=== PATIENT | male | born 1955 | race Caucasian/White ===

== ENCOUNTER 2020-07-07 11:04 | Inpatient (IN) | payer MEDICARE, SELFPAY ==
--- NOTE | ~2020-07-07 | US_ITS ---
EXAMINATION: US art doppler w press LE BI DATE: 07/08/2020 10:31 INDICATION: Nonhealing diabetic foot wound TECHNIQUE: Segmental pressures and plethysmographic and Doppler waveforms of the brachial and lower e xtremity arteries were obtained. COMPARISON: None. FINDINGS: Right and left brachial artery pressures of 125 mm Hg and 127 mm Hg, respectively, are concordant (no rmal difference <= 30 mmHg). The right and left high-thigh pressure indices are 0.76 and 0.83, respec tively (normal > 1.2). The right ankle-brachial index (GRACE) is 0.62 (normal >= 0.9-1). The right great toe-brachial index (T BI) is 0.38 (normal >= 0.6-0.8). The right lower extremity segmental pressure gradients are normal (n ormal gradients <= 20-30 mmHg between adjacent levels on the same leg or the same levels on the two l egs). Arterial waveforms are biphasic throughout with brisk systolic upstrokes at the right common fe moral and superficial femoral arteries with progressive broadening of the systolic peaks and delayed upstrokes in the more distal arteries with near monophasic waveform in the right dorsalis pedis arter y. The left GRACE is 0.74. The left TBI is 0.50. The left lower extremity segmental pressure gradients are normal. Arterial waveforms are triphasic at the left common femoral artery and biphasic in the more distal arteries with borderline delayed systolic upstroke at the left popliteal artery and with brisk systolic upstrokes in the remaining arteries. IMPRESSION: 1. Arterial occlusive disease to both lower limbs with moderately decreased bilateral high thigh brac hial indices, ankle-brachial indices and toe brachial indices. Reviewed, dictated and finalized at location A. L RIGGER IMPRESSION: 1. Arterial occlusive disease to both lower limbs with moderately decreased hardeep ateral high thigh brachial indices, ankle-brachial indices and toe brachial ind ices.
--- NOTE | ~2020-07-07 | XR_ITS ---
XR toe 5th RT min 2V DATE: 07/07/2020 11:57 INDICATION: Infection. Diabetes. TECHNIQUE: 3 views of right fifth toe COMPARISON: None FINDINGS: Proximal and distal interphalangeal joint spaces are preserved. No fracture or dislocation is evident. No periosteal reaction or apparent bone destruction is noted. Three-phase radiographic bone scan would be more sensitive for detection of osteomyelitis. There is hypertrophic degenerative spurring of the tarsal joints. IMPRESSION: No radiographic evidence of osteomyelitis; three-phase radionuclide bone scan would be mo re sensitive. Reviewed, dictated and finalized at location A. NG SUPERVISOR IMPRESSION: No radiographic evidence of osteomyelitis; three-phase radionuclide bone scan would be more sensitive.
[2020-07-07 11:09] VITALS: BP 147/89; PULSE 104; RESP 14; TEMP 36.6; O2SAT 99
[2020-07-07 11:17] LABS: Glucose Point of Care 147 (65-105)
[2020-07-07 11:29] LABS: Basophils Percent Auto 0.4 % (0.2-1.2); Eosinophils Absolute Auto 0.2 K/mm3 (0-0.3); Eosinophils Percent Auto 2.1 % (0-4.4); Hemoglobin 14.8 g/dL (14.0-18.0); Immature Granulocyte Absolute 0.02 K/mm3 (0.00-0.031); Immature Granulocyte Percent A 0.2 % (0-0.5); Lymphocytes Absolute Auto 1.18 K/mm3 (0.9-3.2); Lymphocytes Percent Auto 14.7 % (18.3-44.2); Mean Corpuscular HGB Conc 34.4 g/dl (32-36); Mean Corpuscular Hemoglobin 31.1 pg (26-34); Mean Corpuscular Volume 90.3 fl (80-100); Mean Platelet Volume 10.6 fl (7.4-10.4); Monocytes Absolute Auto 0.7 K/mm3 (0.1-0.6); Monocytes Percent Auto 8.7 % (2.6-8.5); Neutrophils Absolute Auto 5.9 K/mm3 (1.3-6.7); Neutrophils Percent Auto 73.9 % (45.5-73.1); Platelet Count Result 182 k/mm3 (150-375); Red Blood Count 4.76 M/mm3 (4.6-6.20); Red Cell Distribution Width 13.4 % (11.5-14.5)
[2020-07-07 11:46] LABS: Lactic Acid Reflex 2.2 mmol/L (0.7-2.1)
[2020-07-07 11:50] LABS: Anion Gap 8 mmol/L (8-16); Blood Urea Nitrogen 14 mg/dL (9-20); CRP 2.1 mg/dL (<1.0); Carbon Dioxide 28 mmol/L (22-30); Chloride 101 mmol/L (98-107); Estimated CRCL calculation 80 ml/min; Estimated Glomerular Filt Rate > 60; Glucose 185 mg/dL (75-110); Potassium 4.7 mmol/L (3.4-5.0); Sodium 137 mmol/L (137-145)
--- NOTE | 2020-07-07 12:01 | ED.GENADULT ---
HPI - General Adult General Chief complaint: Wound/Laceration Stated complaint: right foot wound Time Seen by Provider: 07/07/20 11:14 Source: patient Mode of arrival: ambulatory Limitations: no limitations History of Present Illness HPI narrative: Patient is a 64-year-old male who presents with a week and a half duration of right pinky toe redness and wound patient has been on antibiotics during this period with no improvement was instructed by primary care to come to the emergency department for further evaluation patient denies any injury or trauma or similar occurrence. Patient notes that it may have been preceded by cutting his toenail and developing a small wound which has increased in size. Patient notes minimal pain. Patient denies fever chills nausea vomiting or other complaints. Related Data Home Medications Medication Instructions Recorded Confirmed dulaglutide [Trulicity] 1.5 mg SUBCUT WEEKLY 07/07/20 gabapentin 300 mg PO TID 07/07/20 07/07/20 glimepiride 2 mg PO DAILY 07/07/20 lisinopril 2.5 mg PO DAILY 07/07/20 pravastatin 10 mg PO HS 07/07/20 Allergies Allergy/AdvReac Type Severity Reaction Status Date / Time No Known Allergies Allergy Verified 07/07/20 11:15 Review of Systems Review of Systems: All systems reviewed & are unremarkable except as noted in HPI and below PMFSH Past Medical History Medical History (Updated 07/07/20 @ 14:05 by Anselmo Perera PA-C) Diabetes mellitus Hypertension Social History Social History (Updated 07/07/20 @ 12:02 by Anselmo Perera PA-C) Smoking status: Current every day smoker Exam Narrative: Exam Narrative: GENERAL: Well-appearing, well-nourished, and in no acute distress. HEAD: Normocephalic, atraumatic. EYES: PERRLA and EOMI. ENT: Nares clear, no rhinorrhea or epistaxis. Mucous membranes moist. CHEST: Clear to auscultation. No respiratory distress. No wheezes rales or rhonchi HEART: Regular rate and rhythm. No murmur heard. Normal peripheral pulses. EXTREMITIES: Normal range of motion. No edema. Patient with red tender pinky toe with discolored dark area involving the medial aspect extending into the anterior portion of the digit distally around the nail no drainage no fluctuance. Lymphangitic streaking to the midfoot SKIN: Warm, dry, no rash. NEURO: No focal deficits. Alert and oriented x3. Neurovascularly intact PSYCH: Normal mood and affect. Course Course Emergency Course: Patient evaluated in the emergency department for a cellulitic right pinky toe with lymphangitic streaking has been present for a week and a half not improving with antibiotics will be brought into the hospital for further evaluation by the hospitalist and general surgery patient's antibiotics were started in the emergency department patient agrees with this plan Consultations Consultation #1: Discussed case with Dr. Curiel who will accept the patient to the hospitalist service Discussed case with general surgery Dr. Barbour who will consult on the patient Date: 07/07/20 Time: 14:03 Vital Signs Vital signs: Vital Signs Temperature 97.8 F 07/07/20 11:09 Pulse Rate 104 H 07/07/20 11:09 Respiratory Rate 14 07/07/20 11:09 Blood Pressure 147/89 H 07/07/20 11:09 Pulse Oximetry 99 07/07/20 11:09 Temperature 97.8 F 07/07/20 11:09 Pulse Rate 82 07/07/20 13:57 Respiratory Rate 14 07/07/20 13:57 Blood Pressure 132/81 07/07/20 13:57 Pulse Oximetry 97 07/07/20 13:57 Medical Decision Making [facility] Narrative Medical decision making narrative: Patient with diabetic cellulitic toe antibiotics initiated in the emergency department will be brought into the hospital for further evaluation patient with normal vital signs hemodynamically stable ABCs intact agreeing with the plan afebrile nontoxic-appearing no distress Vital Signs Vital Signs: Vital Signs Temperature 97.8 F 07/07/20 11:09 Pulse Rate 104 H 07/07/20 11:09 Respiratory Rate 14
[2020-07-07 12:02] LABS: Erythrocyte Sedimentation Rate 27 mm/hr (0-20)
[2020-07-07 13:57] VITALS: BP 132/81; PULSE 82; RESP 14; O2SAT 97
[2020-07-07 14:27] LABS: Reflex Lactic Acid Yes or No Add Lactic
[2020-07-07 14:57] VITALS: BP 128/70; PULSE 80; RESP 12; O2SAT 99
--- NOTE | 2020-07-07 15:00 | PM.IMHP ---
H&P: HPI History of Present Illness Date/Time: 07/07/20 15:00 Chief Complaint: Right 5th toe wound/infection Narrative: Thanh Herrera is a 64-year-old male with type 2 diabetes mellitus with peripheral neuropathy, hypertension, and hyperlipidemia presented to the emergency department earlier today for evaluation of an infected wound on his right 5th toe. The toe has been red and swollen for about a week and a half after he accidentally cut himself trimming his toenails. Despite oral antibiotics it has not improved and in fact part of the wound has become darkened discolored. He had not had pain up until about 03:00 when it began to ache and woke him from sleep. No history of MRSA. He denies fever, chills, sweats. No nausea or vomiting. Review of Systems Review of Systems: Narrative: Twelve systems were reviewed with pertinent positives and negatives as per HPI. No recent cold or flu symptoms. No cough or shortness of breath. He denies blurry vision, polydipsia, and polyuria. It does not sound as though he checks his glucose daily. He believes his most recent hemoglobin A1c was 7%. Calves will occasionally become sore when walking long distances but no overt claudication. Except as documented, all other systems were reviewed and are negative. [facility] Past Medical History Medical History (Updated 07/07/20 @ 21:48 by Debbie Dutta PA-C) Diabetic peripheral neuropathy Hyperlipidemia Hypertension Nicotine dependence Type 2 diabetes mellitus Most recent hemoglobin A1c as of 07/07/2020 was 7%. Surgical History Surgical History (Updated 07/07/20 @ 21:48 by Debbie Dutta PA-C) History of cardiac catheterization Reported clear coronary arteries. History of ventral hernia repair Family History Family History Mother Breast cancer Father Throat cancer Social History Social History (Updated 07/07/20 @ 21:49 by Debbie Dutta PA-C) Social History: The patient lives in [place]. He still works part-time. Smokes approximately 1 pack of cigarettes per day. No alcohol or illicit substance use. Taylor is his surrogate decision maker and he wishes to be a full code. Smoking packs per day: 1 Smoking cigarettes per day: 20.0 Years smoked: 40 Smoking pack-years: 40.00 Alcohol intake: never Substance use: never Spiritual care concerns: No Meds Home Medications and Allergies Home Medications Medication Instructions Recorded Confirmed Type dulaglutide [Trulicity] 0.75 mg SUBCUT WEEKLY 07/07/20 07/07/20 History dulaglutide [Trulicity] 1.5 mg SUBCUT WEEKLY 07/07/20 07/07/20 History gabapentin 300 mg PO TID 07/07/20 07/07/20 History glimepiride 2 mg PO BID 07/07/20 07/07/20 History lisinopril 2.5 mg PO DAILY 07/07/20 07/07/20 History pravastatin 10 mg PO HS 07/07/20 07/07/20 History Allergies Allergy/AdvReac Type Severity Reaction Status Date / Time No Known Allergies Allergy Verified 07/07/20 11:15 Vital Signs Vital Signs - 24 hr 07/07/20 11:09 07/07/20 13:57 Temperature 97.8 F Pulse Rate 104 H 82 Respiratory Rate 14 14 Blood Pressure 147/89 H 132/81 Pulse Oximetry 99 97 Exam Narrative: Exam Narrative: General: Well-developed male supine in bed in no distress. Weight: 89.7 kg. BMI: 29.2. HEENT: Wearing glasses. PERRL, EOMI. Sclerae anicteric. Oral mucosa moist. Neck: Supple. Respiratory: Lungs are clear to auscultation bilaterally. Cardiovascular: Regular rate and rhythm with S1-S2. Gastrointestinal: Abdomen is soft, nontender, and nondistended with positive bowel sounds. Skin: Warm and dry. Right 5th toe with surrounding erythema and edema extending up to the dorsum of the forefoot. The medial aspect of the wound is discolored with nonviable tissue. Extremities: No cyanosis, clubbing, or significant edema. Radial pulses 2+. Pedal pulses diminished but palpable. Extremities
[2020-07-07 15:15] VITALS: BP 130/80; PULSE 88; RESP 14; TEMP 36.6; O2SAT 100
[2020-07-07] MEDS: SILVERGEL (ELTA) 45 ML 1 APPLIC TOPICAL (15:30)
[2020-07-07] MEDS: LACTATED RINGERS 1,000 ML 75 ML IV CONT (15:35)
[2020-07-07 15:45] VITALS: BMI 29.2
[2020-07-07 15:50] VITALS: PULSE 88; RESP 14; O2SAT 100
[2020-07-07 15:59] LABS: Hemoglobin A1C 7.1 % (<5.7)
[2020-07-07 16:03] LABS: Lactic Acid 1.3 mmol/L (0.7-2.1)
[2020-07-07 16:16] LABS: Alanine Aminotransferase 19 U/L (4-50); Albumin Level 3.8 g/dL (3.5-5.1); Alkaline Phosphatase 72 U/L (38-126); Aspartate Amino Transferase 19 U/L (17-59); Bilirubin,Total 0.7 mg/dL (0.2-1.3)
[2020-07-07 16:50] LABS: Glucose Point of Care 103 (65-105)
[2020-07-07 20:00] VITALS: BP 118/73; PULSE 84; RESP 16; TEMP 36.5; O2SAT 97
[2020-07-07 22:04] LABS: Glucose Point of Care 160 (65-105)
[2020-07-08 00:04] VITALS: BP 128/85; PULSE 88; RESP 16; TEMP 36.5; O2SAT 98
[2020-07-08] MEDS: NICOTINE (*PBKC) 21 MG PATCH 1 PATCH TRANSDERM ×2 (02:42→08:16)
[2020-07-08 04:00] VITALS: BP 121/77; PULSE 89; RESP 16; TEMP 36.9; O2SAT 97
[2020-07-08 06:39] LABS: Basophils Percent Auto 0.3 % (0.2-1.2); Eosinophils Absolute Auto 0.2 K/mm3 (0-0.3); Eosinophils Percent Auto 2.1 % (0-4.4); Hematocrit 39.6 % (42.0-52.0); Hemoglobin 13.4 g/dL (14.0-18.0); Immature Granulocyte Absolute 0.02 K/mm3 (0.00-0.031); Immature Granulocyte Percent A 0.3 % (0-0.5); Lymphocytes Absolute Auto 1.29 K/mm3 (0.9-3.2); Lymphocytes Percent Auto 18.4 % (18.3-44.2); Mean Corpuscular HGB Conc 33.8 g/dl (32-36); Mean Corpuscular Hemoglobin 30.7 pg (26-34); Mean Corpuscular Volume 90.6 fl (80-100); Mean Platelet Volume 10.8 fl (7.4-10.4); Monocytes Absolute Auto 0.7 K/mm3 (0.1-0.6); Monocytes Percent Auto 9.3 % (2.6-8.5); Neutrophils Absolute Auto 4.9 K/mm3 (1.3-6.7); Neutrophils Percent Auto 69.6 % (45.5-73.1); Platelet Count Result 178 k/mm3 (150-375); Red Blood Count 4.37 M/mm3 (4.6-6.20); Red Cell Distribution Width 13.3 % (11.5-14.5)
[2020-07-08 06:52] LABS: Anion Gap 4 mmol/L (8-16); Blood Urea Nitrogen 13 mg/dL (9-20); Calcium 8.9 mg/dL (8.4-10.2); Carbon Dioxide 32 mmol/L (22-30); Chloride 99 mmol/L (98-107); Estimated CRCL calculation 80 ml/min; Estimated Glomerular Filt Rate > 60; Glucose 107 mg/dL (75-110); Potassium 4.3 mmol/L (3.4-5.0); Sodium 135 mmol/L (137-145)
[2020-07-08 07:42] LABS: Glucose Point of Care 125 (65-105)
[2020-07-08 08:00] VITALS: BP 117/74; PULSE 92; RESP 14; O2SAT 98
[2020-07-08] MEDS: GABAPENTIN 300 MG CAPSULE PO ×3 (08:16→17:19)
[2020-07-08] MEDS: lisinopriL 2.5 MG TABLET PO (08:16)
[2020-07-08] MEDS: GLIMEPIRIDE 2 MG TABLET PO ×2 (08:16→17:19)
[2020-07-08] MEDS: SILVERGEL (ELTA) 45 ML 1 APPLIC TOPICAL (08:41)
[2020-07-08 11:36] LABS: Glucose Point of Care 134 (65-105)
[2020-07-08 12:00] VITALS: BP 113/75; PULSE 89; RESP 15; TEMP 36.6; O2SAT 97
--- NOTE | 2020-07-08 12:58 | PM.CNGS ---
Assessment and Plan Assessment and plan (1) Cellulitis of fifth toe of right foot: Code(s): L03.031 - Cellulitis of right toe Status: Acute Assessment and Plan: Cellulitis of the right 5th toe with a dry eschar over the distal tip that does probe to bone. No purulent drainage. Preliminary results of the wound culture show growth of gram positive cocci. No evidence of osteomyelitis on x-ray. ABIs showed arterial occlusive disease to both lower limbs, worse on the right. No plans for surgical intervention by our services at this time due to his peripheral arterial disease. This patient needs to be evaluated by a vascular surgeon to see if they are able to improve his arterial flow. In the meantime, continue local wound care with silver gel and gauze dressing changes daily. Abx per Hospitalist. Okay from a surgical standpoint to discharge this patient when okay with other services and have him follow-up with vascular surgery as soon as possible as an outpatient. Thank you for allowing us to see the patient in consultation. (2) Type 2 diabetes mellitus: Code(s): E11.9 - Type 2 diabetes mellitus without complications Status: Chronic Assessment and Plan: Followed by Endocrinology. Hgb A1C 7.1 and glucose controlled this morning (107). Management per Hospitalist. I discussed the importance of glycemic control with the patient. (3) Diabetic peripheral neuropathy: Code(s): E11.42 - Type 2 diabetes mellitus with diabetic polyneuropathy Status: Acute (4) Hypertension: Code(s): I10 - Essential (primary) hypertension Status: Chronic (5) Hyperlipidemia: Code(s): E78.5 - Hyperlipidemia, unspecified Status: Chronic (6) Nicotine dependence: Code(s): F17.200 - Nicotine dependence, unspecified, uncomplicated Status: Acute Assessment and Plan: Encouraged cessation, discussed importance. (7) Peripheral arterial disease: Code(s): I73.9 - Peripheral vascular disease, unspecified Status: Acute Additional Plan Discussed the patient's case and plan of care with Dr. Barbour. History of Present Illness Consult details Consult date: 07/08/20 Reason for consult: other (Right 5th toe diabetic wound) Requesting physician: Anselmo Perera PA-C Narrative: This is a 64-year-old male with type 2 diabetes mellitus, hypertension, and tobacco dependence, who presented to the emergency department with complaints of right 5th toe wound with redness. He states that he was clipping his toenails about 1.5 weeks ago and clipped the right 5th toe too short and it began bleeding. About 2-3 days after, he noticed a black discoloration to the tip of his 5th toe with swelling and redness. He called his Maintenance Trainer and they directed him to be evaluated by his PCP. He saw his PCP 8 days ago, who started him on oral antibiotics and follow-up again in one week. He was re-evaluated yesterday by his PCP and he states that because of some red streaking up his right foot, he was directed to the ER for further evaluation. Right toe x-ray showed no radiographic evidence of osteomyelitis. WBC normal and patient afebrile. He was started on broad-spectrum IV antibiotics and admitted to the Hospitalist service. Wound culture of the right 5th toe wound was performed and preliminary results currently show growth of gram positive cocci. Blood cultures were drawn also and are pending. Our service has been consulted for evaluation of the diabetic foot wound on his right 5th toe. ABIs were ordered today and showed arterial occlusive disease to both lower limbs with moderately decreased bilateral high thigh brachial indices, ankle-brachial indices and toe brachial indices. The patient is now being seen in the chest pain center as an overflow medical patient. He denies any pain in his right foot and reports decreased sensation in bilateral feet. He denies any history of foot infections or surgery on his feet.
--- NOTE | 2020-07-08 14:28 | PM.IMPN ---
Progress Note: A&P Assessment and Plan (1) Cellulitis of fifth toe of right foot: Code(s): L03.031 - Cellulitis of right toe Status: Acute Assessment and Plan: Continue iv primaxin and iv vancomycin , bc negative to date, seen by surgery, dressing on, wcc nl, hopeful dc tomorrow with follow up (2) Type 2 diabetes mellitus: Code(s): E11.9 - Type 2 diabetes mellitus without complications Status: Chronic Assessment and Plan: accuchecks ssi hbaic is 7 (3) Diabetic peripheral neuropathy: Code(s): E11.42 - Type 2 diabetes mellitus with diabetic polyneuropathy Status: Acute (4) Hypertension: Code(s): I10 - Essential (primary) hypertension Status: Chronic Assessment and Plan: on bp medications (5) Hyperlipidemia: Code(s): E78.5 - Hyperlipidemia, unspecified Status: Chronic (6) Nicotine dependence: Code(s): F17.200 - Nicotine dependence, unspecified, uncomplicated Status: Acute Assessment and Plan: on nicotine patch (7) Elevated lactic acid level: Code(s): R79.89 - Other specified abnormal findings of blood chemistry Status: Acute Subjective Date/time seen: 07/08/20 14:28 Interval history: Javier is a 64-year-old male with type 2 diabetes mellitus with peripheral neuropathy, hypertension, and hyperlipidemia presented to the emergency department earlier today for evaluation of an infected wound on his right 5th toe. Seen by surgery BC negative to date would like to go home, maybe tomorrow. Review of Systems Review of Systems: All systems reviewed & are unremarkable except as noted in HPI and below Exam Narrative: Exam Narrative: General: Well-developed male supine HEENT: PERRL, EOMI. . Neck: Supple. Respiratory: Lungs are clear to auscultation bilaterally. Cardiovascular: Regular rate and rhythm with S1-S2. Gastrointestinal: Abdomen is soft, nontender, and nondistended with positive bowel sounds. Skin: Warm and dry. Right 5th toe with dressing on Extremities: No cyanosis, clubbing, or significant edema. Neurological: Alert. Cranial nerves 2-12 are grossly intact. No gross focal deficits to casual conversation. Psychiatric: Pleasant and cooperative with normal mood and affect. Judgment and insight intact. Objective Data Vital Signs Vital Signs: Vital Signs - 24 hr 07/07/20 14:57 07/07/20 15:15 07/07/20 15:50 Temperature 36.6 C Pulse Rate 80 88 88 Respiratory Rate 12 14 14 Blood Pressure 128/70 130/80 Pulse Oximetry 99 100 100 07/07/20 20:00 07/08/20 00:04 07/08/20 04:00 Temperature 36.5 C 36.5 C 36.9 C Pulse Rate 84 88 89 Respiratory Rate 16 16 16 Blood Pressure 118/73 128/85 121/77 Pulse Oximetry 97 98 97 07/08/20 08:00 07/08/20 12:00 Temperature 36.6 C Pulse Rate 92 89 Respiratory Rate 14 15 Blood Pressure 117/74 113/75 Pulse Oximetry 98 97 Intake/Output Intake/Output: Intake & Output 07/05/20 07/06/20 07/07/20 07/08/20 23:59 23:59 23:59 23:59 Intake Total 1205 1400 Balance 1205 1400 Meds/Results Medications: Active Medications Generic Name Dose Route Start Last Admin Trade Name Freq PRN Reason Stop Dose Admin Acetaminophen 650 mg 07/07/20 15:15 Acetaminophen 325 Mg Tablet PO Q6H PRN Mild Pain (1-3) or Fever Dextrose 12.5 gm 07/07/20 14:06 Dextrose 50% 25 Gm/50 Ml Syringe IV PUSH PRN PRN Hypoglycemia Protocol Gabapentin 300 mg 07/08/20 09:00 07/08/20 12:23 Gabapentin 300 Mg Capsule PO 300 mg TID YENNY Administration Glimepiride 2 mg 07/08/20 08:00 07/08/20 08:16 Glimepiride 2 Mg Tablet PO 2 mg BIDWM YENNY Administration Glucagon 1 mg 07/07/20 14:06 Glucagon For Inj 1 Mg Vial IM PRN PRN Hypoglycemia Protocol Glucose 15 gm 07/07/20 14:06 Glucose Oral Gel 15 Gm Of Glucse In 37.5 Gm Tube PO PRN PRN Hypoglycemia Protocol Imipenem
[2020-07-08 16:00] VITALS: BP 102/69; PULSE 84; RESP 15; O2SAT 98
[2020-07-08 16:20] LABS: Glucose Point of Care 125 (65-105)
[2020-07-08 20:00] VITALS: BP 122/74; PULSE 99; RESP 18; TEMP 36.2; O2SAT 100
[2020-07-08] MEDS: PRAVASTATIN SODIUM 10 MG TABLET PO (20:13)
[2020-07-08 21:32] LABS: Glucose Point of Care 173 (65-105)
[2020-07-09] VITALS: BP 117/70; PULSE 86; RESP 20; TEMP 36.2; O2SAT 98
[2020-07-09 01:04] LABS: Vancomycin Trough 11.4 ug/mL (10.0-20.0)
[2020-07-09 04:00] VITALS: BP 128/75; PULSE 88; RESP 20; TEMP 36.4; O2SAT 97
[2020-07-09 07:57] VITALS: BP 110/65; PULSE 87; RESP 14; TEMP 37.2; O2SAT 98
[2020-07-09 08:06] LABS: Glucose Point of Care 132 (65-105)
[2020-07-09] MEDS: lisinopriL 2.5 MG TABLET PO (09:59)
[2020-07-09] MEDS: GLIMEPIRIDE 2 MG TABLET PO (09:59)
[2020-07-09] MEDS: NICOTINE (*PBKC) 21 MG PATCH 1 PATCH TRANSDERM (09:59)
[2020-07-09] MEDS: GABAPENTIN 300 MG CAPSULE PO (09:59)
[2020-07-09] MEDS: SILVERGEL (ELTA) 45 ML 1 APPLIC TOPICAL (10:02)
[2020-07-09 11:25] LABS: Glucose Point of Care 163 (65-105)
[2020-07-09 12:00] VITALS: BP 124/82; PULSE 92; RESP 17; TEMP 36.9; O2SAT 98
--- NOTE | 2020-07-09 13:45 | PM.DS ---
DS: Admitting Diagnosis Admitting Diagnosis Admitting Diagnosis: R fifth toe infection DS: Discharge Diagnosis Discharge Diagnosis (1) Cellulitis of fifth toe of right foot: Code(s): L03.031 - Cellulitis of right toe Status: Acute Assessment and Plan: Pt treated with iv primaxin and iv vancomycin , bc negative to date, seen by surgery pt to continue local wound care and oral abx, dressing on, wcc nl, discharge with dixocillin and wound clinic follow up. Pt may benefit from vascular surgery apt later. (2) Type 2 diabetes mellitus: Code(s): E11.9 - Type 2 diabetes mellitus without complications Status: Chronic Assessment and Plan: accuchecks ssi hbaic is 7, control with tight control (3) Diabetic peripheral neuropathy: Code(s): E11.42 - Type 2 diabetes mellitus with diabetic polyneuropathy Status: Acute Assessment and Plan: continue gabapentin (4) Hypertension: Code(s): I10 - Essential (primary) hypertension Status: Chronic Assessment and Plan: continue on bp medications (5) Hyperlipidemia: Code(s): E78.5 - Hyperlipidemia, unspecified Status: Chronic Assessment and Plan: continue statins (6) Nicotine dependence: Code(s): F17.200 - Nicotine dependence, unspecified, uncomplicated Status: Acute Assessment and Plan: on nicotine patch, adviced to quit smoking. (7) Elevated lactic acid level: Code(s): R79.89 - Other specified abnormal findings of blood chemistry Status: Acute DS: Summary Hospital Course Hospital Course: Javier is a 64-year-old male with type 2 diabetes mellitus with peripheral neuropathy, hypertension, and hyperlipidemia presented to the emergency department earlier today for evaluation of an infected wound on his right 5th toe. Seen by surgery advised to continue local wound care and oral abx for now. Blood culture is negative to date would like to go home today with follow up in wound care. He may benefit from vascular clinic apt later Time Spent with Patient Time attestation: Total time spent providing and/or coordinating discharge services: Exam Narrative: Exam Narrative: General: Well-developed male supine Neck: Supple. Respiratory: Lungs are clear to auscultation bilaterally. Cardiovascular: Regular rate and rhythm with S1-S2. Gastrointestinal: Abdomen is soft, nontender, and nondistended with positive bowel sounds. Skin: Warm and dry. Right 5th toe with dressing on Extremities: No cyanosis, clubbing, or significant edema. Neurological: Alert. Cranial nerves 2-12 are grossly intact. No gross focal deficits to casual conversation. Psychiatric: Pleasant and cooperative with normal mood and affect. Judgment and insight intact. DS: Data Data Completed and Pending Labs on day of discharge: Labs from last 24 hours 07/09/20 07/09/20 07/09/20 11:23 07:32 00:11 POC Capillary Glucose 163 H 132 H Vancomycin Trough 11.4 07/08/20 07/08/20 21:11 16:14 POC Capillary Glucose 173 H 125 H Vancomycin Trough Preliminary micro results at discharge 07/07/20 11:30 Anaerobic Culture - Preliminary Toe Right Fifth Aerobic Culture - Preliminary Staphylococcus aureus Gram negative bacilli isolated 07/07/20 12:10 Blood Culture - Preliminary Blood 07/07/20 11:17 Blood Culture - Preliminary Blood Discharge Plan Discharge Attending physician on discharge: Jaclyn Correa Consulting providers: Gwendolyn Barbour ; Anselmo Perera ; Melanie Mata ; Edson Hernandez ; Thanh King Discharging Clinician: Jaclyn Correa Anticipated Discharge Date/Time: 07/09/20 13:39 Patient Disposition: Home, Self-Care Activity: as tolerated Diet: diabetic Wound Care Instructions: change dressing daily Discharge Instructions: ADVISED TO QUIT SMOKING WOUND CARE TEAM FOLLOW UP IN 2 weeks time Patient Instru
--- NOTE | 2020-07-09 14:37 | PC.NURSE ---
1430-pt taken via wheelchair to waiting vehicle. Questions answered and verbalized understanding. AOx4. PIV removed intact. Right pinky toe much less red and painful. Taken via wheelchair to waiting vehicle. No distress noted or verbalized at time of discharge.
== END 2020-07-09 14:25 | disposition home or self-care (01) | DRG 639 ==
LOC: ANHED 14:05 → ANHCPC 14:27
PROVIDERS: Emergency Medicine Emergency Medical Services; Family Medicine; Admitting Provider Internal Medicine; Emergency Provider Emergency Medicine; PCP Family Medicine Sports Medicine; Visit Provider Physician Assistant
DX: E11.628 Type 2 diabetes mellitus with other skin complications (principal); L03.031 Cellulitis of right toe; I10 Essential (primary) hypertension; E78.5 Hyperlipidemia, unspecified; F17.210 Nicotine dependence, cigarettes, uncomplicated; E11.42 Type 2 diabetes mellitus with diabetic polyneuropathy
CPT/HCPCS: 36415; 73660; 80048; 80076; 80202; 82948; 83036; 83605; 85025; 85652; 86140; 87040; 87070; 87075; 87077; 87147; 87186; 87205; 93923; 96365; 96367; 99285; A9270; J0743; J3370; J7040; J7120

== ENCOUNTER 2020-07-11 12:02 | Emergency (ER) | payer MEDICARE, SELFPAY ==
[2020-07-11 12:05] VITALS: BP 135/78; PULSE 108; RESP 18; TEMP 36.6; O2SAT 98
--- NOTE | 2020-07-11 13:40 | PC.NURSE ---
patient brought back to ED room H3 for wound check. see initial notes. patient resting on stretcher. was just discharged from this hospital on 07/09/20 for same issue. noted increasing redness and change in drainage from right 5th metatarsal last night. denies known fever. has been set up with C and wound care already. has seen patient. labs ordered.
--- NOTE | 2020-07-11 13:48 | ED.GENADULT ---
HPI - General Adult General Chief complaint: Extremity Problem,Nontraumatic Stated complaint: redness,pain rt foot Time Seen by Provider: 07/11/20 13:26 History of Present Illness HPI narrative: Patient is a 64-year-old male who presents to the ER with concerns for possible infection so right foot. Recently hospitalized for diabetic foot wound. He grew out staph and Pseudomonas both sensitive to penicillin so he was started on dicloxacillin. No new fevers or chills or sweats. Had some mild redness over the dorsum of his foot upon wound check today so opted to come in to be reevaluated. No increased pain. Has follow-up with podiatry in a few days. Related Data Home Medications Medication Instructions Recorded Confirmed Trulicity 0.75 mg SUBCUT WEEKLY 07/07/20 07/07/20 Trulicity 1.5 mg SUBCUT WEEKLY 07/07/20 07/07/20 gabapentin 300 mg PO TID 07/07/20 07/07/20 glimepiride 2 mg PO BID 07/07/20 07/07/20 lisinopril 2.5 mg PO DAILY 07/07/20 07/07/20 pravastatin 10 mg PO HS 07/07/20 07/07/20 Allergies Allergy/AdvReac Type Severity Reaction Status Date / Time No Known Allergies Allergy Verified 07/11/20 12:09 Review of Systems Review of Systems: All systems reviewed & are unremarkable except as noted in HPI and below Constitutional: Constitutional: Denies chills, Denies fever(s) and Denies weakness ENT: Denies nasal congestion and Denies sore throat Musculoskeletal: Musculoskeletal: Denies arthralgias and Denies joint swelling Integumentary/Breasts: Skin/Breast: Reports erythema and Reports skin ulcer (Right fifth digit) [facility] Past Medical History Medical History (Updated 07/11/20 @ 14:46 by Desean Moore MD) Diabetic peripheral neuropathy Hyperlipidemia Hypertension Nicotine dependence Type 2 diabetes mellitus Most recent hemoglobin A1c as of 07/07/2020 was 7%. Surgical History Surgical History History of cardiac catheterization Reported clear coronary arteries. History of ventral hernia repair Laparoscopic umbilical hernia repair Family History Family History Mother Breast cancer Father Throat cancer Social History Social History Social History: The patient lives in [place]. He still works part-time. Smokes approximately 1 pack of cigarettes per day. No alcohol or illicit substance use. Taylor is his surrogate decision maker and he wishes to be a full code. Smoking packs per day: 1 Smoking cigarettes per day: 20.0 Years smoked: 40 Smoking pack-years: 40.00 Alcohol intake: never Substance use: never Gender identity (if verbalized by the patient): Male Spiritual care concerns: No Exam Narrative: Exam Narrative: GENERAL: Well-appearing, well-nourished, and in no acute distress. HEAD: Normocephalic, atraumatic. ENT: Mucous membranes moist. EXTREMITIES: Normal range of motion. No edema. Black eschar right medial aspect of the fifth toe. Mild redness over the dorsum of the extending into the toe that is nontender nonblanching. No petechiae. SKIN: Warm, dry, no rash. NEURO: Alert and oriented x3. PSYCH: Normal mood and affect. Course Course Emergency Course: Labs unremarkable. Wound appears to be healing without issue. Continue antibiotics at home. Vital Signs Vital signs: Vital Signs Temperature 97.9 F 07/11/20 12:05 Pulse Rate 108 H 07/11/20 12:05 Respiratory Rate 18 07/11/20 12:05 Blood Pressure 135/78 07/11/20 12:05 Pulse Oximetry 98 07/11/20 12:05 Temperature 97.9 F 07/11/20 12:05 Pulse Rate 108 H 07/11/20 12:05 Respiratory Rate 18 07/11/20 12:05 Blood Pressure 135/78 07/11/20 12:05 Pulse Oximetry 98 07/11/20 12:05 Medical Decision Making Vital Signs Vital Signs: Vital Signs Temperature 97.9 F 07/11/20 12:05 Pulse Rate 108 H 07/11
[2020-07-11 14:02] LABS: Basophils Percent Auto 0.4 % (0.2-1.2); Eosinophils Absolute Auto 0.1 K/mm3 (0-0.3); Eosinophils Percent Auto 1.8 % (0-4.4); Hematocrit 46.8 % (42.0-52.0); Immature Granulocyte Absolute 0.03 K/mm3 (0.00-0.031); Immature Granulocyte Percent A 0.4 % (0-0.5); Lymphocytes Absolute Auto 0.62 K/mm3 (0.9-3.2); Lymphocytes Percent Auto 8.6 % (18.3-44.2); Mean Corpuscular HGB Conc 34.2 g/dl (32-36); Mean Corpuscular Hemoglobin 30.8 pg (26-34); Mean Corpuscular Volume 90.2 fl (80-100); Mean Platelet Volume 10.9 fl (7.4-10.4); Monocytes Absolute Auto 0.7 K/mm3 (0.1-0.6); Monocytes Percent Auto 9.5 % (2.6-8.5); Neutrophils Absolute Auto 5.7 K/mm3 (1.3-6.7); Neutrophils Percent Auto 79.3 % (45.5-73.1); Platelet Count Result 186 k/mm3 (150-375); Red Blood Count 5.19 M/mm3 (4.6-6.20); Red Cell Distribution Width 13.2 % (11.5-14.5); White Blood Count 7.2 K/mm3 (4.5-10.0)
[2020-07-11 14:13] LABS: Anion Gap 8 mmol/L (8-16); Blood Urea Nitrogen 12 mg/dL (9-20); Calcium 9.6 mg/dL (8.4-10.2); Carbon Dioxide 30 mmol/L (22-30); Chloride 97 mmol/L (98-107); Estimated CRCL calculation 80 ml/min; Estimated Glomerular Filt Rate > 60; Glucose 165 mg/dL (75-110); Potassium 4.4 mmol/L (3.4-5.0); Sodium 135 mmol/L (137-145)
--- NOTE | 2020-07-11 14:28 | PC.NURSE ---
all tests resulted. waiting for further orders from provider vs disposition. resting on stretcher. in room.
[2020-07-11 14:53] VITALS: BP 142/98; PULSE 88; RESP 15; O2SAT 100
== END 2020-07-11 14:54 | disposition home or self-care (01) ==
PROVIDERS: Emergency Provider Emergency Medicine; PCP Family Medicine Sports Medicine
DX: L03.115 Cellulitis of right lower limb (principal); E11.42 Type 2 diabetes mellitus with diabetic polyneuropathy; E78.5 Hyperlipidemia, unspecified; I10 Essential (primary) hypertension; F17.210 Nicotine dependence, cigarettes, uncomplicated; Z79.84 Long term (current) use of oral hypoglycemic drugs; Z79.899 Other long term (current) drug therapy
CPT/HCPCS: 36415; 80048; 85025; 99283

== ENCOUNTER 2020-07-29 02:27 | Outpatient (CLI) | payer MEDICARE, SELFPAY ==
[2020-07-29 18:38] LABS: SARS-CoV-2 RNA PCR Negative
== END 2020-07-29 02:28 | disposition home or self-care (01) ==
LOC: ANHCOVIDDT 02:28
PROVIDERS: PCP Family Medicine Sports Medicine; Visit Provider Podiatrist Foot & Ankle Surgery
DX: Z01.812 Encounter for preprocedural laboratory examination (principal); Z20.822 Contact with and (suspected) exposure to COVID-19
CPT/HCPCS: C9803; U0003; U0005

== ENCOUNTER 2020-07-31 01:41 | Day surgery (SDC) | payer MEDICARE, SELFPAY ==
[2020-07-28 13:32] VITALS: BMI 28.0
[2020-07-31] MEDS: LACTATED RINGERS 1,000 ML 30 ML IV CONT (09:27)
[2020-07-31 09:38] LABS: Glucose Point of Care 154 (65-105)
[2020-07-31 09:42] VITALS: BP 139/83; PULSE 109; RESP 18; TEMP 36.6; O2SAT 100
--- NOTE | 2020-07-31 10:03 | WPDANESEPPF ---
Anes - Initial Pre Proc Eval Procedure: Operation Date: 07/31/20 11:00 Proposed Procedures p Amputation Fifth Digit Right Foot - Alexis Argueta JR, MD Date/Time: 07/31/20 10:03 Surgeon: Alexis Argueta JR, MD Pre Op Diagnosis: Right 5th Digit PVD w/ gangrene Patient Data Age: 64 Gender: M Height: 5 ft 9 in Weight: 86.2 kg Last Vital Signs Temp 97.8 F 07/31/20 09:42 Pulse 109 H 07/31/20 09:42 Resp 18 07/31/20 09:42 BP 139/83 07/31/20 09:42 Pulse Ox 100 07/31/20 09:42 Allergies Allergy/AdvReac Type Severity Reaction Status Date / Time No Known Allergies Allergy Verified 07/31/20 09:03 Home Medications Medication Instructions Recorded Confirmed Type Trulicity 1.5 mg SUBCUT WEEKLY 07/07/20 07/31/20 History gabapentin 300 mg PO TID 07/07/20 07/31/20 History lisinopril 2.5 mg PO DAILY 07/07/20 07/31/20 History nicotine [Nicoderm CQ] 1 patch TRANSDERMAL QAM #5 ea 07/09/20 07/31/20 Rx aspirin [Adult Low Dose Aspirin] 81 mg PO DAILY 07/28/20 07/31/20 History atorvastatin 40 mg PO QAM 07/28/20 07/31/20 History clindamycin HCl 300 mg PO BID 07/28/20 07/31/20 History clopidogrel 75 mg PO QAM 07/28/20 07/31/20 History lactobacillus combination no.4 3,000 mmu cells PO DAILY 07/28/20 07/31/20 History [Probiotic] Laboratory Tests 07/31/20 09:29 POC Capillary Glucose 154 mg/dl H mg/dl (65-105) Patient hx anesthesia problems: none Family hx anesthesia problems: none [facility] Past Medical History Medical History (Updated 07/12/20 @ 00:00 by Ariel Oliveros) Diabetic peripheral neuropathy Hyperlipidemia Hypertension Nicotine dependence Type 2 diabetes mellitus Most recent hemoglobin A1c as of 07/07/2020 was 7%. Surgical History Surgical History History of cardiac catheterization Reported clear coronary arteries. History of ventral hernia repair Laparoscopic umbilical hernia repair Family History Family History Mother Breast cancer Father Throat cancer Social History Social History Social History: The patient lives in [place]. He still works part-time. Smokes approximately 1 pack of cigarettes per day. No alcohol or illicit substance use. Taylor is his surrogate decision maker and he wishes to be a full code. Smoking packs per day: 1 Smoking cigarettes per day: 20.0 Years smoked: 40 Smoking pack-years: 40.00 Smoking status: Former smoker Tobacco type: cigarettes Smoking end date: 07/07/20 Alcohol intake: current Drinks per week: 2 Substance use: never Living arrangements: with family Gender identity (if verbalized by the patient): Male Spiritual care concerns: No Anes - Eval Final PreProcedure Day of Procedure 07/31/20 10:03 Patient weight: overweight Heart: regular rate and rhythm Lungs: clear to auscultation Airway: Mallampati scale class II Neurological: alert and oriented Last oral intake: >/= 8 hours ASA classification: III Emergent: no Anesthetic plan: proceed Anesthesia type and monitoring: general GIVS and standard monitoring Informed Consent: The patient's anesthetic plan and its attendant risks and benefits were discussed with the patient/family/POA. Questions were solicited and answers provided to the satisfaction of the patient/family/POA.
--- NOTE | 2020-07-31 10:07 | WPDHPUPDATE1 ---
History and Physical Update Update Date/Time: 07/31/20 10:07 History and Physical has been reviewed, including an updated exam of the patient. There are NO changes in the patient's condition. Risks, benefits, and alternatives have been discussed and questions answered. Patient agrees to proceed with procedure.
[2020-07-31] MEDS: ceFAZolin 2 GM/D5W 50 ML 2 GM/50 ML BAG IVPB (10:35)
[2020-07-31] MEDS: LIDOCAINE HCL 2% LOCAL INJ 20 ML VIAL INFILTRATE (11:07)
[2020-07-31] MEDS: BUPIVACAINE HCL 0.5% PF 30 ML VIAL INFILTRATE (11:07)
[2020-07-31 11:24] VITALS: BP 132/87; PULSE 93; RESP 20; O2SAT 97
[2020-07-31 11:40] LABS: Glucose Point of Care 144 (65-105)
--- NOTE | 2020-07-31 11:47 | PM.PROC ---
Procedure Note - Detailed Date of procedure: 07/31/20 Pre-op diagnosis: Right 5th Digit PVD w/ gangrene Post-op diagnosis: same Procedure performed: Amputation of the right 5th digit Anesthesia: MAC and local Surgeon: Alexis Argueta JR, DPM Estimated blood loss (mL): 1 Drains: No Packing: No Pathology: yes (5th digit sent for gross/histopathology) Complications: No immediate complications Condition: stable Disposition: same day Findings: Under mild sedation, the patient was brought to the operating room, placed on the operating table in the supine position. A pneumatic ankle tourniquet was placed about the patient's ankle. Following general anesthesia, I performed a proximal fifth metatarsal Lopes Block. The foot was then scrubbed, prepped, and draped in the usual aseptic manner. An Esmarch bandage was then used to examine the patient's foot and pneumatic ankle tourniquet was then inflated. Surgery began in the following manner. Attention was directed to the dorsal lateral aspect of the fifth metatarsal head of the foot where a racquet style incision was made about the base of the the fifth digit. The entire fifth digit was black necrotic and malodorous. The incision was continued deep down through the subcutaneous tissues using sharp and blunt dissection. All bleeders were cauterized as necessary. A full-length periosteal incision was made overlying the fifth metatarsal phalangeal joint, disarticulating the 5th digit. The 5th digit was removed from the operative site and placed on the back table and later sent for gross and histopathology. The remaining tissue was healthy and bleeding. The cartilage to the 5th metatarsal head was normal and healthy. The wound site was then flushed with copious amounts of sterile saline. Next, the subcutaneous structures overlying the 5th metatarsophalangeal joints were reapproximated with 4-0 Vicryl. Next, the skin was reapproximated and coapted utilizing 3-0 and 4-0 Prolene in simple interrupted suture fashion technique. Upon completion of the procedure, the incision was dressed with Steri-Strips, Adaptic, 4 x 4's, Kerlix, and Coban. The pneumatic ankle tourniquet was then deflated and a prompt hyperemic response noted to all digits of the foot. A surgical shoe was then applied. The patient did very well with the procedure and the anesthesia. The patient was transferred to the recovery room with vital signs stable and vascular status intact to all remaining toes of the affected foot. Following a period of postoperative monitoring, the patient will be discharged home on the following written and oral postoperative instructions: 1. Keep the dressing clean, dry, and intact. Use a cast protector bag with showers. 2. The patient should use a surgical shoe for ambulation postoperatively. 3. The patient should be on bedrest with bathroom privileges and elevate the affected foot when at rest. 4. The patient to contact Dr. Argueta for all postop care and if any problems arise. 5. Prescriptions were written for Percocet 5/325 dispensed 40 to be taken 1 p.o. q.4 to 6 hours as needed for severe pain.
[2020-07-31 11:54] VITALS: BP 136/84; PULSE 87; RESP 18
[2020-07-31 12:10] VITALS: BP 137/82; PULSE 88; RESP 18
== END 2020-07-31 12:20 | disposition home or self-care (01) ==
PROVIDERS: PCP Family Medicine Sports Medicine; Visit Provider Podiatrist Foot & Ankle Surgery
PROC: (CPT 28810; principal; 2020-07-31 11:00)
DX: E11.52 Type 2 diabetes mellitus with diabetic peripheral angiopathy with gangrene (principal); I96 Gangrene, not elsewhere classified; E11.621 Type 2 diabetes mellitus with foot ulcer; L97.519 Non-pressure chronic ulcer of other part of right foot with unspecified severity; L03.031 Cellulitis of right toe; E11.69 Type 2 diabetes mellitus with other specified complication; M86.171 Other acute osteomyelitis, right ankle and foot; I10 Essential (primary) hypertension; E78.5 Hyperlipidemia, unspecified; E11.42 Type 2 diabetes mellitus with diabetic polyneuropathy; Z79.02 Long term (current) use of antithrombotics/antiplatelets; Z79.82 Long term (current) use of aspirin; Z87.891 Personal history of nicotine dependence
CPT/HCPCS: 28810; 88305; 88311; A9270; C9803; J0690; J2405; J2704; J3010; J7120; U0003; U0005

== ENCOUNTER 2021-10-05 08:30 | Emergency (ER) | payer MEDICARE, SELFPAY ==
--- NOTE | ~2021-10-05 | CT_ITS ---
EXAMINATION: CT brain wo con DATE: 10/05/2021 08:57 INDICATION: Headache. TECHNIQUE: Computed tomography (CT) of the head was performed without intravenous contrast. The mA wa s adjusted according to patient size. Iterative reconstruction technique was employed. The dose-lengt h product was 605.33 mGy-cm. COMPARISON: None FINDINGS: There are scattered areas of low attenuation in the cerebral white matter. There is no intr acranial hemorrhage, acute infarction, or abnormal intracranial mass lesion. The ventricles are petr l in size. There is mucosal thickening in the paranasal sinuses. There is an old blowout fracture of medial wall of right orbit. There is a small left mastoid effusion. IMPRESSION: 1. Extensive nonspecific cerebral white matter disease, which likely represents chronic small vessel ischemic disease. Reviewed, dictated and finalized at location A.
[2021-10-05 08:32] VITALS: BP 171/86; PULSE 105; RESP 14; TEMP 36.5; O2SAT 100
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
[2021-10-05] MEDS: PROCHLORPERAZINE EDISYLATE 10 MG/2 ML VIAL IV PUSH (09:00)
[2021-10-05] MEDS: diphenhydrAMINE HCl INJ 50 MG/ML VIAL 25 MG IV PUSH (09:01)
[2021-10-05] MEDS: SODIUM CHLORIDE 0.9% IV 1,000 ML 999 ML IV CONT (09:34)
[2021-10-05] MEDS: KETOROLAC 15 MG/ML VIAL (*BKC) IV PUSH (09:35)
[2021-10-05 10:09] VITALS: BP 134/81; PULSE 99; RESP 14; O2SAT 99
== END 2021-10-05 10:21 | disposition home or self-care (01) ==
PROVIDERS: Emergency Provider Emergency Medicine
DX: R51.9 Headache, unspecified (principal); E11.42 Type 2 diabetes mellitus with diabetic polyneuropathy; E78.5 Hyperlipidemia, unspecified; I10 Essential (primary) hypertension; Z87.891 Personal history of nicotine dependence; R90.82 White matter disease, unspecified; Z79.899 Other long term (current) drug therapy; Z79.84 Long term (current) use of oral hypoglycemic drugs; Z79.82 Long term (current) use of aspirin
CPT/HCPCS: 70450; 96374; 96375; 99284; J0780; J1200; J1885; J7030

== ENCOUNTER 2022-07-27 12:30 | Outpatient (CLI) | payer MEDICARE, SELFPAY ==
[2022-07-27 13:22] LABS: Anion Gap 4 mmol/L (8-16); Blood Urea Nitrogen 15 mg/dL (9-20); Calcium 8.8 mg/dL (8.4-10.2); Carbon Dioxide 31 mmol/L (22-30); Chloride 101 mmol/L (98-107); Estimated Glomerular Filt Rate > 60; Glucose 230 mg/dL (65-110); Potassium 4.4 mmol/L (3.4-5.0); Sodium 136 mmol/L (137-145)
== END 2022-07-27 12:31 | disposition home or self-care (01) ==
LOC: ANHSURGERY 12:40
PROVIDERS: Anesthesiology; PCP Internal Medicine; Visit Provider Podiatrist Foot & Ankle Surgery
DX: E11.9 Type 2 diabetes mellitus without complications (principal); Z01.818 Encounter for other preprocedural examination
CPT/HCPCS: 36415; 80048

== ENCOUNTER 2022-07-30 01:01 | Day surgery (SDC) | payer MEDICARE, SELFPAY ==
--- NOTE | 2022-07-23 13:10 | PC.NURSE ---
Report to the Outpatient Waiting Room, entrance under the green pavilion located off [facility], at time _0900 on date _07/30/22 . Planned Procedure Time: __1100 . Time changes happen often and if your time is changed the preop area will call you the afternoon before. - You and your visitor will be asked to self-screen and do not enter if you have any COVID symptoms. - Only one visitor is requested with a max of two and NO children visitors are allowed at this time. - The patient visitor may be requested to leave or wait in car when not with patient due to distancing restrictions. - A mask is optional within the hospital. Patients may have clear liquids (water, carbonated beverages, clear teas, apple juice) until 3 hours prior to surgery with a maximum of 20 ounces. - No food from midnight until time of surgery - Infants may have breast milk until 4 hours before surgery, formula 6 hours prior to surgery. - Children will be allowed to drink immediately following surgery. If applicable, please bring a bottle or sippy cup to assist with drinking. Juice, water, soda, and popsicles are readily available. For infants on formula, please bring formula the day of surgery. Pacifiers are allowed. Take the following medications with a SIP of water the morning of surgery: __DOXYCYCLINE ,LEVOFLOXACIN AND METOPROLOL Medications to discontinue per physician __ALL VITAMINS AND SUPPLEMENTS 3 DAYS PRE OP LAST DOSE 07/26/22___ASPIRIN AND CLOPIDOGREL PER DR ARCE Please no make-up, nail welsh, hairspray, perfume, deodorant, or body powder the day of surgery. No jewelry (including any body piercings) or valuables the day of surgery, leave them at home. Please take a shower or bath the night before, or the morning of, surgery with an antibacterial soap. Wear comfortable, loose fitting clothing. Children are encouraged to wear pajamas. - Jewelry must be removed prior to entering the operating room. Rings and piercings that are not removed may be cut off. - The hospital will not accept responsibility for valuables. - Please leave all valuables, including medications, at home the day of surgery. If you are going home after surgery, a licensed straddle truck driver must drive you home. - NO public transportation without another adult if you receive anesthesia. - We recommend that an adult stay with you for 24 hours following discharge. - We also recommend that you do not drive, make important decision, drink alcoholic beverages, or take any drugs that were not prescribed by your health care provider for at least 24 hours after your discharge time. Follow any additional instructions given to you from your surgeon. If you or anyone in your household have experienced Covid symptoms in the past week, please notify your surgeon or the nurse liaison at the phone number below for possible testing. Telephone instructions given to ___PATIENT and asked if any additional questions and then verbalized understanding. Patient advised to call surgeon office or pre surgery nurse liaison [phone] if any additional questions.
[2022-07-23 13:21] VITALS: BMI 30.2
--- NOTE | ~2022-07-30 | XR_ITS ---
EXAMINATION: XR surgery orthopedic DATE: 07/30/2022 11:19 INDICATION: Left second toe hammertoe correction TECHNIQUE: Single dorsal plantar fluoroscopic image of the left forefoot was obtained during procedur e performed by Dr. Argueta. Radiologist was not present for the imaging or procedure. The amount of fluoroscopy time used during this procedure was 0.2 minutes. COMPARISON: None. FINDINGS: Osteotomies at the head of the second proximal phalanx and base of the second middle phalan x for is reportedly hammertoe correction. There is percutaneous fixation of the second toe with an ax ially directed pins extending from the tuft of the distal phalanx across the middle phalanx and the b ase of the proximal phalanx. Alignment appears near-anatomic on the dorsal plantar projection. No fra cture. 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 Mild osteoarthritis at a few of the profiled interphalangeal joints. IMPRESSION: 1. Fluoroscopy utilized during second proximal interphalangeal joint osteotomies for hammertoe correc tion. See procedure note for further detail. Reviewed, dictated and finalized at location A. [facility] IMPRESSION: 1. Fluoroscopy utilized during second proximal interphalangeal joint osteotomie s for hammertoe correction. See procedure note for further detail.
--- NOTE | 2022-07-30 07:13 | WPDHPUPDATE1 ---
History and Physical Update Update Date/Time: 07/30/22 07:13 History and Physical has been reviewed, including an updated exam of the patient. There are NO changes in the patient's condition. Risks, benefits, and alternatives have been discussed and questions answered. Patient agrees to proceed with procedure.
[2022-07-30 09:26] VITALS: BP 136/81; PULSE 99; RESP 16; TEMP 36.5; O2SAT 98
--- NOTE | 2022-07-30 09:40 | WPDANESEPPF ---
Anes - Initial Pre Proc Eval Procedure: Operation Date: 07/30/22 11:00 Proposed Procedures p Hammertoe Repair Second Digit Left Foot - Alexis Argueta JR, MD Date/Time: 07/30/22 09:40 Surgeon: Alexis Argueta JR, MD Pre Op Diagnosis: Hammertoe Second Digit Left Foot Patient Data Age: 66 Gender: M Height: 1.75 m Weight: 91.5 kg Last Vital Signs Temp 36.5 C 07/30/22 09:26 Pulse 99 07/30/22 09:26 Resp 16 07/30/22 09:26 BP 136/81 07/30/22 09:26 Pulse Ox 98 07/30/22 09:26 O2 Del Method Room Air 07/30/22 09:26 Allergies Allergy/AdvReac Type Severity Reaction Status Date / Time No Known Allergies Allergy Verified 07/23/22 12:56 Home Medications Medication Instructions Recorded Confirmed Type dulaglutide 1.5 mg/0.5 mL 1.5 mg subcut WEEKLY 07/07/20 07/23/22 History subcutaneous pen injector (Trulicity) lisinopril 2.5 mg tablet 2.5 mg PO DAILY 07/07/20 07/23/22 History aspirin 81 mg tablet 81 mg PO DAILY 07/28/20 07/23/22 History atorvastatin 40 mg tablet 40 mg PO QAM 07/28/20 07/23/22 History clopidogrel 75 mg tablet 75 mg PO QAM 07/28/20 07/23/22 History glimepiride 4 mg tablet 2 mg PO BID 10/05/21 07/23/22 History metoprolol succinate 25 mg 25 mg PO DAILY 10/05/21 07/23/22 History tablet,extended release 24 hr cyanocobalamin (vitamin B-12) 1,000 mcg PO DAILY 07/23/22 07/23/22 History 1,000 mcg capsule doxycycline hyclate 100 mg capsule 100 mg PO BID 07/23/22 07/23/22 History levofloxacin 750 mg tablet 750 mg PO DAILY 07/23/22 07/23/22 History Patient hx anesthesia problems: none Family hx anesthesia problems: none Results Review: All pre-operative results and documents have been reviewed as part of the pre-operative evaluation. [facility] Past Medical History Medical History (Updated 07/30/22 @ 09:41 by Edward Rosario DO) Diabetic peripheral neuropathy Hyperlipidemia Hypertension Nicotine dependence PVD (peripheral vascular disease) Type 2 diabetes mellitus Most recent hemoglobin A1c as of 07/07/2020 was 7%. Surgical History Surgical History History of cardiac catheterization Reported clear coronary arteries. History of ventral hernia repair Laparoscopic umbilical hernia repair Family History Family History Mother Breast cancer Father Throat cancer Social History Social History Social History: The patient lives in [place]. He still works part-time. Smokes approximately 1 pack of cigarettes per day. No alcohol or illicit substance use. Taylor is his surrogate decision maker and he wishes to be a full code. Smoking packs per day: 1 Smoking cigarettes per day: 20.0 Years smoked: 30 Smoking pack-years: 30.00 Smoking status: Former smoker Tobacco type: cigarettes Smoking end date: 07/07/20 Alcohol intake: current Drinks per week: 2 Substance use: never Living arrangements: with family Gender identity (if verbalized by the patient): Male Spiritual care concerns: No Anes - Eval Final PreProcedure Day of Procedure 07/30/22 09:40 Patient weight: overweight Heart: regular rate and rhythm Lungs: clear to auscultation Airway: Mallampati scale class II and special considerations poor dentition Neurological: alert and oriented Last oral intake: >/= 8 hours ASA classification: III Emergent: no Anesthetic plan: proceed Anesthesia type and monitoring: general GIVS and standard monitoring Results Review: All pre-operative results and documents have been reviewed as part of the pre-operative evaluation. Informed Consent: The patient's anesthetic plan and its attendant risks and benefits were discussed with the patient/family/POA. Questions were solicited and answers provided to the satisfaction of the patient/family/POA.
[2022-07-30] MEDS: LACTATED RINGERS 1,000 ML 30 ML IV CONT (09:52)
[2022-07-30] MEDS: ceFAZolin 2 GM/D5W 50 ML 2 GM/50 ML BAG IVPB (10:28)
[2022-07-30] MEDS: LIDOCAINE HCL 2% PF INJ 5 ML VIAL 10 ML INFILTRATE (10:59)
[2022-07-30] MEDS: BUPIVACAINE HCL 0.5% PF 30 ML VIAL 10 ML INFILTRATE (11:00)
[2022-07-30 11:16] VITALS: BP 106/62; PULSE 93; RESP 18; O2SAT 98
--- NOTE | 2022-07-30 11:41 | W.PM.PROC2 ---
Procedure Note - Detailed Date of Procedure 07/30/22 Pre-op Diagnosis Hammertoe Second Digit Left Foot with a chronic ulceration Post-op Diagnosis Other (1. Hammertoe second digit left foot with a chronic ulceration 2. Osteomyelitis second digit left foot ) Procedure Performed 1. Hammertoe repair second digit left foot with resection of the head of the proximal phalanx and base of the middle phalanx 2. Extensory tenotomy second digit left foot Surgeon Alexis Argueta JR, YAN Anesthesia MAC and Local Indications Chronic ulceration to the second digit with hammertoe deformity Findings The head of the proximal phalanx was protruding out the dorsal ulceration at the proximal interphalangeal joint, the head of the proximal phalanx was soft and the articular cartilage brittle. Description of Procedure Under mild sedation, the patient was brought in to the operating room, placed on the operating table in the supine position. A pneumatic ankle tourniquet was placed about the patient's ankle. Following monitored anesthesia care, local anesthesia was obtained about the left ankle with a Lopes block about the second metatarsal utilizing 20 mL of a 1:1 mixture of 2% Lidocaine plain and 0.5% Marcaine plain . The foot was then scrubbed, prepped, and draped in the usual aseptic manner. An Esmarch bandage was then used to exsanguinate the patient's foot and the pneumatic ankle tourniquet was then inflated. Attention was directed to the second digit of the left foot where two converging semi-elliptical incisions were made from the distal interphalangeal joint extending to the 2nd digit base of the proximal phalanx, I excised the ulceration along the dorsal aspect of the proximal interphalangeal joint. The head of the proximal phalanx was protruding out the dorsal ulceration at the proximal interphalangeal joint, the head of the proximal phalanx was soft and the articular cartilage brittle. Next, the head of the proximal phalanx was resected with an oscillating saw blade, until healthy strong bone was visualized at the neck of the proximal phalanx. I also resected the base of the middle phalanx. I flushed the arthroplasty site with copious amounts of sterile saline. Next, I drove a k wires out the distal tip of the 2nd digit and then retrograded the k wire though the 3 phalanges of the 2nd digit, held the 2nd digit in a rectus position with fluoroscopic confirmation. Excellent correction of the hammertoe deformity was noted in all planes. I cut the end of the K wire and placed a Jurgan Pin Ball over the tip of the digit, no hammertoe permanent implant will be placed within the second digit because of probable osteomyelitis, I will remove the K wire 3 to 4 weeks post op. I reapproximated the skin with 4.0 Prolene in simple interrupted suture fashion technique. The second digit was noted to be slightly elevated at the metatarsal phalangeal joint, so a seperate small 1cm incision was made proximal to the metatarsal phalangeal joint. I used a curved mosquito hemostat to isolate the long extensor tendon to the second digit, it was transected with a sterile 15 blade and the dorsal elevation of the second digit was reduced. I reapproximated the skin with 4.0 Prolene Upon completion of the procedure, the incisions were dressed with Adaptic, 4x4s, Kerlix, and Coban. The pneumatic ankle tourniquet was then deflated and a prompt hyperemic response was noted to all digits of the left foot. A surgical shoe was then applied. The patient did very well with the procedure and the anesthesia. The patient was transferred to the recovery room with vital signs stable and vascular status intact to all toes of the left foot. Following a period of postoperative monitoring, the patient will be discharged home on the following written and oral postoperative instructions: 1. The patient should keep the dressing clean, dry, and intact. Use a cast protector bag with showers. 2. The patie
[2022-07-30 11:45] VITALS: BP 124/68; PULSE 83; RESP 18; O2SAT 98
[2022-07-30 12:05] VITALS: BP 120/70; PULSE 91; RESP 18
--- NOTE | 2022-07-30 12:09 | SUR.PHASEII ---
DR. ARCE CALLED RE: DISCHARGE INSTRUCTIONS; DOCTOR SAID FOR PATIENT TO TAKE ASPIRIN 81 MG EVERY DAY, NOT THE 325 MG IN D/C INSTRUCTIONS AND TO RESUME PLAVIX TOMORROW. INSTRUCTIONS RELAYED TO PATIENT.
== END 2022-07-30 12:16 | disposition home or self-care (01) ==
PROVIDERS: PCP Internal Medicine; Visit Provider Podiatrist Foot & Ankle Surgery
PROC: (CPT 28285; principal; 2022-07-30 11:00)
DX: M20.42 Other hammer toe(s) (acquired), left foot (principal); E11.69 Type 2 diabetes mellitus with other specified complication; M86.172 Other acute osteomyelitis, left ankle and foot; L03.032 Cellulitis of left toe; E11.621 Type 2 diabetes mellitus with foot ulcer; L97.529 Non-pressure chronic ulcer of other part of left foot with unspecified severity; E11.42 Type 2 diabetes mellitus with diabetic polyneuropathy; E11.51 Type 2 diabetes mellitus with diabetic peripheral angiopathy without gangrene; I10 Essential (primary) hypertension; E78.5 Hyperlipidemia, unspecified; Z79.899 Other long term (current) drug therapy; Z79.82 Long term (current) use of aspirin; Z79.02 Long term (current) use of antithrombotics/antiplatelets; Z79.84 Long term (current) use of oral hypoglycemic drugs; Z87.891 Personal history of nicotine dependence
CPT/HCPCS: 28285; 28234; 36415; 80048; 87070; 87075; 87076; 87205; 88309; 88311; 99199; J0690; J2704; J3010; J7120

== ENCOUNTER 2023-11-15 15:26 | Outpatient (CLI) | payer MEDICARE, SELFPAY ==
[2023-11-15 18:47] LABS: Basophils Percent Auto 0.6 % (0.2-1.2); Eosinophils Absolute Auto 0.1 K/mm3 (0-0.3); Eosinophils Percent Auto 1.8 % (0-4.4); Hematocrit 49.3 % (42.0-52.0); Hemoglobin 15.4 g/dL (14.0-18.0); Immature Granulocyte Absolute 0.01 K/mm3 (0.00-0.031); Immature Granulocyte Percent A 0.2 % (0-0.5); Lymphocytes Absolute Auto 0.81 K/mm3 (0.9-3.2); Lymphocytes Percent Auto 15.9 % (18.3-44.2); Mean Corpuscular HGB Conc 31.2 g/dl (32-36); Mean Corpuscular Hemoglobin 28.7 pg (26-34); Mean Corpuscular Volume 91.8 fl (80-100); Mean Platelet Volume 12.1 fl (7.4-10.4); Monocytes Absolute Auto 0.5 K/mm3 (0.1-0.6); Monocytes Percent Auto 9.4 % (2.6-8.5); Neutrophils Absolute Auto 3.7 K/mm3 (1.3-6.7); Neutrophils Percent Auto 72.1 % (45.5-73.1); Platelet Count Result 168 k/mm3 (150-375); Red Blood Count 5.37 M/mm3 (4.6-6.20); Red Cell Distribution Width 15.2 % (11.5-14.5); White Blood Count 5.1 K/mm3 (4.5-10.0)
[2023-11-15 19:47] LABS: Creatinine Urine 37.9 mg/dL
[2023-11-15 20:08] LABS: Alanine Aminotransferase 21 U/L (6-50); Albumin Level 4.3 g/dL (3.5-5.1); Alkaline Phosphatase 77 U/L (38-126); Anion Gap 7 mmol/L (4-12); Aspartate Amino Transferase 32 U/L (17-59); Bilirubin,Total 1.3 mg/dL (0.2-1.3); Blood Urea Nitrogen 27 mg/dL (9-20); Calcium 9.7 mg/dL (8.4-10.2); Carbon Dioxide 28 mmol/L (22-30); Chloride 103 mmol/L (98-107); Cholesterol 162 mg/dL (0-200); Estimated Glomerular Filt Rate > 60; Glucose 184 mg/dL (65-110); HDL Direct 49 mg/dL; Potassium 4.7 mmol/L (3.4-5.0); Sodium 138 mmol/L (137-145); Triglycerides 116 mg/dL (<150)
[2023-11-15 20:20] LABS: LDL Cholesterol Direct 92 mg/dL
[2023-11-15 20:31] LABS: MALB Creatinine Ratio < 15.8 mg/g (0-30); Microalbumin Urine Random < 6.0 mg/L (0-16.7)
[2023-11-15 20:37] LABS: Thyroid Stimulating Hormone 0.811 uIU/mL (0.465-4.680)
[2023-11-15 20:47] LABS: Hemoglobin A1C 8.2 % (<5.7)
[2023-11-18 04:13] LABS: Immunoglobulin A 249 mg/dL (70-320); TTG IGA AB <1.0 U/mL
[2023-11-22 14:47] LABS: Apolipoprotein B 81 mg/dL
== END 2023-11-15 15:27 | disposition home or self-care (01) ==
LOC: ANHGOSHLAB 15:28
PROVIDERS: PCP Internal Medicine; Visit Provider Internal Medicine
DX: Z12.5 Encounter for screening for malignant neoplasm of prostate (principal); E11.9 Type 2 diabetes mellitus without complications; E78.5 Hyperlipidemia, unspecified; I10 Essential (primary) hypertension; I73.9 Peripheral vascular disease, unspecified; K52.9 Noninfective gastroenteritis and colitis, unspecified
CPT/HCPCS: 36415; 80053; 80061; 82043; 82172; 82784; 83036; 84153; 84443; 85025; 86364; G0103

== ENCOUNTER 2023-11-22 15:17 | Outpatient (CLI) | payer MEDICARE, SELFPAY ==
--- NOTE | ~2023-11-22 | CT_ITS ---
CT Scan of the Chest without Contrast: Clinical Indication: Lung cancer screening, nicotine dependence Technique: Contiguous sections were acquired throughout the chest without intravenous contrast. Dose reduction technique was used on this scan by utilizing automated exposure control and iterative recon struction technique. The dose-length product (DLP) was 226.40 mGy-cm. Findings: There is no evidence of any significant mediastinal, hilar or axillary lymphadenopathy. Extensive cor onary artery calcifications are present. There is no evidence of pleural or pericardial effusion. Calcified right lower lobe granuloma present. No other pulmonary nodule seen.. Images through the upper abdomen reveal no abnormalities. Lipoma present in the left subscapularis mu scle belly. Impression: Lung RADS 2: Benign appearance. 12 month follow-up screening CT advised. Reviewed, dictated and finalized at [facility]. Impression: Lung RADS 2: Benign appearance. 12 month follow-up screening CT advised.
== END 2023-11-22 15:18 | disposition home or self-care (01) ==
LOC: ANHIMG 15:17
PROVIDERS: PCP Internal Medicine; Visit Provider Internal Medicine
DX: Z12.2 Encounter for screening for malignant neoplasm of respiratory organs (principal); Z87.891 Personal history of nicotine dependence
CPT/HCPCS: 71271

== ENCOUNTER 2024-03-02 00:40 | Day surgery (SDC) | payer MEDICARE, SELFPAY ==
[2024-02-17 15:01] VITALS: BMI 30.6
[2024-03-02 09:07] VITALS: BP 148/74; PULSE 89; RESP 16; TEMP 36.3; O2SAT 97; BMI 29.9
--- NOTE | 2024-03-02 09:24 | WPDANESEPPF ---
Anes - Initial Pre Proc Eval Procedure: Operation Date: 03/02/24 10:30 Proposed Procedures p Colonoscopy - Jeremy Valencia MD Date/Time: 03/02/24 09:24 Surgeon: Jeremy Valencia MD Pre Op Diagnosis: Noninfective gastroenteritis and colitis unspecifi Patient Data Age: 68 Gender: M Height: 1.75 m Weight: 92.1 kg Last Vital Signs Temp 97.4 F L 03/02/24 09:07 Pulse 89 03/02/24 09:07 Resp 16 03/02/24 09:07 BP 148/74 H 03/02/24 09:07 Pulse Ox 97 03/02/24 09:07 O2 Del Method Room Air 03/02/24 09:07 Allergies Allergy/AdvReac Type Severity Reaction Status Date / Time No Known Allergies Allergy Verified 03/02/24 09:08 Home Medications Medication Instructions Recorded Confirmed Type alpha lipoic acid 600 mg tablet 600 mg PO DAILY 11/15/23 03/02/24 History aspirin 81 mg tablet,delayed 81 mg PO DAILY 11/15/23 03/02/24 History release (Adult Low Dose Aspirin) diphenhydramine HCl 25 mg tablet 25 mg PO ONCE PRN Allergy Symptoms 11/15/23 03/02/24 History empagliflozin 25 mg tablet 25 mg PO DAILY 11/15/23 03/02/24 History (Jardiance) glimepiride 4 mg tablet 4 mg PO BID 11/15/23 03/02/24 History lisinopril 2.5 mg tablet 2.5 mg PO DAILY 11/15/23 03/02/24 History metoprolol succinate 25 mg 25 mg PO DAILY 11/15/23 03/02/24 History tablet,extended release 24 hr multivit with minerals-folic 1 tablet PO DAILY 11/15/23 03/02/24 History acid-lycopene 0.4 mg-600 mcg tablet insulin glargine 100 30 unit subcut QAM 12/20/23 03/02/24 History unit-lixisenatide 33 mcg/mL subcutaneous pen (Soliqua 100/33) rosuvastatin 40 mg tablet 40 mg PO DAILY #90 tabs 12/20/23 03/02/24 Rx Daily Probiotic 1 cap PO DAILY 02/16/24 03/02/24 History psyllium husk 3.4 gram/5.4 gram 2 tsp PO DAILY 02/16/24 03/02/24 History oral powder (Metamucil) Patient hx anesthesia problems: none Family hx anesthesia problems: none Results Review: All pre-operative results and documents have been reviewed as part of the pre-operative evaluation. [facility] Past Medical History Medical History Amputation toe Diabetes mellitus with peripheral artery disease Diabetic peripheral neuropathy Hyperlipidemia Hypertension Nicotine dependence PVD (peripheral vascular disease) Type 2 diabetes mellitus Most recent hemoglobin A1c as of 07/07/2020 was 7%. Surgical History Surgical History H/O angioplasty History of cardiac catheterization Reported clear coronary arteries. History of ventral hernia repair Laparoscopic umbilical hernia repair Family History Family History Mother Breast cancer Father Throat cancer Social History Social History Social History: The patient lives in [place]. He still works part-time. Smokes approximately 1 pack of cigarettes per day. No alcohol or illicit substance use. Taylor is his surrogate decision maker and he wishes to be a full code. Smoking packs per day: 1.5 Smoking cigarettes per day: 30.0 Years smoked: 25 Smoking pack-years: 37.50 Smoking status: Former smoker Tobacco type: cigarettes Smoking end date: 07/07/20 Alcohol intake: current Drinks per week: 2 Alcohol use details: DRINKS Substance use: never Substance use type: does not use Current Housing: Decline to Answer Concerned About Future Housing: Decline to Answer Difficulty Paying Gas/Electric Bills: Decline to Answer Difficulty Paying for Meds: Decline to Answer Currently Unemployed: Decline to Answer Education: Decline to Answer Difficulty w/ Childcare or Family Care: Decline to Answer Living arrangements: with family Gender identity (if verbalized by the patient): Male Sexual Orientation (if Verbalized by th
[2024-03-02] MEDS: LACTATED RINGERS 1,000 ML 150 ML IV CONT (09:27)
[2024-03-02 09:29] LABS: Glucose Point of Care 121 mg/dl (65-105)
--- NOTE | 2024-03-02 09:50 | PM.HPGS ---
History of Present Illness History of Present Illness Consent: Risks, benefits, and alternatives have been discussed and questions answered. Patient agrees to proceed with procedure. Chief complaint: Noninfective gastroenteritis and colitis unspecifi Narrative: Thanh Herrera is a 68 year old male here for first screening colonoscopy, also chronic loose stools better with metamucil, using imodium as needed Review of Systems Review of Systems: All systems reviewed & are unremarkable except as noted in HPI and below PMFSH Past Medical History Medical History Amputation toe Diabetes mellitus with peripheral artery disease Diabetic peripheral neuropathy Hyperlipidemia Hypertension Nicotine dependence PVD (peripheral vascular disease) Type 2 diabetes mellitus Most recent hemoglobin A1c as of 07/07/2020 was 7%. Surgical History Surgical History H/O angioplasty History of cardiac catheterization Reported clear coronary arteries. History of ventral hernia repair Laparoscopic umbilical hernia repair Family History Family History Mother Breast cancer Father Throat cancer Social History Social History Social History: The patient lives in [place]. He still works part-time. Smokes approximately 1 pack of cigarettes per day. No alcohol or illicit substance use. Taylor is his surrogate decision maker and he wishes to be a full code. Smoking packs per day: 1.5 Smoking cigarettes per day: 30.0 Years smoked: 25 Smoking pack-years: 37.50 Smoking status: Former smoker Tobacco type: cigarettes Smoking end date: 07/07/20 Alcohol intake: current Drinks per week: 2 Alcohol use details: DRINKS Substance use: never Substance use type: does not use Current Housing: Decline to Answer Concerned About Future Housing: Decline to Answer Difficulty Paying Gas/Electric Bills: Decline to Answer Difficulty Paying for Meds: Decline to Answer Currently Unemployed: Decline to Answer Education: Decline to Answer Difficulty w/ Childcare or Family Care: Decline to Answer Living arrangements: with family Gender identity (if verbalized by the patient): Male Sexual Orientation (if Verbalized by the Patient): Straight or Heterosexual Spiritual care concerns: No Agree to blood products: Yes Meds Home Medications and Allergies Home Medications Medication Instructions Recorded Confirmed Type alpha lipoic acid 600 mg tablet 600 mg PO DAILY 11/15/23 03/02/24 History aspirin 81 mg tablet,delayed 81 mg PO DAILY 11/15/23 03/02/24 History release (Adult Low Dose Aspirin) diphenhydramine HCl 25 mg tablet 25 mg PO ONCE PRN Allergy Symptoms 11/15/23 03/02/24 History empagliflozin 25 mg tablet 25 mg PO DAILY 11/15/23 03/02/24 History (Jardiance) glimepiride 4 mg tablet 4 mg PO BID 11/15/23 03/02/24 History lisinopril 2.5 mg tablet 2.5 mg PO DAILY 11/15/23 03/02/24 History metoprolol succinate 25 mg 25 mg PO DAILY 11/15/23 03/02/24 History tablet,extended release 24 hr multivit with minerals-folic 1 tablet PO DAILY 11/15/23 03/02/24 History acid-lycopene 0.4 mg-600 mcg tablet insulin glargine 100 30 unit subcut QAM 12/20/23 03/02/24 History unit-lixisenatide 33 mcg/mL subcutaneous pen (Soliqua 100/33) rosuvastatin 40 mg tablet 40 mg PO DAILY #90 tabs 12/20/23 03/02/24 Rx Daily Probiotic 1 cap PO DAILY 02/16/24 03/02/24 History psyllium husk 3.4 gram/5.4 gram 2 tsp PO DAILY 02/16/24 03/02/24 History oral powder (Metamucil) Allergies Allergy/AdvReac Type Severity Reaction Status Date / Time No Known Allergies Allergy Verified 03/02/24 09:08 Vital Signs Vital Signs - 24 hr 03/02/24 09:07 Temperature 97.4 F L Pulse Rate 89
[2024-03-02 10:13] VITALS: BP 107/68; PULSE 69; RESP 14; O2SAT 98
[2024-03-02 10:23] VITALS: BP 110/67; PULSE 74; RESP 22; O2SAT 98
[2024-03-02 10:33] VITALS: BP 111/71; PULSE 76; RESP 23; O2SAT 99
[2024-03-02 10:36] LABS: Glucose Point of Care 111 mg/dl (65-105)
== END 2024-03-02 10:40 | disposition home or self-care (01) ==
PROVIDERS: PCP Internal Medicine; Visit Provider Internal Medicine Gastroenterology
PROC: 0DJD8ZZ Inspection of Lower Intestinal Tract, Via Natural or Artificial Opening Endoscopic (ICD-10-PCS; CPT 45378; principal; 2024-03-02 10:30)
DX: Z12.11 Encounter for screening for malignant neoplasm of colon (principal); D12.3 Benign neoplasm of transverse colon; K64.8 Other hemorrhoids; K57.30 Diverticulosis of large intestine without perforation or abscess without bleeding; I10 Essential (primary) hypertension; E78.5 Hyperlipidemia, unspecified; E11.42 Type 2 diabetes mellitus with diabetic polyneuropathy; E11.51 Type 2 diabetes mellitus with diabetic peripheral angiopathy without gangrene; I73.9 Peripheral vascular disease, unspecified; Z79.82 Long term (current) use of aspirin; Z79.84 Long term (current) use of oral hypoglycemic drugs; Z79.4 Long term (current) use of insulin; Z98.890 Other specified postprocedural states; Z89.429 Acquired absence of other toe(s), unspecified side; Z98.61 Coronary angioplasty status; Z87.891 Personal history of nicotine dependence; Z80.3 Family history of malignant neoplasm of breast; Z80.1 Family history of malignant neoplasm of trachea, bronchus and lung
CPT/HCPCS: 45380; 45385; 82948; 88305; J2704; J7120

== ENCOUNTER 2024-05-22 10:01 | Outpatient (CLI) | payer MEDICARE, SELFPAY ==
--- NOTE | ~2024-05-22 | XR_ITS ---
EXAMINATION: XR hand LT min 3V, XR hand RT min 3V DATE: 05/22/2024 10:13 INDICATION: Bilateral hand pain TECHNIQUE: 1. Posteroanterior, oblique and lateral views of the left hand were obtained. 2. Posteroanterior, oblique and lateral views of the right hand were obtained. COMPARISON: None. FINDINGS: Left hand: No fracture. Mild ulnar positive variance. Minimal palmar subluxation at the second and third metacar pophalangeal joints with moderate to severe associated osteoarthritis. Additional moderate to severe osteoarthritis at the first carpometacarpal joint, mild to moderate osteoarthritis at the second and third distal interphalangeal and fourth metacarpophalangeal joints and mild osteoarthritis at the wri st, distal radioulnar, triscaphe and remaining metacarpophalangeal and interphalangeal joints. Hetero topic ossicle along the radial aspect of the fourth metacarpophalangeal joint. Right hand: Old healed fracture deformity at the second proximal phalangeal diaphysis. Severe osteoarthritis with slight radial and palmar subluxation at the third metacarpophalangeal joint with heterotopic ossific ation at the ulnar side of the head of the third metacarpal. Additional moderate osteoarthritis at th e first interphalangeal, second and fourth proximal and distal interphalangeal joints and mild osteoa rthritis at the distal radioulnar, triscaphe, first carpometacarpal and remaining metacarpophalangeal and interphalangeal joints. There is also ulnar positive variance with moderate osteoarthritis at th e ulnar carpal articulation of the wrist joint with a couple likely loose bodies at the dorsal recess of the joint space. IMPRESSION: 1. 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 Reviewed, dictated and finalized at location B. [facility] IMPRESSION: 1. 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
== END 2024-05-22 10:02 | disposition home or self-care (01) ==
PROVIDERS: PCP Internal Medicine; Visit Provider Internal Medicine
DX: M19.041 Primary osteoarthritis, right hand (principal); M19.042 Primary osteoarthritis, left hand
CPT/HCPCS: 73130

== ENCOUNTER 2024-08-29 13:17 | Outpatient (CLI) | payer MEDICARE, SELFPAY ==
--- OUTSIDE RECORDS SUMMARY | 2024-08-29 13:20 | XMS_ITS | Patient Health Summary ---
Author Organization [facility] Address [address] [place] [address] Care Team Providers Care Sensor Technician Name Role Phone Willis Major MD Primary Care Provider [phone] Note from [facility],non-owned Affiliates and Associated Physician Practices is amultiple site organization consisting of ambulatory clinics and hospital sitesin [place], [place], [place] and [place]. This disclosure is being madepursuant to the Care Everywhere program and may not contain all information available regarding this patient. Last updated 18.[facility] Allergies No known active allergies Immunizations * TDAP (7yrs+)(Given 04/03/2021) Social History Tobacco Use Types Packs/Day Years Used Date Smoking Tobacco: Never Smokeless Tobacco: Never Alcohol Use Standard Drinks/Week Comments Yes 0 (1 standard drink = 0.6 oz pur e alcohol) Sex and Gender Information Value Date Recorded Sex Assigned at Not on file Gender Identity Not on file Sexual Orientation Not on file Last Filed Vital Signs Vital Sign Reading Time Taken Comments Blood Pressure 124/78 04/03/2021 12:44 PM CDT Pulse 108 04/03/2021 12:44 PM CDT Temperature 36.8 C (98.2 F) 04/03/2021 12:44 PM CDT Respiratory Rate 18 04/03/2021 12:44 PM CDT Oxygen Saturation 100% 04/03/2021 12:44 PM CDT Inhaled Oxygen Concentration - - Weight 81.6 kg (180 lb) 04/03/2021 12:44 PM CDT Height 175.3 cm (5' 9 ) 04/03/2021 12:44 PM CDT Body Mass Index 26.58 04/03/2021 12:44 PM CDT Procedures * ED LACERATION REPAIR(Performed 04/03/2021) Performed for Laceration of left index finger without foreign body without damage to nail, initial encounter * ED DIGITAL BLOCK(Performed 04/03/2021) Performed for Laceration of left index finger without foreign body without damage to nail, initial encounter Results * Laceration Repair (04/03/2021 3:36 PM CDT) Narrative Desean Rutherford MD - 04/03/2021 3:36 PM CDT Desean Rutherford MD 04/03/2021 4:12 PM Laceration Repair Date/Time: 04/03/2021 3:36 PM Performed by: Desean Rutherford MD Authorized by: Desean Rutherford MD Consent: Consent obtained: Verbal Consent given by: Patient Risks discussed: Infection, pain, retained foreign body, poor cosmetic result, poor wound healing and nerve damage Alternatives discussed: No treatment and delayed treatment Anesthesia (see MAR for exact dosages): Anesthesia method: Nerve block Block needle gauge: 27 G Block anesthetic: Lidocaine 1% w/o epi Block injection procedure: Anatomic landmarks identified, introduced needle, negative aspiration for blood and incremental injection Block outcome: Anesthesia achieved Laceration details: Location: Finger Finger location: L index finger Length (cm): 2 Pre-procedure details: Preparation: Patient was prepped and draped in usual sterile fashion Exploration: Wound exploration: wound explored through full range of motion and entire depth of wound probed and visualized Wound extent: no foreign bodies/material noted, no muscle damage noted and no tendon damage noted Contaminated: no Treatment: Amount of cleaning: Standard Irrigation solution: Sterile saline Irrigation volume: 1000 Irrigation method: Pressure wash Visualized foreign bodies/material removed: no Skin repair: Repair method: Sutures Suture size: 5-0 Suture technique: Simple interrupted Number of sutures: 5 Approximation: Approximation: Close Post-procedure details: Dressing: Antibiotic ointment Patient tolerance of procedure: Tolerated well, no immediate complications Desean Rutherford MD PROCEDURE/HEATH R SURGICAL ORDERABLES * Digital Block (04/03/2021 3:13 PM CDT) Narrative Desean Rutherford MD - 04/03/2021 3:13 PM CDT Desean Rutherford MD 04/03/2021 4:12 PM Digital Block Date/Time: 04/03/2021 3:13 PM Performed by: Desean Rutherford MD Authorized by: Desean Rutherford MD Consent: Consent obtained: Verbal Consent given by: Patient Risks discussed: Infection, bleeding, pain and unsuccessful block Alternatives discussed: No treatment and delayed treatment Indications: Indications: Procedural anesthesia Location: Block location: Finger Finger blocked: L index finger Pre-procedure details: Neurovascular status: intact Skin preparation: 2% chlorhexidine Procedure details (see MAR for exact dosages): Needle gauge: 27 G Anesthetic injected: Lidocaine 1% w/o epi Technique: Four-sided ring block Injection procedure: Anatomic landmarks identified, introduced needle, incremental injection, negative aspiration for blood and anatomic landmarks palpated Post-procedure details: Outcome: Anesthesia achieved Patient tolerance of procedure: Tolerated well, no immediate complications Desean Rutherford MD PROCEDURE/HEATH R SURGICAL ORDERABLES Care Teams Sensor Technician Relationship Specialty Start Date End Date Willis Major MD [address] [place] [address] PCP - General 08/16/22
--- OUTSIDE RECORDS SUMMARY | 2024-08-29 13:20 | XMS_ITS | Referral Summary ---
Author Organization [facility] Physician Office Building [address] [place] [id number] Care Team Providers Care [employer] Shuttle Driver Name Role Phone Lenin Hagen DO Primary Care Provider [phone] Encounters Date Type Department Care Team Description 06/26/2024 2:30 PM MANAGER TECHNICAL TRAINING Office Visit [facility] Special[facility] [address] [address] Juanjose Cintron MD Type 2 diabetes mellitus with hyperglycemia, without long-term current use of insulin (HCC) (Primary Dx); Hyperlipidemia associated with type 2 diabetes mellitus (HCC); Hypertension associated with diabetes (HCC); Class 1 obesity due to excess calories with serious comorbidity and body mass index (BMI) of 31.0 to 31.9 in adult from Last 3 Months Allergies No known active allergies Medications blood-glucose meter kit 1 each 2 (two) times a day before breakfast and dinner DX:E11.65 not insulin dependent 1 each 0 Active lancets 33 gauge misc 1 each 2 (two) times a day before breakfast and dinner DX:E11.65 not insulin dependent 100 each 6 0 Active tadalafiL (CIALIS) 20 mg tablet 0 Active aspirin 81 mg enteric coated tablet Take 1 tablet (81 mg total) by mouth daily 1 Active atorvastatin (LIPITOR) 40 mg tablet Take 1 tablet (40 mg total) by mouth daily 1 Active clopidogreL (PLAVIX) 75 mg tablet Take 1 tablet (75 mg total) by mouth daily 1 Active metoprolol XL (TOPROL-XL) 25 mg extended release tablet Take 1 tablet (25 mg total) by mouth daily 1 Active sildenafiL (VIAGRA) 100 mg tablet Take 1 tablet (100 mg total) by mouth daily as needed 2 Active blood glucose diagnostic (True Metrix Glucose Test Strip) stripIndication s:Type 2 diabetes mellitus with hyperglycemia, without long-term current use of insulin ([facility]) Dx: E11.65 Check blood sugar once daily 100 strip 1 3 Active lancets (TRUEplus Lancets) 28 gauge miscIndications :Type 2 diabetes mellitus with hyperglycemia, without long-term current use of insulin ([facility]) Dx: E11.65 Check blood sugar once daily 100 each 1 3 Active alcohol swabs (BD Alcohol Swabs) pads, medicatedIndica tions:Type 2 diabetes mellitus with hyperglycemia, without long-term current use of insulin ([facility]) Dx: E11.65 Check blood sugar once daily 100 each 1 3 Active blood-glucose meter (True Metrix Air Glucose Meter) miscIndications :Type 2 diabetes mellitus with hyperglycemia, without long-term current use of insulin ([facility]) Dx: E11.65 Check blood sugar once daily 1 each 3 Active lisinopriL (PRINIVIL,ZESTR IL) 2.5 mg tabletIndicatio ns:Hypertension associated with diabetes (HCC) TAKE 1 TABLET EVERY DAY 90 tablet 3 4 Active Dexcom G7 Sensor deviceIndicatio ns:Type 2 diabetes mellitus with hyperglycemia, without long-term current use of insulin ([facility]) CHANGE SENSOR EVERY 10 DAYS 6 each 5 4 Active Droplet Pen Needle 32 gauge x 5/32 needle USE DIRECTED EVERY DAY 100 each 3 4 Active glimepiride (AMARYL) 4 mg tabletIndicatio ns:Type 2 diabetes mellitus with hyperglycemia, without long-term current use of insulin ([facility]) TAKE 1 TABLET TWICE DAILY WITH MEALS 180 tablet 3 4 Active empagliflozin (Jardiance) 25 mg tabletIndicatio ns:Type 2 diabetes mellitus with hyperglycemia, without long-term current use of insulin ([facility]) Take 1 tablet (25 mg total) by mouth daily 90 tablet 3 5 Active LANTUS 100 unit/mL (3 mL) pen for injectionIndica tions:Type 2 diabetes mellitus with hyperglycemia, without long-term current use of insulin ([facility]) Inject 30 Units under the skin daily 27 mL 3 5 07/23/19 26 Active Mounjaro 5 mg/0.5 mL pen injectorIndicat ions:type 2 diabetes mellitus Inject 5 mg under the skin every 7 days 6 mL 1 5 02/20/20 25 Active Mounjaro 2.5 mg/0.5 mL pen injectorIndicat ions:type 2 diabetes mellitus Inject 0.5 mL (2.5 mg total) under the skin every 7 days 2 mL 5 08/22/19 25 Active Problems Problem Noted Date Diagnosed Date Class 1 obesity due to exces s calories with serious comorbidity and body mass index (BMI) of 31.0 to 31.9 in adult 03/27/2024 Assessment & Plan (07/08/2024 5:37 PM MANAGER TECHNICAL TRAINING): Chronic, worsening Discussed about healthy lifestyle habits advise to work on healthy diet, avoid processed foods , increase vegetables and protein and cut back on carb portions and also avoid fruit juices and regular soda and desserts Increase physical activity , recommend at least 150 min of aerobic activity per week and include resistance training 2 x weekly Assessment & Plan (03/27/2024 2:24 PM CDT): Chronic, above goal but stable Discussed about healthy lifestyle habits advise to work on healthy diet, avoid processed foods , increase vegetables and protein and cut back on carb portions and also avoid fruit juices and regular soda and desserts Increase physical activity , recommend at least 150 min of aerobic activity per week and include resistance training 2 x weekly Diabetic polyneuropathy asso ciated with type 2 diabetes mellitus ([facility]) 01/05/2020 Assessment & Plan (04/06/2023 3:57 PM CDT): Chronic, stable Continue gabapentin therapy for symptomatic management Continue to work on tighter glycemic control Assessment & Plan (09/20/2022 7:35 PM CDT): Chronic, stable Continue gabapentin therapy for symptomatic management Continue to work on tighter glycemic control Assessment & Plan (06/13/2022 9:34 AM MANAGER TECHNICAL TRAINING): Chronic, stable Continue gabapentin therapy for symptomatic management Continue to work on tighter glycemic control Assessment & Plan (10/27/2021 3:23 PM CDT): Chronic, stable Continue gabapentin therapy for symptomatic management Continue to work on tighter glycemic control Assessment & Plan (04/29/2021 3:55 PM CDT): Chronic, stable Continue gabapentin therapy for symptomatic management Continue to work on tighter glycemic control Assessment & Plan (12/15/2020 1:53 PM CDT): Chronic, stable Continue gabapentin therapy for symptomatic management Continue to work on tighter glycemic control Assessment & Plan (09/10/2020 7:38 AM MANAGER TECHNICAL TRAINING): Chronic, stable Continue gabapentin therapy for symptomatic management Continue to work on tighter glycemic control Assessment & Plan (06/11/2020 4:26 PM MANAGER TECHNICAL TRAINING): Chronic, stable Continue gabapentin therapy for symptomatic management Continue to work on tighter glycemic control Assessment & Plan (03/06/2020 10:28 PM CDT): Chronic, stable Continue gabapentin therapy for symptomatic management Continue to work on tighter glycemic control Assessment & Plan (01/05/2020 9:24 PM CDT): Chronic, worsening Start Gabapentin for symptomatic therapy work on glycemic control Hyperlipidemia associated with type 2 diabetes m pankaj 01/05/2020 Assessment & Plan (07/08/2024 5:37 PM MANAGER TECHNICAL TRAINING): Continue statin therapy Tolerating well Assessment & Plan (03/27/2024 1:58 PM CDT): Continue statin therapy Tolerating well Assessment & Plan (12/22/2023 4:01 PM CDT): Continue statin therapy Tolerating well Assessment & Plan (04/06/2023 3:57 PM CDT): Continue statin therapy Tolerating well Assessment & Plan (12/20/2022 3:39 PM CDT): Chronic problem. On statin therapy, no changes. Assessment & Plan (09/20/2022 7:34 PM CDT): Continue statin therapy Tolerating well Assessment & Plan (06/13/2022 9:34 AM MANAGER TECHNICAL TRAINING): Continue statin therapy Tolerating well Assessment & Plan (01/26/2022 2:52 PM CDT): Chronic problem. On statin therapy, no changes. Assessment & Plan (10/27/2021 3:23 PM CDT): Continue statin therapy Tolerating well Assessment & Plan (08/25/2021 2:46 PM MANAGER TECHNICAL TRAINING): Chronic problem. On statin therapy, no changes. Assessment & Plan (07/21/2021 1:42 PM MANAGER TECHNICAL TRAINING): Continue statin therapy Tolerating well Reviewed recent labs , LDL at goal Assessment & Plan (04/29/2021 3:53 PM CDT): Continue statin therapy Tolerating well Assessment & Plan (12/15/2020 1:53 PM CDT): Continue statin therapy Tolerating well Assessment & Plan (09/10/2020 7:38 AM MANAGER TECHNICAL TRAINING): Continue statin therapy Tolerating well Assessment & Plan (06/11/2020 4:24 PM MANAGER TECHNICAL TRAINING): Continue statin therapy Tolerating well Assessment & Plan (03/06/2020 10:28 PM CDT): Continue statin therapy Assessment & Plan (01/05/2020 9:25 PM CDT): Continue statin therapy Reviewed recent lipid panel Type 2 diabetes mellitus wit h hyperglycemia, without long-term current use of insulin 01/03/2020 Assessment & Plan (07/08/2024 5:39 PM MANAGER TECHNICAL TRAINING): Chronic, uncontrolled, slowly improving but still above goal A1c 7.9 % , goal A1c at least less than 7.5 -7% Reviewed Dexcom download Average blood glucose 170 Target blood sugar range 60% High 38% Very high 2% Low 0% Noted post prandial hyperglycemia after dinner Counseled on diet and exercise Soliqua 30 units SQ daily Keep taking Jardiance and Glimepiride the same Follow up in 3 months Assessment & Plan (03/27/2024 2:24 PM CDT): Chronic, uncontrolled, slowly improving but still above goal A1c 8.3 % , goal A1c at least less than 7.5 -7% 42 % in target range with dexcom G 7 Noted post prandial hyperglycemia Pt not willing to try rapid acting insulin at this time , willing to try next time, if his A1c does not improve Soliqua 30 units SQ daily Keep taking Jardiance and Glimepiride the same Labs today Will try to obtain pt last eye exam copy Follow up with SR in 3 months Assessment & Plan (12/22/2023 4:02 PM CDT): Chronic, uncontrolled, worsening A1c 9.0 % , goal A1c at least less than 7.5% Discussed about CGM Started patient on DEXCOM G 7 sensor - sample and will do a DME order process Start checking blood sugars and work on diet Increase Soliqua to 30 units SQ daily ( If you morning blood sugars are still over 110 , increase soliqua by 2- 4 units ) Keep taking Jardiance and Glimepiride the same Learn your diet , using DEXCOM Patient did not tolerate Ozempic well And also Trulicity and Ozempic made patient going to donut hole and he could not afford it Patient is looking to try Rybelsus in future. At this time he would hold off on it until he get clarification from his insurance about the coverage Follow up with SR in 3 months Assessment & Plan (04/06/2023 3:58 PM CDT): Chronic, uncontrolled, progressively improving A1c 8.5 % - counseled on diet and exercise increase Soliqua 20 units SQ daily , increase by 2 units every week until your morning blood sugars rang 110-130 - continue glimepiride and Jardiance Assessment & Plan (12/20/2022 3:40 PM CDT): Chronic problem, improving with dietary change and weight loss, although sounds like he is back into some of his previous habits. Sample of Ozempic given to use. We also discussed Soliqua, as it would be under the $35 program and wouldn't go towards his donut hole. But it is a once a day injection which he's been hesitant to switch to. He is possibly interested in this though, wants to check on cost and will let us know. Assessment & Plan (09/20/2022 7:35 PM CDT): Chronic, uncontrolled , worsening A1c - 10.2 % Plan to restart Jardiance 25 mg oral daily Take Glimepiride 4 mg oral twice daily Or 8 mg oral daily Increase Trulicity 3 mg SQ weekly - cut back on sugars and unhealthy snacking - you can do better - increase physical activity, take time to exercise every day - follow up in 3 months Assessment & Plan (06/13/2022 9:35 AM MANAGER TECHNICAL TRAINING): Chronic, Out of control, worsening A1c 9.0 % Start Jardiance 25 mg oral daily Continue rest all medications the same Counseled on diet and exercise Advised good oral hydration Assessment & Plan (01/26/2022 2:58 PM CDT): Chronic problem, not at goal. Part of this is due to missing glimepiride which he will continue to work on. Will try for patient assistance for Trulicity. If unable to get this then will need to start insulin which he wants to avoid. He will work on diet, especially stopping sweets. Assessment & Plan (10/27/2021 3:24 PM CDT): Chronic, uncontrolled, improving A1c 8.1% Continue current dose of glimepiride Continue Trulicity is 1.5 mg subQ weekly Keep working on diet and exercise Advised home blood sugar monitor Annual dilated eye exam Daily foot care Follow-up in 3 months with PA and 6 months with me Assessment & Plan (08/25/2021 2:49 PM MANAGER TECHNICAL TRAINING): Chronic problem, improving but not at goal. Reviewed diet and limiting simple sugar intake. Needs to not miss PM dose of glimepiride. Continue same medications at this time. Assessment & Plan (07/21/2021 1:44 PM MANAGER TECHNICAL TRAINING): Chronic, uncontrolled, severely worsening A1c today 11% Suspect poor patient compliance to diet and not checking blood sugars every day, and patient off of GLT 1 agonist But patient states that his diet has not changed, But he has progressively gaining weight Patient does not want to go on insulin at this time Increase Glimepiride 4 mg oral twice daily with meals Start Trulicity 0.75 mg SQ weekly - for 2 weeks Than To increase Trulicity 1.5 mg SQ weekly - Check blood sugars before breakfast and before dinner - Follow up in 4 weeks with ANABEL Osuna And In [address] Rosa Assessment & Plan (04/29/2021 3:55 PM CDT): Chronic, uncontrolled, worsening A1c today - 7.6 % Patient unable to tolerate Ozempic 0.5 mg well Plan to increase Ozempic to 0.25 mg subQ weekly Increase Glimepiride to 4 mg oral Twice daily with meals - check blood sugars before breakfast and dinner - counseled on diet and exercise - follow up in 3 months Assessment & Plan (12/15/2020 1:54 PM CDT): Chronic, uncontrolled,improving A1c today - 7.3 % Keep taking Trulicity 1.5 mg SQ weekly or ozempic 0.5 mg SQ weekly ( gave samples as pt in donut hole ) Change Glimepiride to 4 mg oral Daily - check blood sugars before breakfast and dinner - call me with blood sugar log in 4 weeks - follow up in 3 months Assessment & Plan (09/10/2020 7:40 AM MANAGER TECHNICAL TRAINING): Chronic, uncontrolled, worsening A1c today - 8.8 % Keep taking Trulicity 1.5 mg SQ weekly - start Glimepiride 2 mg oral twice daily with meals - check blood sugars before breakfast and dinner - call me with blood sugar log in 4 weeks - follow up in 3 months Assessment & Plan (06/11/2020 4:26 PM MANAGER TECHNICAL TRAINING): Chronic, improving with treatment A1c today - 7.2 % But pt progressively gaining pt Plan to switch DDPIV inhibitors to GLP -1 agonist - stop Januvia - start Trulicity 0.75 mg SQ weekly for 4 weeks Than increase to 1.5 mg SQ weekly When you start Trulicity 1.5 mg Sq weekly - stop Glimepiride - keep checking blood sugars Advised to work on portion control diet and increase physical activity Daily foot care atleast annual dilated eye exam Follow up in 3 months Assessment & Plan (03/06/2020 10:27 PM CDT): Chronic, improving with treatment A1c today - 8.1 % Continue with current treatment regimen Advised to work on portion control diet and increase physical activity Daily foot care atleast annual dilated eye exam Follow up in 3 months Assessment & Plan (01/05/2020 9:23 PM CDT): Chronic, worsening HbA1c - 11.4 % - discussed about DM type 2, - patho physiology, short and intermediate card tender complications of uncontrolled DM, diet and exercise , importance on of BS monitoring, medications options - discussed goal BS and A1c targets - advise to start checking BS - before Meals and bedtime - advise to work on healthy diet, avoid processed foods , increase vegetables and protein and cut back on carb portions and also avoid fruit juices and regular soda and desserts - Start Glimepiride 2 mg oral twice daily with meals - start Januvia 100 mg oral daily with meal - start checking blood sugars Before breakfast and before dinner - keep taking your cholesterol pill - keep up with good oral hydration - follow up in 2 months with Blood sugar log Hypertension associated with diabetes 01/03/2020 Assessment & Plan (07/08/2024 5:37 PM MANAGER TECHNICAL TRAINING): Chronic, well controlled Continue lisinopril Assessment & Plan (03/27/2024 1:58 PM CDT): Chronic, well controlled Continue lisinopril Assessment & Plan (12/22/2023 4:01 PM CDT): Chronic, well controlled Continue lisinopril Assessment & Plan (04/06/2023 3:57 PM CDT): Chronic, well controlled Continue lisinopril Assessment & Plan (12/20/2022 3:39 PM CDT): Controlled on lisinopril, metoprolol. No changes. Assessment & Plan (09/20/2022 7:34 PM CDT): Chronic, well controlled Continue lisinopril Assessment & Plan (06/13/2022 9:34 AM MANAGER TECHNICAL TRAINING): Chronic, well controlled Continue Volodymyr I Assessment & Plan (01/26/2022 2:51 PM CDT): Controlled on current medications, no changes. Assessment & Plan (10/27/2021 3:23 PM CDT): Chronic, well controlled Continue Volodymyr I Assessment & Plan (08/25/2021 2:46 PM MANAGER TECHNICAL TRAINING): Controlled on current medications, no changes. Assessment & Plan (07/21/2021 1:42 PM MANAGER TECHNICAL TRAINING): Chronic, well controlled Continue Volodymyr I Assessment & Plan (04/29/2021 3:53 PM CDT): Chronic, well controlled Continue Volodymyr I Assessment & Plan (12/15/2020 1:52 PM CDT): Chronic, well controlled Continue Volodymyr I Assessment & Plan (09/10/2020 7:37 AM MANAGER TECHNICAL TRAINING): Chronic, well controlled Continue Volodymyr I Assessment & Plan (06/11/2020 4:24 PM MANAGER TECHNICAL TRAINING): Chronic, well controlled Continue Volodymyr I Assessment & Plan (03/06/2020 10:27 PM CDT): Chronic, well controlled Continue Volodymyr I Assessment & Plan (01/05/2020 9:23 PM CDT): Decrease Lisinopril to 2.5 mg oral daily And advise to take it Every day without skipping any doses Check Urine microalbuminuria Resolved Problems Problem Noted Date Diagnosed Date Resolved Date Overweight with body mass in dex (BMI) of 29 to 29.9 in adult 03/06/2020 03/27/2024 Assessment & Plan (12/22/2023 4:01 PM CDT): Counseled on healthy eating habits Assessment & Plan (04/06/2023 3:57 PM CDT): Chronic, progressively improving , still above goal Counseled on diet and exercise Assessment & Plan (09/20/2022 7:34 PM CDT): Counseled on diet and exercise Assessment & Plan (06/13/2022 9:34 AM MANAGER TECHNICAL TRAINING): Chronic, above goal . unchanged Discussed about healthy lifestyle habits advise to work on healthy diet, avoid processed foods , increase vegetables and protein and cut back on carb portions and also avoid fruit juices and regular soda and desserts Increase physical activity , recommend at least 150 min of aerobic activity per week and include resistance training 2 x weekly Assessment & Plan (10/27/2021 3:24 PM CDT): Counseled on diet and exercise Assessment & Plan (07/21/2021 1:42 PM MANAGER TECHNICAL TRAINING): Chronic, worsening Discussed about healthy lifestyle habits advise to work on healthy diet, avoid processed foods , increase vegetables and protein and cut back on carb portions and also avoid fruit juices and regular soda and desserts Increase physical activity , recommend at least 150 min of aerobic activity per week and include resistance training 2 x weekly Assessment & Plan (04/29/2021 3:55 PM CDT): Counseled on diet and exercise Assessment & Plan (09/10/2020 7:39 AM MANAGER TECHNICAL TRAINING): Chronic, improving slowly Discussed about healthy lifestyle habits advise to work on healthy diet, avoid processed foods , increase vegetables and protein and cut back on carb portions and also avoid fruit juices and regular soda and desserts Increase physical activity , recommend at least 150 min of aerobic activity per week and include resistance training 2 x weekly Assessment & Plan (06/11/2020 4:26 PM MANAGER TECHNICAL TRAINING): Chronic, worsening Discussed about healthy lifestyle habits advise to work on healthy diet, avoid processed foods , increase vegetables and protein and cut back on carb portions and also avoid fruit juices and regular soda and desserts Increase physical activity , recommend at least 150 min of aerobic activity per week and include resistance training 2 x weekly Assessment & Plan (03/06/2020 10:29 PM CDT): Chronic, worsening Discussed about healthy lifestyle habits advise to work on healthy diet, avoid processed foods , increase vegetables and protein and cut back on carb portions and also avoid fruit juices and regular soda and desserts Increase physical activity , recommend at least 150 min of aerobic activity per week and include resistance training 2 x weekly Social History Tobacco Use Types Packs/Day Years Used Date Smoking Tobacco: Former Smokeless Tobacco: Never Tobacco Cessation:Counseling Given: Not Answered Alcohol Use Standard Drinks/Week Comments Yes 0 (1 standard drink = 0.6 oz pur e alcohol) PHQ-2 Answer Date Recorded PHQ-2 Total Score (If total score is 3 or more points, staff should administer the PHQ-9) 0 12/22/2023 Sex and Gender Information Value Date Recorded Sex Assigned at Not on file Legal Sex Male 3:01 AM MANAGER TECHNICAL TRAINING Gender Identity Not on file Sexual Orientation Not on file Last Filed Vital Signs Vital Sign Reading Time Taken Comments Blood Pressure 134/78 06/26/2024 2:26 PM MANAGER TECHNICAL TRAINING Pulse 84 06/26/2024 2:26 PM MANAGER TECHNICAL TRAINING Temperature - - Respiratory Rate 17 06/26/2024 2:26 PM MANAGER TECHNICAL TRAINING Oxygen Saturation - - Inhaled Oxygen Concentration - - Weight 97.5 kg (215 lb) 06/26/2024 2:26 PM MANAGER TECHNICAL TRAINING Height 175.3 cm (5' 9 ) 06/26/2024 2:26 PM MANAGER TECHNICAL TRAINING Body Mass Index 31.75 06/26/2024 2:26 PM MANAGER TECHNICAL TRAINING Plan of Treatment Not on file Procedures Procedure Name Priority Date/Time Associated Diagnosis Comments POCT HEMOGLOBIN A1C Routine 06/26/2024 2 :28 PM MANAGER TECHNICAL TRAINING Type 2 diabetes mellitus with hyperglycemia, without long-term current use of insulin (HCC) POCT GLUCOSE Routine 06/26/2024 2:25 PM MANAGER TECHNICAL TRAINING Type 2 diabetes mellitus with hyperglycemia, without long-term current use of insulin (HCC) EGFR Routine 03/27/2024 2:15 PM CDT Type 2 diabetes mellitus with hyperglycemia, without long-term current use of insulin (CMS/HCC) (HCC) Hyperlipidemia associated with type 2 diabetes mellitus (HCC) Hypertension associated with diabetes (HCC) LIPID PANEL Routine 03/27/2024 2:15 PM CDT Type 2 diabetes mellitus with hyperglycemia, without long-term current use of insulin (CMS/HCC) (HCC) Hyperlipidemia associated with type 2 diabetes mellitus (HCC) ALBUMIN CREATININE RATIO, URINE Routine 03/27/2024 2:15 PM CDT Type 2 diabetes mellitus with hyperglycemia, without long-term current use of insulin (CMS/HCC) (HCC) Hypertension associated with diabetes (HCC) HM DIABETES EYE EXAM Routine 09/28/2023 9:02 AM CDT PSA SCREEN Routine 03/10/2022 8:34 AM CDT from Last 3 Months or Most Recently Relevant to Health Maintenance Results * POCT hemoglobin A1c (06/26/2024 2:28 PM MANAGER TECHNICAL TRAINING) Hemoglobin A1C, POC 7.9 4.0 - 5.6 % Blood 06/26/2024 2:28 PM MANAGER TECHNICAL TRAINING Juanjose Rosa MD POINT OF CARE TEST ORDERABLES Final Result * POCT glucose (06/26/2024 2:25 PM MANAGER TECHNICAL TRAINING) Glucose Blood, POC 118 mg/dL Blood 06/26/2024 2:25 PM MANAGER TECHNICAL TRAINING us Juanjose Rosa MD POINT OF CARE TEST ORDERABLES Final Result * eGFR (03/27/2024 2:15 PM CDT) eGFR 79 >=60 mL/min/1. 73 m2 Comment: Interpretive Data Reference Interval Normal >/= 90 mL/min/1.73m2 Mildly decreased* 60 - 89 mL/min/1.73m2 Mildly to moderately decreased 45 - 59 mL/min/1.73m2 Moderately to severely decreased 30 - 44 mL/min/1.73m2 Severely decreased 15 - 29 mL/min/1.73m2 Kidney Failure < 15 mL/min/1.73m2 *Relative to young adult level Estimated glomerular filtration rate is determined by the 2020 CKD-EPI equation recommended by the [employer] (A Unifying Approach to GFR Estimation: Recommendations of the [employer]F-ASK Task Force on Reassessing the Inclusion of Race in Diagnosing Kidney Disease, JASN 2020). The CKD-EPI equation should not be used for patients with unstable renal function and has not been validated in children and those over 70. Current interpretive data was last reviewed 2021. Blood 03/27/2024 2:15 PM CDT 03/27/2024 9:26 PM CDT us Juanjose Rosa MD LAB BLOOD ORDERABLE S Final Result WILLIAM [id number] Department [place] [address] * Albumin Creatinine Ratio, Urine (03/27/2024 2:15 PM CDT) Albumin Ur <12.0 mg/L Comment: Interpretive Data No reference range established. Current interpretive data was last revised 2018. Creatinine Ur 68.3 mg/dL WILLIAM Comment: Interpretive Data No reference range established. Current interpretive data was last revised 2018. Albumin Creatinine Ratio, Ur <18 1 - 29 mg/g WILLIAM Urine 03/27/2024 2:15 PM CDT 03/27/2024 9:07 PM CDT us Juanjose Rosa MD LAB URINE ORDERABLE S Final Result WILLIAM [address] Department [place] [address] * Lipid panel (03/27/2024 2:15 PM CDT) Cholesterol 135 30 - 199 mg/dL Comment: Interpretive Data Ages < or = 19 years Acceptable: <170 mg/dL Borderline high: 170-199 mg/dL High: >or= 200 mg/dL Ages > or = 20 years Desirable: <200 mg/dL Borderline high: 200-239 mg/dL High: >or= 240 mg/dL Literature References: 1. Expert Panel on Integrated Guidelines for Cardiovascular Health and Risk Reduction in Children and Adolescents. Pediatrics 2011;128:S213 2. NCEP Expert Panel. Circulation 2004;110:227 Current Interpretive Data was last revised on 2018. Triglycerides 93 <=149 mg/dL WILLIAM Comment: Interpretive Data Ages < or = 9 years Acceptable: <75 mg/dL Borderline high: 75-99 mg/dL High: >or= 100 mg/dL Ages 10 to 20 years Acceptable: <90 mg/dL Borderline high: 90-129 mg/dL High: >or= 130 mg/dL Ages > or = 20 years Desirable: <150 mg/dL Borderline high: 150-199 mg/dL High: 200-499 mg/dL Very high: >or= 499 mg/dL Literature References: 1. Expert Panel on Integrated Guidelines for Cardiovascular Health and Risk Reduction in Children and Adolescents. Pediatrics 2011;128:S213 2. NCEP Expert Panel. Circulation 2004;110:227 Current Interpretive Data was last revised on 2018. HDL 51 >=40 mg/dL WILLIAM CLINE Comment: Interpretive Data Ages < or = 19 years Acceptable: >45 mg/dL Borderline low: 40-45 mg/dL Low: <40 mg/dL Ages > or = 20 years Desirable: >or= 60 mg/dL Low: <40 mg/dL Literature References: 1. Expert Panel on Integrated Guidelines for Cardiovascular Health and Risk Reduction in Children and Adolescents. Pediatrics 2011;128:S213 2. NCEP Expert Panel. Circulation 2004;110:227 Current Interpretive Data was last revised on 2018. LDL, calculated 66 <=129 mg/dL WILLIAM CLINE Comment: Interpretive Data Ages < or = 19 years Acceptable: <110 mg/dL Borderline high: 110-129 mg/dL High: >or= 130 mg/dL Ages > or = 20 years Optimal: <100 mg/dL Near optimal: 100-129 mg/dL Borderline high: 130-159 mg/dL High: >160 mg/dL Calculated using the Bakari LDL-C estimating equation. This equation was implemented on 2024. Prior to this date LDL-C was estimated using the Friedewald equation. Literature References: 1. Expert Panel on Integrated Guidelines for Cardiovascular Health and Risk Reduction in Children and Adolescents. Pediatrics 2011;128:S213 2. NCEP Expert Panel. Circulation 2004;110:227 3. Bakari Lux et al. EDUARDA Cardiol. 2019November 08;5(5):540-548. doi: 10.1001/jamacardio.2020.0013 Current Interpretive Data was last revised on 2024. Non-HDL Cholesterol 84 mg/dL WILLIAM CLINE Comment: Interpretive Data Ages < or = 19 years Acceptable: <120 mg/dL Borderline high: 120-144 mg/dL High: >145 mg/dL Ages > or = 20 years When triglycerides are >200 mg/dL, Non-HDL cholesterol is a secondary target of therapy with treatment goals that are 30 mg/dL greater than the LDL cholesterol target. Literature References: 1. Expert Panel on Integrated Guidelines for Cardiovascular Health and Risk Reduction in Children and Adolescents. Pediatrics 2011;128:S213 2. NCEP Expert Panel. Circulation 2004;110:227 Current Interpretive Data was last revised on 2018. Chol/HDL ratio 3 WILLIAM CLINE Blood 03/27/2024 2:15 PM CDT 03/27/2024 9:07 PM CDT Juanjose Rosa MD LAB BLOOD ORDERABLE S Final Result Performing Organization Address City/[facility]/ZIP Co de Phone Number WILLIAM SON [address] Department [place] [address] * DIABETES EYE EXAM (09/28/2023 9:02 AM CDT) Historical Provider HEALTH MAINTENANCE Edited Result - Final * PSA screen (03/10/2022 8:34 AM CDT) PSA-Total 0.97 <=5.40 ng/mL WILLIAM CLINE Comment: Interpretive Data AGE SEX REFERENCE INTERVAL 0 minutes-150 years Female None 0 minutes-49 years Male None 50-59 years Male 0-3.90 60-69 years Male 0-5.40 70-79 years Male 0-6.20 80-150 years Male 0-6.20 The Josue PSA Total assay procedure was used. Results from different manufacturers or methods may not be comparable. Serial testing should be performed using the same method. Current interpretive data last revised 21. Blood 03/10/2022 8:34 AM CDT 03/10/2022 3:42 PM CDT Willis Major MD LAB BLOOD ORDERABLES Final R esult WILLIAM SON [address] Department [place] [address] from Last 3 Months or Most Recently Relevant to Health Maintenance Insurance [employer] CHOICE MEDICARE PPO HU[employer] CHOICE MEDICARE PPO MEDICARE HU[employer] CHOICE MEDICARE PPO Care Teams Airport Shuttle Driver Relationship Specialty Start Date End Date Lenin Hagen DO PCP - General Internal Medicine 12/22/23
--- OUTSIDE RECORDS SUMMARY | 2024-08-29 13:20 | XMS_ITS | Referral Summary ---
Author Organization [facility] Address [address] [place] [address] Care Team Providers Care Management Developer Name Role Phone Willis Major MD Primary Care Provider [phone] Source Comments [facility],non-owned Affiliates and Associated Physician Practices is amultiple site organization consisting of ambulatory clinics and hospital sitesin [place], [place], [place] and [place]. This disclosure is being madepursuant to the Care Everywhere program and may not contain all information available regarding this patient. Last updated 18.[facility] Allergies No known active allergies Immunizations Name Administration Dates Next Due TDAP (7yrs+) 04/03/2021 Social History Tobacco Use Types Packs/Day Years [...] Mass Index 26.58 04/03/2021 12:44 PM CDT Plan of Treatment Not on file Care Teams Management Developer Relationship Specialty Start Date End Date Willis Major MD [address] [place] [address] PCP - General 08/16/22
--- OUTSIDE RECORDS SUMMARY | 2024-08-29 13:20 | XMS_ITS | Clinical Summary ---
Author Organization [facility] Physician [facility] [address] [place] [id number] Care Team Providers Care Shop Superintendent Name Role Phone Lenin Hagen DO Primary Care Provider [phone] Allergies No known active allergies Medications blood-glucose [...] without long-term current use of insulin (HCC) Dx: E11.65 Check blood sugar once daily 100 strip 1 3 Active lancets (TRUEplus Lancets) 28 gauge miscIndications :Type 2 diabetes mellitus with hyperglycemia, without long-term current use of insulin ([facility]) Dx: E11.65 Check blood sugar once daily 100 each 1 3 Active alcohol swabs (BD Alcohol Swabs) pads, medicatedIndica tions:Type 2 diabetes mellitus with hyperglycemia, without long-term current use of insulin ([facility]) Dx: E11.65 Check blood sugar once daily 100 each 1 3 Active blood-glucose meter (True Metrix Air Glucose Meter) miscIndications :Type 2 diabetes mellitus with hyperglycemia, without long-term current use of insulin ([facility]) Dx: E11.65 Check blood sugar once daily 1 each 3 Active lisinopriL (PRINIVIL,ZESTR IL) 2.5 mg tabletIndicatio ns:Hypertension associated with diabetes ([facility]) TAKE 1 TABLET EVERY DAY 90 tablet 3 4 Active Dexcom G7 Sensor deviceIndicatio ns:Type 2 diabetes mellitus with hyperglycemia, without long-term current use of insulin ([facility]) CHANGE SENSOR EVERY 10 DAYS 6 each 5 4 Active Droplet Pen Needle 32 gauge x 5/32 needle USE DIRECTED EVERY DAY 100 each 3 4 Active glimepiride (AMARYL) 4 mg tabletIndicatio ns:Type 2 diabetes mellitus with hyperglycemia, without long-term current use of insulin ([facility]) TAKE 1 TABLET TWICE DAILY WITH MEALS 180 tablet 3 4 Active empagliflozin (Jardiance) 25 mg tabletIndicatio ns:Type 2 diabetes mellitus with hyperglycemia, without long-term current use of insulin ([facility]) Take 1 tablet (25 mg total) by mouth daily 90 tablet 3 5 Active LANTUS 100 unit/mL (3 mL) pen for injectionIndica tions:Type 2 diabetes mellitus with hyperglycemia, without long-term current use of insulin ([facility]) Inject 30 Units under the skin daily [...] 03/27/2024 Assessment & Plan (07/08/2024 5:37 PM POT OPERATOR): Chronic, worsening Discussed about healthy lifestyle habits [...] asso ciated with type 2 diabetes mellitus ([facility]) 01/05/2020 Assessment & Plan (04/06/2023 3:57 PM CDT): Chronic, stable Continue gabapentin therapy for symptomatic management Continue to work on tighter glycemic control Assessment & Plan (09/20/2022 7:35 PM CDT): Chronic, stable Continue gabapentin therapy for symptomatic management Continue to work on tighter glycemic control Assessment & Plan (06/13/2022 9:34 AM POT OPERATOR): Chronic, stable Continue gabapentin therapy for symptomatic [...] control Assessment & Plan (09/10/2020 7:38 AM POT OPERATOR): Chronic, stable Continue gabapentin therapy for symptomatic management Continue to work on tighter glycemic control Assessment & Plan (06/11/2020 4:26 PM POT OPERATOR): Chronic, stable Continue gabapentin therapy for symptomatic management Continue to work on tighter glycemic control Assessment & Plan (03/06/2020 10:28 PM CDT): Chronic, stable Continue gabapentin therapy for symptomatic management Continue to work on tighter glycemic control Assessment & Plan (01/05/2020 9:24 PM CDT): Chronic, worsening Start Gabapentin for symptomatic therapy work on glycemic control Hyperlipidemia associated with type 2 diabetes jodie lira 01/05/2020 Assessment & Plan (07/08/2024 5:37 PM POT OPERATOR): Continue statin therapy Tolerating well Assessment & [...] well Assessment & Plan (06/13/2022 9:34 AM POT OPERATOR): Continue statin therapy Tolerating well Assessment & Plan (01/26/2022 2:52 PM CDT): Chronic problem. On statin therapy, no changes. Assessment & Plan (10/27/2021 3:23 PM CDT): Continue statin therapy Tolerating well Assessment & Plan (08/25/2021 2:46 PM POT OPERATOR): Chronic problem. On statin therapy, no changes. Assessment & Plan (07/21/2021 1:42 PM POT OPERATOR): Continue statin therapy Tolerating well Reviewed recent labs , LDL at goal Assessment & Plan (04/29/2021 3:53 PM CDT): Continue statin therapy Tolerating well Assessment & Plan (12/15/2020 1:53 PM CDT): Continue statin therapy Tolerating well Assessment & Plan (09/10/2020 7:38 AM POT OPERATOR): Continue statin therapy Tolerating well Assessment & Plan (06/11/2020 4:24 PM POT OPERATOR): Continue statin therapy Tolerating well Assessment & Plan (03/06/2020 10:28 PM CDT): Continue statin therapy Assessment & Plan (01/05/2020 9:25 PM CDT): Continue statin therapy Reviewed recent lipid panel Type 2 diabetes mellitus wit h hyperglycemia, without long-term current use of insulin 01/03/2020 Assessment & Plan (07/08/2024 5:39 PM POT OPERATOR): Chronic, uncontrolled, slowly improving but still above [...] months Assessment & Plan (06/13/2022 9:35 AM POT OPERATOR): Chronic, Out of control, worsening A1c 9.0 [...] me Assessment & Plan (08/25/2021 2:49 PM POT OPERATOR): Chronic problem, improving but not at goal. Reviewed diet and limiting simple sugar intake. Needs to not miss PM dose of glimepiride. Continue same medications at this time. Assessment & Plan (07/21/2021 1:44 PM POT OPERATOR): Chronic, uncontrolled, severely worsening A1c today 11% [...] weekly ( gave samples as pt in [facility] ) Change Glimepiride to 4 mg oral Daily - check blood sugars before breakfast and dinner - call me with blood sugar log in 4 weeks - follow up in 3 months Assessment & Plan (09/10/2020 7:40 AM POT OPERATOR): Chronic, uncontrolled, worsening A1c today - 8.8 % Keep taking Trulicity 1.5 mg SQ weekly - start Glimepiride 2 mg oral twice daily with meals - check blood sugars before breakfast and dinner - call me with blood sugar log in 4 weeks - follow up in 3 months Assessment & Plan (06/11/2020 4:26 PM POT OPERATOR): Chronic, improving with treatment A1c today - [...] type 2, - patho physiology, short and retirement complications of uncontrolled DM, diet and exercise [...] 01/03/2020 Assessment & Plan (07/08/2024 5:37 PM POT OPERATOR): Chronic, well controlled Continue lisinopril Assessment & [...] lisinopril Assessment & Plan (06/13/2022 9:34 AM POT OPERATOR): Chronic, well controlled Continue Volodymyr I Assessment & Plan (01/26/2022 2:51 PM CDT): Controlled on current medications, no changes. Assessment & Plan (10/27/2021 3:23 PM CDT): Chronic, well controlled Continue Volodymyr I Assessment & Plan (08/25/2021 2:46 PM POT OPERATOR): Controlled on current medications, no changes. Assessment & Plan (07/21/2021 1:42 PM POT OPERATOR): Chronic, well controlled Continue Volodymyr I Assessment & Plan (04/29/2021 3:53 PM CDT): Chronic, well controlled Continue Volodymyr I Assessment & Plan (12/15/2020 1:52 PM CDT): Chronic, well controlled Continue Volodymyr I Assessment & Plan (09/10/2020 7:37 AM POT OPERATOR): Chronic, well controlled Continue Volodymyr I Assessment & Plan (06/11/2020 4:24 PM POT OPERATOR): Chronic, well controlled Continue Volodymyr I Assessment [...] exercise Assessment & Plan (06/13/2022 9:34 AM POT OPERATOR): Chronic, above goal . unchanged Discussed about [...] exercise Assessment & Plan (07/21/2021 1:42 PM POT OPERATOR): Chronic, worsening Discussed about healthy lifestyle habits [...] exercise Assessment & Plan (09/10/2020 7:39 AM POT OPERATOR): Chronic, improving slowly Discussed about healthy lifestyle [...] weekly Assessment & Plan (06/11/2020 4:26 PM POT OPERATOR): Chronic, worsening Discussed about healthy lifestyle habits [...] and include resistance training 2 x weekly Encounters Date Type Department Care Team Description 06/26/2024 2:30 PM POT OPERATOR Office Visit [facility] [address] [address] Juanjose Cintron MD Type 2 diabetes mellitus with hyperglycemia, without long-term current use of insulin (HCC) (Primary Dx); Hyperlipidemia associated with type 2 diabetes mellitus (HCC); Hypertension associated with diabetes (HCC); Class 1 obesity due to excess calories with serious comorbidity and body mass index (BMI) of 31.0 to 31.9 in adult from Last 3 Months Surgical History Surgery Date Site/Laterality Comments HERNIA REPAIR FINGER SURGERY right hand finger sown back on in surgery AMPUTATION Right baby toe FOOT SURGERY Left COLONOSCOPY 03/02/2024 Medical History Medical History Date Comments Type 2 diabetes mellitus (HCC) Hypertension Hyperlipidemia Family History Medical History Relation Name Comments Throat cancer Father Breast cancer Mother Relation Name Status Comments Father Mother Social History Tobacco Use Types Packs/Day Years [...] on file Legal Sex Male 3:01 AM POT OPERATOR Gender Identity Not on file Sexual Orientation Not on file Obstetrics History Last Filed Vital Signs Vital Sign Reading Time Taken Comments Blood Pressure 134/78 06/26/2024 2:26 PM POT OPERATOR Pulse 84 06/26/2024 2:26 PM POT OPERATOR Temperature - - Respiratory Rate 17 06/26/2024 2:26 PM POT OPERATOR Oxygen Saturation - - Inhaled Oxygen Concentration - - Weight 97.5 kg (215 lb) 06/26/2024 2:26 PM POT OPERATOR Height 175.3 cm (5' 9 ) 06/26/2024 2:26 PM POT OPERATOR Body Mass Index 31.75 06/26/2024 2:26 PM POT OPERATOR Plan of Treatment Health Maintenance Due Date Last Done Comments Colon Cancer Screening-Colonoscopy 1955 Hepatitis C Screening 1955 Pneumococcal vaccine 65+ (1 of 2 - PCV) 1960 Hepatitis B Screening 1972 Zoster Vaccine (1 of 2) 2004 Abdominal Aortic Aneurysm (A AA) Screen 10/23/2019 Well Visit 65+ 10/23/2019 Prostate Cancer Screening-PSA 03/10/2024 03/10/2022 Influenza Vaccine (#1) 2024 Dilated Eye Exam 09/27/2024 09/28/2023, , 01/09/2020 Depression Screening 12/21/2024 12/22/2023, 04/30/2022, 07/21/2021, Additional history exists Fall Risk Assessment 12/21/2024 12/22/2023 Hemoglobin A1C 12/25/2024 06/26/2024, 03/11, 12/22/2023, Additional history exists Albumin Creatinine Ratio, Urine 03/27/2025 03/27/2024, 03/10/2022, 06/24/2021 Lipid Panel 03/27/2025 03/27/2024, 08/3 07/2021, 06/24/2021, Additional history exists eGFR 03/27/2025 03/27/2024, 05/0 08/2022, 03/10/2022, Additional history exists Foot Exam 06/26/2025 06/26/2024, 03/11, 12/22/2023, Additional history exists DTaP/Tdap/Td Vaccine (2 - Td or Tdap) 04/03/2031 04/03/2021 Procedures Procedure Name Priority Date/Time Associated Diagnosis Comments POCT HEMOGLOBIN A1C Routine 06/26/2024 2 :28 PM POT OPERATOR Type 2 diabetes mellitus with hyperglycemia, without long-term current use of insulin (HCC) POCT GLUCOSE Routine 06/26/2024 2:25 PM POT OPERATOR Type 2 diabetes mellitus with hyperglycemia, without [...] * POCT hemoglobin A1c (06/26/2024 2:28 PM POT OPERATOR) Hemoglobin A1C, POC 7.9 4.0 - 5.6 % Blood 06/26/2024 2:28 PM POT OPERATOR Juanjose Rosa MD POINT OF CARE TEST ORDERABLES Final Result * POCT glucose (06/26/2024 2:25 PM POT OPERATOR) Glucose Blood, POC 118 mg/dL Blood 06/26/2024 2:25 PM POT OPERATOR us Juanjose Rosa MD POINT OF CARE [...] LAB BLOOD ORDERABLE S Final Result WILLIAM [address] Department [place] [address] * Albumin Creatinine Ratio, Urine (03/27/2024 2:15 PM CDT) Albumin Ur <12.0 mg/L Comment: Interpretive Data No reference range established. Current interpretive data was last revised 2018. Creatinine Ur 68.3 mg/dL WILLIAM Comment: Interpretive Data No reference range established. Current interpretive data was last revised 2018. Albumin Creatinine Ratio, Ur <18 1 - 29 mg/g WILLIAM CLINE Urine 03/27/2024 2:15 PM CDT 03/27/2024 9:07 PM CDT Juanjose Rosa MD LAB URINE ORDERABLE S Final Result WILLIAM [address] Department [place] [address] * Lipid panel (03/27/2024 2:15 PM CDT) [...] 3. Bakari Lux et al. EDUARDA Cardiol. 2020 November 08;5(5):540-548. doi: 10.1001/jamacardio.2020.0013 Current Interpretive Data was last revised on 2024. Non-HDL Cholesterol 84 mg/dL WILLIAM Comment: Interpretive Data Ages < [...] revised on 2018. Chol/HDL ratio 3 WILLIAM Blood 03/27/2024 2:15 PM CDT 03/27/2024 9:07 PM CDT Juanjose Rosa MD LAB BLOOD ORDERABLE S Final Result Performing Organization Address [facility] Co de Phone Number WILLIAM CLINE [address] Department [place] [address] * HM DIABETES EYE EXAM (09/28/2023 9:02 AM CDT) [...] MD LAB BLOOD ORDERABLES Final R esult Performing Organization Address [facility] Co de Phone Number MAVERICKANDREI CLINE [address] Department [place] [address] from Last 3 Months or Most Recently Relevant to Health Maintenance Insurance [employer] CHOICE MEDICARE PPO MEDICARE HU[employer] CHOICE MEDICARE PPO Care Teams Shop Superintendent Relationship Specialty Start Date End Date Lenin Hagen DO PCP - General Internal Medicine 12/22/23
--- OUTSIDE RECORDS SUMMARY | 2024-08-29 13:20 | XMS_ITS | Continuity of Care Document ---
Author Organization [facility] Address [address] [place] [address] Phone Care Team Providers Care Information Systems Consultant Name Role Phone Unavailable Unavailable Unavailable Allergies, Adverse Reactions, Alerts Substance Reaction Status Criticality No Known allergies Medications Medication Instructions Dosage Effective Dates (start - stop) Status Comments lisinopril-hydrochl orothiazide 20 mg-25 mg Tab take 1 tablet by ORAL route every day 1.00 tablet - Active Procedures Procedure Date OFFICE/OUTPATIENT VISIT, EST COLLECTION OF VENOUS BLOOD BY VENIPUNCTU RE OFFICE OUTPT NEW 20 MINUTES COLLECTION OF VENOUS BLOOD BY VENIPUNCTU RE Advance Directives Directive Yes / No Effective Date File Name Resuscitation Not Answered N/A N/A Life Support Not Answered N/A N/A Intubation Not Answered N/A N/A Antibiotics Not Answered N/A N/A IV Fluid Support Not Answered N/A N/A Tube Feed Not Answered N/A N/A Other Directive N/A N/A WARNING:The information contained in this section is historical and is provided for information only and does not constitute a legal document or any assurance that the information is still accurate. Please verify the information with the burks of the legal document before using it for clinical purposes. Encounters Encounter Description Practice Location Reason(s) For Visit Diagnoses Date Provider Providers Copied on Encounter [facility], [address], [place], [place], [id number] , [place] tel:[phone] Jacy On Naveen No Information 200 9 No Information OFFICE/OUTPA TIENT VISIT, EST Jacy Joo[facility], [address], [place], [place], [id number] , [place] tel: [phone] Cely Beckford hypertension (chief complaint) Unspecified essential hypertension 9 No Information OFFICE OUTPT NEW 20 MINUTES Jacy childs, [address], [place], [place], [id number] , [place] tel: [phone] Cely Beckford hypertension (chief complaint)her bala, umbilical (chief complaint) Unspecified essential hypertensionUmb ilical hernia without mention of obstruction or gangreneUnspeci fied essential hypertensionUmb ilical hernia without mention of obstruction or gangreneScreeni ng for malignant neoplasms of the prostate Mar- 9 No Information Family History Family Member Type Diagnosis Age At Onset Father Problem (finding) malignant neop lasm of pharynx (Cause Of ) Mother Problem (finding) malignant neop lasm of breast in first degree relative (Cause Of ) Mother Problem (finding) Father Problem (finding) Payers Payer name Insurance type Covered republican ID Authoriza tion(s) No Information Social History Type Description Quantity Date Captured Comments Alcohol Use Details Unknown Caffeine Use Details Unknown Tobacco Use Status Smoking Status No Information Sex Male Chief Complaint And Reason For Visit No Information Reason For Referral Reason For Referral No Information Plan Of Treatment Date Type Action Status Goal BMP fasting. Due on 009 due Goal AST. Due on due Goal ALT. Due on due Goal PSA. Due on due Referral Ordered: Surgery. ordered History Of Present Illness Encounter Date Complaint History Of Prese nt Illness No Information Functional Status Date Functional Assessmen t No Information Instructions Date Instruction Additional Infor mation No Information Assessments Type Assessment Date No Information Patient Care Teams Name Effective Dates (start - stop) Status Members No Information
--- OUTSIDE RECORDS SUMMARY | 2024-08-29 13:20 | XMS_ITS | Clinical Summary ---
Author Organization [facility] [address] [place] [address] Address [address] [place] [address] Care Team Providers Care Manufacturers Agent Name Role Phone Willis Major MD Primary Care Provider [phone] Allergies No known active allergies Medications lisinopriL (PRINIVIL) 2.5 mg tablet Take 2.5 mg by mouth daily. 06/19/20 20 Active glimepiride 4 mg tablet (AMARYL) Take 4 mg by mouth 2 times daily. 06/22/20 20 Active aspirin (ECOTRIN EC) 81 mg Tablet, Delayed Release (E.C.) Take 1 Tablet (81 mg) by mouth daily. 07/17/19 21 Active cyanocobalamin (VITAMIN B-12) 500 mcg tablet Take 500 mcg by mouth daily. Active alpha lipoic acid 600 mg Tablet Take 600 mg by mouth daily. Active multivitamin (DAILY-SHAINA) tablet Take 1 Tablet by mouth daily. Active Jardiance 25 mg tablet Take 25 mg by mouth daily. 12/30/19 24 Active rosuvastatin (CRESTOR) 40 mg tablet Take 40 mg by mouth daily. 12/21/19 24 Active Soliqua 100/33 100 unit-33 mcg/mL Insulin Pen Inject 30-40 Units by subcutaneous injection daily. 12/22/19 24 025 Active Dexcom G7 Sensor Device Change sensor every 10 days 01/03/20 24 Active diphenhydrAMIN E (BENADRYL) 25 mg tablet Take 25 mg by mouth every 6 hours as needed for Allergies. Active metoprolol succinate (TOPROL XL) 25 mg Extended Release 24 hour tablet TAKE 1 TABLET EVERY DAY 90 Tablet 3 07/31/19 25 Active metoprolol succinate (TOPROL XL) 25 mg Extended Release 24 hour tablet take 1 tablet every day 90 Tablet 3 06/28/20 23 025 Discontinued Active Problems Patient Care Coordination No te Formatting of this note migh t be different from the original. Vascular Care - Dr. 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 07/17/2020 Gangrene 07/17/2020 Essential hypertension 07/17/2020 Dyslipidemia 07/17/2020 Tobacco abuse 07/17/2020 PAD (peripheral artery disease) 07/17/2020 Overview (07/17/2020): Added automatically from request for surgery [id number] Encounters Date Type Department Care Team Description 08/07/2024 External Device Data ST[facility] ABSTRACTION Provider, Abstract 08/02/2024 External Device Data ST[facility] ABSTRACTION Provider, Abstract 07/31/2024 Refill [facility] - [address] [facility] [address] [place] [address] Prosper Law MD from Last 3 Months Family History Medical History Relation Name Comments Cancer Father Breast Cancer Mother Relation Name Status Comments Father Mother Social History Tobacco Use Types Packs/Day Years Used Date Smoking Tobacco: Former Cigarettes 1 40 1 09/07/1979 - 07/07/2020 Smokeless Tobacco: Never Tobacco Cessation:Counseling Given: Not Answered Comments:used a nicotine patch-done with the patch Alcohol Use Standard Drinks/Week Comments Yes 0 (1 standard drink = 0.6 oz pur e alcohol) Sex and Gender Information Value Date Recorded Sex Assigned at Not on file Legal Sex 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 Gender Identity Not on file Sexual Orientation Not on file Last Filed Vital Signs Vital Sign Reading Time Taken Comments Blood Pressure 120/80 01/05/2024 10:54 AM CDT Pulse 88 01/05/2024 10:54 AM CDT Temperature 36.7 C (98 F) 07/21/2020 9:47 AM GR[employer] AND NURSERY SPECIALIST Respiratory Rate 19 07/21/2020 4:15 PM GROUNDS AND NURSERY SPECIALIST Oxygen Saturation 98% 01/05/2024 10:54 AM CDT Inhaled Oxygen Concentration - - Weight 95.3 kg (210 lb) 01/05/2024 10:54 AM CDT Height 174 cm (5' 8.5 ) 01/05/2024 10:54 AM CDT Body Mass Index 31.47 01/05/2024 10:54 AM CDT Plan of Treatment Upcoming Encounters Date Type Department Care Team (Late st Contact Info) Description 01/02/2025 11:30 AM CDT Appointment [facility] Heart [facility] Vascular Testing [facility] [address] [place] [address] [place] [address] [facility] [address] [place] [address] 01/10/2025 10:30 AM CDT Office Visit [facility] - [address] [facility] [address] [address] [facility] [address] [place] [address] Gisselle Dumas NP NO ADDRESS ON FILE Health Maintenance Due Date Last Done Comments DIABETES ANNUAL RETINAL EXAM 1972 DIABETES MICROALBUMIN ANNUAL SCREEN 1972 PNEUMOCOCCAL VACCINE 65+ YEA RS (1 of 2 - PCV) 1973 COLORECTAL SCREENING 10/23/1999 Colorectal Cancer Screening 10/23/1999 FIT-DNA Q 3 years 10/23/1999 FIT/FOBT Q 1 year 10/23/1999 Flex Sig/CT Colonography Q 5 years 10/23/1999 ZOSTER VACCINE (1 of 2) 2004 RSV VACCINE (60+ or ) (1 - Risk 60-74 years 1-dose series) 2014 Abdominal Aortic Aneurysm (A AA) Screening 10/23/2019 INFLUENZA VACCINE (#1) 2024 DIABETES HBA1C Q 6 MONTHS 06/22/20242023, 04/06/2023, 09/16/2022, Additional history exists LDL CHOLESTEROL ANNUAL 11/14/2024 11/15/2023, 2021 DIABETES ANNUAL FOOT EXAM 12/21/2024 12/22/2023 DTAP/TDAP/TD VACCINES (2 - T d or Tdap) 04/03/2031 04/03/2021 Medical Devices Implanted Type Area Sole Molding Machine Operator Device Identifier Shelf Expiration Date Model / Serial / Lot Closure Perclose Proglide [id number] - [id number] Implanted:Qty : 1 on 07/21/2020 by Prosper Law MD at On License Of [facility] Closure Device N/A: Groin ANDRE- VASC DEVICE 04/09/2022 [id number] / / [id number] Procedures Procedure Name Priority Date/Time Associated Diagnosis Comments LIPID PANEL Routine 11/15/2023 2:33 PM CDT from Last 3 Months or Most Recently Relevant to Health Maintenance Results * LIPID PANEL (11/15/2023 2:33 PM CDT) Blood us Abstract Provider CHEMISTRY ORDERABLES Edited Re sult - Final from Last 3 Months or Most Recently Relevant to Health Maintenance Insurance [employer] CHO[employer] [facility] RX [place] Medicare Part D Care Teams Manufacturers Agent Relationship Specialty Start Date End Date Willis Major MD [address] [place] [address] PCP - General Internal Medicine 11/07/20
--- OUTSIDE RECORDS SUMMARY | 2024-08-29 13:20 | XMS_ITS | Clinical Summary ---
Author Organization [facility] Address [address] [facility] [place] [address] Care Team Providers Care Hydraulic Repairer Name Role Phone Willis Major MD Primary Care Provider [phone] Source Comments [facility],non-owned Affiliates and Associated Physician Practices is amultiple site organization consisting of ambulatory clinics and hospital sitesin [place], [place], [place] and [place]. This disclosure is being madepursuant to the Care Everywhere program and may not contain all information available regarding this patient. Last updated 18.[facility] Allergies No known active allergies Immunizations Name [...] 04/03/2021 12:44 PM CDT Plan of Treatment Health Maintenance Due Date Last Done Comments COLOGUARD (AGES 45-75) - COL ON CA SCREENING 1954 COLON MONITORING 1954 COLONOSCOPY - COLON CA SCREENING 1954 CT COLONOGRAPHY - COLON CA SCREENING 1954 Colorectal Cancer Screening 1954 FIT - COLON CA SCREENING 1954 FLEX SIG - COLON CA SCREENING 1954 LIPID TESTING 1954 HEPATITIS C SCREENING 10/17/1972 PNEUMOCOCCAL VACCINE 50+ (1 of 1 - PCV) 2004 ZOSTER VACCINE (1 of 2) 2004 COVID-19 VACCINE (1 - 2023-2 5 season) 2024 INFLUENZA VACCINE (#1) 2024 DEPRESSION SCREENING 07/11/2024 MEDICARE AWV CALENDAR YEAR 2024 Respiratory Syncytial Virus (RSV) Vaccine Pt: or over 60 yrs (1 - 1-dose 75+ series) 2029 DTAP/TDAP/TD VACCINES (2 - T d or Tdap) 04/03/2031 04/03/2021 HEPATITIS B VACCINE Aged Out No longe r eligible based on patient's age to complete this topic HIB VACCINE Aged Out No longer eligi ble based on patient's age to complete this topic HPV VACCINE Aged Out No longer eligi ble based on patient's age to complete this topic MENINGOCOCCAL (Group B) VACCINE Aged Out No longer eligible based on patient's age to complete this topic MENINGOCOCCAL VACCINE Aged Out No luzma nereyda eligible based on patient's age to complete this topic Care Teams Hydraulic Repairer Relationship Specialty Start Date End Date Willis Major MD [address] [facility] [place] [address] PCP - General 08/16/22
--- OUTSIDE RECORDS SUMMARY | 2024-08-29 13:20 | XMS_ITS | Data Portability ---
Author Organization [place] - [facility] Yellow Pages, Main Office Address [address] [place] [address] Assessment Encounter Date Assessment Date Assessment LastModified by Organization Details LastModified Time 11/09/2022 11/09/2022 Blood pressure optimize Blood work to be done for biochemical management of disease processes a medications Target for LDL A1c and blood pressure been discussed Follow-up 4 months [email or web address] Not available 12/19/2022 10:58:48 03/15/2023 03/15/2023 Smoking cessation discussed in detail diagnosis in assessment and plan have been discussed follow-up in 4 months continue current therapy Not available 03/15/2023 21:49:33 07/13/2023 07/13/2023 Refuses all immunizations continue current therapy will follow-up in 4 months [email or web address] Not available 07/13/2023 22:45:35 Plan of Treatment Reminders Order Date Submit Date Provider Last Modified By Organization Details Last Modified Time Details Appointments None record ed. Lab None record ed. Referral None record ed. Procedures None record ed. Surgeries None record ed. Imaging None record ed. Medication Orders None record ed. Patient TargetsNo targets recorded. Patient InstructionsNo instructions recorded. Reason for Referral None Reported. Results Created Date Observation Date Name Description Value Unit Range Abnormal Flag Note LastModifiedBy Organization Detail LastModifiedTime 11/10/1911/09/2022 COMPR EHENS SMILEY METAB OLIC PANEL sodium 137 mmol/ L 137-14 5 Not Available [facility] (Lab) [address] [place], [address], 11/09/2022 18:47:11 11/10/19 23 11/09/2022 COMPR EHENS SMILEY METAB OLIC PANEL potassium 4.4 mmol/ L 3.5-5. 1 Not Available [facility] (Lab) [address] [place], [address], 11/09/2022 18:47:11 11/10/1911/09/2022 COMPR EHENS SMILEY METAB OLIC PANEL chloride 101 mmol/ L 98-107 Not Available [facility] (Lab) [address] [place], [address], 11/09/2022 18:47:11 11/10/19 23 11/09/2022 COMPR EHENS SMILEY METAB OLIC PANEL carbon dioxide 26 mmol/ L 22-30 Not Available [facility] (Lab) [address] [place], [address], 11/09/2022 18:47:11 11/10/19 23 11/09/2022 COMPR EHENS SMILEY METAB OLIC PANEL anion gap 14.4 mmol/ L 14-22 Not Available [facility] (Lab) [address] [place], [address], 11/09/2022 18:47:11 11/10/19 23 11/09/2022 COMPR EHENS SMILEY METAB OLIC PANEL glucose 163 mg/dL 70-99 high Not Available [facility] (Lab) [address] [place], [address], 11/09/2022 18:47:11 11/10/19 23 11/09/2022 COMPR EHENS SMILEY METAB OLIC PANEL BUN 21 mg/dL 8-19 high Not Available [facility] (Lab) [address] [place], [address], 11/09/2022 18:47:11 11/10/19 23 11/09/2022 COMPR EHENS SMILEY METAB OLIC PANEL creatinine 0.95 mg/dL 0.66-1 .25 Not Available [facility] (Lab) [address] [place], [address], 11/09/2022 18:47:11 11/10/1911/09/2022 COMPR EHENS SMILEY METAB OLIC PANEL GFR >60 Refer ence Range : [place] [facility] GFR Healt hy Adult : >60 mL/mi n/1.7 3 m2 Chron ic Kidne y Disea se: 15-60 mL/mi n/1.7 3 m2 Kidne y Failu re: <15/m L/min /1.73 m2 www.n iddk. nih.g ov The MDRD study equat ion has not been valid ated in child justyna <18 years of age; pregn ant women ; the elder ly >85 years of age; or in some racia l or ethni c subgr oups, such as Hispa nics. Outsi de the valid ated dmitri eters , estim ated GFR is less accur ate, requi ring clini michelle judgm ent on a case- by-ca se basis . Clini michelle inter preta tion for other races and ages must be made by the clini risa. The MDRD study equat ion has not been valid ated for the evalu ation of serum creat inine relat ed to nutri germaine l statu s or medic ation usage . For perso ns <18 years of age, a pedia tric GFR calcu lator is avail able on the [facility] websi te: https :[email or web address] marshall.qi hanna/pr brad acharya s/kdo qi/gf r_cal culat or Not Available [facility] (Lab) [address] [place], [address], 11/09/2022 18:47:11 11/10/1911/09/2022 COMPR EHENS SMILEY METAB OLIC PANEL alkaline phosphatase 76 U/L 38-126 Not Available [facility] (Lab) [address] [place], [address], 11/09/2022 18:47:11 11/10/19 23 11/09/2022 COMPR EHENS SMILEY METAB OLIC PANEL alanine aminotransfe rase 20 U/L 0-50 Not Available [facility] (Lab) [address] [place], [address], 11/09/2022 18:47:11 11/10/19 23 11/09/2022 COMPR EHENS SMILEY METAB OLIC PANEL aspartate aminotransfe rase 22 U/L 15-46 Not Available [facility] (Lab) [address] [place], [address], 11/09/2022 18:47:11 11/10/19 23 11/09/2022 COMPR EHENS SMILEY METAB OLIC PANEL bilirubin, total 0.80 mg/dL 0.20-1 .30 Not Available [facility] (Lab) [address] [place], [address], 11/09/2022 18:47:11 11/10/19 23 11/09/2022 COMPR EHENS SMILEY METAB OLIC PANEL calcium 9.3 mg/dL 8.4-10 .2 Not Available [facility] (Lab) [address] [place], [address], 11/09/2022 18:47:11 11/10/19 23 11/09/2022 COMPR EHENS SMILEY METAB OLIC PANEL total protein 6.8 g/dL 6.3-8. 2 Not Available [facility] (Lab) [address] [place], [address], 11/09/2022 18:47:11 11/10/19 23 11/09/2022 COMPR EHENS SMILEY METAB OLIC PANEL albumin 4.1 g/dL 3.0-4. 4 Not Available [facility] (Lab) [address] [place], [address], 11/09/2022 18:47:11 11/10/19 23 11/09/2022 COMPR EHENS SMILEY METAB OLIC PANEL globulin 2.7 g/dL 2.6-4. 2 Not Available [facility] (Lab) [address] [place], [address], 11/09/2022 18:47:11 11/10/19 23 11/09/2022 COMPR EHENS SMILEY METAB OLIC PANEL A/G ratio 1.5 ratio 1.0-2. 0 Not Available [facility] (Lab) [address] [place], [address], 11/09/2022 18:47:11 11/10/19 23 11/09/2022 HEMOG LOBIN A1C HA1C 7.8 % 4.0-6. 0 high Diabe axel Scree shruti Crite yadira: <5.7% Consi stent with absen ce of diabe axel 5.7-6 .4% Consi stent with incre ased risk for diabe axel (pred iabet es) >OR=6 .5% Consi stent with diabe axel REFER ENCE: Diabe axel Care 2016, 39(Romero ppl.1 ):s13 -s22 Not Available [facility] (Lab) [address] [place], [address], 11/09/2022 20:35:55 10/13/19 23 07/30/2022 XR, toe(s ) No observ ation record ed. [address], [address], 11/10/2022 11:36:37 11/09/19 23 07/30/2022 imagi ng/di agnos tic resul t No observ ation record ed. [address], [address], 11/09/2022 15:59:04 Result Notes None recorded. Problems Name Problem SNOMED Code Status Onset Date Resolution Date Notes Provider Name and Address Organization Details Recorded Time Neuropathy due to diabetes mellitus 338114310 Active 2020 Not Available [facility] 3 22:43:31 Headache 92753986 Active 2021 Not Available [facility] 3 22:43:31 Hyperlipidemi a 45490244 Active 2020 Not Available [facility] 3 22:43:31 Essential hypertension 49558847 Active 2020 Not Available [facility] 3 22:43:31 Diabetes mellitus 02128039 Active 2020 Not Available [facility] 3 22:43:31 Peripheral arterial disease 467464557 Active 2020 right SFA stent Not Available [facility] 3 22:43:31 Erectile dysfunction 519454803 Active 2020 Not Available [facility] 3 22:43:31 Lipoma of skin and subcutaneous tissue of neck 52039195 Active 2020 Not Available [facility] 3 22:43:31 Carpal tunnel syndrome 50290634 Active 2022 Aria Washington RN [facility] [employer] 3 15:38:02 Peripheral arterial occlusive disease 734304090 Active 2023 Willis Major MD [address] [place] [address], [address] [facility] [employer] 4 22:45:59 Problem Notes None recorded. Procedures Surgical History Date Name Laterality Status Provider Name and Address Organization Details Recorded Time amputation of toe completed Not Available [facility] 09/08/2022 22:42:46 Hernia Repair completed Not Available [facility] 09/08/2022 22:42:46 thoracentesis completed Not Available [facility] 09/08/2022 22:42:46 Imaging Results Imaging Date Name Status LastModified by Organiz ation Details LastModified Time 07/30/2022 XR, toe(s) completed [address], [address], 11/10/2022 11:36:37 07/30/2022 imaging/diag nostic result completed [address], [address], 11/09/2022 15:59:04 Procedure Notes None recorded. Medical Equipment None Reported. Allergies No known drug allergies Medications Name Sig Start Date Stop Date Status Note LastModified by Organization Details LastModified Time Santyl 250 unit/gram topical ointment APPLY TO WOUND ONCE DAILY 10/14 completed Not Available Not Available Not Available atorvastati n 40 mg tablet TAKE 1 TABLET BY MOUTH EVERY DAY active Not Available Not Available No t Available doxycycline hyclate 100 mg capsule TAKE 1 CAPSULE BY MOUTH EVERY DAY UNTIL GONE 11/09 completed Not Available Not Available Not Available clindamycin HCl 300 mg capsule TAKE 1 CAPSULE BY MOUTH EVERY 12 HOURS UNTIL GONE 07/13 completed Not Available Not Available Not Available azithromyci n 250 mg tablet Take 1 dose pk by oral route as directed. 07/23 completed Not Available Not Available Not Available benzonatate 200 mg capsule Take 1 capsule 3 times a day by oral route for 10 days. active Not Available Not Available No t Available ampicillin 500 mg capsule TAKE 1 CAPSULE BY MOUTH EVERY 6 HOURS UNTIL GONE 07/13 completed Not Available Not Available Not Available prednisone 20 mg tablet Take 2 tablets every day by oral route for 5 days. active Not Available Not Available No t Available clopidogrel 75 mg tablet TAKE 1 TABLET BY MOUTH EVERY DAY 11/09 completed Not Available Not Available Not Available peg-electro lyte solution 420 gram oral solution MIX DIRECTED AND DRINK 1/2 AT 1PM ON 05-11 AND OTHER 1/2 AT 7PM ON 05-11 completed Not Available Not Available Not Available tramadol 50 mg tablet TAKE 1 TABLET BY MOUTH THREE TIMES A DAY NEEDED 02/24 completed Not Available Not Available Not Available sildenafil 100 mg tablet TAKE 1 TABLET BY MOUTH EVERY DAY NEEDED 04/22 completed Not Available Not Available Not Available amoxicillin 500 mg tablet Take 1 tablet 3 times a day by oral route for 7 days. active Not Available Not Available No t Available glimepiride 2 mg tablet TAKE 1 TABLET BY MOUTH TWICE A DAY WITH MEALS 01/22 completed Not Available Not Available Not Available oxycodone-a cetaminophe n 5 mg-325 mg tablet TAKE 1 TABLET BY MOUTH EVERY 4 TO 6 HOURS NEEDED FOR SEVERE PAIN 10/14 completed Not Available Not Available Not Available pravastatin 10 mg tablet TAKE ONE TABLET BY MOUTH ONCE DAILY FOR CHOLESTER OL 10/14 completed Not Available Not Available Not Available cephalexin 500 mg capsule TAKE 1 CAPSULE BY MOUTH 3 TIMES A DAY FOR 7 DAYS 10/14 completed Not Available Not Available Not Available tobramycin 0.3 % eye drops INSTILL 1 DROP IN LEFT EYE EVERY 4 HOURS WHILE AWAKE FOR 5 DAYS 02/24 completed Not Available Not Available Not Available glimepiride 4 mg tablet Take 1 tablet every day by oral route for 90 days. active Not Available Not Available No t Available nicotine 21 mg/24 hr daily transdermal patch APPLY 1 PATCH TO SKIN EVERY MORNING 10/14 completed Not Available Not Available Not Available gabapentin 300 mg capsule TAKE 1 CAPSULE BY MOUTH THREE TIMES A DAY 02/24 completed Not Available Not Available Not Available bisacodyl 5 mg tablet,rishi yed release TAKE 6 TABLETS BY MOUTH AT 8 AM ON 05-11 completed Not Available Not Available Not Available mupirocin 2 % topical ointment APPLY TOPICALLY TO THE AFFECTED AREA TWICE DAILY active Not Available Not Available No t Available metoprolol succinate ER 25 mg tablet,exte nded release 24 hr Take 1 tablet every day by oral route for 90 days. active Not Available Not Available No t Available levofloxaci n 750 mg tablet TAKE 1 TABLET BY MOUTH EVERY 24 HOURS UNTIL GONE 03/15 completed Not Available Not Available Not Available albuterol sulfate HFA 90 mcg/actuati on aerosol inhaler Inhale 2 puffs every 4 hours by inhalatio n route. active Not Available Not Available No t Available dicloxacill in 250 mg capsule TAKE 1 CAPSULE BY MOUTH EVERY 6 HOURS 10/14 completed Not Available Not Available Not Available cefdinir 300 mg capsule Take 1 capsule twice a day by oral route for 7 days. active Not Available Not Available No t Available lisinopril 2.5 mg tablet TAKE 1 TABLET BY MOUTH EVERY DAY active Not Available Not Available No t Available doxycycline hyclate 100 mg tablet TAKE 1 TABLET BY MOUTH EVERY 12 HOURS UNTIL GONE 03/15 completed Not Available Not Available Not Available tadalafil 20 mg tablet TAKE 1 TABLET NEEDED 30 MINUTES PRIOR TO SEXUAL ACTIVITY MAX OF 1 EVERY 48 HOURS active Not Available Not Available No t Available Januvia 100 mg tablet TAKE 1 TABLET BY MOUTH EVERY DAY 10/14 completed Not Available Not Available Not Available TRUEplus Lancets 28 gauge active Not Available Not Available Not Available Jardiance 25 mg tablet active Not Available Not Available Not Available True Metrix Glucose Test Strip TEST TWICE DAILY BEFORE BREAKFAST AND BEFORE DINNER active Not Available Not Available No t Available Trulicity 1.5 mg/0.5 mL subcutaneou s pen injector INJECT 0.5(1.5 MG TOTAL) UNDER THE SKIN ONCE A WEEK 03/15 completed Not Available Not Available Not Available Trulicity 0.75 mg/0.5 mL subcutaneou s pen injector INJECT 0.5 ML (0.75 MG TOTAL) UNDER THE SKIN ONCE A WEEK 10/14 completed Not Available Not Available Not Available Droplet Pen Needle 32 gauge x 32 active Not Available Not Available Not Available True Metrix Air Glucose Meter kit active Not Available Not Available No t Available Soliqua 100/33 100 unit-33 mcg/mL subcutaneou s insulin pen active Not Available Not Available Not Available Accu-Chek Guide Glucose Meter USE TO TEST TWICE DAILY BEFORE BREAKFAST AND BEFORE DINNER active Not Available Not Available No t Available Accu-Chek Fastclix Lancet Drum USE TO TEST TWICE DAILY BEFORE BREAKFAST AND BEFORE DINNER active Not Available Not Available No t Available Trulicity 3 mg/0.5 mL subcutaneou s pen injector 03/15 completed Not Available Not Available Not Available DropSafe Alcohol Prep Pads active Not Available Not Available No t Available Vitals Date Recorded Body mass index (BMI) Body mass index (BMI) Body height Body height Pain severity - 0-10 verbal numeric rating [Score] - Reported Heart rate Heart rate Body temperature Body temperature Body weight Body weight Systolic blood pressure Diastolic blood pressure Systolic blood pressure Diastolic blood pressure Provider Name and Address Organization Details Last Updated DateTime 3 30.7 kg/m2 31.3 kg/m2 175.26 cm 175.26 cm 0 102 /min 94 /min 96.8 [degF] 98.2 [degF] 77674.2 1 g 54729.5 8 g 124 mm[Hg] 80 mm[Hg] 140 mm[Hg] 90 mm[Hg] Not Available [facility] 3 22:43:07 Date Recorded Body height Body weight Body temperature Heart rate Oxygen saturation Oxygen saturation in Arterial blood by Pulse oximetry Systolic blood pressure Diastolic blood pressure Provider Name and Address Organization Details Last Updated DateTime 3 175.26 cm 18789.0 7 g 98.2 [degF] 88 /min 99 % 99 % 124 mm[Hg] 80 mm[Hg] Lesly Cole RN [facility] [employer] [facility] 3 15:40:03 Date Recorded Body height Body mass index (BMI) Body weight Body temperature Heart rate Systolic blood pressure Diastolic blood pressure Provider Name and Address Organization Details Last Updated DateTime 3 175.26 cm 29.4 kg/m2 56649.8 8 g 97.9 [degF] 87 /min 102 mm[Hg] 70 mm[Hg] Cely Florentino Ronald [facility] [employer] [facility] 3 16:01:08 Date Recorded Body height Body mass index (BMI) Body weight Body temperature Heart rate Systolic blood pressure Diastolic blood pressure Provider Name and Address Organization Details Last Updated DateTime 4 175.26 cm 30.9 kg/m2 90822.8 1 g 98.1 [degF] 90 /min 120 mm[Hg] 74 mm[Hg] Cely Florentino Ronald [facility] [employer] [facility] 4 15:24:26 Social History Question Answer Notes LastModified by Organization Details LastModified Time Tobacco Smoking Status Former Smoker quit 07/07/20 20 Not Available [facility] 09/08/2022 22:42:29 Do You Have An Advance Directive? No [id number] Information not available 09/08/2022 What Is Your Level Of Alcohol Consumption? Occasional [id number] Information not available 09/08/2022 Are You Blind Or Do You Have Difficulty Seeing? No MIGRATION.030 [id number] Information not available 09/08/2022 What Is Your Level Of Caffeine Consumption? Moderate MIGRATION.030 823754 Information not available 09/08/2022 How Much Tobacco Do You Chew? None MIGRATION.030 [id number] Information not available 09/08/2022 In The 14 Days Before Symptom Onset, Have You Had Close Contact With A Laboratory-confi rmed COVID-19 While That Case Was Ill? No MIGRATION.030 [id number] Information not available 09/08/2022 In The 14 Days Before Symptom Onset, Have You Had Close Contact With A Person Who Is Under Investigation For COVID-19 While That Person Was Ill? No MIGRATION.030 [id number] Information not available 09/08/2022 Are You Deaf Or Do You Have Serious Difficulty Hearing? No MIGRATION.0301 [id number] Information not available 09/08/2022 What Type Of Diet Are You Following? REGULAR MIGRATION.0301 384502 Information not available 09/08/2022 Which Illicit Or Recreational Drugs Have You Used? None MIGRATION.0301 515642 Information not available 09/08/2022 Do You Or Have You Ever Used E-cigarettes Or Vape? Never Used Electronic Cigarettes MIGRATION.0301 367916 Information not available 09/08/2022 What Is The Highest Grade Or Level Of School You Have Completed Or The Highest Degree You Have Received? [id number] MIGRATION.0301 596853 Information not available 09/08/2022 What Is Your Occupation? Part-time MIGRATION.0301 595867 Information not available 09/08/2022 Have There Been Any Changes To Your Family Or Social Situation? No MIGRATION.0301 326843 Information not available 09/08/2022 What Is The Fluoride Status Of Your Home? Unknown MIGRATION.0301 047606 Information not available 09/08/2022 When Did You Quit Smoking? 1-5yearssincelastci garette MIGRATION.0301 758692 Information not available 09/08/2022 Do You Use Insect Repellent Routinely? No MIGRATION.0301 653471 Information not available 09/08/2022 Where Do You Live? SingleLevelHouse MIGRATION.0301 486228 Information not available 09/08/2022 Do You Have A Medical Power Of Research Kennel Supervisor? No MIGRATION.0301 317620 Information not available 09/08/2022 What Was The Date Of Your Most Recent Tobacco Screening? 07/13/2023 [email or web address] Information not available 07/13/2023 What Is Your Current Pack Years? 30ormorepackyears MIGRATION.0301 434367 Information not available 09/08/2022 Have You Ever Been Counseled For Unhealthy Alcohol Use? No MIGRATION.0301 861132 Information not available 09/08/2022 Do You Have Any Pets? Yes MIGRATION.0301 070771 Information not available 09/08/2022 What Is Your Relationship Status? MIGRATION.0301 166331 Information not available 09/08/2022 Do You Use Your Seat Belt Or Car Seat Routinely? Yes MIGRATION.0301 [id number] Information not available 09/08/2022 Do You Have Smoke And Carbon Monoxide Detectors In Your Home? Yes MIGRATION.0301 327268 Information not available 09/08/2022 Are You Passively Exposed To Smoke? No MIGRATION.0301 245968 Information not available 09/08/2022 Do You Or Have You Ever Used Smokeless Tobacco? Never Used Smokeless Tobacco MIGRATION.0301 146741 Information not available 09/08/2022 Are There Any Smokers In Your House? No MIGRATION.0301 266025 Information not available 09/08/2022 How Much Tobacco Do You Smoke? No MIGRATION.0301 749780 Information not available 09/08/2022 What Types Of Sporting Activities Do You Participate In? None MIGRATION.0301 569441 Information not available 09/08/2022 Do You Feel Stressed (tense, Restless, Nervous, Or Anxious, Or Unable To Sleep At Night)? [id number] MIGRATION.0301 565366 Information not available 09/08/2022 Do You Use Any Illicit Or Recreational Drugs? No MIGRATION.0301 110798 Information not available 09/08/2022 Do You Use Sunscreen Routinely? Yes MIGRATION.0301 638710 Information not available 09/08/2022 Has Tobacco Cessation Counseling Been Provided? No MIGRATION.0301 934761 Information not available 09/08/2022 Have You Recently Traveled Abroad? No MIGRATION.0301 651118 Information not available 09/08/2022 Do You Have Any Dietary Restrictions? No MIGRATION.0301 332386 Information not available 09/08/2022 Do You Or Have You Ever Used Any Other Forms Of Tobacco Or Nicotine? No MIGRATION.0301 285035 Information not available 09/08/2022 Sex: Male Functional Status Question Answer Note LastModified by Organizat ion Details LastModified Time Do you have difficulty walking or climbing stairs? No MIGRATION.0077344 026 Information not available 09/08/2022 Do you have transportation difficulties? No MIGRATION.6256447 026 Information not available 09/08/2022 Are you able to walk? YESWOREST MIGRATION.0728079 026 Information not available 09/08/2022 Do you have difficulty doing errands alone? No MIGRATION.0469391 026 Information not available 09/08/2022 Are you able to care for yourself? Yes MIGRATION.0915161 026 Information not available 09/08/2022 Do you have difficulty dressing or bathing? No MIGRATION.9074860 026 Information not available 09/08/2022 What is your exercise level? Occasional MIGRATION.3659270 026 Information not available 09/08/2022 Mental Status Question Answer Note LastModified by Organizat ion Details LastModified Time Do you have difficulty concentrating, remembering or making decisions? No MIGRATION.[id number] 6 Information not available 09/08/2022 Family History Relationship Description Onset Age of this Age Resolved Age Notes LastModified by Organization Details LastModified Time Father Malignant tumor of pharynx 39 MIGRATION.059 [id number] Not available 09/08/2022 22:42:48 Mother Malignant tumor of breast 39 MIGRATION.754 [id number] Not available 09/08/2022 22:42:48 Sister Polyp of colon MIGRATION.350 [id number] Not available 09/08/2022 22:42:48 Medical History Condition Response NERVE DISEASE Y BLINDNESS N RHEUMATIC FEVER N KIDNEY STONES N BLADDER PROBLEMS N MRSA N OTHER # 1 N POLIO N LUNG DISEASE/DISORDER N RADIATION / CHEMOTHERAPY N COPD N Other # 2 N BLOOD DISEASES N SURGERY N EAR OR HEARING PROBLEMS N MUMPS N DEPRESSION (INCLUDING POST ) N BOWEL PROBLEMS N STROKE/TIA N ULCERS N BENIGN PROSTATIC HYPERPLASIA N MEASLES N MYOCARDIAL INFARCTION N OBESITY N GERD/NAUSEA N ANEURYSM N URINARY/BLADDER/KIDNEY PROBLEMS N CORONARY ARTERY DISEASE (CAD) N ADDICTION CONCERNS N Impotence N ENDOMETRIOSIS N USE OF BLOOD THINNERS N SKIN PROBLEMS N GASTROINTESTINAL DISORDER N PERIPHERAL VASCULAR DISEASE Y MUSCLE,JOINT OR BONE PROBLEMS N GASTROINTESTINAL BLEEDING N BLOOD CLOTS N ASTHMA N CATARACTS N ERECTILE DYSFUNCTION N VARICOSITIES N GI PROBLEMS N Low Testosterone N INFERTILITY N AIDS/HIV N CHEMOTHERAPY / RADIATION N LIVER DISEASE N MALE HYPOGONADISM N HYPERTENSION Y Deficiency N ANXIETY DISORDER N BLOOD TRANSFUSION N ANEMIA/BLOOD DISORDER N CHRONIC EAR INFECTIONS N BRONCHITIS N TUBERCULOSIS N GLAUCOMA N FOOT PROBLEM N DIVERTICULITIS N SLEEP APNEA N CHICKENPOX N INFECTIOUS DISEASE N PROSTATE N HEART ARRHYTHMIA N INSOMNIA N HIGH CHOLESTEROL / HYPERLIPIDEMIA Y EYE PROBLEMS N HYPERTHYROIDISM N NEUROLOGICAL PROBLEMS N EDEMA N CHRONIC PAIN SYNDROME N HYPOTHYROIDISM N CAROTID BLOCKAGE N CONSTIPATION N BACK / NECK PROBLEMS N HAVE YOU BEEN HOSPITALIZED OR SEEN IN [facility] IN THE PAST YEAR ? N ATHEROSCLEROSIS N BREAST PROBLEMS N DIALYSIS N ECZEMA N OSTEOPOROSIS N ARTHRITIS N APPENDICITIS N DIABETES, TYPE Y BAD TEETH N ENT N HEARTBURN / REFLUX N AUTISM SPECTRUM DISORDER (ASD) N HEPATITIS / LIVER DISEASE N GOUT N SLEEP DISORDER N ALZHEIMER'S DISEASE N Brain Problems N DEMENTIA N HERPES N SEIZURES/EPILEPSY N HEADACHES/MIGRAINES N VASCULAR DISEASE N PACEMAKER N Blood Disorder N DIZZINESS N HEART DISEASE/HEART PROBLEMS Y KIDNEY DISEASE N MULTIPLE SCLEROSIS N CANCER: SPECIFY N CARDIAC ARRHYTHMIA N ATRIAL FIBRILLATION N Gall Stones N PULMONARY EMBOLISM N AUTOIMMUNE DISEASE N Past Encounters Encounter ID Performer Location Encounter Start Date Encounter Closed Date Diagnosis/Indication Diagnosis SNOMED-CT Code Diagnosis ICD10 Code Diagnosis Note [id number] [facility] [address] , [address] [address] 10/14/2020 00:00:00 10/26/2020 10:12:48 [id number] [facility] [place]ye bland [facility] [place] [address] 01/22/2021 00:00:00 01/22/2021 21:15:44 [id number] [facility] [place] bland [address] [place] [address] [place] [address] 01/27/2021 00:00:00 01/27/2021 21:43:41 [id number] [facility] [place] [address] [place] [address] [place] [address] 03/12/2021 00:00:00 03/12/2021 22:17:01 [id number] [facility] [address] , [address] [address] 04/13/2021 00:00:00 04/13/2021 15:19:21 [id number] [facility] [place] [address] [place] [address] [place] [address] 07/23/2021 00:00:00 07/23/2021 20:52:21 [id number] [facility] [address] , [address] [address] 09/30/2021 00:00:00 10/12/2021 23:17:19 [id number] [facility] [address] [place] [address] 10/14/2021 00:00:00 10/14/2021 21:45:05 [id number] [facility] [address] [address] 11/25/2021 00:00:00 11/29/2021 13:06:24 [id number] [facility] [address] [address] 02/24/2022 00:00:00 02/24/2022 22:10:32 [id number] [facility] [address] [address] 07/13/2022 00:00:00 07/13/2022 23:31:32 [id number] Willis Major MD [facility] [address] [place], [place] [address]e., [address] [address] 11/09/2022 15:28:01 11/09/2022 16:18:35 Essential hypertension 53229381 I10 Hyperlipidemia 84385685 E78.5 Diabetes mellitus 029875 09 E11.42 Erectile dysfunction 860 628660 F52.21 [id number] Willis Major MD [facility] [address] [place] [address] 03/15/2023 15:34:14 03/15/2023 16:24:31 Diabetes mellitus 37589424 E11.42 Erectile dysfunction 860 978664 F52.21 Essential hypertension 91183856 I10 Hyperlipidemia 82827559 E78.5 [id number] Willis Major MD [facility] [address] [place] [address] [place] [address] 07/13/2023 14:53:42 07/13/2023 17:26:11 Essential hypertension 40698693 I10 Hyperlipidemia 85642131 E78.5 Diabetes mellitus 172105 09 E11.42 Peripheral arterial occlusive disease 263118860 I73.9 Health Concerns Section Related Observation LastModified by Organization Detai ls LastModified Time None Recorded Concern Status LastModified by Organization Details LastModified Time None Recorded Advance Directives Directive N: Payers Encounter Date Sequence Insurance Name Policy Number Policy Henry Covered Member ID Henry Member ID Guarantor Name 11/09/2022 1 [employer] (MEDICARE REPLACEMENT/A DVANTAGE - PPO) Thanh Lrtabitha [id number] Thanh Javier 03/15/2023 1 [employer] (MEDICARE REPLACEMENT/A DVANTAGE - PPO) Thanh Irizarry Javier [id number] Thanh Javier 07/13/2023 1 [employer] (MEDICARE REPLACEMENT/A DVANTAGE - PPO) Thanh Herrera [id number] Thanh Herrera Notes Date Note Type Note Provider Name and Address Organization Details Recorded Time 11/09/2022 text/html being seen dated for diabetes hypertension hyperlipidemia diabetes he will need some blood work done. His CN Podiatry for some foot issues and is on antibioticsDoes not take his sugars off polyphagia polydipsia hypertension no headache or dizziness dyslipidemia needs to have that evaluatedContinues to smoke Willis Major MD [address], [place], [address], [employer] 12/19/2022 10:59:12 03/15/2023 text/html Diabetes no poly phagia polydipsia. Erectile dysfunction stable on meds. Hypertension headache disease. Hyperlipidemic do better with diet. He does continue smoke. Peripheral arterial occlusive disease right SFA stent no claudication Willis Major MD [address], [place], [address], [employer] 03/15/2023 21:49:51 07/13/2023 text/html Diabetes no poly phagia polydipsia. Erectile dysfunction stable on meds. Hypertension headache disease. Hyperlipidemic do better with diet. He does continue smoke. Peripheral arterial occlusive disease right SFA stent no claudication Willis Major MD [address], [place], [address], [employer] 07/13/2023 22:46:18
--- NOTE | 2024-08-29 14:30 | NEURO_ITS ---
Impression: # Complains of increasing weakness of left hand. Non-diabetic. ? # Moderate Carpal Tunnel Syndrome. ? # Severe ulnar neuropathy around the elbow. ? # Needle/EMG exam mildly abnormal in first dorsal interosseous,,abductor digiti minimi and abductor pollicis brevis muscles. Nerve Conduction Studies Anti Sensory Summary Table ?Stim Site NR Peak (ms) P-T Amp (?V) Site1 Site2 Delta-P (ms) Dist (cm) Cheo (m/s) Left Median Anti Sensory (2-3nd Digit)??? NO RESPONSE Wrist NR Wrist 2-3nd Digit 14.0 Wrist ? 8.4 8.8 Wrist 2-3nd Digit 14.0 Left Radial Anti Sensory (Base 1st Digit) Wrist ? 2.7 13.1 Wrist Base 1st Digit 2.7 0.0 Left Ulnar Anti Sensory (5th Digit) Wrist ? 3.3 12.9 Wrist 5th Digit 3.3 14.0 42 Motor Summary Table ?Stim Site NR Onset (ms) O-P Amp (mV) Site1 Site2 Delta-0 (ms) Dist (cm) Cheo (m/s) Left Median Motor (Abd Poll Brev) Wrist ? 4.5 2.3 Elbow Wrist 6.8 34.0 50 Elbow ? 11.3 6.9 Left Ulnar Motor (Abd Dig Minimi) Wrist ? 3.0 3.7 A Elbow Wrist 7.3 32.0 44 A Elbow ? 10.3 2.6 B Elbow Wrist 4.3 21.0 49 B Elbow ? 7.3 3.0 F Wave Studies ?NR F-Lat (ms) L-R F-Lat (ms) Left Median (Mrkrs) (Abd Poll Brev) ? 35.32 Left Ulnar (Mrkrs) (Abd Dig Min) ? 35.22 EMG ?Side Muscle Nerve Root Ins Act Fibs Amp Dur Recrt Comment Left 1stDorInt Ulnar C8-T1 Incr Nml Decr >12ms +2 Left Ext Indicis Radial (Post Int) C7-8 Nml Nml Nml Nml Nml Left Ext Digitorum Radial (Post Int) C7-8 Nml Nml Nml Nml Nml Left BrachioRad Radial C5-6 Nml Nml Nml Nml Nml Left PronatorTeres Median C6-7 Nml Nml Nml Nml Nml Left Abd Poll Brev Median C8-T1 Nml Nml Incr >12ms +1 Left ABD Dig Min Ulnar C8-T1 Incr Nml Decr >12ms +2 MTDD
== END 2024-08-29 13:18 | disposition home or self-care (01) ==
PROVIDERS: PCP Internal Medicine; Visit Provider Internal Medicine
DX: M25.532 Pain in left wrist (principal); R20.2 Paresthesia of skin; G56.02 Carpal tunnel syndrome, left upper limb; G56.22 Lesion of ulnar nerve, left upper limb
CPT/HCPCS: 95886; 95909

== ENCOUNTER 2024-12-04 14:45 | Outpatient (CLI) | payer MEDICARE, SELFPAY ==
--- OUTSIDE RECORDS SUMMARY | 2024-12-04 14:49 | XMS_ITS | Continuity of Care Document ---
Author Organization [facility] Address [address] [place] [address] Phone Care Team Providers Care Hydraulic Modeling Engineer Name Role Phone Unavailable Unavailable Unavailable Allergies, [...] Date Provider Providers Copied on Encounter Jacy [facility], [address], [place], [place], [id number] , [place] tel:[phone] Jacy On Naveen No Information 200 9 No Information OFFICE/OUTPA TIENT VISIT, EST Jacy [facility], [address], [place], [place], [id number] , [place] tel:[phone] Cely Beckford hypertension (chief complaint) Unspecified essential hypertension 9 No Information OFFICE OUTPT NEW 20 MINUTES Jacy childs, [address], [place], [place], [id number] , [place] tel: [phone] Cely Beckford hypertension (chief complaint)her bala, umbilical [...] (finding) Payers Payer name Insurance type Covered alliance party ID Authoriza tion(s) No Information Social History [...]
--- OUTSIDE RECORDS SUMMARY | 2024-12-04 14:50 | XMS_ITS | Clinical Summary ---
Author Organization [facility] [address] [place] [address] Care Team Providers Care Turf Sales Person Name Role Phone Lenin Hagen DO Primary Care Provider [phone] Allergies No known active allergies Medications blood-glucose meter kit 1 each 2 (two) times a day before breakfast and dinner DX:E11.65 not insulin dependent 1 each 01/04/20 20 Active tadalafiL (CIALIS) 20 mg tablet 04/16/20 20 Active aspirin 81 mg enteric coated tablet Take 1 tablet (81 mg total) by mouth daily 07/17/19 21 Active atorvastatin (LIPITOR) 40 mg tablet Take 1 tablet (40 mg total) by mouth daily 07/21/19 21 Active clopidogreL (PLAVIX) 75 mg tablet Take 1 tablet (75 mg total) by mouth daily 07/28/19 21 Active metoprolol XL (TOPROL-XL) 25 mg extended release tablet Take 1 tablet (25 mg total) by mouth daily 11/12/19 21 Active sildenafiL (VIAGRA) 100 mg tablet Take 1 tablet (100 mg total) by mouth daily as needed 12/18/19 22 Active alcohol swabs (BD Alcohol Swabs) pads, medicatedIndic ations:Type 2 diabetes mellitus with hyperglycemia, without long-term current use of insulin (HCC) Dx: E11.65 Check blood sugar once daily 100 each 1 03/04/20 23 Active lisinopriL (PRINIVIL,ZEST RIL) 2.5 mg tabletIndicati ons:Hypertensi on associated with diabetes (HCC) TAKE 1 TABLET EVERY DAY 90 tablet 3 12/16/19 24 Active Dexcom G7 Sensor deviceIndicati ons:Type 2 diabetes mellitus with hyperglycemia, without long-term current use of insulin ([facility]) CHANGE SENSOR EVERY 10 DAYS 6 each 5 03/19/20 24 Active Droplet Pen Needle 32 gauge x 32 needle USE DIRECTED EVERY DAY 100 each 3 04/26/20 24 Active Mounjaro 7.5 mg/0.5 mL pen injector injectionIndic ations:type 2 diabetes mellitus Inject 0.5 mL (7.5 mg total) under the skin every 7 days 6 mL 3 11/29/19 25 026 Active glimepiride (AMARYL) 4 mg tabletIndicati ons:Type 2 diabetes mellitus with hyperglycemia, without long-term current use of insulin ([facility]) Take 1 tablet (4 mg total) by mouth 2 (two) times a day with meals 180 tablet 11/29/19 25 026 Active LANTUS 100 unit/mL (3 mL) pen for injectionIndic ations:Type 2 diabetes mellitus with hyperglycemia, without long-term current use of insulin ([facility]) Inject 30 Units under the skin daily 27 mL 11/29/19 25 026 Active Farxiga 10 mg tabletIndicati ons:type 2 diabetes mellitus Take 1 tablet (10 mg total) by mouth daily 90 tablet 11/29/19 25 026 Active OneTouch Delica Plus Lancet 30 gauge miscIndication s:Type 2 diabetes mellitus with hyperglycemia, without long-term current use of insulin ([facility]) 2 x daily 200 each 11/29/19 25 Active OneTouch Verio Flex meter miscIndication s:Type 2 diabetes mellitus with hyperglycemia, without long-term current use of insulin ([facility]) One glucometer 1 each 11/29/19 25 Active OneTouch Verio test strips stripIndicatio ns:Type 2 diabetes mellitus with hyperglycemia, without long-term current use of insulin ([facility]) Check 2 x daily 200 each 3 11/29/19 25 Active lancets 33 gauge misc 1 each 2 (two) times a day before breakfast and dinner DX:E11.65 not insulin dependent 100 each 6 01/04/20 20 025 Discontinued blood glucose diagnostic (True Metrix Glucose Test Strip) stripIndicatio ns:Type 2 diabetes mellitus with hyperglycemia, without long-term current use of insulin ([facility]) Dx: E11.65 Check blood sugar once daily 100 strip 1 03/04/20 23 025 Discontinued lancets (TRUEplus Lancets) 28 gauge miscIndication s:Type 2 diabetes mellitus with hyperglycemia, without long-term current use of insulin ([facility]) Dx: E11.65 Check blood sugar once daily 100 each 1 03/04/20 23 025 Discontinued blood-glucose meter (True Metrix Air Glucose Meter) miscIndication s:Type 2 diabetes mellitus with hyperglycemia, without long-term current use of insulin ([facility]) Dx: E11.65 Check blood sugar once daily 1 each 03/04/20 025 Discontinued glimepiride (AMARYL) 4 mg tabletIndicati ons:Type 2 diabetes mellitus with hyperglycemia, without long-term current use of insulin ([facility]) TAKE 1 TABLET TWICE DAILY WITH MEALS 180 tablet 3 05/02/20 24 025 Discontinued(Re order) LANTUS 100 unit/mL (3 mL) pen for injectionIndic ations:Type 2 diabetes mellitus with hyperglycemia, without long-term current use of insulin ([facility]) Inject 30 Units under the skin daily 27 mL 3 07/23/19 025 Discontinued(Re order) Mounjaro 5 mg/0.5 mL pen injectorIndica tions:type 2 diabetes mellitus Inject 5 mg under the skin every 7 days 6 mL 1 08/23/19 025 Discontinued dapagliflozin propanediol (FARXIGA) 10 mg tabletIndicati ons:Type 2 diabetes mellitus with hyperglycemia, without long-term current use of insulin ([facility]) Take 1 tablet (10 mg total) by mouth daily 30 tablet 3 10/18/19 025 Discontinued Active Problems Problem Noted Date Diagnosed Date Class 1 obesity due to exces s calories with serious comorbidity and body mass index (BMI) of 30.0 to 30.9 in adult 03/27/2024 Assessment & Plan (07/08/2024 5:37 PM ORACLE FINANCIALS DEVELOPER): Chronic, worsening Discussed about healthy lifestyle habits [...] asso ciated with type 2 diabetes mellitus 01/05/2020 Assessment & Plan (04/06/2023 3:57 PM CDT): Chronic, stable Continue gabapentin therapy for symptomatic management Continue to work on tighter glycemic control Assessment & Plan (09/20/2022 7:35 PM CDT): Chronic, stable Continue gabapentin therapy for symptomatic management Continue to work on tighter glycemic control Assessment & Plan (06/13/2022 9:34 AM ORACLE FINANCIALS DEVELOPER): Chronic, stable Continue gabapentin therapy for symptomatic [...] control Assessment & Plan (09/10/2020 7:38 AM ORACLE FINANCIALS DEVELOPER): Chronic, stable Continue gabapentin therapy for symptomatic management Continue to work on tighter glycemic control Assessment & Plan (06/11/2020 4:26 PM ORACLE FINANCIALS DEVELOPER): Chronic, stable Continue gabapentin therapy for symptomatic [...] 01/05/2020 Assessment & Plan (07/08/2024 5:37 PM ORACLE FINANCIALS DEVELOPER): Continue statin therapy Tolerating well Assessment & [...] well Assessment & Plan (06/13/2022 9:34 AM ORACLE FINANCIALS DEVELOPER): Continue statin therapy Tolerating well Assessment & Plan (01/26/2022 2:52 PM CDT): Chronic problem. On statin therapy, no changes. Assessment & Plan (10/27/2021 3:23 PM CDT): Continue statin therapy Tolerating well Assessment & Plan (08/25/2021 2:46 PM ORACLE FINANCIALS DEVELOPER): Chronic problem. On statin therapy, no changes. Assessment & Plan (07/21/2021 1:42 PM ORACLE FINANCIALS DEVELOPER): Continue statin therapy Tolerating well Reviewed recent labs , LDL at goal Assessment & Plan (04/29/2021 3:53 PM CDT): Continue statin therapy Tolerating well Assessment & Plan (12/15/2020 1:53 PM CDT): Continue statin therapy Tolerating well Assessment & Plan (09/10/2020 7:38 AM ORACLE FINANCIALS DEVELOPER): Continue statin therapy Tolerating well Assessment & Plan (06/11/2020 4:24 PM ORACLE FINANCIALS DEVELOPER): Continue statin therapy Tolerating well Assessment & Plan (03/06/2020 10:28 PM CDT): Continue statin therapy Assessment & Plan (01/05/2020 9:25 PM CDT): Continue statin therapy Reviewed recent lipid panel Type 2 diabetes mellitus wit h hyperglycemia, without long-term current use of insulin 01/03/2020 Assessment & Plan (07/08/2024 5:39 PM ORACLE FINANCIALS DEVELOPER): Chronic, uncontrolled, slowly improving but still above [...] months Assessment & Plan (06/13/2022 9:35 AM ORACLE FINANCIALS DEVELOPER): Chronic, Out of control, worsening A1c 9.0 [...] me Assessment & Plan (08/25/2021 2:49 PM ORACLE FINANCIALS DEVELOPER): Chronic problem, improving but not at goal. Reviewed diet and limiting simple sugar intake. Needs to not miss PM dose of glimepiride. Continue same medications at this time. Assessment & Plan (07/21/2021 1:44 PM ORACLE FINANCIALS DEVELOPER): Chronic, uncontrolled, severely worsening A1c today 11% [...] months Assessment & Plan (09/10/2020 7:40 AM ORACLE FINANCIALS DEVELOPER): Chronic, uncontrolled, worsening A1c today - 8.8 % Keep taking Trulicity 1.5 mg SQ weekly - start Glimepiride 2 mg oral twice daily with meals - check blood sugars before breakfast and dinner - call me with blood sugar log in 4 weeks - follow up in 3 months Assessment & Plan (06/11/2020 4:26 PM ORACLE FINANCIALS DEVELOPER): Chronic, improving with treatment A1c today - [...] type 2, - patho physiology, short and supervisor intermediates complications of uncontrolled DM, diet and exercise [...] 01/03/2020 Assessment & Plan (07/08/2024 5:37 PM ORACLE FINANCIALS DEVELOPER): Chronic, well controlled Continue lisinopril Assessment & [...] lisinopril Assessment & Plan (06/13/2022 9:34 AM ORACLE FINANCIALS DEVELOPER): Chronic, well controlled Continue Volodmyyr I Assessment & Plan (01/26/2022 2:51 PM CDT): Controlled on current medications, no changes. Assessment & Plan (10/27/2021 3:23 PM CDT): Chronic, well controlled Continue Volodymyr I Assessment & Plan (08/25/2021 2:46 PM ORACLE FINANCIALS DEVELOPER): Controlled on current medications, no changes. Assessment & Plan (07/21/2021 1:42 PM ORACLE FINANCIALS DEVELOPER): Chronic, well controlled Continue Volodymyr I Assessment & Plan (04/29/2021 3:53 PM CDT): Chronic, well controlled Continue Volodymyr I Assessment & Plan (12/15/2020 1:52 PM CDT): Chronic, well controlled Continue Volodymyr I Assessment & Plan (09/10/2020 7:37 AM ORACLE FINANCIALS DEVELOPER): Chronic, well controlled Continue Volodymyr I Assessment & Plan (06/11/2020 4:24 PM ORACLE FINANCIALS DEVELOPER): Chronic, well controlled Continue Volodymyr I Assessment [...] exercise Assessment & Plan (06/13/2022 9:34 AM ORACLE FINANCIALS DEVELOPER): Chronic, above goal . unchanged Discussed about [...] exercise Assessment & Plan (07/21/2021 1:42 PM ORACLE FINANCIALS DEVELOPER): Chronic, worsening Discussed about healthy lifestyle habits [...] exercise Assessment & Plan (09/10/2020 7:39 AM ORACLE FINANCIALS DEVELOPER): Chronic, improving slowly Discussed about healthy lifestyle [...] weekly Assessment & Plan (06/11/2020 4:26 PM ORACLE FINANCIALS DEVELOPER): Chronic, worsening Discussed about healthy lifestyle habits [...] Encounters Date Type Department Care Team Description 11/30/2024 Telephone [facility] [address] [address] Juanjose Cintron MD 11/28/2024 8:45 AM CDT Office Visit [facility] [address] [address] Juanjose Cintron MD Type 2 diabetes mellitus with hyperglycemia, without long-term current use of insulin (HCC) (Primary Dx); Hypertension associated with diabetes (HCC); Hyperlipidemia associated with type 2 diabetes mellitus (HCC); Class 1 obesity due to excess calories with serious comorbidity and body mass index (BMI) of 30.0 to 30.9 in adult 10/15/2024 Telephone [facility] [address] [address] Stephanie Staples LPN from Last 3 Months Surgical History Surgery [...] on file Legal Sex Male 3:01 AM ORACLE 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 DEVELOPER Gender Identity Not on file Sexual Orientation Not on file Obstetrics History Last Filed Vital Signs Vital Sign Reading Time Taken Comments Blood Pressure 120/72 11/28/2024 8:33 AM CDT Pulse 95 11/28/2024 8:33 AM CDT Temperature - - Respiratory Rate 15 11/28/2024 8:33 AM CDT Oxygen Saturation - - Inhaled Oxygen Concentration - - Weight 95.1 kg (209 lb 9.6 oz) 11/28/2024 8:33 A M CDT Height 175.3 cm (5' 9) 11/28/2024 8:33 AM CDT Body Mass Index 30.95 11/28/2024 8:33 AM CDT Plan of Treatment Health Maintenance Due Date Last Done Comments Colon Cancer Screening-Colonoscopy 1955 Hepatitis C Screening 1954 Hepatitis B Screening 1972 Pneumococcal vaccine 65+ (1 of 2 - PCV) 1973 Zoster Vaccine (1 of 2) 2004 Abdominal Aortic Aneurysm (A AA) Screen 10/23/2019 Well Visit 65+ 10/23/2019 Dilated Eye Exam 09/27/2024 09/28/2023, , 01/09/2020 Depression Screening 12/21/2024 12/22/2023, 04/30/2022, 07/21/2021, Additional history exists Fall Risk Assessment 12/21/2024 12/22/2023 Influenza Vaccine (Season Ended) 2025 Albumin Creatinine Ratio, Urine 03/27/2025 03/27/2024, 03/10/2022, 06/24/2021 Lipid Panel 03/27/2025 03/27/2024, 08/3 07/2021, 06/24/2021, Additional history exists eGFR 03/27/2025 03/27/2024, 05/0 08/2022, 03/10/2022, Additional history exists Hemoglobin A1C 05/31/2025 11/28/2024, 06/10, 03/27/2024, Additional history exists Foot Exam 06/26/2025 06/26/2024, 03/11, 12/22/2023, Additional history exists DTaP/Tdap/Td Vaccine (2 - Td or Tdap) 04/03/2031 04/03/2021 Prostate Cancer Screening-PSA Discontinued 03/10/2022 Procedures Procedure Name Priority Date/Time Associated Diagnosis Comments POCT HEMOGLOBIN A1C Routine 11/28/2024 8 :35 AM CDT Type 2 diabetes mellitus with hyperglycemia, without long-term current use of insulin (HCC) POCT GLUCOSE Routine 11/28/2024 8:35 AM CDT Type 2 diabetes mellitus with hyperglycemia, without long-term current use of insulin (HCC) EGFR Routine 03/27/2024 2:15 PM CDT Type 2 diabetes mellitus with hyperglycemia, without long-term current use of insulin (HCC) Hyperlipidemia associated with type 2 diabetes mellitus (HCC) Hypertension associated with diabetes (HCC) LIPID PANEL Routine 03/27/2024 2:15 PM CDT Type 2 diabetes mellitus with hyperglycemia, without long-term current use of insulin (HCC) Hyperlipidemia associated with type 2 diabetes mellitus (HCC) ALBUMIN CREATININE RATIO, URINE Routine 03/27/2024 2:15 PM CDT Type 2 diabetes mellitus with hyperglycemia, without long-term current use of insulin (HCC) Hypertension associated with diabetes (HCC) HM DIABETES EYE EXAM Routine 09/28/2023 9:02 AM CDT PSA SCREEN Routine 03/10/2022 8:34 AM CDT from Last 3 Months or Most Recently Relevant to Health Maintenance Results * (ABNORMAL) POCT hemoglobin A1c (11/28/2024 8:35 AM CDT) Hemoglobin A1C, POC 6.9(A) 4.0 - 5.6 % Blood 11/28/2024 8:35 AM CDT Juanjose Rosa MD POINT OF CARE TEST ORDERABLES Final Result * POCT glucose (11/28/2024 8:35 AM CDT) Glucose Blood, POC 201 Normal Fasting 70 - 100, Random <200 mg/dL Blood 11/28/2024 8:35 AM CDT Juanjose Rosa MD POINT OF CARE TEST [...] 2:15 PM CDT 03/27/2024 9:26 PM CDT Juanjose Rosa MD LAB BLOOD ORDERABLE S Final Result [facility] [address] Department [place] [address] * Albumin Creatinine Ratio, Urine (03/27/2024 2:15 PM CDT) Albumin Ur <12.0 mg/L Comment: Interpretive Data No reference range established. Current interpretive data was last revised 2018. Creatinine Ur 68.3 mg/dL [facility] Comment: Interpretive Data No reference range established. Current interpretive data was last revised 2018. Albumin Creatinine Ratio, Ur <18 1 - 29 mg/g WILLIAM Urine 03/27/2024 2:15 PM CDT 03/27/2024 9:07 PM CDT us Juanjose Rosa MD LAB URINE ORDERABLE S Final Result [facility] [id number] [address] Department [place] [address] * Lipid panel (03/27/2024 2:15 PM CDT) [...] LAB [place]LO[place] [address] [address] Department of Laboratories [place], [place] [id number] * DIABETES EYE EXAM (09/28/2023 9:02 AM [...] ORDERABLES Final R esult Performing Organization Address City/[facility] Co de Phone Number [facility] [address] [address] Department [place] [address] from Last 3 Months or Most Recently Relevant to Health Maintenance Insurance [employer] CHOICE MEDICARE PPO [employer] CHOICE MEDICARE PPO MEDICARE [employer] CHOICE MEDICARE PPO Care Teams Turf Sales Person Relationship Specialty Start Date End Date Lenin Hagen DO PCP - General Internal Medicine 12/22/23
--- OUTSIDE RECORDS SUMMARY | 2024-12-04 14:50 | XMS_ITS | Clinical Summary ---
Author Organization [facility] [address] [place] [address] Address [address] [place] [address] Care Team Providers Care Lost Charge Card Clerk Name Role Phone Willis Major MD Primary Care Provider [phone] Allergies No known active allergies Medications lisinopriL (PRINIVIL) 2.5 mg tablet Take 2.5 mg by mouth daily. 0 Active glimepiride 4 mg tablet (AMARYL) Take 4 mg by mouth 2 times daily. 0 Active aspirin (ECOTRIN EC) 81 mg Tablet, Delayed Release (E.C.) Take 1 Tablet (81 mg) by mouth daily. 1 Active cyanocobalamin (VITAMIN B-12) 500 mcg tablet Take 500 mcg by mouth daily. Active alpha lipoic acid 600 mg Tablet Take 600 mg by mouth daily. Active multivitamin (DAILY-SHAINA) tablet Take 1 Tablet by mouth daily. Active Jardiance 25 mg tablet Take 25 mg by mouth daily. 4 Active rosuvastatin (CRESTOR) 40 mg tablet Take 40 mg by mouth daily. 4 Active Soliqua 100/33 100 unit-33 mcg/mL Insulin Pen Inject 30-40 Units by subcutaneous injection daily. 4 12/22/19 25 Active Dexcom G7 Sensor Device Change sensor every 10 days 4 Active diphenhydrAMINE (BENADRYL) 25 mg tablet Take 25 mg by mouth every 6 hours as needed for Allergies. Active metoprolol succinate (TOPROL XL) 25 mg Extended Release 24 hour tablet TAKE 1 TABLET EVERY DAY 90 Tablet 3 5 Active Active Problems Patient Care Coordination No te Formatting of this note migh t be different from the original. Vascular Care - Dr. 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 07/17/2020 Gangrene 07/17/2020 Essential hypertension 07/17/2020 Dyslipidemia 07/17/2020 Tobacco abuse 07/17/2020 PAD (peripheral artery disease) 07/17/2020 Overview (07/17/2020): Added automatically from request for surgery [id number] Encounters Date Type Department Care Team Description 11/29/2024 External Device Data [facility] ABSTRACTION Provider, Abstract 11/28/2024 External Device Data [facility] ABSTRACTION Provider, Abstract 11/27/2024 External Device Data [facility] ABSTRACTION Provider, Abstract 10/16/2024 External Device Data [facility] ABSTRACTION Provider, Abstract 10/09/2024 External Device Data [facility] ABSTRACTION Provider, Abstract 10/09/2024 External Device Data [facility] ABSTRACTION Provider, Abstract from Last 3 Months Family History Medical [...] on file 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 Gender Identity Not on file Sexual Orientation Not on file Last Filed Vital Signs Vital Sign Reading Time Taken Comments Blood Pressure 120/80 01/05/2024 10:54 AM CDT Pulse 88 01/05/2024 10:54 AM CDT Temperature 36.7 C (98 F) 07/21/2020 9:47 AM COLLECTIONS REPRESENTATIVE Respiratory Rate 19 07/21/2020 4:15 PM COLLECTIONS REPRESENTATIVE Oxygen Saturation 98% 01/05/2024 10:54 AM CDT Inhaled Oxygen Concentration - - Weight 95.3 kg (210 lb) 01/05/2024 10:54 AM CDT Height 174 cm (5' 8.5) 01/05/2024 10:54 AM CDT Body Mass Index 31.47 01/05/2024 10:54 AM CDT Plan of Treatment Upcoming Encounters Date Type Department Care Team (Late st Contact Info) Description 01/02/2025 11:[address] [facility] Heart and Vascular Testing [facility] [address] [address] [facility] [address] [place] [address] [place] [address] [address] 01/10/2025 10:30 AM CDT Office Visit [facility] - [address] [facility] [address] [address] [facility] [address] [place] [address] Gisselle Dumas, PANTERA [address] Cardiology, [facility] [address] [place] [address] Health Maintenance Due Date Last Done Comments DIABETES ANNUAL RETINAL EXAM 1972 DIABETES MICROALBUMIN ANNUAL SCREEN 1972 PNEUMOCOCCAL VACCINE 50+ YEA RS (1 of 2 - PCV) 1973 COLORECTAL SCREENING 10/23/1999 Colorectal Cancer Screening 10/23/1999 FIT-DNA Q 3 years 10/23/1999 FIT/FOBT Q 1 year 10/23/1999 Flex Sig/CT Colonography Q 5 years 10/23/1999 Lung Cancer Screening 2004 ZOSTER VACCINE (1 of 2) 2004 RSV [...] 04/03/2031 04/03/2021 Medical Devices Implanted Type Area Shoe Sticks Repairer Device Identifier Shelf Expiration Date Model / Serial / Lot Closure Perclose Proglide [id number] - [id number] Implanted:Qty : 1 on 07/21/2020 by Prosper Law MD at [facility] Closure Device N/A: Groin ANDRE- VASC DEVICE 04/09/2022 [id number] / / [id number] Procedures Procedure Name Priority Date/Time Associated Diagnosis Comments LIPID PANEL Routine 11/15/2023 2:33 PM CDT from Last 3 Months or Most Recently Relevant to Health Maintenance Results * LIPID PANEL (11/15/2023 2:33 PM CDT) Blood us Abstract Provider CHEMISTRY ORDERABLES Edited Re sult - Final from Last 3 Months or Most Recently Relevant to Health Maintenance Insurance [employer] CHOICE [facility] Medicare Part D Care Teams Lost Charge Card Clerk Relationship Specialty Start Date End Date Willis Major MD [address] [place] [address] PCP - General Internal Medicine 11/07/20
--- OUTSIDE RECORDS SUMMARY | 2024-12-04 14:50 | XMS_ITS | Clinical Summary ---
Author Organization [facility] Address [address] [facility] [place] [address] Care Team Providers Care Firer Watertender Name Role Phone Willis Major MD Primary Care Provider [phone] Source Comments [facility],non-owned Affiliates and Associated Physician Practices is amultiple site organization consisting of ambulatory clinics and hospital sitesin [place], [place], [place] and [place]. This disclosure is being madepursuant to the Care Everywhere program and may not contain all information available regarding this patient. 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 Gender Identity Not on file Sexual Orientation [...] 12:44 PM CDT Height 175.3 cm (5' 9) 04/03/2021 12:44 PM CDT Body Mass Index [...] FLEX SIG - COLON CA SCREENING 1954 HEPATITIS C SCREENING 10/17/1972 PNEUMOCOCCAL VACCINE 50+ (1 of 1 - PCV) 2004 ZOSTER VACCINE (1 of 2) 2004 COVID-19 VACCINE ( - 2023-2 5 season) 2024 DEPRESSION SCREENING 07/11/2024 MEDICARE AWV CALENDAR YEAR 2024 INFLUENZA VACCINE (Season Ended) 2025 LIPID TESTING 06/11/2025 06/11/2020 Respiratory Syncytial Virus (RSV) Vaccine Pt: or [...] to complete this topic MENINGOCOCCAL (Group B) VACC INE SHARED DECISION-MAKING Aged Out No longer eligibl e based on patient's age to complete this topic MENINGOCOCCAL GROUPS A/C/Y/W VACCINE Aged Out No longer eligible b ased on patient's age to complete this topic Insurance SELF PAY NO INSURANCE Member Subscriber Plan / Payer (Ef fective for All Dates) Name:Thanh Michelle Member ID:Not on file Relation to Subscriber:Not on file Name:THANH MICHELLE Subscriber ID:Not on file (Home) Address: [address] [place] [address] Payer ID:Not on file Group ID:Not on file Type:Self Pay Address: [place], [place] HUMANA MEDICARE ADV HMO & PPO Care Teams Firer Watertender Relationship Specialty Start Date End Date Willis Major MD [address] [place], [place] [address] [address] PCP - General 08/16/22
--- OUTSIDE RECORDS SUMMARY | 2024-12-04 14:50 | XMS_ITS | Referral Summary ---
Author Organization [facility] Physician Office Building [address] [place] [address] Care Team Providers Care Production Operator Name Role Phone Lenin Hagen DO Primary Care Provider [phone] Encounters Date Type Department Care Team Description 11/30/2024 Telephone [facility] Special[facility] of [address] [address] Juanjose Cintron MD 11/28/2024 8:45 AM CDT Office Visit [facility] [address] [address] Juanjose Cintron MD Type 2 diabetes mellitus with hyperglycemia, without long-term current use of insulin (HCC) (Primary Dx); Hypertension associated with diabetes (HCC); Hyperlipidemia associated with type 2 diabetes mellitus (HCC); Class 1 obesity due to excess calories with serious comorbidity and body mass index (BMI) of 30.0 to 30.9 in adult 10/15/2024 Telephone [facility] of [address] [address] Stephanie Staples LPN from Last 3 Months Allergies No known [...] hyperglycemia, without long-term current use of insulin ([facility]) Dx: E11.65 Check blood sugar once daily 100 each 1 03/04/20 23 Active lisinopriL (PRINIVIL,ZEST RIL) 2.5 mg tabletIndicati ons:Hypertensi on associated with diabetes ([facility]) TAKE 1 TABLET EVERY DAY 90 tablet 3 12/16/19 24 Active Dexcom G7 Sensor deviceIndicati ons:Type 2 diabetes mellitus with hyperglycemia, without long-term current use of insulin ([facility]) CHANGE SENSOR EVERY 10 DAYS 6 each [...] hyperglycemia, without long-term current use of insulin ([facility]) Take 1 tablet (4 mg total) by mouth 2 (two) times a day with meals 180 tablet 11/29/19 026 Active LANTUS 100 unit/mL (3 mL) pen for injectionIndic ations:Type 2 diabetes mellitus with hyperglycemia, without long-term current use of insulin ([facility]) Inject 30 Units under the skin daily 27 mL 11/29/19 25 026 Active Farxiga 10 mg tabletIndicati ons:type 2 diabetes mellitus Take 1 tablet (10 mg total) by mouth daily 90 tablet 3 11/29/19 25 026 Active OneTouch Delica Plus Lancet 30 gauge miscIndication s:Type 2 diabetes mellitus with hyperglycemia, without long-term current use of insulin ([facility]) 2 x daily 200 each 3 11/29/19 25 Active OneTouch Verio Flex meter miscIndication s:Type 2 diabetes mellitus with hyperglycemia, without long-term current use of insulin ([facility]) One glucometer 1 each 11/29/19 25 Active OneTouch Verio test strips stripIndicatio ns:Type 2 diabetes mellitus with hyperglycemia, without long-term current use of insulin ([facility]) Check 2 x daily 200 each 3 11/29/19 25 Active lancets 33 gauge misc 1 each 2 (two) times a day before breakfast and dinner DX:E11.65 not insulin dependent 100 each 6 01/04/20 20 025 Discontinued blood glucose diagnostic (True Metrix Glucose Test Strip) stripIndicatio ns:Type 2 diabetes mellitus with hyperglycemia, without long-term current use of insulin ([facility]) Dx: E11.65 Check blood sugar once daily 100 strip 1 03/04/20 23 025 Discontinued lancets (TRUEplus Lancets) 28 gauge miscIndication s:Type 2 diabetes mellitus with hyperglycemia, without long-term current use of insulin ([facility]) Dx: E11.65 Check blood sugar once daily 100 each 1 03/04/20 23 025 Discontinued blood-glucose meter (True Metrix Air Glucose Meter) miscIndication s:Type 2 diabetes mellitus with hyperglycemia, without long-term current use of insulin ([facility]) Dx: E11.65 Check blood sugar once daily 1 each 03/04/20 23 025 Discontinued glimepiride (AMARYL) 4 mg tabletIndicati ons:Type 2 diabetes mellitus with hyperglycemia, without long-term current use of insulin ([facility]) TAKE 1 TABLET TWICE DAILY WITH MEALS 180 tablet 3 05/02/20 24 025 Discontinued(Re order) LANTUS 100 unit/mL (3 mL) pen for injectionIndic ations:Type 2 diabetes mellitus with hyperglycemia, without long-term current use of insulin (HCC) Inject 30 Units under the skin daily 27 mL 3 07/23/19 025 Discontinued(Re order) Mounjaro 5 mg/0.5 mL pen injectorIndica tions:type 2 diabetes mellitus Inject 5 mg under the skin every 7 days 6 mL 1 08/23/19 25 025 Discontinued dapagliflozin propanediol (FARXIGA) 10 mg tabletIndicati ons:Type 2 diabetes mellitus with hyperglycemia, without long-term current use of insulin (HCC) Take 1 tablet (10 mg total) by mouth daily 30 tablet 3 10/18/19 025 Discontinued Active Problems Problem Noted Date Diagnosed Date Class 1 obesity due to exces s calories with serious comorbidity and body mass index (BMI) of 30.0 to 30.9 in adult 03/27/2024 Assessment & Plan (07/08/2024 5:37 PM SENIOR INTERACTIVE PRODUCER): Chronic, worsening Discussed about healthy lifestyle habits [...] control Assessment & Plan (06/13/2022 9:34 AM SENIOR INTERACTIVE PRODUCER): Chronic, stable Continue gabapentin therapy for symptomatic [...] control Assessment & Plan (09/10/2020 7:38 AM SENIOR INTERACTIVE PRODUCER): Chronic, stable Continue gabapentin therapy for symptomatic management Continue to work on tighter glycemic control Assessment & Plan (06/11/2020 4:26 PM SENIOR INTERACTIVE PRODUCER): Chronic, stable Continue gabapentin therapy for symptomatic [...] 01/05/2020 Assessment & Plan (07/08/2024 5:37 PM SENIOR INTERACTIVE PRODUCER): Continue statin therapy Tolerating well Assessment & [...] well Assessment & Plan (06/13/2022 9:34 AM SENIOR INTERACTIVE PRODUCER): Continue statin therapy Tolerating well Assessment & Plan (01/26/2022 2:52 PM CDT): Chronic problem. On statin therapy, no changes. Assessment & Plan (10/27/2021 3:23 PM CDT): Continue statin therapy Tolerating well Assessment & Plan (08/25/2021 2:46 PM SENIOR INTERACTIVE PRODUCER): Chronic problem. On statin therapy, no changes. Assessment & Plan (07/21/2021 1:42 PM SENIOR INTERACTIVE PRODUCER): Continue statin therapy Tolerating well Reviewed recent labs , LDL at goal Assessment & Plan (04/29/2021 3:53 PM CDT): Continue statin therapy Tolerating well Assessment & Plan (12/15/2020 1:53 PM CDT): Continue statin therapy Tolerating well Assessment & Plan (09/10/2020 7:38 AM SENIOR INTERACTIVE PRODUCER): Continue statin therapy Tolerating well Assessment & Plan (06/11/2020 4:24 PM SENIOR INTERACTIVE PRODUCER): Continue statin therapy Tolerating well Assessment & Plan (03/06/2020 10:28 PM CDT): Continue statin therapy Assessment & Plan (01/05/2020 9:25 PM CDT): Continue statin therapy Reviewed recent lipid panel Type 2 diabetes mellitus wit h hyperglycemia, without long-term current use of insulin 01/03/2020 Assessment & Plan (07/08/2024 5:39 PM SENIOR INTERACTIVE PRODUCER): Chronic, uncontrolled, slowly improving but still above [...] months Assessment & Plan (06/13/2022 9:35 AM SENIOR INTERACTIVE PRODUCER): Chronic, Out of control, worsening A1c 9.0 [...] me Assessment & Plan (08/25/2021 2:49 PM SENIOR INTERACTIVE PRODUCER): Chronic problem, improving but not at goal. Reviewed diet and limiting simple sugar intake. Needs to not miss PM dose of glimepiride. Continue same medications at this time. Assessment & Plan (07/21/2021 1:44 PM SENIOR INTERACTIVE PRODUCER): Chronic, uncontrolled, severely worsening A1c today 11% [...] months Assessment & Plan (09/10/2020 7:40 AM SENIOR INTERACTIVE PRODUCER): Chronic, uncontrolled, worsening A1c today - 8.8 % Keep taking Trulicity 1.5 mg SQ weekly - start Glimepiride 2 mg oral twice daily with meals - check blood sugars before breakfast and dinner - call me with blood sugar log in 4 weeks - follow up in 3 months Assessment & Plan (06/11/2020 4:26 PM SENIOR INTERACTIVE PRODUCER): Chronic, improving with treatment A1c today - [...] type 2, - patho physiology, 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 Assessment & Plan (10/27/2021 3:23 PM CDT): Chronic, well controlled Continue Volodymyr I Assessment & Plan (08/25/2021 2:46 PM SENIOR INTERACTIVE PRODUCER): Controlled on current medications, no changes. Assessment & Plan (07/21/2021 1:42 PM SENIOR INTERACTIVE PRODUCER): Chronic, well controlled Continue Volodymyr I Assessment & Plan (04/29/2021 3:53 PM CDT): Chronic, well controlled Continue Volodymyr I Assessment & Plan (12/15/2020 1:52 PM CDT): Chronic, well controlled Continue Volodymyr I Assessment & Plan (09/10/2020 7:37 AM SENIOR INTERACTIVE PRODUCER): Chronic, well controlled Continue Volodymyr I Assessment & Plan (06/11/2020 4:24 PM SENIOR INTERACTIVE PRODUCER): Chronic, well controlled Continue Volodymyr I Assessment [...] exercise Assessment & Plan (06/13/2022 9:34 AM SENIOR INTERACTIVE PRODUCER): Chronic, above goal . unchanged Discussed about [...] exercise Assessment & Plan (07/21/2021 1:42 PM SENIOR INTERACTIVE PRODUCER): Chronic, worsening Discussed about healthy lifestyle habits [...] exercise Assessment & Plan (09/10/2020 7:39 AM SENIOR INTERACTIVE PRODUCER): Chronic, improving slowly Discussed about healthy lifestyle [...] weekly Assessment & Plan (06/11/2020 4:26 PM SENIOR INTERACTIVE PRODUCER): Chronic, worsening Discussed about healthy lifestyle habits [...] on file Legal Sex Male 3:01 AM SENIOR INTERACTIVE PRODUCER Gender Identity Not on file Sexual Orientation [...] 11/28/2024 8:33 AM CDT Plan of Treatment Not on file Procedures [...] 5.6 % Blood 11/28/2024 8:35 AM CDT us Supraja Rosa Rosa Rosa MD POINT OF CARE TEST ORDERABLES [...] BLOOD ORDERABLE S Final Result [facility] [address] Department [place] [address] * Albumin Creatinine Ratio, Urine [...] MD LAB URINE ORDERABLE S Final [facility] [address] [place] [address] * Lipid panel (03/27/2024 2:15 PM CDT) [...] on 2018. HDL 51 >=40 mg/dL WILLIAM Comment: Interpretive Data Ages < [...] 2018. LDL, calculated 66 <=129 mg/dL WILLIAM Comment: Interpretive Data Ages < [...] NCEP Expert Panel. Circulation 2004;110:227 3. Bakari Hernandez al. EDUARDA Cardiol. 2019November 08;5(5):540-548. doi: 10.1001/[email or web address].2020.0013 [...] last revised on 2018. Chol/HDL ratio 3 [facility] Blood 03/27/2024 2:15 PM CDT 03/27/2024 9:07 PM CDT Juanjose Rosa MD LAB BLOOD ORDERABLE S Final Result Performing Organization Address [facility] Co de Phone Number [facility] [address] Department of Laboratories [place], [place] [id number] * DIABETES EYE EXAM (09/28/2023 9:02 AM CDT) Historical Provider HEALTH MAINTENANCE Edited Result - Final * PSA screen (03/10/2022 8:34 AM CDT) PSA-Total 0.97 <=5.40 ng/mL WILLIAM Comment: Interpretive Data AGE SEX REFERENCE INTERVAL [...] ORDERABLES Final R esult Performing Organization Address [facility] Co de Phone Number [facility] [address] Department [place] [address] from Last 3 Months or Most Recently Relevant to Health Maintenance Insurance [employer]NA CHOICE MEDICARE PPO HU[employer] CHOICE MEDICARE PPO MEDICARE HU[employer]NA CHOICE MEDICARE PPO Care Teams Production Operator Relationship Specialty Start Date End Date Lenin Hagen DO PCP - General Internal Medicine 12/22/23
[2024-12-04 19:01] LABS: Alanine Aminotransferase 21 U/L (6-50); Albumin Level 4.3 g/dL (3.5-5.1); Alkaline Phosphatase 76 U/L (38-126); Anion Gap 8 mmol/L (4-12); Aspartate Amino Transferase 31 U/L (17-59); Bilirubin,Total 1.2 mg/dL (0.2-1.3); Blood Urea Nitrogen 27 mg/dL (9-20); Calcium 9.7 mg/dL (8.4-10.2); Carbon Dioxide 29 mmol/L (22-30); Chloride 101 mmol/L (98-107); Cholesterol 149 mg/dL (0-200); Estimated Glomerular Filt Rate > 60; Glucose 112 mg/dL (65-110); HDL Direct 52 mg/dL; Potassium 4.8 mmol/L (3.4-5.0); Sodium 138 mmol/L (137-145); Triglycerides 115 mg/dL (<150)
[2024-12-04 19:09] LABS: Hemoglobin A1C 6.6 % (<5.7)
[2024-12-04 19:11] LABS: LDL Cholesterol Direct 61 mg/dL
[2024-12-04 19:13] LABS: Creatinine Urine 43.6 mg/dL
[2024-12-04 19:21] LABS: Microalbumin Urine Random 6.1 mg/L (0-16.7)
[2024-12-04 19:33] LABS: Prostate Specific Antigen 1.1 ng/mL (< OR = 4.0)
[2024-12-04 20:14] LABS: Basophils Percent Auto 0.4 % (0.2-1.2); Eosinophils Absolute Auto 0.1 K/mm3 (0-0.3); Eosinophils Percent Auto 1.5 % (0-4.4); Hematocrit 46.7 % (42.0-52.0); Hemoglobin 14.8 g/dL (14.0-18.0); Immature Granulocyte Absolute 0.01 K/mm3 (0.00-0.031); Immature Granulocyte Percent A 0.2 % (0-0.5); Lymphocytes Absolute Auto 0.82 K/mm3 (0.9-3.2); Lymphocytes Percent Auto 17.2 % (18.3-44.2); Mean Corpuscular HGB Conc 31.7 g/dl (32-36); Mean Corpuscular Hemoglobin 28.7 pg (26-34); Mean Corpuscular Volume 90.7 fl (80-100); Mean Platelet Volume 12.1 fl (7.4-10.4); Monocytes Absolute Auto 0.4 K/mm3 (0.1-0.6); Neutrophils Absolute Auto 3.4 K/mm3 (1.3-6.7); Neutrophils Percent Auto 71.7 % (45.5-73.1); Platelet Count Result 167 k/mm3 (150-375); Red Blood Count 5.15 M/mm3 (4.6-6.20); Red Cell Distribution Width 14.7 % (11.5-14.5); White Blood Count 4.8 K/mm3 (4.5-10.0)
[2024-12-09 19:08] LABS: Apolipoprotein B 74 mg/dL
== END 2024-12-04 14:46 | disposition home or self-care (01) ==
LOC: ANHGOSHLAB 14:47
PROVIDERS: PCP Internal Medicine; Visit Provider Internal Medicine
DX: E78.49 Other hyperlipidemia (principal); I10 Essential (primary) hypertension; Z12.5 Encounter for screening for malignant neoplasm of prostate; E11.65 Type 2 diabetes mellitus with hyperglycemia; E78.5 Hyperlipidemia, unspecified; E11.59 Type 2 diabetes mellitus with other circulatory complications
CPT/HCPCS: 36415; 80053; 80061; 82043; 82172; 83036; 84153; 85025; G0103

== ENCOUNTER 2025-01-06 10:55 | Emergency (ER) | payer MEDICARE, SELFPAY ==
--- NOTE | ~2025-01-06 | CT_ITS ---
Noncontrast CT scan of the lumbar spine CLINICAL HISTORY: Right radicular pain TECHNIQUE: Axial noncontrast imaging of the lumbar spine was performed. Sagittal and coronal reformat wayne images were constructed. Dose reduction technique was used on this scan by utilizing automated ex posure control and iterative reconstruction technique. The dose-length product (DLP) was 1138.78 mGy- cm. FINDINGS: There is no fracture or subluxation of the lumbar spine. Vertebral bodies maintain normal h eight and alignment. At L1-L2, there is mild degenerative disc narrowing. No disc bulge or herniation. There is mild facet arthropathy. No central canal stenosis or neural foraminal narrowing. At L2-L3, there is moderate to advanced degenerative disc narrowing. No disc bulge or herniation. Mil d facet arthropathy. No central canal stenosis or neural foraminal narrowing. At L3-L4, there is moderate degenerative distended. Disc bulge and mild facet arthropathy result in m ild central canal stenosis/thecal sac compression. There is moderate bilateral neural foraminal narro wing. At L4-L5, there is disc bulge and moderate to advanced facet arthropathy, resulting in moderate to ad vanced spinal canal stenosis/thecal sac compression. There is advanced right neural foraminal narrowi ng, and moderate left neural foraminal narrowing. At L5-S1, there is no disc bulge or herniation. No spinal canal stenosis or neural foraminal narrowin g. Paravertebral soft tissues are unremarkable. Impression: Advanced degenerative spondylosis at L4-L5, as detailed above. Moderate degenerative spondylosis at L 3-L4, as above. Reviewed, dictated and finalized at location . Impression: Advanced degenerative spondylosis at L4-L5, as detailed above. Moderate degener ative spondylosis at L3-L4, as above.
--- NOTE | ~2025-01-06 | US_ITS ---
Duplex Sonography of the right extremity: Indication: Calf pain Findings: Sagittal and transverse B-mode images as well as color-flow imaging were performed on the r ight femoral and popliteal veins. B-mode examination was done without and with compression in the tr ansverse plane. There is good visualization of the common femoral, proximal profunda femoral, femora l, greater saphenous, and popliteal veins. Normal flow was seen on color-flow imaging. Normal compre ssibility was demonstrated. Visualized calf veins are also patent. Impression: No evidence of deep vein thrombosis involving the right lower extremity. Reviewed, dictated and finalized at location . Impression: No evidence of deep vein thrombosis involving the right lower extremity.
[2025-01-06 11:02] VITALS: BP 139/86; PULSE 89; RESP 20; TEMP 36.3; O2SAT 98
[2025-01-06] MEDS: LIDOCAINE 5% PATCH 1 PATCH TRANSDERM (11:39)
[2025-01-06] MEDS: ACETAMINOPHEN 500 MG TABLET 1000 MG PO (11:40)
[2025-01-06] MEDS: KETOROLAC 15 MG/ML VIAL (*BKC) IM (11:42)
[2025-01-06] MEDS: diazePAM INJ (*CRX) 10 MG/2 ML SYRINGE 5 MG IM (11:43)
--- NOTE | 2025-01-06 12:40 | ED_ITS ---
HPI - General Adult General Chief complaint: Extremity Problem,Nontraumatic Stated complaint: pain to right calf Time Seen by Provider: 01/06/25 11:07 History of Present Illness HPI narrative: 69-year-old male presenting with right-sided back and leg pain. Patient developed an achy pain going from his back radiating down the side of his leg and into his calf. He says this feels like sciatica that he has had in the past. It is better when he lays flat. He has not taken anything for pain control. He does not have any lower extremity weakness bowel incontinence urinary retention or saddle anesthesia. No fevers or history of cancer. No recent weight loss. Related Data Home Medications ?Medication ?Instructions ?Recorded ?Confirmed ?Last Taken ?Type alpha lipoic acid 600 mg tablet 600 mg PO DAILY 11/15/23 12/04/24 02/29/24 History aspirin 81 mg tablet,delayed 81 mg PO DAILY 11/15/23 12/04/24 02/29/24 History release (Adult Low Dose Aspirin) diphenhydramine HCl 25 mg tablet 25 mg PO ONCE PRN Allergy Symptoms 11/15/23 12/04/24 02/29/24 History glimepiride 4 mg tablet 4 mg PO BID 11/15/23 12/04/24 02/29/24 History lisinopril 2.5 mg tablet 2.5 mg PO DAILY 11/15/23 12/04/24 02/29/24 History metoprolol succinate 25 mg 25 mg PO DAILY 11/15/23 12/04/24 02/29/24 History tablet,extended release 24 hr multivit with minerals-folic 1 tablet PO DAILY 11/15/23 12/04/24 02/29/24 History acid-lycopene 0.4 mg-600 mcg tablet insulin glargine 100 30 unit subcut QAM 12/20/23 12/04/24 02/29/24 History unit-lixisenatide 33 mcg/mL subcutaneous pen (Soliqua 100/33) Daily Probiotic 1 cap PO DAILY 02/16/24 12/04/24 02/29/24 History psyllium husk 3.4 gram/5.4 gram 2 tsp PO DAILY 02/16/24 12/04/24 02/29/24 History oral powder (Metamucil) dapagliflozin propanediol 10 mg 10 mg PO QAM 12/04/24 12/04/24 Unknown History tablet (Farxiga) Allergies Allergy/AdvReac Type Severity Reaction Status Date / Time No Known Allergies Allergy Verified 01/06/25 11:05 [facility] Past Medical History Medical History Diabetes mellitus with peripheral artery disease Amputation toe PVD (peripheral vascular disease) Nicotine dependence Diabetic peripheral neuropathy Hyperlipidemia Type 2 diabetes mellitus Most recent hemoglobin A1c as of 07/07/2020 was 7%. Hypertension Surgical History Surgical History H/O angioplasty History of cardiac catheterization Reported clear coronary arteries. History of ventral hernia repair Laparoscopic umbilical hernia repair Family History Family History Mother Breast cancer Father Throat cancer Social History Social History Social History: The patient lives in [place]. He still works part-time. Smokes approximately 1 pack of cigarettes per day. No alcohol or illicit substance use. Taylor is his surrogate decision maker and he wishes to be a full code. Smoking packs per day: 1.5 Smoking cigarettes per day: 30.0 Years smoked: 25 Smoking pack-years: 37.50 Smoking status: Former smoker Tobacco type: cigarettes Smoking end date: 07/07/20 Alcohol intake: current Drinks per week: 2 Alcohol use details: DRINKS Substance use: never Substance use type: does not use Do You Feel Safe in your Home?: Yes Lack of Transportation: YES Lack of Food: Never True Current Housing: Decline to Answer Concerned About Future Housing: Decline to Answer Difficulty Paying Gas/Electric Bills: Decline to Answer Difficulty Paying for Meds: Decline to Answer Currently Unemployed: Decline to Answer Education: Decline to Answer Difficulty w/ Childcare or Family Care: Decline to Answer Living arrangements: with family Gender identity (if verbalized by the patient): Male Sexual Orientation (if Verbalized by the Patient): Straight or Heterosexual Spiritual care concerns: No Agree to blood products: Yes Exam Narrative: APPEARANCE: No apparent distress. Head: atraumatic. EYES: EOMI, NOSE: Atraumatic NECK/back: No midline spinal tenderness or tenderness in the paralumbar muscles RESPIRATORY: No increased rate of breathing CARDIOVASCULAR: RRR, ABDOMINAL: Non-distended soft nontender MUSCULOSKELETAl: No obvious deformities focal exam of the right lower extremity revealed no overlying skin changes, all compartments are soft, no areas of tenderness or injury, leg is neurovascularly intact, straight leg negative bilaterally NEURO: Alert. Cranial nerves 2-12 grossly intact. Sensation light touch, motor function cerebellar function intact for 4 extremities. Gait exam was normal. SKIN:: Warm, dry. Normal color PSYCHIATRIC: Normal affect Course Vital Signs Vital signs: Vital Signs Temperature 97.3 F L 01/06/25 11:02 Pulse Rate 89 01/06/25 11:02 Respiratory Rate 20 01/06/25 11:02 Blood Pressure 139/86 01/06/25 11:02 Pulse Oximetry 98 01/06/25 11:02 Oxygen Delivery Room Air 01/06/25 11:02 Temperature 97.3 F L 01/06/25 11:02 Pulse Rate 89 01/06/25 11:02 Respiratory Rate 20 01/06/25 11:02 Blood Pressure 139/86 01/06/25 11:02 Pulse Oximetry 98 01/06/25 11:02 Oxygen Delivery Room Air 01/06/25 11:02 Medical Decision Making MDM Narrative Medical decision making narrative: -Course: 69-year-old male presenting with pain radiating down his right leg. No red flags on history physical. Findings consistent with sciatica. CT L- spine showed degenerative changes at the affected level. Venous ultrasound negative for DVT. Patient given symptomatic treatment discharged follow-up with his primary care physician. -DDX includes but is not limited to: Sciatica, muscle strain, DVT, cauda equina Vital Signs Vital Signs: Vital Signs Temperature 97.3 F L 01/06/25 11:02 Pulse Rate 89 01/06/25 11:02 Respiratory Rate 20 01/06/25 11:02 Blood Pressure 139/86 01/06/25 11:02 Pulse Oximetry 98 01/06/25 11:02 Oxygen Delivery Room Air 01/06/25 11:02 Temperature 97.3 F L 01/06/25 11:02 Pulse Rate 89 01/06/25 11:02 Respiratory Rate 20 01/06/25 11:02 Blood Pressure 139/86 01/06/25 11:02 Pulse Oximetry 98 01/06/25 11:02 Oxygen Delivery Room Air 01/06/25 11:02 Discharge Plan Discharge Clinical Impression: Sciatica Patient Disposition: Home Condition: Stable Instructions: Antibiotic Form, Lumbar Radiculopathy (ED) Additional Instructions: Using emergency department for sciatica. Please use Motrin Tylenol Robaxin for your pain. Please follow-up with your primary care physician in 5-7 days. If you develop weakness to her lower extremities, inability to urinate or bowel incontinence and white return to emergency department immediately. Patient Language: Japanese Prescriptions: New ibuprofen 800 mg tablet 800 mg PO TID PRN (Reason: pain) 7 Days Qty: 21 0RF acetaminophen 500 mg tablet 1,000 mg PO TID PRN (Reason: taz) 7 Days Qty: 42 0RF methocarbamol 750 mg tablet 1,500 mg PO TID Qty: 42 0RF lidocaine 5 % adhesive patch,medicated 1 patch topical DAILY Qty: 15 0RF Rx Instructions: leave on most painful area for up to 12 hrs No Action lisinopril 2.5 mg tablet 2.5 mg PO DAILY aspirin [Adult Low Dose Aspirin] 81 mg tablet,delayed release (DR/EC) 81 mg PO DAILY glimepiride 4 mg tablet 4 mg PO BID Rx Instructions: administer with breakfast metoprolol succinate 25 mg tablet extended release 24 hr 25 mg PO DAILY multivit with rsm-MA-llfbcabr 0.4-600 mg-mcg tablet 1 tablet PO DAILY alpha lipoic acid 600 mg tablet 600 mg PO DAILY diphenhydramine HCl 25 mg tablet 25 mg PO ONCE PRN (Reason: Allergy Symptoms) dapagliflozin propanediol [Farxiga] 10 mg tablet 10 mg PO QAM Mounjaro 5 mg/0.5 mL pen injector 5 mg subcut WEEKLY Qty: 2 0RF Soliqua 100/33 100 unit-33 mcg/mL insulin pen 30 unit subcut QAM Metamucil 3.4 gram/5.4 gram Powder 2 tsp PO DAILY Rx Instructions: mix into at least 8 oz water or juice before administering Daily Probiotic 1 cap PO DAILY rosuvastatin 40 mg tablet 40 mg PO DAILY Qty: 90 1RF Follow-up/Referrals: Lnein Hagen DO [Primary Care Provider] - 1 Week (Sciatica )
[2025-01-06 12:50] VITALS: BP 129/60; PULSE 82; RESP 16; O2SAT 98
== END 2025-01-06 12:57 | disposition home or self-care (01) ==
PROVIDERS: Emergency Provider Emergency Medicine; PCP Internal Medicine
DX: M54.31 Sciatica, right side (principal); E11.51 Type 2 diabetes mellitus with diabetic peripheral angiopathy without gangrene; I73.9 Peripheral vascular disease, unspecified; I10 Essential (primary) hypertension; E11.42 Type 2 diabetes mellitus with diabetic polyneuropathy; E78.5 Hyperlipidemia, unspecified; Z98.62 Peripheral vascular angioplasty status; Z87.891 Personal history of nicotine dependence; Z89.429 Acquired absence of other toe(s), unspecified side; Z79.84 Long term (current) use of oral hypoglycemic drugs; Z79.899 Other long term (current) drug therapy; Z79.85 Long-term (current) use of injectable non-insulin antidiabetic drugs; Z79.82 Long term (current) use of aspirin; M47.816 Spondylosis without myelopathy or radiculopathy, lumbar region
CPT/HCPCS: 72131; 93971; 96372; 99284; A9270; J1885; J3360

== ENCOUNTER 2025-01-14 15:19 | Outpatient (CLI) | payer MEDICARE, SELFPAY ==
--- NOTE | ~2025-01-14 | CT_ITS ---
CLINICAL INDICATION: Nicotine dependence COMPARISON: 5 11/22/2023. TECHNIQUE: Multiple contiguous axial images of the chest was performed following the administration o f intravenous contrast. This CT examination was performed utilizing dose reduction techniques. DLP: 182 mGy-cm FINDINGS/OBSERVATIONS: LUNG:Calcified 4 mm nodule within the right lower lobe, for which no further follow-up is needed The remainder of the lungs are otherwise clear. HEART: The heart is of normal size, without pericardial effusion. MEDIASTINUM: No pathologically enlarged or morphologically suspicious lymph nodes are identified within the medias tinum, bilateral axilla, within the soft tissues of the anterior chest wall. SOFT TISSUES OF THE CHEST: Unremarkable. BONES OF THE CHEST: No acute fracture. No lytic or blastic lesions are identified. There are bridging endplate osteophytes at multiple levels in the thoracic spine, consistent with dif fuse idiopathic skeletal hyperostosis (DISH). UPPER ABDOMEN: Redemonstration of a 3.3 x 3.2 cm lipoma within the left subscapularis muscle. IMPRESSION: Lung-RADS category 2: Benign appearance or behavior. Continue annual screening with noncontrast low-dose chest CT in 12 months. Reviewed, dictated and finalized at location A.
--- OUTSIDE RECORDS SUMMARY | 2025-01-14 15:24 | XMS_ITS | Continuity of Care Document ---
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 Name Role Phone Unavailable Unavailable Unavailable Allergies, [...] Date Provider Providers Copied on Encounter [facility], [address], [place], [place], [id number] , [place] [phone] [facility]acy [facility] No Information 200 9 No Information OFFICE/OUTPA TIENT VISIT, EST [facility], [address], [place], [place], [id number] , [place] tel: [phone] Cely Beckford hypertension (chief complaint) Unspecified essential hypertension 9 No Information OFFICE OUTPT NEW 20 MINUTES [facility], [address], [place], [place], [id number] , [place] tel: [phone] Cely Beckford hypertension (chief complaint)her bala, umbilical [...] (finding) Payers Payer name Insurance type Covered libertarian ID Authoriza tion(s) No Information Social History [...]
--- OUTSIDE RECORDS SUMMARY | 2025-01-14 15:24 | XMS_ITS | Referral Summary ---
Author Organization [facility] [address] [place] [id number] Care Team Providers Care Communications Representative Name Role Phone Lenin Hagen DO Primary Care Provider [phone] Encounters Date Type Department Care Team Description 11/30/2024 Telephone [facility] [address] [address] Juanjose Cintron MD 11/28/2024 8:45 AM CDT Office Visit [facility] [address] [address] Juanjose Cintron MD Type 2 diabetes mellitus with hyperglycemia, without long-term current use of insulin (HCC) (Primary Dx); Hypertension associated with diabetes (HCC); Hyperlipidemia associated with type 2 diabetes mellitus (HCC); Class 1 obesity due to excess calories with serious comorbidity and body mass index (BMI) of 30.0 to 30.9 in adult 10/15/2024 Telephone [facility] [address] [phone] Stephanie Staples LPN from Last [...] hyperglycemia, without long-term current use of insulin ([facility]) Dx: E11.65 Check blood sugar once daily 100 each 1 03/04/20 23 Active Dexcom G7 Sensor deviceIndicati ons:Type 2 diabetes mellitus with hyperglycemia, without long-term current use of insulin ([facility]) CHANGE SENSOR EVERY 10 DAYS 6 each 5 03/19/20 24 Active Droplet Pen Needle 32 gauge x 5/32 needle USE DIRECTED EVERY DAY 100 each 3 04/26/20 24 Active Mounjaro 7.5 mg/0.5 mL pen injector injectionIndic ations:type 2 diabetes mellitus Inject 0.5 mL (7.5 mg total) under the skin every 7 days 6 mL 11/29/19 25 026 Active glimepiride (AMARYL) 4 mg tabletIndicati ons:Type 2 diabetes mellitus with hyperglycemia, without long-term current use of insulin ([facility]) Take 1 tablet (4 mg total) by mouth 2 (two) times a day with meals 180 tablet 11/29/19 25 026 Active LANTUS 100 unit/mL (3 mL) pen for injectionIndic ations:Type 2 diabetes mellitus with hyperglycemia, without long-term current use of insulin ([facility]) Inject 30 Units under the skin daily 27 mL 11/29/19 25 026 Active Farxiga 10 mg tabletIndicati ons:type 2 diabetes mellitus Take 1 tablet (10 mg total) by mouth daily 90 tablet 11/29/19 026 Active OneTouch Delica Plus Lancet 30 gauge miscIndication s:Type 2 diabetes mellitus with hyperglycemia, without long-term current use of insulin ([facility]) 2 x daily 200 each 3 11/29/19 Active OneTouch Verio Flex meter miscIndication s:Type 2 diabetes mellitus with hyperglycemia, without long-term current use of insulin ([facility]) One glucometer 1 each 11/29/19 Active OneTouch Verio test strips stripIndicatio ns:Type 2 diabetes mellitus with hyperglycemia, without long-term current use of insulin ([facility]) Check 2 x daily 200 each 3 11/29/19 25 Active lisinopriL (PRINIVIL,ZEST RIL) 2.5 mg tabletIndicati ons:Hypertensi on associated with diabetes (HCC) TAKE 1 TABLET EVERY DAY 90 tablet 3 01/03/20 25 Active lisinopriL (PRINIVIL,ZEST RIL) 2.5 mg tabletIndicati ons:Hypertensi on associated with diabetes (HCC) TAKE 1 TABLET EVERY DAY 90 tablet 3 12/16/19 24 025 Discontinued Active Problems Problem Noted Date Diagnosed Date Class 1 obesity due to exces s calories with serious comorbidity and body mass index (BMI) of 30.0 to 30.9 in adult 03/27/2024 Assessment & Plan (07/08/2024 5:37 PM QUARTER FOLDER): Chronic, worsening Discussed about healthy lifestyle habits [...] control Assessment & Plan (06/13/2022 9:34 AM QUARTER FOLDER): Chronic, stable Continue gabapentin therapy for symptomatic [...] control Assessment & Plan (09/10/2020 7:38 AM QUARTER FOLDER): Chronic, stable Continue gabapentin therapy for symptomatic management Continue to work on tighter glycemic control Assessment & Plan (06/11/2020 4:26 PM QUARTER FOLDER): Chronic, stable Continue gabapentin therapy for symptomatic [...] 01/05/2020 Assessment & Plan (07/08/2024 5:37 PM QUARTER FOLDER): Continue statin therapy Tolerating well Assessment & [...] well Assessment & Plan (06/13/2022 9:34 AM QUARTER FOLDER): Continue statin therapy Tolerating well Assessment & Plan (01/26/2022 2:52 PM CDT): Chronic problem. On statin therapy, no changes. Assessment & Plan (10/27/2021 3:23 PM CDT): Continue statin therapy Tolerating well Assessment & Plan (08/25/2021 2:46 PM QUARTER FOLDER): Chronic problem. On statin therapy, no changes. Assessment & Plan (07/21/2021 1:42 PM QUARTER FOLDER): Continue statin therapy Tolerating well Reviewed recent labs , LDL at goal Assessment & Plan (04/29/2021 3:53 PM CDT): Continue statin therapy Tolerating well Assessment & Plan (12/15/2020 1:53 PM CDT): Continue statin therapy Tolerating well Assessment & Plan (09/10/2020 7:38 AM QUARTER FOLDER): Continue statin therapy Tolerating well Assessment & Plan (06/11/2020 4:24 PM QUARTER FOLDER): Continue statin therapy Tolerating well Assessment & Plan (03/06/2020 10:28 PM CDT): Continue statin therapy Assessment & Plan (01/05/2020 9:25 PM CDT): Continue statin therapy Reviewed recent lipid panel Type 2 diabetes mellitus wit h hyperglycemia, without long-term current use of insulin 01/03/2020 Assessment & Plan (07/08/2024 5:39 PM QUARTER FOLDER): Chronic, uncontrolled, slowly improving but still above [...] $35 program and wouldn't go towards his diogo santamaria. But it is a once a day [...] months Assessment & Plan (06/13/2022 9:35 AM QUARTER FOLDER): Chronic, Out of control, worsening A1c 9.0 [...] me Assessment & Plan (08/25/2021 2:49 PM QUARTER FOLDER): Chronic problem, improving but not at goal. Reviewed diet and limiting simple sugar intake. Needs to not miss PM dose of glimepiride. Continue same medications at this time. Assessment & Plan (07/21/2021 1:44 PM QUARTER FOLDER): Chronic, uncontrolled, severely worsening A1c today 11% [...] months Assessment & Plan (09/10/2020 7:40 AM QUARTER FOLDER): Chronic, uncontrolled, worsening A1c today - 8.8 % Keep taking Trulicity 1.5 mg SQ weekly - start Glimepiride 2 mg oral twice daily with meals - check blood sugars before breakfast and dinner - call me with blood sugar log in 4 weeks - follow up in 3 months Assessment & Plan (06/11/2020 4:26 PM QUARTER FOLDER): Chronic, improving with treatment A1c today - [...] type 2, - patho physiology, short and continuous churn buttermaker complications of uncontrolled DM, diet and exercise [...] 01/03/2020 Assessment & Plan (07/08/2024 5:37 PM QUARTER FOLDER): Chronic, well controlled Continue lisinopril Assessment & [...] lisinopril Assessment & Plan (06/13/2022 9:34 AM QUARTER FOLDER): Chronic, well controlled Continue Volodymyr I Assessment & Plan (01/26/2022 2:51 PM CDT): Controlled on current medications, no changes. Assessment & Plan (10/27/2021 3:23 PM CDT): Chronic, well controlled Continue Volodymyr I Assessment & Plan (08/25/2021 2:46 PM QUARTER FOLDER): Controlled on current medications, no changes. Assessment & Plan (07/21/2021 1:42 PM QUARTER FOLDER): Chronic, well controlled Continue Volodymyr I Assessment & Plan (04/29/2021 3:53 PM CDT): Chronic, well controlled Continue Volodymyr I Assessment & Plan (12/15/2020 1:52 PM CDT): Chronic, well controlled Continue Volodymyr I Assessment & Plan (09/10/2020 7:37 AM QUARTER FOLDER): Chronic, well controlled Continue Volodymyr I Assessment & Plan (06/11/2020 4:24 PM QUARTER FOLDER): Chronic, well controlled Continue Volodymyr I Assessment [...] exercise Assessment & Plan (06/13/2022 9:34 AM QUARTER FOLDER): Chronic, above goal . unchanged Discussed about [...] exercise Assessment & Plan (07/21/2021 1:42 PM QUARTER FOLDER): Chronic, worsening Discussed about healthy lifestyle habits [...] exercise Assessment & Plan (09/10/2020 7:39 AM QUARTER FOLDER): Chronic, improving slowly Discussed about healthy lifestyle [...] weekly Assessment & Plan (06/11/2020 4:26 PM QUARTER FOLDER): Chronic, worsening Discussed about healthy lifestyle habits [...] on file Legal Sex Male 3:01 AM QUARTER FOLDER Gender Identity Not on file Sexual Orientation [...] Date/Time Associated Diagnosis Comments LIPID PANEL Routine 12/04/2024 3:02 PM CDT Type 2 diabetes mellitus with hyperglycemia, without long-term current use of insulin (HCC) Hyperlipidemia associated with type 2 diabetes mellitus (HCC) COMPREHENSIVE METABOLIC PANEL Routine 12/04/2024 3:02 PM CDT Type 2 diabetes mellitus with hyperglycemia, without long-term current use of insulin (HCC) Hypertension associated with diabetes (HCC) Hyperlipidemia associated with type 2 diabetes mellitus (HCC) ALBUMIN CREATININE RATIO, URINE Routine 12/04/2024 3:02 PM CDT Type 2 diabetes mellitus with hyperglycemia, without long-term current use of insulin (HCC) Hypertension associated with diabetes (HCC) POCT HEMOGLOBIN A1C Routine 11/28/2024 8 :35 AM CDT Type 2 diabetes mellitus with hyperglycemia, without long-term current use of insulin (HCC) POCT GLUCOSE Routine 11/28/2024 8:35 AM CDT Type 2 diabetes mellitus with hyperglycemia, without long-term current use of insulin (HCC) HM DIABETES EYE EXAM Routine 09/28/2023 9:02 AM CDT PSA SCREEN Routine 03/10/2022 8:34 AM CDT from Last 3 Months or Most Recently Relevant to Health Maintenance Results * Albumin Creatinine Ratio, Urine (12/04/2024 3:02 PM CDT) SCRIBED Creatinine, Urine 43.6 NA - NA EXTERNAL LAB SCRIBED Microalbumin 6.1 0 - 16.7 EXTERNAL LAB SCRIBED Microalb/Creat Ratio 14.0 0 - 30 EXTERNAL LAB Urine 12/04/2024 3:02 PM CDT us Juanjose Rosa MD LAB URINE ORDERABLE S Final Result Performing Organization Address City/[facility]/ZIP Co de Phone Number EXTERNAL LAB * Lipid panel (12/04/2024 3:02 PM CDT) SCRIBED Cholesterol, Total 149 30 - 199 mg/dL EXTERNAL LAB SCRIBED Triglycerides 115 <=149 mg/dL EXTERNAL LAB SCRIBED HDL 52 >=40 mg/dL EXTERNAL LAB SCRIBED LDL 61 <=129 mg/dL EXTERNAL LAB Scribed Non-HDL Cholesterol 0 NONE mg/dL EXTERNAL LAB Comment:No value received SCRIBED Total Cholesterol/HDL Ratio 149 NONE EXTERNAL LAB Blood 12/04/2024 3:02 PM CDT us Juanjose Rosa MD LAB BLOOD ORDERABLE S Final Result Performing Organization Address City/[facility]/ZIP Co de Phone Number EXTERNAL LAB * (ABNORMAL) Comprehensive metabolic panel (12/04/2024 3:02 PM CDT) SCRIBED Sodium 138 137 - 145 mmol/L EXTERNAL LAB SCRIBED Potassium 4.8 3.5 - 5.0 mmol/L EXTERNAL LAB SCRIBED Chloride 101 98 - 107 mmol/L EXTERNAL LAB SCRIBED Carbon Dioxide 29 22 - 30 mmol/L EXTERNAL LAB SCRIBED Anion Gap 8 4 - 12 mmol/L EXTERNAL LAB SCRIBED Urea Nitrogen (BUN) 27(A) 9 - 20 mg/dl EXTERNAL LAB SCRIBED Creatinine 0.97 0.7 - 1.3 mg/dl EXTERNAL LAB SCRIBED Glucose 112(A) 65 - 110 mg/dl EXTERNAL LAB SCRIBED Calcium 9.7 8.4 - 10.2 mg/dl EXTERNAL LAB SCRIBED Bilirubin 1.2 0.2 - 1.3 mg/dl EXTERNAL LAB SCRIBED Plasma Protein 8.0 6.3 - 8.2 g/dl EXTERNAL LAB SCRIBED Albumin 4.3 3.5 - 5.1 g/dl EXTERNAL LAB SCRIBED Alkaline Phosphatase 76 38 - 126 Units/L EXTERNAL LAB SCRIBED Alanine Transaminase (ALT) 21 6 - 50 Units/L EXTERNAL LAB SCRIBED Aspartate Transaminase (AST) 31 17 - 59 Units/L EXTERNAL LAB SCRIBED eGFR in NonAfrican Cambodian >60 >=60 - NA EXTERNAL LAB Blood 12/04/2024 3:02 PM CDT Juanjose Rosa MD LAB BLOOD ORDERABLE S Final Result EXTERNAL LAB * (ABNORMAL) POCT hemoglobin A1c (11/28/2024 8:35 [...] OF CARE TEST ORDERABLES Final Result * HM DIABETES EYE EXAM (09/28/2023 9:02 [...] 8:34 AM CDT 03/10/2022 3:42 PM CDT us Willis Major MD LAB BLOOD ORDERABLES Final R esult [address] [address] [address] Department [place] [address] from Last 3 Months or Most Recently Relevant to Health Maintenance Insurance [employer] [facility] MEDICARE PPO [employer] MEDICARE PPO MEDICARE [employer] MEDICARE PPO Care Teams Communications Representative Relationship Specialty Start Date End Date Lenin Hagen DO PCP - General Internal Medicine 12/22/23
--- OUTSIDE RECORDS SUMMARY | 2025-01-14 15:24 | XMS_ITS | Clinical Summary ---
Author Organization [employer] [address] [place] [address] Address [address] [place] [address] Care Team Providers Care Talent Assistant Name Role Phone Lenin Hagen DO Primary Care Provider Allergies No known active allergies Medications lisinopriL [...] 40 mg by mouth daily. 4 Active [employer] G7 Sensor Device Change sensor every 10 days 4 Active diphenhydrAMIN E (BENADRYL) 25 mg tablet Take 25 mg by mouth every 6 hours as needed for Allergies. Active metoprolol succinate (TOPROL XL) 25 mg Extended Release 24 hour tablet TAKE 1 TABLET EVERY DAY 90 Tablet 3 5 Active Soliqua 100/33 100 unit-33 mcg/mL Insulin Pen Inject 30-40 Units by subcutaneous injection daily. 4 12/22/19 25 Active Problems Patient Care Coordination No te Formatting of this note migh t be different from the original. Vascular Care - Dr. Prosper Law MD, [facility], [facility] Heart and Vascular - [address] 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 07/17/2020 Gangrene 07/17/2020 Essential hypertension 07/17/2020 Dyslipidemia 07/17/2020 Tobacco abuse 07/17/2020 PAD (peripheral artery disease) 07/17/2020 Overview (07/17/2020): Added automatically from request for surgery [id number] Encounters Date Type Department Care Team Description 01/04/2025 Telephone [facility] Heart [facility] - [address] [facility] [address] [address] [facility] [address] [place] [address] Prosper Law MD question on date of procedure 12/25/2024 External Device Data [facility] ABSTRACTION Provider, Abstract 11/29/2024 External Device Data [facility] ABSTRACTION Provider, [...] on file 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 Gender Identity Not on file Sexual Orientation Not on file Last Filed Vital Signs Vital Sign Reading Time Taken Comments Blood Pressure 120/80 01/05/2024 10:54 AM CDT Pulse 88 01/05/2024 10:54 AM CDT Temperature 36.7 C (98 F) 07/21/2020 9:47 AM 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 Respiratory Rate 19 07/21/2020 4:15 PM 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 Oxygen Saturation 98% 01/05/2024 10:54 AM CDT Inhaled Oxygen Concentration - - Weight 95.3 kg (210 lb) 01/05/2024 10:54 AM CDT Height 174 cm (5' 8.5) 01/05/2024 10:54 AM CDT Body Mass Index 31.47 01/05/2024 10:54 AM CDT Plan of Treatment Upcoming Encounters Date Type Department Care Team (Late st Contact Info) Description 01/28/2025 4:15 PM CDT Appointment [facility] Heart and Vascular Testing [facility] [address] [place] [address] [place] [address] [facility] [address] [place] [address] 01/30/2025 3:00 PM CDT Office Visit [facility] - [address] [facility] [address] [address] [facility] [address] [place] [address] Health Maintenance Due Date Last Done Comments [...] - Risk 60-74 years 1-dose series) 2014 DIABETES HBA1C Q 6 MONTHS 06/22/20242023, 04/06/2023, 09/16/2022, Additional history exists LDL CHOLESTEROL ANNUAL 11/14/2024 11/15/2023, 2021 DIABETES ANNUAL FOOT EXAM 12/21/2024 12/22/2023 INFLUENZA VACCINE (#1) 2025 DTAP/TDAP/TD VACCINES (2 - T d or Tdap) 04/03/2031 04/03/2021 Medical Devices Implanted Type Area Surgical Supervisor Device Identifier Shelf Expiration Date Model / Serial / Lot Closure Perclose Proglide [id number] - [id number] Implanted:Qty : 1 on 07/21/2020 by [facility] Closure Device N/A: Groin ANDRE- VASC DEVICE 04/09/2022 [id number] / / [id number] Procedures Procedure Name Priority Date/Time Associated Diagnosis Comments LIPID PANEL Routine 11/15/2023 2:33 PM CDT from Last 3 Months or Most Recently Relevant to Health Maintenance Results * LIPID PANEL (11/15/2023 2:33 PM CDT) Blood us Abstract Provider CHEMISTRY ORDERABLES Edited Re sult - Final from Last 3 Months or Most Recently Relevant to Health Maintenance Insurance [employer] [facility] Medicare Part D Care Teams Talent Assistant Relationship Specialty Start Date End Date Lenin Hagen DO [address] [address] PCP - General Internal Medicine 01/04/25
--- OUTSIDE RECORDS SUMMARY | 2025-01-14 15:24 | XMS_ITS | Clinical Summary ---
Author Organization [facility] Address [address] [place] [address] Care Team Providers Care Posting Clerk Name Role Phone Willis Major MD Primary Care Provider [phone] Source Comments [facility],non-owned Affiliates and Associated Physician Practices is amultiple site organization consisting of ambulatory clinics and hospital sitesin [place], [place], [place] and [place]. This disclosure is being madepursuant to the Care Everywhere program and may not contain all information available regarding this patient. 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, [place] [employer] MED[employer]ARE ADV HMO & PPO Care Teams Posting Clerk Relationship Specialty Start Date End Date Willis Major MD [address] [place], [place] [address] [address] PCP - General 08/16/22
--- OUTSIDE RECORDS SUMMARY | 2025-01-14 15:24 | XMS_ITS | Data Portability ---
Author Organization [place] [facility] [employer], Main Office Address [address] [place] [address] Assessment Encounter Date Assessment Date Assessment LastModified by Organization Details LastModified Time 11/09/2022 11/09/2022 Blood pressure optimize Blood work to be done for biochemical management of disease processes a medications Target for LDL A1c and blood pressure been discussed Follow-up 4 months [email or web address] Not available 12/19/2022 10:58:48 03/15/2023 03/15/2023 Smoking cessation discussed in detail diagnosis in assessment and plan have been discussed follow-up in 4 months continue current therapy [email or web address] Not available 03/15/2023 21:49:33 07/13/2023 07/13/2023 Refuses all immunizations continue current therapy will follow-up in 4 months [email or web address] Not available 07/13/2023 22:45:35 Plan of Treatment [...] 137 mmol/ L 137-14 5 Not Available [facility] (Lab) [address], [place], [address], 11/09/2022 18:47:11 11/10/19 23 11/09/2022 COMPR EHENS SMILEY METAB OLIC PANEL potassium 4.4 mmol/ L 3.5-5. 1 Not Available [facility] (Lab) [address] [place], [address], 11/09/2022 18:47:11 11/10/1911/09/2022 COMPR EHENS SMILEY METAB OLIC PANEL chloride 101 mmol/ L 98-107 Not Available [facility] (Lab) [address] [place], [address], 11/09/2022 18:47:11 11/10/19 23 11/09/2022 COMPR EHENS SMILEY METAB OLIC PANEL carbon dioxide 26 mmol/ L 22-30 Not Available [facility] (Lab) [address] [place], [address], 11/09/2022 18:47:11 11/10/19 23 11/09/2022 COMPR EHENS SMILEY METAB OLIC PANEL anion gap 14.4 mmol/ L 14-22 Not Available [facility] (Lab) [address] [place], [address], 11/09/2022 18:47:11 11/10/19 23 11/09/2022 COMPR EHENS SMILEY METAB OLIC PANEL glucose 163 mg/dL 70-99 high Not Available [facility] (Lab) [address] [place], [address], 11/09/2022 18:47:11 11/10/1911/09/2022 COMPR EHENS SMILEY METAB OLIC PANEL BUN 21 mg/dL 8-19 high Not Available [facility] (Lab) [address] [place], [address], 11/09/2022 18:47:11 11/10/19 23 11/09/2022 COMPR EHENS SMILEY METAB OLIC PANEL creatinine 0.95 mg/dL 0.66-1 .25 Not Available [facility] (Lab) [address] [place], [address], 11/09/2022 18:47:11 11/10/1911/09/2022 COMPR EHENS SMILEY METAB OLIC PANEL GFR >60 Refer ence Range : Ramsay ge GFR Healt hy Adult : >60 mL/mi n/1.7 3 m2 Chron ic Kidne y Disea se: 15-60 mL/mi n/1.7 3 m2 Kidne y Failu re: <15/m L/min /1.73 m2 www.n iddk. [facility].g ov The MDRD study equat ion has [...] calcu lator is avail able on the [facility] websi te: https :[email or web address] gardner.buster [email or web address] jacques/pr ofess ional s/kdo qi/gf r_cal culat or Not Available [facility] (Lab) [address] [place], [address], 11/09/2022 18:47:11 11/10/1911/09/2022 COMPR EHENS SMILEY METAB OLIC PANEL alkaline phosphatase 76 U/L 38-126 Not Available [facility] (Lab) [address] [place], [address], 11/09/2022 18:47:11 11/10/1911/09/2022 COMPR EHENS SMILEY METAB OLIC PANEL alanine aminotransfe rase 20 U/L 0-50 Not Available [facility] (Lab) [address] [place], [address], 11/09/2022 18:47:11 11/10/19 23 11/09/2022 COMPR EHENS SMILEY METAB OLIC PANEL aspartate aminotransfe rase 22 U/L 15-46 Not Available [facility] (Lab) [address] [place], [address], 11/09/2022 18:47:11 11/10/19 23 11/09/2022 COMPR EHENS SMILEY METAB OLIC PANEL bilirubin, total 0.80 mg/dL 0.20-1 .30 Not Available [facility] (Lab) [address] [place], [address], 11/09/2022 18:47:11 11/10/19 23 11/09/2022 COMPR EHENS SMILEY METAB OLIC PANEL calcium 9.3 mg/dL 8.4-10 .2 Not Available [facility] (Lab) [address] [place], [address], 11/09/2022 18:47:11 11/10/19 23 11/09/2022 COMPR EHENS SMILEY METAB OLIC PANEL total protein 6.8 g/dL 6.3-8. 2 Not Available [facility] (Lab) [address] [place], [address], 11/09/2022 18:47:11 11/10/1911/09/2022 COMPR EHENS SMILEY METAB OLIC PANEL albumin 4.1 g/dL 3.0-4. 4 Not Available [facility] (Lab) [address] [place], [address], 11/09/2022 18:47:11 11/10/1911/09/2022 COMPR EHENS SMILEY METAB OLIC PANEL globulin 2.7 g/dL 2.6-4. 2 Not Available [facility] (Lab) [address] [place], [address], 11/09/2022 18:47:11 11/10/19 23 11/09/2022 COMPR EHENS SMILEY METAB OLIC PANEL A/G ratio 1.5 ratio 1.0-2. 0 Not Available [facility] (Lab) [address] [place], [address], 11/09/2022 18:47:11 11/10/19 23 11/09/2022 HEMOG LOBIN A1C HA1C 7.8 % 4.0-6. 0 high Diabe axel Scree shruti Crite yadira: <5.7% Consi stent with absen ce of diabe axel 5.7-6 .4% Consi stent with incre ased risk for diabe axel (pred iabet es) >OR=6 .5% Consi stent with diabe axel REFER ENCE: Diabe axel Care 2016, 39( ppl.1 ):s13 -s22 Not Available [facility] (Lab) [address] [place], [address], 11/09/2022 20:35:55 10/13/19 23 07/30/2022 XR, toe(s ) No observ ation record ed. [address], [address], 11/10/2022 11:36:37 11/09/19 23 07/30/2022 imagi ng/di agnos tic resul t No observ ation record ed. [address], [address], 11/09/2022 15:59:04 Result Notes None recorded. Problems Name Problem SNOMED Code Status Onset Date Resolution Date Notes Provider Name and Address Organization Details Recorded Time Neuropathy due to diabetes mellitus 929032356 Active 2020 Not Available [facility] 3 22:43:31 Headache 25757204 Active 2021 Not Available [facility] 22:43:31 Hyperlipidemi a 86591717 Active 2020 Not Available [facility] 3 22:43:31 Essential hypertension 81166990 Active 2020 Not Available [facility] 3 22:43:31 Diabetes mellitus 13069412 Active 2020 Not Available [facility] 3 22:43:31 Peripheral arterial disease 820631588 Active 2020 right SFA stent Not Available [facility] 3 22:43:31 Erectile dysfunction 656191589 Active 2020 Not Available [facility] 3 22:43:31 Lipoma of skin and subcutaneous tissue of neck 38693013 Active 2020 Not Available [facility] 3 22:43:31 Carpal tunnel syndrome 53643133 Active 2022 Aria Washington RN [facility], [place] [employer] [facility] [employer] 3 15:38:02 Peripheral arterial occlusive disease 352744264 Active 2023 Willis Major MD [address] [place] [address], [address] [facility] [employer] 4 22:45:59 Problem Notes None recorded. Procedures Surgical History Date Name Laterality Status Provider Name and Address Organization Details Recorded Time amputation of toe completed Not Available [facility] 09/08/2022 22:42:46 Hernia Repair completed Not Available [facility] 09/08/2022 22:42:46 thoracentesis completed Not Available [facility] 09/08/2022 22:42:46 Imaging Results None recorded. Procedure Notes None recorded. Medical Equipment None [...] Available Droplet Pen Needle 32 gauge x 5/32 active Not Available Not Available Not Available [...] Date Recorded Body mass index (BMI) Body height Heart rate Body temperature Body weight Systolic And Diastolic Provider Name and Address Organization Details Last Updated DateTime 3 31.3 kg/m2 175.26 cm 94 /min 98.2 [degF] 16173.5 8 g 140/90 mm[Hg] Not Available [facility] 3 22:43:07 Date Recorded Body height Body mass index (BMI) Body weight Body temperature Heart rate Systolic And Diastolic Provider Name and Address Organization Details Last Updated DateTime 4 175.26 cm 30.9 kg/m2 30873.8 1 g 98.1 [degF] 90 /min 120/74 mm[Hg] KRISTEN Hicks [facility] [employer] 4 15:24:26 Date Recorded Body height Body weight Body temperature Heart rate Oxygen saturation Oxygen saturation in Arterial blood by Pulse oximetry Systolic And Diastolic Provider Name and Address Organization Details Last Updated DateTime 3 175.26 cm 21019.0 7 g 98.2 [degF] 88 /min 99 % 99 % 124/80 mm[Hg] Lesly Cole RN [facility] [employer] 3 15:40:03 Date Recorded Body mass index (BMI) Body height Heart rate Body temperature Body weight Systolic And Diastolic Provider Name and Address Organization Details Last Updated DateTime 2 30.7 kg/m2 175.26 cm 102 /min 96.8 [degF] 30406.2 1 g 124/80 mm[Hg] Not Available [facility] 3 22:43:07 Date Recorded Body height Body mass index (BMI) Body weight Body temperature Heart rate Systolic And Diastolic Provider Name and Address Organization Details Last Updated DateTime 3 175.26 cm 29.4 kg/m2 26178.8 8 g 97.9 [degF] 87 /min 102/70 mm[Hg] KRISTEN Hicks [place] [facility] [place] [email or web address] [facility] 3 16:01:08 Social History Question Answer Notes LastModified by Organization Details LastModified Time Tobacco Smoking Status Former Smoker quit 07/07/20 20 Not Available [facility] 09/08/2022 22:42:29 Do You Have An Advance Directive? No MIGRATION.0301 [id number] Information not available 09/08/2022 Are You Blind Or Do You Have Difficulty Seeing? No MIGRATION.030 169802 Information not available 09/08/2022 What Is Your Level Of Caffeine Consumption? Moderate MIGRATION.030 560626 Information not available 09/08/2022 How Much Tobacco Do You Chew? None MIGRATION.030 153941 Information not available 09/08/2022 In The 14 Days Before Symptom Onset, Have You Had Close Contact With A Laboratory-confi rmed COVID-19 While That Case Was Ill? No MIGRATION.030 263713 Information not available 09/08/2022 In The 14 Days Before Symptom Onset, Have You Had Close Contact With A Person Who Is Under Investigation For COVID-19 While That Person Was Ill? No MIGRATION.030 280255 Information not available 09/08/2022 Are You Deaf Or Do You Have Serious Difficulty Hearing? No MIGRATION.0301 726659 Information not available 09/08/2022 What Type Of Diet Are You Following? REGULAR MIGRATION.0301 002434 Information not available 09/08/2022 Which Illicit Or Recreational Drugs Have You Used? None MIGRATION.0301 081348 Information not available 09/08/2022 What Is The Highest Grade Or Level Of School You Have Completed Or The Highest Degree You Have Received? HS12290-1 MIGRATION.300 048533 Information not available 09/08/2022 Have There Been Any Changes To Your Family Or Social Situation? No MIGRATION.030 614875 Information not available 09/08/2022 What Is The Fluoride Status Of Your Home? Unknown MIGRATION.0301 049127 Information not available 09/08/2022 When Did You Quit Smoking? 1-5yearssincelastci garette MIGRATION.0301 504024 Information not available 09/08/2022 Do You Use Insect Repellent Routinely? No MIGRATION.0301 382465 Information not available 09/08/2022 Where Do You Live? SingleLevelHouse MIGRATION.0301 573394 Information not available 09/08/2022 Do You Have A Medical Power Of Home Performance Consultant? No MIGRATION.0301 442955 Information not available 09/08/2022 What Was The Date Of Your Most Recent Tobacco Screening? 07/13/2023 [email or web address] Information not available 07/13/2023 What Is Your Current Pack Years? 30ormorepackyears MIGRATION.0301 609235 Information not available 09/08/2022 Have You Ever Been Counseled For Unhealthy Alcohol Use? No MIGRATION.0301 132410 Information not available 09/08/2022 Do You Have Any Pets? Yes MIGRATION.0301 174793 Information not available 09/08/2022 What Is Your Relationship Status? MIGRATION.0301 294544 Information not available 09/08/2022 Do You Use Your Seat Belt Or Car Seat Routinely? Yes MIGRATION.0301 112732 Information not available 09/08/2022 Do You Have Smoke And Carbon Monoxide Detectors In Your Home? Yes MIGRATION.0301 769515 Information not available 09/08/2022 Are You Passively Exposed To Smoke? No MIGRATION.0301 236969 Information not available 09/08/2022 Are There Any Smokers In Your House? No MIGRATION.0301 027044 Information not available 09/08/2022 How Much Tobacco Do You Smoke? No MIGRATION.0301 268913 Information not available 09/08/2022 What Types Of Sporting Activities Do You Participate In? None MIGRATION.0301 730151 Information not available 09/08/2022 Do You Use Sunscreen Routinely? Yes MIGRATION.0301 606477 Information not available 09/08/2022 Has Tobacco Cessation Counseling Been Provided? No MIGRATION.0301 834543 Information not available 09/08/2022 Have You Recently Traveled Abroad? No MIGRATION.0301 064861 Information not available 09/08/2022 Do You Have Difficulty Walking Or Climbing Stairs? No MIGRATION.0301 767926 Information not available 09/08/2022 Do You Have Any Dietary Restrictions? No MIGRATION.0301 536615 Information not available 09/08/2022 Sex: Male Functional Status Question Answer Note LastModified by Organizat ion Details LastModified Time Do you use any illicit or recreational drugs? No MIGRATION.038862 1122 Information not available 09/08/2022 Do you or have you ever used any other forms of tobacco or nicotine? No MIGRATION.207248 4452 Information not available 09/08/2022 What is your level of alcohol consumption? Occasional MIGRATION.725055 3686 Information not available 09/08/2022 Do you or have you ever used smokeless tobacco? Never used smokeless tobacco MIGRATION.090869 6623 Information not available 09/08/2022 Do you have transportation difficulties? No MIGRATION.935398 7494 Information not available 09/08/2022 Are you able to walk? YESWOREST MIGRATION.748693 5067 Information not available 09/08/2022 Do you have difficulty doing errands alone? No MIGRATION.956654 6117 Information not available 09/08/2022 Are you able to care for yourself? Yes MIGRATION.147380 5879 Information not available 09/08/2022 What is your occupation? part-time MIGRATION.020912 7214 Information not available 09/08/2022 Do you have difficulty dressing or bathing? No MIGRATION.660571 2201 Information not available 09/08/2022 Do you or have you ever used e-cigarettes or vape? Never used electronic cigarettes MIGRATION.272242 7791 Information not available 09/08/2022 What is your exercise level? Occasional MIGRATION.818031 8103 Information not available 09/08/2022 Mental Status Question Answer Note LastModified by Organizat ion Details LastModified Time Do you feel stressed (tense, restless, nervous, or anxious, or unable to sleep at night)? [id number] MIGRATION.09581160 26 Information not available 09/08/2022 Do you have difficulty concentrating, remembering or making decisions? No MIGRATION.42188082 26 Information not available 09/08/2022 Family History Relationship Description Onset Age of this Age Resolved Age Notes LastModified by Organization Details LastModified Time Father Malignant tumor of pharynx 39 MIGRATION.506 7423572 Not available 09/08/2022 22:42:48 Mother Malignant tumor of breast 39 MIGRATION.010 8401155 Not available 09/08/2022 22:42:48 Sister Polyp of colon MIGRATION.267 6022250 Not available 09/08/2022 22:42:48 Medical History Condition Response NERVE DISEASE Y BLINDNESS N RHEUMATIC FEVER N KIDNEY STONES N BLADDER PROBLEMS N MRSA N OTHER # 1 N POLIO N LUNG DISEASE/DISORDER N RADIATION / CHEMOTHERAPY N COPD N Other # 2 N BLOOD DISEASES N SURGERY N EAR OR HEARING PROBLEMS N MUMPS N BOWEL PROBLEMS N DEPRESSION (INCLUDING POST ) N STROKE/TIA N ULCERS N BENIGN PROSTATIC HYPERPLASIA N MEASLES N MYOCARDIAL INFARCTION N OBESITY N GERD/NAUSEA N ANEURYSM N URINARY/BLADDER/KIDNEY PROBLEMS N CORONARY ARTERY DISEASE (CAD) N ADDICTION CONCERNS N ENDOMETRIOSIS N Impotence N USE OF BLOOD THINNERS N SKIN [...] APNEA N CHICKENPOX N INFECTIOUS DISEASE N HEART ARRHYTHMIA N PROSTATE N INSOMNIA N HIGH CHOLESTEROL / HYPERLIPIDEMIA Y HYPERTHYROIDISM N EYE PROBLEMS N NEUROLOGICAL PROBLEMS N EDEMA N CHRONIC PAIN SYNDROME N HYPOTHYROIDISM N CAROTID BLOCKAGE N CONSTIPATION N BACK / NECK PROBLEMS N HAVE YOU BEEN HOSPITALIZED OR SEEN IN [facility] IN THE PAST YEAR ? N ATHEROSCLEROSIS N BREAST PROBLEMS N DIALYSIS N ECZEMA N OSTEOPOROSIS N ARTHRITIS N APPENDICITIS N DIABETES, TYPE Y BAD TEETH N ENT N HEARTBURN / REFLUX N AUTISM SPECTRUM DISORDER (ASD) N HEPATITIS / LIVER DISEASE N GOUT N SLEEP DISORDER N ALZHEIMER'S DISEASE N Brain Problems N HERPES N DEMENTIA N HEADACHES/MIGRAINES N SEIZURES/EPILEPSY N VASCULAR DISEASE N PACEMAKER N Blood Disorder N DIZZINESS N HEART DISEASE/HEART PROBLEMS Y KIDNEY DISEASE N MULTIPLE SCLEROSIS N CARDIAC ARRHYTHMIA N CANCER: SPECIFY N ATRIAL FIBRILLATION N Gall Stones N PULMONARY EMBOLISM N AUTOIMMUNE DISEASE N Past Encounters Encounter ID Performer Location Encounter Start Date Encounter Closed Date Diagnosis/Indication Diagnosis SNOMED-CT Code Diagnosis ICD10 Code Diagnosis Note [id number] Willis Major MD [facility] Internal Med [facility] [address] [address] 10/14/2020 00:00:00 10/26/2020 10:12:48 [id number] Willis Major MD [facility] Internal Med [place] [address] [facility] [address] , [place] [address] 01/22/2021 00:00:00 01/22/2021 21:15:44 [id number] Willis Major MD [facility] Internal Med [place] [address] [place] [address] y , [place] [address] 01/27/2021 00:00:00 01/27/2021 21:43:41 [id number] Willis Major MD [facility] Internal Med [place] [address] [place] [address] y , [place] [address] 03/12/2021 00:00:00 03/12/2021 22:17:01 [id number] Willis Major MD [facility] Internal Med [facility] [address] [facility] [address] 04/13/2021 00:00:00 04/13/2021 15:19:21 [id number] Willis Major MD [facility] Internal Med [place] [address] [place] [address] y , [place] [address] 07/23/2021 00:00:00 07/23/2021 20:52:21 [id number] Willis Major MD [facility] Internal Med [facility] [address] [facility] [address] [address] 09/30/2021 00:00:00 10/12/2021 23:17:19 [id number] Willis Major MD [facility] Internal Med [facility] [address] [facility] [address] [address] 10/14/2021 00:00:00 10/14/2021 21:45:05 [id number] Willis Major MD [facility] Internal Med [facility] [address] [address] 11/25/2021 00:00:00 11/29/2021 13:06:24 [id number] Willis Major MD [facility] Internal Med [facility] [address] [place] [address] [address] [place] [address] 02/24/2022 00:00:00 02/24/2022 22:10:32 [id number] Willis Major MD [facility] Internal Med [facility] [address] [place] [address] [address] [place] [address] 1 07/13/2022 00:00:00 07/13/2022 23:31:32 [id number] Willis Major MD [facility] Internal Med [facility] [address] [place] [address] 1 11/09/2022 15:28:01 11/09/2022 16:18:35 Essential hypertension 34747099 I10 Hyperlipidemia 12850095 E78.5 Diabetes mellitus 891661 09 E11.42 Erectile dysfunction 860 660893 F52.21 [id number] Willis Major MD [facility] Internal Med [facility] [address] [place] [address] 1 03/15/2023 15:34:14 03/15/2023 16:24:31 Diabetes mellitus 30990916 E11.42 Erectile dysfunction 860 229077 F52.21 Essential hypertension 95656388 I10 Hyperlipidemia 04720988 E78.5 [id number] Willis Major MD [facility] Internal Med [facility] [address] [place] [address] [address] [place] [address] 1 07/13/2023 14:53:42 07/13/2023 17:26:11 Essential hypertension 83386713 I10 Hyperlipidemia 51129742 E78.5 Diabetes mellitus 784359 09 E11.42 Peripheral arterial occlusive disease 637837336 I73.9 Health Concerns Section Related Observation LastModified by Organization Detai ls LastModified Time None Recorded Concern Status LastModified by Organization Details LastModified Time None Recorded Advance Directives Directive N: Payers Insurance Date Sequence Insurance Name Policy Number Policy Henry Covered Member ID Henry Member ID Guarantor Name 07/11/2023 1 [employer] (MEDICARE REPLACEMENT/A DVANTAGE - PPO) Thanh Herrera [id number] Thanh Herrera Notes Date Note Type Note [...] that evaluatedContinues to smoke Willis Major MD [address], [place], [address], [employer] 12/19/2022 10:59:12 03/15/2023 text/html Diabetes no poly phagia polydipsia. Erectile dysfunction stable on meds. Hypertension headache disease. Hyperlipidemic do better with diet. He does continue smoke. Peripheral arterial occlusive disease right SFA stent no claudication Willis Major MD [address], [place], [address], [employer] 03/15/2023 21:49:51 07/13/2023 text/html Diabetes no poly phagia polydipsia. Erectile dysfunction stable on meds. Hypertension headache disease. Hyperlipidemic do better with diet. He does continue smoke. Peripheral arterial occlusive disease right SFA stent no claudication Willis Major MD [address], [place], [address], [employer] 07/13/2023 22:46:18
--- OUTSIDE RECORDS SUMMARY | 2025-01-14 15:25 | XMS_ITS | Clinical Summary ---
Author Organization [facility] Phys[facility] Building [address] [place] [address] Care Team Providers Care Station Jailer Name Role Phone Lenin Hagen DO Primary Care Provider [phone] Allergies No known active allergies Medications blood-glucose [...] without long-term current use of insulin (HCC) CHANGE SENSOR EVERY 10 DAYS 6 each [...] hyperglycemia, without long-term current use of insulin ([facility]) Take 1 tablet (4 mg total) by mouth 2 (two) times a day with meals 180 tablet 11/29/19 25 026 Active LANTUS 100 unit/mL (3 mL) pen for injectionIndic ations:Type 2 diabetes mellitus with hyperglycemia, without long-term current use of insulin ([facility]) Inject 30 Units under the skin daily 27 mL 11/29/19 25 026 Active Farxiga 10 mg tabletIndicati ons:type 2 diabetes mellitus Take 1 tablet (10 mg total) by mouth daily 90 tablet 11/29/19 25 026 Active Dubset MediaTouch Delica Plus Lancet 30 gauge miscIndication s:Type 2 diabetes mellitus with hyperglycemia, without long-term current use of insulin ([facility]) 2 x daily 200 each 11/29/19 25 Active OneTouch Verio Flex meter miscIndication s:Type 2 diabetes mellitus with hyperglycemia, without long-term current use of insulin ([facility]) One glucometer 1 each 11/29/19 25 Active OneTouch Verio test strips stripIndicatio ns:Type 2 diabetes mellitus with hyperglycemia, without long-term current use of insulin ([facility]) Check 2 x daily 200 each 3 11/29/19 25 Active lisinopriL (PRINIVIL,ZEST RIL) 2.5 mg tabletIndicati ons:Hypertensi on associated with diabetes ([facility]) TAKE 1 TABLET EVERY DAY 90 tablet [...] 03/27/2024 Assessment & Plan (07/08/2024 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): Chronic, worsening Discussed about healthy lifestyle habits [...] control Assessment & Plan (06/13/2022 9:34 AM RETURNED ITEM CLERK): Chronic, stable Continue gabapentin therapy for symptomatic [...] control Assessment & Plan (09/10/2020 7:38 AM RETURNED ITEM CLERK): Chronic, stable Continue gabapentin therapy for symptomatic management Continue to work on tighter glycemic control Assessment & Plan (06/11/2020 4:26 PM RETURNED ITEM CLERK): Chronic, stable Continue gabapentin therapy for symptomatic [...] 01/05/2020 Assessment & Plan (07/08/2024 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): Continue statin therapy Tolerating well Assessment & [...] well Assessment & Plan (06/13/2022 9:34 AM RETURNED ITEM CLERK): Continue statin therapy Tolerating well Assessment & Plan (01/26/2022 2:52 PM CDT): Chronic problem. On statin therapy, no changes. Assessment & Plan (10/27/2021 3:23 PM CDT): Continue statin therapy Tolerating well Assessment & Plan (08/25/2021 2:46 PM RETURNED ITEM CLERK): Chronic problem. On statin therapy, no changes. Assessment & Plan (07/21/2021 1:42 PM RETURNED ITEM CLERK): Continue statin therapy Tolerating well Reviewed recent labs , LDL at goal Assessment & Plan (04/29/2021 3:53 PM CDT): Continue statin therapy Tolerating well Assessment & Plan (12/15/2020 1:53 PM CDT): Continue statin therapy Tolerating well Assessment & Plan (09/10/2020 7:38 AM RETURNED ITEM CLERK): Continue statin therapy Tolerating well Assessment & Plan (06/11/2020 4:24 PM RETURNED ITEM CLERK): Continue statin therapy Tolerating well Assessment & Plan (03/06/2020 10:28 PM CDT): Continue statin therapy Assessment & Plan (01/05/2020 9:25 PM CDT): Continue statin therapy Reviewed recent lipid panel Type 2 diabetes mellitus wit h hyperglycemia, without long-term current use of insulin 01/03/2020 Assessment & Plan (07/08/2024 5:39 PM RETURNED ITEM CLERK): Chronic, uncontrolled, slowly improving but still above [...] months Assessment & Plan (06/13/2022 9:35 AM RETURNED ITEM CLERK): Chronic, Out of control, worsening A1c 9.0 [...] me Assessment & Plan (08/25/2021 2:49 PM RETURNED ITEM CLERK): Chronic problem, improving but not at goal. Reviewed diet and limiting simple sugar intake. Needs to not miss PM dose of glimepiride. Continue same medications at this time. 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 Assessment & Plan (10/27/2021 3:23 PM CDT): Chronic, well controlled Continue Volodymyr I Assessment & Plan (08/25/2021 2:46 PM RETURNED ITEM CLERK): Controlled on current medications, no changes. Assessment & Plan (07/21/2021 1:42 PM RETURNED ITEM CLERK): Chronic, well controlled Continue Volodymyr I Assessment & Plan (04/29/2021 3:53 PM CDT): Chronic, well controlled Continue Volodymyr I Assessment & Plan (12/15/2020 1:52 PM CDT): Chronic, well controlled Continue Volodymyr I Assessment & Plan (09/10/2020 7:37 AM RETURNED ITEM CLERK): Chronic, well controlled Continue Volodymyr I Assessment & Plan (06/11/2020 4:24 PM RETURNED ITEM CLERK): Chronic, well controlled Continue Volodymyr I Assessment [...] exercise Assessment & Plan (06/13/2022 9:34 AM RETURNED ITEM CLERK): Chronic, above goal . unchanged Discussed about [...] exercise Assessment & Plan (07/21/2021 1:42 PM RETURNED ITEM CLERK): Chronic, worsening Discussed about healthy lifestyle habits [...] exercise Assessment & Plan (09/10/2020 7:39 AM RETURNED ITEM CLERK): Chronic, improving slowly Discussed about healthy lifestyle [...] weekly Assessment & Plan (06/11/2020 4:26 PM RETURNED ITEM CLERK): Chronic, worsening Discussed about healthy lifestyle habits [...] Type Department Care Team Description 11/30/2024 Telephone [facility] of [address] [address] Juanjose Cintron MD 11/28/2024 8:45 AM CDT Office Visit [facility] [address] [address] Juanjose Cintron MD Type 2 diabetes mellitus with hyperglycemia, without long-term current use of insulin (HCC) (Primary Dx); Hypertension associated with diabetes (HCC); Hyperlipidemia associated with type 2 diabetes mellitus (HCC); Class 1 obesity due to excess calories with serious comorbidity and body mass index (BMI) of 30.0 to 30.9 in adult 10/15/2024 Telephone [facility] of [address] [address] Stephanie Staples LPN from Last [...] on file Legal Sex Male 3:01 AM 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 CLERK Gender Identity Not on file Sexual Orientation [...] 12/21/2024 12/22/2023 Influenza Vaccine (Season Ended) 2025 Hemoglobin A1C 05/31/2025 11/28/2024, 06/10, 03/27/2024, Additional history exists Foot Exam 06/26/2025 06/26/2024, 03/11, 12/22/2023, Additional history exists Albumin Creatinine Ratio, Urine 12/04/2025 12/04/2024, 03/27/2024, 03/10/2022, Additional history exists Lipid Panel 12/04/2025 12/04/2024, 03/11, 03/10/2022, Additional history exists eGFR 12/04/2025 12/04/2024, 03/11, 11/09/2022, Additional history exists DTaP/Tdap/Td Vaccine (2 - [...] ORDERABLE S Final Result Performing Organization Address City/[facility]/ZIP Co de Phone Number EXTERNAL LAB * [...] S Final Result Performing Organization Address [facility] Co de Phone Number EXTERNAL LAB * [...] Units/L EXTERNAL LAB SCRIBED eGFR in NonAfrican Angolan >60 >=60 - NA EXTERNAL LAB Blood 12/04/2024 3:02 PM CDT Juanjose Rosa MD LAB BLOOD ORDERABLE S Final Result EXTERNAL LAB * (ABNORMAL) POCT hemoglobin A1c (11/28/2024 8:35 AM CDT) Hemoglobin A1C, POC 6.9(A) 4.0 - 5.6 % Blood 11/28/2024 8:35 AM CDT Juanjose Rosa MD POINT OF CARE TEST ORDERABLES Final Result * POCT glucose (11/28/2024 8:35 AM CDT) Pathologist [facility] Glucose Blood, POC 201 Normal Fasting 70 - 100, Random <200 mg/dL Blood 11/28/2024 8:35 AM CDT Juanjose Rosa MD POINT OF CARE TEST ORDERABLES Final Result * HM DIABETES EYE EXAM (09/28/2023 9:02 AM CDT) Misael Bosch MD HEALTH MAINTENANCE Edited Result - Final * [...] LAB BLOOD ORDERABLES Final R esult WILLIAM [address] [place] [address] from Last 3 Months or Most Recently Relevant to Health Maintenance Insurance [email or web address] MEDICARE PPO [employer] MEDICARE PPO MEDICARE [employer] CHOICE MEDICARE PPO [place] [id number] Care Teams Station Jailer Relationship Specialty Start Date End Date Lenin Hagen DO PCP - General Internal Medicine 12/22/23
== END 2025-01-14 15:20 | disposition home or self-care (01) ==
PROVIDERS: PCP Internal Medicine; Visit Provider Internal Medicine
DX: Z12.2 Encounter for screening for malignant neoplasm of respiratory organs (principal); Z87.891 Personal history of nicotine dependence
CPT/HCPCS: 71271

== ENCOUNTER 2025-02-01 15:05 | Outpatient (CLI) | payer MEDICARE, SELFPAY ==
--- OUTSIDE RECORDS SUMMARY | 2025-02-01 15:08 | XMS_ITS | Clinical Summary ---
Author Organization [facility] [address] [place] [address] Address [address] [place] [address] Care Team Providers Care Seafood Fisherman Name Role Phone Lenin Hagen DO Primary Care Provider Allergies No known active allergies Medications lisinopriL (PRINIVIL) 2.5 mg tablet Take 2.5 mg by mouth daily. 06/19/2020 Active glimepiride 4 mg tablet (AMARYL) Take 4 mg by mouth 2 times daily. 06/22/2020 Active aspirin (ECOTRIN EC) 81 mg Tablet, Delayed Release (E.C.) Take 1 Tablet (81 mg) by mouth daily. 07/17/2020 Active cyanocobalamin (VITAMIN B-12) 500 mcg tablet Take 500 mcg by mouth daily. Active alpha lipoic acid 600 mg Tablet Take 600 mg by mouth daily. Active multivitamin (DAILY-SHAINA) tablet Take 1 Tablet by mouth daily. Active Jardiance 25 mg tablet Take 25 mg by mouth daily. 12/30/2023 Active rosuvastatin (CRESTOR) 40 mg tablet Take 40 mg by mouth daily. 12/21/2023 Active Dexcom G7 Sensor Device Change sensor every 10 days 01/03/2024 Active diphenhydrAMINE (BENADRYL) 25 mg tablet Take 25 mg by mouth every 6 hours as needed for Allergies. Active metoprolol succinate (TOPROL XL) 25 mg Extended Release 24 hour tablet TAKE 1 TABLET EVERY DAY 90 Tablet 3 07/31/2024 Active Active Problems Patient Care Coordination No te Formatting of this note migh t be different from the original. Vascular Care - Dr. Prosper Law MD, FACC, [facility] - [address] 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 07/17/2020 Gangrene 07/17/2020 Essential hypertension 07/17/2020 Dyslipidemia 07/17/2020 Tobacco abuse 07/17/2020 PAD (peripheral artery disease) 07/17/2020 Overview (07/17/2020): Added automatically from request for surgery [id number] Encounters Date Type Department Care Team Description 01/23/2025 External Device Data STL ABSTRACTION Provider, Abstract 01/22/2025 External Device Data STL ABSTRACTION Provider, Abstract 01/04/2025 Telephone [facility] - [address] [facility] [address] [address] [facility] [address] [place] [address] Prosper Law MD question on date of [...] on file Legal Sex Male 1:31 PM TELE TECH Gender Identity Not on file Sexual Orientation Not on file Last Filed Vital Signs Vital Sign Reading Time Taken Comments Blood Pressure 120/80 01/05/2024 10:54 AM CDT Pulse 88 01/05/2024 10:54 AM CDT Temperature 36.7 C (98 F) 07/21/2020 9:47 AM TELE TECH Respiratory Rate 19 07/21/2020 4:15 PM TELE TECH Oxygen Saturation 98% 01/05/2024 10:54 AM CDT Inhaled Oxygen Concentration - - Weight 95.3 kg (210 lb) 01/05/2024 10:54 AM CDT Height 174 cm (5' 8.5) 01/05/2024 10:54 AM CDT Body Mass Index 31.47 01/05/2024 10:54 AM CDT Plan of Treatment Upcoming Encounters Date Type Department Care Team (Late st Contact Info) Description 04/10/2025 1:00 PM CDT Appointment [facility] Testing [facility] [address] [facility] [address] [place] [address] [place] [address] [facility] [address] [place] [address] 04/10/2025 2:15 PM CDT Office Visit [facility] - [address] [facility] [address] [address] [facility] [address] [place] [address] [place] [address] [address] Health Maintenance Due Date Last Done [...] history exists LDL CHOLESTEROL ANNUAL 11/14/2024 11/15/2023, 09/01/ 2022 DIABETES ANNUAL FOOT EXAM 12/21/2024 12/22/2023 INFLUENZA VACCINE (#1) 2025 DTAP/TDAP/TD VACCINES (2 - T d or Tdap) 04/03/2031 04/03/2021 Medical Devices Implanted Type Area Glass Ribbon Machine Operator Assistant Device Identifier Shelf Expiration Date Model / Serial / Lot Closure Perclose Proglide [id number] - [id number] Implanted:Qty : 1 on 07/21/2020 by Prosper Law MD at [id number] Closure Device N/A: Groin ANDRE- VASC DEVICE 04/09/2022 [id number] / / [id number] Procedures Procedure Name Priority Date/Time Associated Diagnosis Comments LIPID PANEL Routine 11/15/2023 2:33 PM CDT from Last 3 Months or Most Recently Relevant to Health Maintenance Results * LIPID PANEL (11/15/2023 2:33 PM CDT) Blood us Abstract Provider CHEMISTRY ORDERABLES Edited Re sult - Final from Last 3 Months or Most Recently Relevant to Health Maintenance [facility] Part D Care Teams Seafood Fisherman Relationship Specialty Start Date End Date Lenin Hagen DO [address] [address] PCP - General Internal Medicine 01/04/25
--- OUTSIDE RECORDS SUMMARY | 2025-02-01 15:08 | XMS_ITS | Continuity of Care Document ---
Author Organization [facility] Address [address] [place] [address] Phone Care Team Providers Care General Warehouse Associate Name Role Phone Unavailable Unavailable Unavailable Allergies, [...] Date Provider Providers Copied on Encounter [facility] [employer], [address], [place], [place], [id number] , [place] tel:[phone] Jacy On Naveen No Information 200 9 No Information OFFICE/OUTPA TIENT VISIT, EST [facility] [employer], [address], [place], [place], [id number] , [place] tel: [phone] Cely Beckford hypertension (chief complaint) Unspecified essential hypertension 9 No Information OFFICE OUTPT NEW 20 MINUTES [facility], [address], [place], [place], [id number] , [place] tel: [phone] Cely Beckford hypertension (chief complaint)her bala, umbilical [...]
--- OUTSIDE RECORDS SUMMARY | 2025-02-01 15:08 | XMS_ITS | Clinical Summary ---
Author Organization [facility] Physician Office Building [address] [place] [address] Care Team Providers Care Cosmetic Counselor Name Role Phone Lenin Hagen DO Primary Care Provider [phone] Allergies No known active allergies Medications blood-glucose meter kit 1 each 2 (two) times a day before breakfast and dinner DX:E11.65 not insulin dependent 1 each 0 Active tadalafiL (CIALIS) 20 mg tablet [...] by mouth daily as needed 2 Active alcohol swabs (BD Alcohol Swabs) pads, medicatedIndica tions:Type 2 diabetes mellitus with hyperglycemia, without long-term current use of insulin (HCC) Dx: E11.65 Check blood sugar once daily 100 each 1 3 Active Dexcom G7 Sensor deviceIndicatio ns:Type 2 diabetes mellitus with hyperglycemia, without long-term current use of insulin (HCC) CHANGE SENSOR EVERY 10 DAYS 6 each 5 4 Active Droplet Pen Needle 32 gauge x 5/32 needle USE DIRECTED EVERY DAY 100 each 3 4 Active Mounjaro 7.5 mg/0.5 mL pen injector injectionIndica tions:type 2 diabetes mellitus Inject 0.5 mL (7.5 mg total) under the skin every 7 days 6 mL 5 11/29/19 26 Active glimepiride (AMARYL) 4 mg tabletIndicatio ns:Type 2 diabetes mellitus with hyperglycemia, without long-term current use of insulin ([facility]) Take 1 tablet (4 mg total) by mouth 2 (two) times a day with meals 180 tablet 3 5 11/29/19 Active LANTUS 100 unit/mL (3 mL) pen for injectionIndica tions:Type 2 diabetes mellitus with hyperglycemia, without long-term current use of insulin ([facility]) Inject 30 Units under the skin daily 27 mL 11/29/19 26 Active Farxiga 10 mg tabletIndicatio ns:type 2 diabetes mellitus Take 1 tablet (10 mg total) by mouth daily 90 tablet 3 5 11/29/19 26 Active Gelato FiascoTouch Delica Plus Lancet 30 gauge miscIndications :Type 2 diabetes mellitus with hyperglycemia, without long-term current use of insulin ([facility]) 2 x daily 200 each 5 Active OneTouch Verio Flex meter miscIndications :Type 2 diabetes mellitus with hyperglycemia, without long-term current use of insulin ([facility]) One glucometer 1 each 5 Active Gelato FiascoTouch Verio test strips stripIndication s:Type 2 diabetes mellitus with hyperglycemia, without long-term current use of insulin ([facility]) Check 2 x daily 200 each 3 5 Active lisinopriL (PRINIVIL,ZESTR IL) 2.5 mg tabletIndicatio ns:Hypertension associated with diabetes (HCC) TAKE 1 TABLET EVERY DAY 90 tablet 3 5 Active Active Problems Problem Noted Date Diagnosed Date Class 1 obesity due to exces s calories with serious comorbidity and body mass index (BMI) of 30.0 to 30.9 in adult 03/27/2024 Assessment & Plan (07/08/2024 5:37 PM PAVER INSTALLER): Chronic, worsening Discussed about healthy lifestyle habits [...] control Assessment & Plan (06/13/2022 9:34 AM PAVER INSTALLER): Chronic, stable Continue gabapentin therapy for symptomatic [...] control Assessment & Plan (09/10/2020 7:38 AM PAVER INSTALLER): Chronic, stable Continue gabapentin therapy for symptomatic management Continue to work on tighter glycemic control Assessment & Plan (06/11/2020 4:26 PM PAVER INSTALLER): Chronic, stable Continue gabapentin therapy for symptomatic [...] 01/05/2020 Assessment & Plan (07/08/2024 5:37 PM PAVER INSTALLER): Continue statin therapy Tolerating well Assessment & [...] well Assessment & Plan (06/13/2022 9:34 AM PAVER INSTALLER): Continue statin therapy Tolerating well Assessment & Plan (01/26/2022 2:52 PM CDT): Chronic problem. On statin therapy, no changes. Assessment & Plan (10/27/2021 3:23 PM CDT): Continue statin therapy Tolerating well Assessment & Plan (08/25/2021 2:46 PM PAVER INSTALLER): Chronic problem. On statin therapy, no changes. Assessment & Plan (07/21/2021 1:42 PM PAVER INSTALLER): Continue statin therapy Tolerating well Reviewed recent labs , LDL at goal Assessment & Plan (04/29/2021 3:53 PM CDT): Continue statin therapy Tolerating well Assessment & Plan (12/15/2020 1:53 PM CDT): Continue statin therapy Tolerating well Assessment & Plan (09/10/2020 7:38 AM PAVER INSTALLER): Continue statin therapy Tolerating well Assessment & Plan (06/11/2020 4:24 PM PAVER INSTALLER): Continue statin therapy Tolerating well Assessment & Plan (03/06/2020 10:28 PM CDT): Continue statin therapy Assessment & Plan (01/05/2020 9:25 PM CDT): Continue statin therapy Reviewed recent lipid panel Type 2 diabetes mellitus wit h hyperglycemia, without long-term current use of insulin 01/03/2020 Assessment & Plan (07/08/2024 5:39 PM PAVER INSTALLER): Chronic, uncontrolled, slowly improving but still above [...] months Assessment & Plan (06/13/2022 9:35 AM PAVER INSTALLER): Chronic, Out of control, worsening A1c 9.0 [...] me Assessment & Plan (08/25/2021 2:49 PM PAVER INSTALLER): Chronic problem, improving but not at goal. Reviewed diet and limiting simple sugar intake. Needs to not miss PM dose of glimepiride. Continue same medications at this time. 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 Assessment & Plan (10/27/2021 3:23 PM CDT): Chronic, well controlled Continue Volodymyr I Assessment & Plan (08/25/2021 2:46 PM PAVER INSTALLER): Controlled on current medications, no changes. Assessment & Plan (07/21/2021 1:42 PM PAVER INSTALLER): Chronic, well controlled Continue Volodymyr I Assessment & Plan (04/29/2021 3:53 PM CDT): Chronic, well controlled Continue Volodymyr I Assessment & Plan (12/15/2020 1:52 PM CDT): Chronic, well controlled Continue Volodymyr I Assessment & Plan (09/10/2020 7:37 AM PAVER INSTALLER): Chronic, well controlled Continue Volodymyr I Assessment & Plan (06/11/2020 4:24 PM PAVER INSTALLER): Chronic, well controlled Continue Volodymyr I Assessment [...] exercise Assessment & Plan (06/13/2022 9:34 AM PAVER INSTALLER): Chronic, above goal . unchanged Discussed about [...] exercise Assessment & Plan (07/21/2021 1:42 PM PAVER INSTALLER): Chronic, worsening Discussed about healthy lifestyle habits [...] exercise Assessment & Plan (09/10/2020 7:39 AM PAVER INSTALLER): Chronic, improving slowly Discussed about healthy lifestyle [...] weekly Assessment & Plan (06/11/2020 4:26 PM PAVER INSTALLER): Chronic, worsening Discussed about healthy lifestyle habits [...] Type Department Care Team Description 11/30/2024 Telephone [facility] [place] Specialists of [address] [address] Juanjose Cintron MD 11/28/2024 8:45 AM CDT Office Visit [facility] [facility] of [address] [address] Juanjose Cintron MD Type 2 diabetes mellitus with hyperglycemia, without long-term current use of insulin (HCC) (Primary Dx); Hypertension associated with diabetes (HCC); Hyperlipidemia associated with type 2 diabetes mellitus (HCC); Class 1 obesity due to excess calories with serious comorbidity and body mass index (BMI) of 30.0 to 30.9 in adult from Last 3 Months Surgical [...] on file Legal Sex Male 3:01 AM PAVER INSTALLER Gender Identity Not on file Sexual Orientation [...] Fall Risk Assessment 12/21/2024 12/22/2023 Influenza Vaccine (#1) 2025 Hemoglobin A1C 05/31/2025 11/28/2024, 06/10, 03/27/2024, [...] MD LAB URINE ORDERABLE S Final Result EXTERNAL LAB * Lipid panel (12/04/2024 3:02 [...] S Final Result EXTERNAL LAB * (ABNORMAL) Comprehensive metabolic panel [...] Units/L EXTERNAL LAB SCRIBED eGFR in NonAfrican Burmese >60 >=60 - NA EXTERNAL LAB Blood [...] OF CARE TEST ORDERABLES Final Result * DIABETES EYE EXAM (09/28/2023 9:02 AM [...] MD LAB BLOOD ORDERAB[place] [address] [address] Department [place] [address] from Last 3 Months or Most Recently Relevant to Health Maintenance Insurance [employer] CHOICE MEDICARE PPO MEDICARE [employer] CHOICE MEDICARE PPO Care Teams Cosmetic Counselor Relationship Specialty Start Date End Date Lenin Hagen DO PCP - General Internal Medicine 12/22/23
--- OUTSIDE RECORDS SUMMARY | 2025-02-01 15:08 | XMS_ITS | Clinical Summary ---
Author Organization [facility] Address [address] [place] [address] Care Team Providers Care Manager Administrative Name Role Phone Willis Major MD Primary Care Provider [phone] Source Comments [facility],non-owned Affiliates and Associated Physician Practices is amultiple site organization consisting of ambulatory clinics and hospital sitesin [place], [place], [place] and [place]. This disclosure is being madepursuant to the Care Everywhere program and may not contain all information available regarding this patient. 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, [place] HU[employer]NA MEDICARE ADV HMO & PPO Care Teams Manager Administrative Relationship Specialty Start Date End Date Willis Major MD [address] [place], [place] [address] [address] PCP - General 08/16/22
--- OUTSIDE RECORDS SUMMARY | 2025-02-01 15:08 | XMS_ITS | Referral Summary ---
Author Organization [facility] Building [address] [place] [id number] Care Team Providers Care Thoroughbred Horse Farm Manager Name Role Phone Lenin Hagen DO Primary Care Provider [phone] Encounters Date Type Department Care Team Description 11/30/2024 Telephone [facility] [place] Specialists of [address] [address] Juanjose Cintron MD 11/28/2024 8:45 AM CDT Office Visit [facility] [place] Specialists of [address] [address] Juanjose Cintron MD Type 2 diabetes mellitus with hyperglycemia, without long-term current use of insulin (HCC) (Primary Dx); Hypertension associated with diabetes (HCC); Hyperlipidemia associated with type 2 diabetes mellitus (HCC); Class 1 obesity due to excess calories with serious comorbidity and body mass index (BMI) of 30.0 to 30.9 in adult from Last 3 Months Allergies [...] without long-term current use of insulin ([facility]) Dx: E11.65 Check blood sugar once daily 100 each 1 3 Active Dexcom G7 Sensor deviceIndicatio ns:Type 2 diabetes mellitus with hyperglycemia, without long-term current use of insulin ([facility]) CHANGE SENSOR EVERY 10 DAYS 6 each 5 4 Active Droplet Pen Needle 32 gauge x needle USE DIRECTED EVERY DAY 100 each 3 4 Active Mounjaro 7.5 mg/0.5 mL pen injector injectionIndica tions:type 2 diabetes mellitus Inject 0.5 mL (7.5 mg total) under the skin every 7 days 6 mL 3 5 11/29/19 26 Active glimepiride (AMARYL) 4 mg tabletIndicatio ns:Type 2 diabetes mellitus with hyperglycemia, without long-term current use of insulin ([facility]) Take 1 tablet (4 mg total) by mouth 2 (two) times a day with meals 180 tablet 3 5 11/29/19 26 Active LANTUS 100 unit/mL (3 mL) pen for injectionIndica tions:Type 2 diabetes mellitus with hyperglycemia, without long-term current use of insulin ([facility]) Inject 30 Units under the skin daily 27 mL 3 5 11/29/19 26 Active Farxiga 10 mg tabletIndicatio ns:type 2 diabetes mellitus Take 1 tablet (10 mg total) by mouth daily 90 tablet 5 11/29/19 26 Active OneTouch Delica Plus Lancet 30 gauge miscIndications :Type 2 diabetes mellitus with hyperglycemia, without long-term current use of insulin ([facility]) 2 x daily 200 each 3 5 Active OneTouch Verio Flex meter miscIndications :Type 2 diabetes mellitus with hyperglycemia, without long-term current use of insulin ([facility]) One glucometer 1 each 5 Active OneTouch Verio test strips stripIndication s:Type 2 diabetes mellitus with hyperglycemia, without long-term current use of insulin ([facility]) Check 2 x daily 200 each 3 5 Active lisinopriL (PRINIVIL,ZESTR IL) 2.5 mg tabletIndicatio ns:Hypertension associated with diabetes ([facility]) TAKE 1 TABLET EVERY DAY 90 tablet 3 5 Active Active Problems Problem Noted Date Diagnosed Date Class 1 obesity due to exces s calories with serious comorbidity and body mass index (BMI) of 30.0 to 30.9 in adult 03/27/2024 Assessment & Plan (07/08/2024 5:37 PM COIL CONNECTOR): Chronic, worsening Discussed about healthy lifestyle habits [...] control Assessment & Plan (06/13/2022 9:34 AM COIL CONNECTOR): Chronic, stable Continue gabapentin therapy for symptomatic [...] control Assessment & Plan (09/10/2020 7:38 AM COIL CONNECTOR): Chronic, stable Continue gabapentin therapy for symptomatic management Continue to work on tighter glycemic control Assessment & Plan (06/11/2020 4:26 PM COIL CONNECTOR): Chronic, stable Continue gabapentin therapy for symptomatic [...] 01/05/2020 Assessment & Plan (07/08/2024 5:37 PM COIL CONNECTOR): Continue statin therapy Tolerating well Assessment & [...] well Assessment & Plan (06/13/2022 9:34 AM COIL CONNECTOR): Continue statin therapy Tolerating well Assessment & Plan (01/26/2022 2:52 PM CDT): Chronic problem. On statin therapy, no changes. Assessment & Plan (10/27/2021 3:23 PM CDT): Continue statin therapy Tolerating well Assessment & Plan (08/25/2021 2:46 PM COIL CONNECTOR): Chronic problem. On statin therapy, no changes. Assessment & Plan (07/21/2021 1:42 PM COIL CONNECTOR): Continue statin therapy Tolerating well Reviewed recent labs , LDL at goal Assessment & Plan (04/29/2021 3:53 PM CDT): Continue statin therapy Tolerating well Assessment & Plan (12/15/2020 1:53 PM CDT): Continue statin therapy Tolerating well Assessment & Plan (09/10/2020 7:38 AM COIL CONNECTOR): Continue statin therapy Tolerating well Assessment & Plan (06/11/2020 4:24 PM COIL CONNECTOR): Continue statin therapy Tolerating well Assessment & Plan (03/06/2020 10:28 PM CDT): Continue statin therapy Assessment & Plan (01/05/2020 9:25 PM CDT): Continue statin therapy Reviewed recent lipid panel Type 2 diabetes mellitus wit h hyperglycemia, without long-term current use of insulin 01/03/2020 Assessment & Plan (07/08/2024 5:39 PM COIL CONNECTOR): Chronic, uncontrolled, slowly improving but still above [...] months Assessment & Plan (06/13/2022 9:35 AM COIL CONNECTOR): Chronic, Out of control, worsening A1c 9.0 [...] me Assessment & Plan (08/25/2021 2:49 PM COIL CONNECTOR): Chronic problem, improving but not at goal. Reviewed diet and limiting simple sugar intake. Needs to not miss PM dose of glimepiride. Continue same medications at this time. 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 Assessment & Plan (10/27/2021 3:23 PM CDT): Chronic, well controlled Continue Volodymyr I Assessment & Plan (08/25/2021 2:46 PM COIL CONNECTOR): Controlled on current medications, no changes. Assessment & Plan (07/21/2021 1:42 PM COIL CONNECTOR): Chronic, well controlled Continue Volodymyr I Assessment & Plan (04/29/2021 3:53 PM CDT): Chronic, well controlled Continue Volodymyr I Assessment & Plan (12/15/2020 1:52 PM CDT): Chronic, well controlled Continue Volodymyr I Assessment & Plan (09/10/2020 7:37 AM COIL CONNECTOR): Chronic, well controlled Continue Volodymyr I Assessment & Plan (06/11/2020 4:24 PM COIL CONNECTOR): Chronic, well controlled Continue Volodymyr I Assessment [...] exercise Assessment & Plan (06/13/2022 9:34 AM COIL CONNECTOR): Chronic, above goal . unchanged Discussed about [...] exercise Assessment & Plan (07/21/2021 1:42 PM COIL CONNECTOR): Chronic, worsening Discussed about healthy lifestyle habits [...] exercise Assessment & Plan (09/10/2020 7:39 AM COIL CONNECTOR): Chronic, improving slowly Discussed about healthy lifestyle [...] weekly Assessment & Plan (06/11/2020 4:26 PM COIL CONNECTOR): Chronic, worsening Discussed about healthy lifestyle habits [...] on file Legal Sex Male 3:01 AM COIL CONNECTOR Gender Identity Not on file Sexual Orientation [...] without long-term current use of insulin (HCC) DIABETES EYE EXAM Routine 09/28/2023 9:02 AM [...] EXTERNAL LAB Urine 12/04/2024 3:02 PM CDT Juanjose Rosa MD LAB URINE ORDERABLE S Final Result Performing Organization Address [facility] Co de Phone Number EXTERNAL LAB [...] ORDERABLE S Final Result Performing Organization Address [facility] de Phone Number EXTERNAL LAB * (ABNORMAL) [...] Units/L EXTERNAL LAB SCRIBED eGFR in NonAfrican Greenlandic >60 >=60 - NA EXTERNAL LAB Blood 12/04/2024 3:02 PM CDT Juanjose Rosa MD LAB BLOOD ORDERABLE S Final Result EXTERNAL LAB * (ABNORMAL) POCT hemoglobin A1c (11/28/2024 8:35 AM CDT) Hemoglobin A1C, POC 6.9(A) 4.0 - 5.6 % Blood 11/28/2024 8:35 AM CDT Juanjose oRsa MD POINT OF CARE TEST ORDERABLES Final [...] ORDERABLES Final R esult Performing Organization Address City/State/ZIP [place] Phone Number [place] [phone] [address] Department [place] [address] from Last 3 Months or Most Recently Relevant to Health Maintenance Insurance MEDICARE [employer] CHOICE MEDICARE PPO Care Teams Thoroughbred Horse Farm Manager Relationship Specialty Start Date End Date Lenin Hagen DO PCP - General Internal Medicine 12/22/23
--- OUTSIDE RECORDS SUMMARY | 2025-02-01 15:08 | XMS_ITS | Data Portability ---
Author Organization [place] - [facility] [employer], Main Office Address [address] [place] [address] Assessment Encounter Date Assessment Date Assessment LastModified by Organization Details LastModified Time 11/09/2022 11/09/2022 Blood pressure optimize Blood work to be done for biochemical management of disease processes a medications Target for LDL A1c and blood pressure been discussed Follow-up 4 months [email or web address] Not available 12/19/2022 10:58:48 03/15/2023 03/15/2023 Smoking cessation discussed in detail diagnosis in assessment and plan have been discussed follow-up in 4 months continue current therapy [email or web address] Not available 03/15/2023 21:49:33 07/13/2023 07/13/2023 Refuses all immunizations continue current therapy will follow-up in 4 months Not available 07/13/2023 22:45:35 Plan of Treatment [...] 137 mmol/ L 137-14 5 Not Available [facility] (Lab) [address], [place], [address], 11/09/2022 18:47:11 11/10/19 23 11/09/2022 COMPR EHENS SMILEY METAB OLIC PANEL potassium 4.4 mmol/ L 3.5-5. 1 Not Available [facility] (Lab) [address] [place], [address], 11/09/2022 18:47:11 11/10/1911/09/2022 COMPR EHENS SMILEY METAB OLIC PANEL chloride 101 mmol/ L 98-107 Not Available [facility] (Lab) [address] [place], [address], 11/09/2022 18:47:11 11/10/19 23 11/09/2022 COMPR EHENS SMILEY METAB OLIC PANEL carbon dioxide 26 mmol/ L 22-30 Not Available [facility] (Lab) [address] [place], [address], 11/09/2022 18:47:11 11/10/19 23 11/09/2022 COMPR EHENS SMILEY METAB OLIC PANEL anion gap 14.4 mmol/ L 14-22 Not Available [facility] (Lab) [address] [place], [address], 11/09/2022 18:47:11 11/10/19 23 11/09/2022 COMPR EHENS SMILEY METAB OLIC PANEL glucose 163 mg/dL 70-99 high Not Available [facility] (Lab) [address] [place], [address], 11/09/2022 18:47:11 11/10/1911/09/2022 COMPR EHENS SMILEY METAB OLIC PANEL BUN 21 mg/dL 8-19 high Not Available [facility] (Lab) [address] [place], [address], 11/09/2022 18:47:11 11/10/19 23 11/09/2022 COMPR EHENS SMILEY METAB OLIC PANEL creatinine 0.95 mg/dL 0.66-1 .25 Not Available [facility] (Lab) [address] [place], [address], 11/09/2022 18:47:11 11/10/1911/09/2022 COMPR EHENS SMILEY METAB OLIC PANEL GFR >60 Refer ence Range : Mamou ge GFR Healt hy Adult : >60 mL/mi n/1.7 3 m2 Chron ic Kidne y Disea se: 15-60 mL/mi n/1.7 3 m2 Kidne y Failu re: <15/m L/min /1.73 m2 www.n iddk. [facility].g ov The MDRD study equat ion has [...] calcu lator is avail able on the [facility] websi te: [email or web address] :[email or web address] [email or web address]/pr ofess ional s/kdo qi/gf r_cal culat or Not Available [facility] (Lab) [address] [place], [address], 11/09/2022 18:47:11 11/10/1911/09/2022 COMPR EHENS SMILEY METAB OLIC PANEL alkaline phosphatase 76 U/L 38-126 Not Available [facility] (Lab) [address] [place], [address], 11/09/2022 18:47:11 11/10/1911/09/2022 COMPR EHENS SMILEY METAB OLIC PANEL alanine aminotransfe rase 20 U/L 0-50 Not Available [facility] (Lab) [address] [place], [address], 11/09/2022 18:47:11 11/10/19 23 11/09/2022 COMPR EHENS SMILEY METAB OLIC PANEL aspartate aminotransfe rase 22 U/L 15-46 Not Available [facility] (Lab) [address] [place], [address], 11/09/2022 18:47:11 11/10/19 23 11/09/2022 COMPR EHENS SMILEY METAB OLIC PANEL bilirubin, total 0.80 mg/dL 0.20-1 .30 Not Available [facility] (Lab) [address] [place], [address], 11/09/2022 18:47:11 11/10/19 23 11/09/2022 COMPR EHENS SMILEY METAB OLIC PANEL calcium 9.3 mg/dL 8.4-10 .2 Not Available [facility] (Lab) [address] [place], [address], 11/09/2022 18:47:11 11/10/19 23 11/09/2022 COMPR EHENS SMILEY METAB OLIC PANEL total protein 6.8 g/dL 6.3-8. 2 Not Available [facility] (Lab) [address] [place], [address], 11/09/2022 18:47:11 11/10/1911/09/2022 COMPR EHENS SMILEY METAB OLIC PANEL albumin 4.1 g/dL 3.0-4. 4 Not Available [facility] (Lab) [address] [place], [address], 11/09/2022 18:47:11 11/10/1911/09/2022 COMPR EHENS SMILEY METAB OLIC PANEL globulin 2.7 g/dL 2.6-4. 2 Not Available [facility] (Lab) [address] [place], [address], 11/09/2022 18:47:11 11/10/19 23 11/09/2022 COMPR EHENS SMILEY METAB OLIC PANEL A/G ratio 1.5 ratio 1.0-2. 0 Not Available [facility] (Lab) [address] [place], [address], 11/09/2022 18:47:11 11/10/19 23 11/09/2022 HEMOG LOBIN A1C HA1C 7.8 % 4.0-6. 0 high Diabe axel Scree shruti Crite yadira: <5.7% Consi stent with absen ce of diabe axel 5.7-6 .4% Consi stent with incre ased risk for diabe axel (pred iabet es) >OR=6 .5% Consi stent with diabe axel REFER ENCE: Diabe axel Care 2016, 39( ppl.1 ):s13 -s22 Not Available [facility] (Lab) [address] [place], [address], 11/09/2022 20:35:55 10/13/19 23 07/30/2022 XR, toe(s ) No observ ation record ed. [address], [address], 11/10/2022 11:36:37 11/09/19 23 07/30/2022 imagi ng/di agnos tic resul t No observ ation record ed. [address], [address], 11/09/2022 15:59:04 Result Notes None recorded. Problems Name Problem SNOMED Code Status Onset Date Resolution Date Notes Provider Name and Address Organization Details Recorded Time Neuropathy due to diabetes mellitus 900752479 Active 2020 Not Available [facility] 22:43:31 Hyperlipidemi a 13597867 Active 2020 Not Available [facility] 3 22:43:31 Essential hypertension 50699760 Active 2020 Not Available [facility] 3 22:43:31 Diabetes mellitus 00898808 Active 2020 Not Available [facility] 3 22:43:31 Peripheral arterial disease 753086150 Active 2020 right SFA stent Not Available [facility] 3 22:43:31 Erectile dysfunction 348896361 Active 2020 Not Available [facility] 3 22:43:31 Lipoma of skin and subcutaneous tissue of neck 80586458 Active 2020 Not Available [facility] 3 22:43:31 Headache 57350704 Active 2021 Not Available [facility] 3 22:43:31 Carpal tunnel syndrome 19907152 Active 2022 Aria Washington RN [facility] [place] [employer] [facility] [employer] 3 15:38:02 Peripheral arterial occlusive disease 233050123 Active 2023 Willis Major MD [address] [place] [address], [address] [facility] [employer] 4 22:45:59 Problem Notes None recorded. Procedures Surgical History Date Name Laterality Status Provider Name and Address Organization Details Recorded Time amputation of toe completed Not Available [facility] 09/08/2022 22:42:46 Hernia Repair completed Not Available [facility] 09/08/2022 22:42:46 thoracentesis completed Not Available [facility] 09/08/2022 22:42:46 Imaging Results None recorded. Procedure [...] kg/m2 175.26 cm 94 /min 98.2 [degF] 62990.5 8 g 140/90 mm[Hg] Not Available [facility] 3 22:43:07 Date Recorded Body height Body mass index (BMI) Body weight Body temperature Heart rate Systolic And Diastolic Provider Name and Address Organization Details Last Updated DateTime 4 175.26 cm 30.9 kg/m2 23518.8 1 g 98.1 [degF] 90 /min 120/74 mm[Hg] KRISTEN Hicks [facility] [employer] 4 15:24:26 Date Recorded Body height Body weight Body temperature Heart rate Oxygen saturation Oxygen saturation in Arterial blood by Pulse oximetry Systolic And Diastolic Provider Name and Address Organization Details Last Updated DateTime 3 175.26 cm 04638.0 7 g 98.2 [degF] 88 /min 99 % 99 % 124/80 mm[Hg] Lesly Cole RN [facility] [employer] [facility] 3 15:40:03 Date Recorded Body mass index (BMI) Body height Pain severity - 0-10 verbal numeric rating [Score] - Reported Heart rate Body temperature Body weight Systolic And Diastolic Provider Name and Address Organization Details Last Updated DateTime 2 30.7 kg/m2 175.26 cm 0 102 /min 96.8 [degF] 22870.2 1 g 124/80 mm[Hg] Not Available [facility] 3 22:43:07 Date Recorded Body height Body mass index (BMI) Body weight Body temperature Heart rate Systolic And Diastolic Provider Name and Address Organization Details Last Updated DateTime 3 175.26 cm 29.4 kg/m2 18167.8 8 g 97.9 [degF] 87 /min 102/70 mm[Hg] KRISTEN Hicks [place] [facility] [place] [employer] [facility] 3 16:01:08 Social History Question Answer Notes LastModified by Organization Details LastModified Time Tobacco Smoking Status Former Smoker quit 07/07/20 20 Not Available [facility] 09/08/2022 22:42:29 Do You Have An Advance Directive? No MIGRATION.030 797565 Information not available 09/08/2022 Are You Blind Or Do You Have Difficulty Seeing? No MIGRATION.030 611401 Information not available 09/08/2022 What Is Your Level Of Caffeine Consumption? Moderate MIGRATION.030 828924 Information not available 09/08/2022 How Much Tobacco Do You Chew? None MIGRATION.030 982599 Information not available 09/08/2022 In The 14 Days Before Symptom Onset, Have You Had Close Contact With A Laboratory-confi rmed COVID-19 While That Case Was Ill? No MIGRATION.030 027478 Information not available 09/08/2022 In The 14 Days Before Symptom Onset, Have You Had Close Contact With A Person Who Is Under Investigation For COVID-19 While That Person Was Ill? No MIGRATION.030 023583 Information not available 09/08/2022 Are You Deaf Or Do You Have Serious Difficulty Hearing? No MIGRATION.030 031423 Information not available 09/08/2022 What Type Of Diet Are You Following? REGULAR MIGRATION.030 006896 Information not available 09/08/2022 Which Illicit Or Recreational Drugs Have You Used? None MIGRATION.030 554422 Information not available 09/08/2022 What Is The Highest Grade Or Level Of School You Have Completed Or The Highest Degree You Have Received? PT20693-3 MIGRATION.030 615644 Information not available 09/08/2022 Have There Been Any Changes To Your Family Or Social Situation? No MIGRATION.0301 018630 Information not available 09/08/2022 What Is The Fluoride Status Of Your Home? Unknown MIGRATION.0301 292009 Information not available 09/08/2022 When Did You Quit Smoking? 1-5yearssincelastci janette MIGRATION.0301 217372 Information not available 09/08/2022 Do You Use Insect Repellent Routinely? No MIGRATION.0301 033306 Information not available 09/08/2022 Where Do You Live? SingleLevelHouse MIGRATION.0301 931895 Information not available 09/08/2022 Do You Have A Medical Power Of Chief Arson Division? No MIGRATION.0301 131103 Information not available 09/08/2022 What Was The Date Of Your Most Recent Tobacco Screening? 07/13/2023 [email or web address] Information not available 07/13/2023 What Is Your Current Pack Years? 30ormorepackyears MIGRATION.0301 724885 Information not available 09/08/2022 Have You Ever Been Counseled For Unhealthy Alcohol Use? No MIGRATION.0301 241975 Information not available 09/08/2022 Do You Have Any Pets? Yes MIGRATION.0301 481893 Information not available 09/08/2022 What Is Your Relationship Status? MIGRATION.0301 557321 Information not available 09/08/2022 Do You Use Your Seat Belt Or Car Seat Routinely? Yes MIGRATION.0301 650365 Information not available 09/08/2022 Do You Have Smoke And Carbon Monoxide Detectors In Your Home? Yes MIGRATION.0301 318941 Information not available 09/08/2022 Are You Passively Exposed To Smoke? No MIGRATION.0301 303728 Information not available 09/08/2022 Are There Any Smokers In Your House? No MIGRATION.0301 018310 Information not available 09/08/2022 How Much Tobacco Do You Smoke? No MIGRATION.0301 184064 Information not available 09/08/2022 What Types Of Sporting Activities Do You Participate In? None MIGRATION.0301 512675 Information not available 09/08/2022 Do You Use Sunscreen Routinely? Yes MIGRATION.0301 540032 Information not available 09/08/2022 Has Tobacco Cessation Counseling Been Provided? No MIGRATION.0301 681379 Information not available 09/08/2022 Have You Recently Traveled Abroad? No MIGRATION.0301 698809 Information not available 09/08/2022 Do You Have Difficulty Walking Or Climbing Stairs? No MIGRATION.0301 112452 Information not available 09/08/2022 Do You Have Any Dietary Restrictions? No MIGRATION.0301 882529 Information not available 09/08/2022 Sex: Male Functional Status Question Answer Note LastModified by [employer] Details LastModified Time Do you use any illicit or recreational drugs? No MIGRATION.303836 5691 Information not available 09/08/2022 Do you or have you ever used any other forms of tobacco or nicotine? No MIGRATION.047122 0172 Information not available 09/08/2022 What is your level of alcohol consumption? Occasional MIGRATION.355555 7655 Information not available 09/08/2022 Do you or have you ever used smokeless tobacco? Never used smokeless tobacco MIGRATION.572398 2280 Information not available 09/08/2022 Do you have transportation difficulties? No MIGRATION.980339 9264 Information not available 09/08/2022 Are you able to walk? YESWOREST MIGRATION.813083 0774 Information not available 09/08/2022 Do you have difficulty doing errands alone? No MIGRATION.865088 2426 Information not available 09/08/2022 Are you able to care for yourself independently? Yes MIGRATION.577719 6874 Information not available 09/08/2022 What is your occupation? part-time MIGRATION.113053 8412 Information not available 09/08/2022 Do you have difficulty dressing, bathing, grooming, or toileting? No MIGRATION.113754 3744 Information not available 09/08/2022 Do you or have you ever used e-cigarettes or vape? Never used electronic cigarettes MIGRATION.536832 3297 Information not available 09/08/2022 What is your exercise level? Occasional MIGRATION.925130 8188 Information not available 09/08/2022 Mental Status Question Answer Note LastModified by StudentFunderizat ion Details LastModified Time Do you feel stressed (tense, restless, nervous, or anxious, or unable to sleep at night)? [id number] MIGRATION.59054411 26 Information not available 09/08/2022 Do you have difficulty concentrating, remembering or making decisions? No MIGRATION.66976102 26 Information not available 09/08/2022 Family History Relationship Description Onset Age of this Age Resolved Age Notes LastModified by Organization Details LastModified Time Father Malignant tumor of pharynx 39 MIGRATION.678 [id number] Not available 09/08/2022 22:42:48 Mother Malignant tumor of breast 39 MIGRATION.432 3272470 Not available 09/08/2022 22:42:48 Sister Polyp of colon MIGRATION.573 4057795 Not available 09/08/2022 22:42:48 Medical History Condition Response NERVE DISEASE Y BLINDNESS N RHEUMATIC FEVER N KIDNEY STONES N BLADDER PROBLEMS N MRSA N OTHER # 1 N POLIO N LUNG DISEASE/DISORDER N COPD N RADIATION / CHEMOTHERAPY N Other # 2 N BLOOD DISEASES [...] HAVE YOU BEEN HOSPITALIZED OR SEEN IN [facility] IN THE PAST YEAR ? [...] SNOMED-CT Code Diagnosis ICD10 Code Diagnosis Note [id number] Willis Major MD [facility] Internal Med [facility] [address] [place], [address] [address] 10/14/2020 00:00:00 10/26/2020 10:12:48 [id number] Willis Major MD [facility] Internal Med Kye lle [address] [place] [address] y , [place] [address] 01/22/2021 00:00:00 01/22/2021 21:15:44 [id number] Willis Major MD [facility] Internal Med Kye lle [address] [place] [address] y , [place] [address] 01/27/2021 00:00:00 01/27/2021 21:43:41 [id number] Willis Major MD [facility] Internal Med Kye bland [address] [place] [address] josselin White, [place] [address] 03/12/2021 00:00:00 03/12/2021 22:17:01 [id number] Willis Major MD [facility] Internal Med [facility] [address] [facility], [address] [address] 04/13/2021 00:00:00 04/13/2021 15:19:21 [id number] Willis Major MD [facility] Internal Med Kye llamadeo [address] [place] [address] [place] [address] 07/23/2021 00:00:00 07/23/2021 20:52:21 [id number] Willis Major MD [facility] Internal Med [facility] [address] [facility] [address] [address] 09/30/2021 00:00:00 10/12/2021 23:17:19 [id number] Willis Major MD [facility] Internal Med [facility] [address] [facility] [address] [address] 10/14/2021 00:00:00 10/14/2021 21:45:05 [id number] Willis Major MD [facility] Internal Med [facility] [address] [place] [address] [address] [address] 11/25/2021 00:00:00 11/29/2021 13:06:24 [id number] Willis Major MD [facility] Internal Med [facility] [address] [place] [address] Cleme., [place] [address] 02/24/2022 00:00:00 02/24/2022 22:10:32 [id number] Willis Major MD [facility] Internal Med [facility] [address] [place] [address] Cleme[address] [address] 07/13/2022 00:00:00 07/13/2022 23:31:32 [id number] Willis Major MD [facility] Internal Med [facility] [address] [place], [place] [address]e., [place] [address] 11/09/2022 15:28:01 11/09/2022 16:18:35 Essential hypertension 79354831 I10 Hyperlipidemia 78294536 E78.5 Diabetes mellitus 166212 09 E11.42 Erectile dysfunction 860 774126 F52.21 [id number] Willis Major MD [facility] Internal Med [facility] [address] [place] [address] 03/15/2023 15:34:14 03/15/2023 16:24:31 Diabetes mellitus 89048400 E11.42 Erectile dysfunction 860 575140 F52.21 Essential hypertension 28503589 I10 Hyperlipidemia 63586527 E78.5 [id number] Willis Major MD [facility] Internal Med [facility] [address] [place] [address] Cle[address] [address] 07/13/2023 14:53:42 07/13/2023 17:26:11 Essential hypertension 07501085 I10 Hyperlipidemia 84890076 E78.5 Diabetes mellitus 992345 09 E11.42 Peripheral arterial occlusive disease 816767294 I73.9 Health Concerns Section Related Observation LastModified by Organization Detai ls LastModified Time None Recorded Concern Status LastModified by Organization Details LastModified Time None Recorded Advance Directives Directive N: Payers Insurance Date Sequence Insurance Name Policy Number Policy Henry Covered Member ID Henry Member ID Guarantor Name 07/11/2023 1 [employer] (MEDICARE REPLACEMENT/A DVANTAGE - PPO) Thanh Herrera [id number] Thanh Herrera Notes Date Note Type Note [...] evaluatedContinues to smoke Willis Major MD [address], [place] [employer] [place], [address], Ale[place] 12/19/2022 10:59:12 03/15/2023 text/html Diabetes no polyphagia polydipsia. Erectile dysfunction stable on meds. Hypertension headache disease. Hyperlipidemic do better with diet. He does continue smoke. Peripheral arterial occlusive disease right SFA stent no claudication Willis Major MD [address], [place], [address], Alere 03/15/2023 21:49:51 07/13/2023 text/html Diabetes no polyphagia polydipsia. Erectile dysfunction stable on meds. Hypertension headache disease. Hyperlipidemic do better with diet. He does continue smoke. Peripheral arterial occlusive disease right SFA stent no claudication Willis Major MD [address], [place], [address], [place] 07/13/2023 22:46:18
[2025-02-01 19:19] LABS: Anion Gap 8 mmol/L (4-12); Blood Urea Nitrogen 23 mg/dL (9-20); Calcium 9.6 mg/dL (8.4-10.2); Carbon Dioxide 26 mmol/L (22-30); Chloride 98 mmol/L (98-107); Estimated Glomerular Filt Rate > 60; Glucose 130 mg/dL (65-110); Potassium 4.4 mmol/L (3.4-5.0); Sodium 132 mmol/L (137-145)
== END 2025-02-01 15:06 | disposition home or self-care (01) ==
LOC: ANHGOSHLAB 15:06
PROVIDERS: PCP Internal Medicine; Visit Provider Anesthesiology
DX: E11.9 Type 2 diabetes mellitus without complications (principal)
CPT/HCPCS: 36415; 80048

== ENCOUNTER 2025-02-06 00:31 | Day surgery (SDC) | payer MEDICARE, SELFPAY ==
[2025-01-31 15:03] VITALS: BMI 30.2
--- NOTE | 2025-01-31 15:09 | PC.NURSE ---
Report to the Outpatient Waiting Room, entrance under the green pavilion located off [facility], at time _0830_ on date _[id number]_. Planned Procedure Time: _1030_.? Time changes happen often and if your time is changed the preop area will call you the afternoon before. - You and your visitor will be asked to self-screen and do not enter if you have any COVID symptoms. Please call surgeon if you need to reschedule. - A mask is optional within the hospital at this time. - No food or drink from midnight until time of surgery and no smoking, or chewing tobacco (or any form of nicotine). No chewing gum, candy or mints. Take only the following medications with a SIP of water on the morning of surgery: ___Metoprolol No insulin morning of surgery. DO NOT STOP ANY OF YOUR OTHER PRESCRIPTION MEDICATIONS PRIOR TO SURGERY EXCEPT THE FOLLOWING Hold all vitamins and supplements for 3 days per anesthesiologist. Medications to discontinue per physician ____Aspirin per Dr Chávez Date to take last dose Please no make-up, nail french, hairspray, perfume, deodorant, or body powder the day of surgery.? No jewelry (including any body piercings) or valuables the day of surgery, leave them at home.? Please take a shower or bath the night before, or the morning of, surgery with an antibacterial soap.? Wear comfortable, loose fitting clothing. - Jewelry must be removed prior to entering the operating room.? Rings and piercings that are not removed may be cut off. - The hospital will not accept responsibility for valuables.? - Please leave all valuables, including medications, at home the day of surgery. If you are going home after surgery, a licensed dump truck driver off highway must drive you home.? - NO public transportation without another adult if you receive anesthesia. - We recommend that an adult stay with you for 24 hours following discharge. - We also recommend that you do not drive, make important decision, drink alcoholic beverages, or take any drugs that were not prescribed by your health care provider for at least 24 hours after your discharge time. Follow any additional instructions given to you from your surgeon. Telephone instructions given to __Thomas___and asked if any additional questions and then verbalized understanding. Patient advised to call surgeon office or pre surgery nurse liaison [phone] if any additional questions.
--- OUTSIDE RECORDS SUMMARY | 2025-02-06 00:34 | XMS_ITS | Clinical Summary ---
Author Organization [employer] [address] [place] [address] Address [address] [place] [address] Care Team Providers Care Product Management Specialist Name Role Phone Lenin Hagen DO Primary [...] Care - Dr. 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 Heart and Vascular Testing [facility] [address] [facility] [address] [place] [address] [place] [address] [facility] [address] [place] [address] 04/10/2025 2:15 PM CDT Office Visit [facility] Heart and Vascular - [address] [facility] 300 [address] [facility] [address] [place] [address] [place] [address] [address] Health Maintenance Due Date Last [...] 04/03/2031 04/03/2021 Medical Devices Implanted Type Area Business Unit Controller Device Identifier Shelf Expiration Date Model / Serial / Lot Closure Perclose Proglide [id number] - [id number] Implanted:Qty : 1 on 07/21/2020 by Prosper Law MD at [facility] Closure Device N/A: Groin ANDRE- VASC DEVICE 04/09/2022 [id number] / / [id number] Procedures Procedure Name Priority Date/Time Associated Diagnosis Comments LIPID PANEL Routine 11/15/2023 2:33 PM CDT from Last 3 Months or Most Recently Relevant to Health Maintenance Results * LIPID PANEL (11/15/2023 2:33 PM CDT) Blood us Abstract Provider CHEMISTRY ORDERABLES Edited Re sult - Final from Last 3 Months or Most Recently Relevant to Health Maintenance [facility] Part D Care Teams Product Management Specialist Relationship Specialty Start Date End Date Lenin Hagen DO [address] [address] PCP - General Internal Medicine 01/04/25
--- OUTSIDE RECORDS SUMMARY | 2025-02-06 00:34 | XMS_ITS | Continuity of Care Document ---
Author Organization [facility] Address [address] [place] [address] Phone Care Team Providers Care Dynamic Balancer Set Up Worker Name Role Phone Unavailable Unavailable Unavailable Allergies, [...] Date Provider Providers Copied on Encounter [facility], [address], [place], [place], [id number] , [place] tel:[phone] Jacy On Naveen No Information 200 9 No Information OFFICE/OUTPA TIENT VISIT, EST [facility], [address], [place], [place], [id number] , [place] tel: [phone] Cely Beckford hypertension (chief complaint) Unspecified essential hypertension 9 No Information OFFICE OUTPT NEW 20 MINUTES Jacy [facility], [address], [place], [place], [address] , [place] tel: [phone] Cely Beckford hypertension (chief complaint)her bala, umbilical [...] (finding) Payers Payer name Insurance type Covered constitution party ID Authoriza tion(s) No Information Social [...]
--- OUTSIDE RECORDS SUMMARY | 2025-02-06 00:34 | XMS_ITS | Data Portability ---
Author Organization [place] - [facility] [employer], Main Office Address [address] [place] [address] Assessment Encounter Date Assessment Date Assessment LastModified by Organization Details LastModified Time 11/09/2022 11/09/2022 Blood pressure optimize Blood work to be done for biochemical management of disease processes a medications Target for LDL A1c and blood pressure been discussed Follow-up 4 months [email or web address] Not available 12/19/2022 10:58:48 03/15/2023 03/15/2023 Smoking cessation discussed in detail diagnosis in assessment and plan have been discussed follow-up in 4 months continue current therapy [email or web address] Not available 03/15/2023 21:49:33 07/13/2023 07/13/2023 Refuses all immunizations continue current therapy will follow-up in 4 months [email or web address] Not available 07/13/2023 22:45:35 Plan of Treatment [...] L 137-14 5 Not Available [facility] (Lab) [address], [place], [address], 11/09/2022 18:47:11 11/10/19 23 11/09/2022 COMPR EHENS SMILEY METAB OLIC PANEL potassium 4.4 mmol/ L 3.5-5. 1 Not Available [facility] (Lab) [address] [place], [address], 11/09/2022 18:47:11 11/10/1911/09/2022 COMPR EHENS SMILEY METAB OLIC PANEL chloride 101 mmol/ L 98-107 Not Available [facility] (Lab) [address] [place], [address], 11/09/2022 18:47:11 11/10/19 23 11/09/2022 COMPR EHENS SMILEY METAB OLIC PANEL carbon dioxide 26 mmol/ L 22-30 Not Available [facility] (Lab) [address] [place], [address], 11/09/2022 18:47:11 11/10/19 23 11/09/2022 COMPR EHENS SMILEY METAB OLIC PANEL anion gap 14.4 mmol/ L 14-22 Not Available [facility] (Lab) [address] [place], [address], 11/09/2022 18:47:11 11/10/19 23 11/09/2022 COMPR EHENS SMILEY METAB OLIC PANEL glucose 163 mg/dL 70-99 high Not Available [facility] (Lab) [address] [place], [address], 11/09/2022 18:47:11 11/10/1911/09/2022 COMPR EHENS SMILEY METAB OLIC PANEL BUN 21 mg/dL 8-19 high Not Available [facility] (Lab) [address] [place], [address], 11/09/2022 18:47:11 11/10/19 23 11/09/2022 COMPR EHENS SMILEY METAB OLIC PANEL creatinine 0.95 mg/dL 0.66-1 .25 Not Available [facility] (Lab) [address] [place], [address], 11/09/2022 18:47:11 11/10/1911/09/2022 COMPR EHENS SMILEY METAB OLIC PANEL GFR >60 Refer ence Range : [place] ge GFR Healt hy Adult : >60 mL/mi n/1.7 3 m2 Chron ic Kidne y Disea se: 15-60 mL/mi n/1.7 3 m2 Kidne y Failu re: <15/m L/min /1.73 m2 www.n iddk. [facility].g ov The MDRD study equat ion has [...] is avail able on the [facility] websi te: https :[email or web address] gardner.buster marshall.o jacques/pr ofess ional s/kdo qi/gf r_cal culat or Not Available [facility] (Lab) [address] [place], [address], 11/09/2022 18:47:11 11/10/1911/09/2022 COMPR EHENS SMILEY METAB OLIC PANEL alkaline phosphatase 76 U/L 38-126 Not Available [facility] (Lab) [address] [place], [address], 11/09/2022 18:47:11 11/10/1911/09/2022 COMPR EHENS SMILEY METAB OLIC PANEL alanine aminotransfe rase 20 U/L 0-50 Not Available [facility] (Lab) [address] [place], [address], 11/09/2022 18:47:11 11/10/19 23 11/09/2022 COMPR EHENS SMILEY METAB OLIC PANEL aspartate aminotransfe rase 22 U/L 15-46 Not Available [facility] (Lab) [address] [place], [address], 11/09/2022 18:47:11 11/10/19 23 11/09/2022 COMPR EHENS SMILEY METAB OLIC PANEL bilirubin, total 0.80 mg/dL 0.20-1 .30 Not Available [facility] (Lab) [address] [place], [address], 11/09/2022 18:47:11 11/10/19 23 11/09/2022 COMPR EHENS SMILEY METAB OLIC PANEL calcium 9.3 mg/dL 8.4-10 .2 Not Available [facility] (Lab) [address] [place], [address], 11/09/2022 18:47:11 11/10/19 23 11/09/2022 COMPR EHENS SMILEY METAB OLIC PANEL total protein 6.8 g/dL 6.3-8. 2 Not Available [facility] (Lab) [address] [place], [address], 11/09/2022 18:47:11 11/10/1911/09/2022 COMPR EHENS SMILEY METAB OLIC PANEL albumin 4.1 g/dL 3.0-4. 4 Not Available [facility] (Lab) [address] [place], [address], 11/09/2022 18:47:11 11/10/1911/09/2022 COMPR EHENS SMILEY METAB OLIC PANEL globulin 2.7 g/dL 2.6-4. 2 Not Available [facility] (Lab) [address] [place], [address], 11/09/2022 18:47:11 11/10/19 23 11/09/2022 COMPR EHENS SMILEY METAB OLIC PANEL A/G ratio 1.5 ratio 1.0-2. 0 Not Available [facility] (Lab) [address] [place], [address], 11/09/2022 18:47:11 11/10/19 23 11/09/2022 HEMOG LOBIN A1C HA1C 7.8 % 4.0-6. 0 high Diabe axel Scree shruti Crite yadira: <5.7% Consi stent with absen ce of diabe axel 5.7-6 .4% Consi stent with incre ased risk for diabe axel (pred iabet es) >OR=6 .5% Consi stent with diabe axel REFER ENCE: Diabe axel Care 2016, 39( ppl.1 ):s13 -s22 Not Available [facility] (Lab) [address] [place], [address], 11/09/2022 20:35:55 10/13/19 23 07/30/2022 XR, toe(s ) No observ ation record ed. [address], [address], 11/10/2022 11:36:37 11/09/19 23 07/30/2022 imagi ng/di agnos tic resul t No observ ation record ed. [address], [address], 11/09/2022 15:59:04 Result Notes None recorded. Problems Name Problem SNOMED Code Status Onset Date Resolution Date Notes Provider Name and Address Organization Details Recorded Time Neuropathy due to diabetes mellitus 437004554 Active 2020 Not Available [facility] 22:43:31 Hyperlipidemi a 94392790 Active 2020 Not Available [facility] 3 22:43:31 Essential hypertension 70219731 Active 2020 Not Available [facility] 22:43:31 Diabetes mellitus 58487419 Active 2020 Not Available [facility] 3 22:43:31 Peripheral arterial disease 502276193 Active 2020 right SFA stent Not Available [facility] 3 22:43:31 Erectile dysfunction 592370166 Active 2020 Not Available [facility] 3 22:43:31 Lipoma of skin and subcutaneous tissue of neck 58714022 Active 2020 Not Available [facility] 3 22:43:31 Headache 23135611 Active 2021 Not Available [facility] 3 22:43:31 Carpal tunnel syndrome 46067980 Active 2022 Aria Washington RN [facility], [place] [employer] [facility] [employer] 3 15:38:02 Peripheral arterial occlusive disease 222906983 Active 2023 Willis Major MD [address] [place] [address], [address] [facility] [employer] 4 22:45:59 Problem Notes None recorded. Procedures Surgical History Date Name Laterality Status Provider Name and Address Organization Details Recorded Time amputation of toe completed Not Available [facility] 09/08/2022 22:42:46 Hernia Repair completed Not Available [facility] 09/08/2022 22:42:46 thoracentesis completed Not Available [facility] 09/08/2022 22:42:46 Imaging Results None recorded. Procedure [...] kg/m2 175.26 cm 94 /min 98.2 [degF] 40396.5 8 g 140/90 mm[Hg] Not Available [facility] 3 22:43:07 Date Recorded Body height Body mass index (BMI) Body weight Body temperature Heart rate Systolic And Diastolic Provider Name and Address Organization Details Last Updated DateTime 4 175.26 cm 30.9 kg/m2 97137.8 1 g 98.1 [degF] 90 /min 120/74 mm[Hg] KRISTEN Hicks [facility] [employer] 4 15:24:26 Date Recorded Body height Body weight Body temperature Heart rate Oxygen saturation Oxygen saturation in Arterial blood by Pulse oximetry Systolic And Diastolic Provider Name and Address Organization Details Last Updated DateTime 3 175.26 cm 39335.0 7 g 98.2 [degF] 88 /min 99 % 99 % 124/80 mm[Hg] Lesly Cole RN [facility] [employer] [facility] 3 15:40:03 Date Recorded Body mass index (BMI) Body height Pain severity - 0-10 verbal numeric rating [Score] - Reported Heart rate Body temperature Body weight Systolic And Diastolic Provider Name and Address Organization Details Last Updated DateTime 2 30.7 kg/m2 175.26 cm 0 102 /min 96.8 [degF] 92847.2 1 g 124/80 mm[Hg] Not Available [facility] 3 22:43:07 Date Recorded Body height Body mass index (BMI) Body weight Body temperature Heart rate Systolic And Diastolic Provider Name and Address Organization Details Last Updated DateTime 3 175.26 cm 29.4 kg/m2 51833.8 8 g 97.9 [degF] 87 /min 102/70 mm[Hg] KRISTEN Hicks [place] [facility] [employer] [facility] 3 16:01:08 Social History Question Answer Notes LastModified by Organization Details LastModified Time Tobacco Smoking Status Former Smoker quit 07/07/20 20 Not Available [facility] 09/08/2022 22:42:29 Do You Have An Advance Directive? No MIGRATION.030 857556 Information not available 09/08/2022 Are You Blind Or Do You Have Difficulty Seeing? No MIGRATION.030 376323 Information not available 09/08/2022 What Is Your Level Of Caffeine Consumption? Moderate MIGRATION.030 052201 Information not available 09/08/2022 How Much Tobacco Do You Chew? None MIGRATION.030 060478 Information not available 09/08/2022 In The 14 Days Before Symptom Onset, Have You Had Close Contact With A Laboratory-confi rmed COVID-19 While That Case Was Ill? No MIGRATION.030 349995 Information not available 09/08/2022 In The 14 Days Before Symptom Onset, Have You Had Close Contact With A Person Who Is Under Investigation For COVID-19 While That Person Was Ill? No MIGRATION.030 711328 Information not available 09/08/2022 Are You Deaf Or Do You Have Serious Difficulty Hearing? No MIGRATION.030 909216 Information not available 09/08/2022 What Type Of Diet Are You Following? REGULAR MIGRATION.030 527812 Information not available 09/08/2022 Which Illicit Or Recreational Drugs Have You Used? None MIGRATION.030 766044 Information not available 09/08/2022 What Is The Highest Grade Or Level Of School You Have Completed Or The Highest Degree You Have Received? AN51285-7 MIGRATION.030 676331 Information not available 09/08/2022 Have There Been Any Changes To Your Family Or Social Situation? No MIGRATION.0301 907106 Information not available 09/08/2022 What Is The Fluoride Status Of Your Home? Unknown MIGRATION.0301 280236 Information not available 09/08/2022 When Did You Quit Smoking? 1-5yearssincelastci janette MIGRATION.0301 078768 Information not available 09/08/2022 Do You Use Insect Repellent Routinely? No MIGRATION.0301 635907 Information not available 09/08/2022 Where Do You Live? SingleLevelHouse MIGRATION.0301 190365 Information not available 09/08/2022 Do You Have A Medical Power Of Contact Center Agent? No MIGRATION.0301 105169 Information not available 09/08/2022 What Was The Date Of Your Most Recent Tobacco Screening? 07/13/2023 [email or web address] Information not available 07/13/2023 What Is Your Current Pack Years? 30ormorepackyears MIGRATION.0301 406591 Information not available 09/08/2022 Have You Ever Been Counseled For Unhealthy Alcohol Use? No MIGRATION.0301 242085 Information not available 09/08/2022 Do You Have Any Pets? Yes MIGRATION.0301 907821 Information not available 09/08/2022 What Is Your Relationship Status? MIGRATION.0301 111747 Information not available 09/08/2022 Do You Use Your Seat Belt Or Car Seat Routinely? Yes MIGRATION.0301 695817 Information not available 09/08/2022 Do You Have Smoke And Carbon Monoxide Detectors In Your Home? Yes MIGRATION.0301 049401 Information not available 09/08/2022 Are You Passively Exposed To Smoke? No MIGRATION.0301 207182 Information not available 09/08/2022 Are There Any Smokers In Your House? No MIGRATION.0301 326794 Information not available 09/08/2022 How Much Tobacco Do You Smoke? No MIGRATION.0301 818605 Information not available 09/08/2022 What Types Of Sporting Activities Do You Participate In? None MIGRATION.0301 123558 Information not available 09/08/2022 Do You Use Sunscreen Routinely? Yes MIGRATION.0301 697299 Information not available 09/08/2022 Has Tobacco Cessation Counseling Been Provided? No MIGRATION.0301 821709 Information not available 09/08/2022 Have You Recently Traveled Abroad? No MIGRATION.0301 385714 Information not available 09/08/2022 Do You Have Difficulty Walking Or Climbing Stairs? No MIGRATION.0301 031119 Information not available 09/08/2022 Do You Have Any Dietary Restrictions? No MIGRATION.0301 392964 Information not available 09/08/2022 Sex: Male Functional Status Question Answer Note LastModified by [employer] Details LastModified Time Do you use any illicit or recreational drugs? No MIGRATION.988416 7840 Information not available 09/08/2022 Do you or have you ever used any other forms of tobacco or nicotine? No MIGRATION.499728 9439 Information not available 09/08/2022 What is your level of alcohol consumption? Occasional MIGRATION.366732 5153 Information not available 09/08/2022 Do you or have you ever used smokeless tobacco? Never used smokeless tobacco MIGRATION.180279 3948 Information not available 09/08/2022 Do you have transportation difficulties? No MIGRATION.470383 2848 Information not available 09/08/2022 Are you able to walk? YESWOREST MIGRATION.225242 5038 Information not available 09/08/2022 Do you have difficulty doing errands alone? No MIGRATION.337233 0519 Information not available 09/08/2022 Are you able to care for yourself independently? Yes MIGRATION.137258 0747 Information not available 09/08/2022 What is your occupation? part-time MIGRATION.176983 9132 Information not available 09/08/2022 Do you have difficulty dressing, bathing, grooming, or toileting? No MIGRATION.446671 9940 Information not available 09/08/2022 Do you or have you ever used e-cigarettes or vape? Never used electronic cigarettes MIGRATION.077519 8868 Information not available 09/08/2022 What is your exercise level? Occasional MIGRATION.453161 5777 Information not available 09/08/2022 Mental Status Question Answer Note LastModified by [employer] ion Details LastModified Time Do you feel stressed (tense, restless, nervous, or anxious, or unable to sleep at night)? [id number] MIGRATION.61472546 26 Information not available 09/08/2022 Do you have difficulty concentrating, remembering or making decisions? No MIGRATION.70103627 26 Information not available 09/08/2022 Family History Relationship Description Onset Age of this Age Resolved Age Notes LastModified by Organization Details LastModified Time Father Malignant tumor of pharynx 39 MIGRATION.349 2882389 Not available 09/08/2022 22:42:48 Mother Malignant tumor of breast 39 MIGRATION.285 2892905 Not available 09/08/2022 22:42:48 Sister Polyp of colon MIGRATION.768 3226500 Not available 09/08/2022 22:42:48 Medical History Condition [...] N CHRONIC PAIN SYNDROME N HYPOTHYROIDISM N CONSTIPATION N CAROTID BLOCKAGE N BACK / NECK PROBLEMS N HAVE YOU BEEN HOSPITALIZED OR SEEN IN [facility] IN THE PAST YEAR ? N ATHEROSCLEROSIS [...] SNOMED-CT Code Diagnosis ICD10 Code Diagnosis Note [id number] Willis Major MD [facility] Internal Med [facility] [address] [place], [address] [address] 10/14/2020 00:00:00 10/26/2020 10:12:48 [id number] Willis Major MD [facility] Internal Med [place] [address] [place] [address] y , [place] [address] 01/22/2021 00:00:00 01/22/2021 21:15:44 [id number] Willis Major MD [facility] Internal Med [place] [address] [place] [address] y , [place] [address] 01/27/2021 00:00:00 01/27/2021 21:43:41 [id number] Willis Major MD [facility] Internal Med [place] [address] [place] [address] josselin [address], [place] [address] 03/12/2021 00:00:00 03/12/2021 22:17:01 [id number] Willis Major MD [facility] Internal Med [facility] [address] [facility], [address] [address] 04/13/2021 00:00:00 04/13/2021 15:19:21 [id number] Willis Major MD [facility] Internal Med Kye llamadeo [address] [place] [address] [place] [address] 07/23/2021 00:00:00 07/23/2021 20:52:21 [id number] Willis Major MD [facility] Internal Med [facility] [address] [facility] [address] [address] 09/30/2021 00:00:00 10/12/2021 23:17:19 [id number] Willis Major MD [facility] Internal Med [facility] 15 [address] [facility] [address] [address] 10/14/2021 00:00:00 10/14/2021 21:45:05 [id number] Willis Major MD [facility] Internal Med [facility] [address] [place] [address] [address] [address] 11/25/2021 00:00:00 11/29/2021 13:06:24 [id number] Willis Major MD [facility] Internal Med [facility] [address] [place] [address] [address] [place] [address] 02/24/2022 00:00:00 02/24/2022 22:10:32 [id number] Willis Major MD [facility] Internal Med [facility] [address] [place] [address] [address] [address] 07/13/2022 00:00:00 07/13/2022 23:31:32 [id number] Willis Major MD [facility] Internal Med [facility] [address] [place], [place] [address]e., [place] [address] 11/09/2022 15:28:01 11/09/2022 16:18:35 Essential hypertension 17900292 I10 Hyperlipidemia 75744549 E78.5 Diabetes mellitus 614737 09 E11.42 Erectile dysfunction 860 812620 F52.21 [id number] Willis Major MD [facility] Internal Med [facility] [address] [place] [address] 1 03/15/2023 15:34:14 03/15/2023 16:24:31 Diabetes mellitus 39417359 E11.42 Erectile dysfunction 860 755020 F52.21 Essential hypertension 10598818 I10 Hyperlipidemia 90817827 E78.5 [id number] Willis Major MD [facility] Internal Med [facility] [address] [place] [address] [address] [address] 07/13/2023 14:53:42 07/13/2023 17:26:11 Essential hypertension 06400797 I10 Hyperlipidemia 55837712 E78.5 Diabetes mellitus 313300 09 E11.42 Peripheral arterial occlusive disease 744910550 I73.9 Health Concerns Section Related Observation LastModified by Organization Detai ls LastModified Time None Recorded Concern Status LastModified by Organization Details LastModified Time None Recorded Advance Directives Directive N: Payers Insurance Date Sequence Insurance Name Policy Number Policy Henry Covered Member ID Henry Member ID Guarantor Name 07/11/2023 1 [employer] (MEDICARE REPLACEMENT/A DVANTAGE - PPO) Thanh Herrera [id number] hTanh Herrera
--- OUTSIDE RECORDS SUMMARY | 2025-02-06 00:34 | XMS_ITS | Referral Summary ---
Author Organization [facility] Physician Office Building [address] [place] [address] Care Team Providers Care Building Insulation Supervisor Name Role Phone Lenin Hagen DO Primary Care Provider [phone] Encounters Date Type Department Care Team Description 11/30/2024 Telephone [facility] Specialists of [address] [address] Juanjose Cintron MD 11/28/2024 8:45 AM CDT Office Visit [facility] Specialists of [address] [address] Juanjose Cintron MD Type 2 [...] hyperglycemia, without long-term current use of insulin ([facility]) Dx: E11.65 Check blood sugar once daily 100 each 1 3 Active Dexcom G7 Sensor deviceIndicatio ns:Type 2 diabetes mellitus with hyperglycemia, without long-term current use of insulin ([facility]) CHANGE SENSOR EVERY 10 DAYS 6 each [...] hyperglycemia, without long-term current use of insulin ([facility]) Take 1 tablet (4 mg total) by mouth 2 (two) times a day with meals 180 tablet 3 5 11/29/19 26 Active LANTUS 100 unit/mL (3 mL) pen for injectionIndica tions:Type 2 diabetes mellitus with hyperglycemia, without long-term current use of insulin ([facility]) Inject 30 Units under the skin daily 27 mL 3 5 11/29/19 26 Active Farxiga 10 mg tabletIndicatio ns:type 2 diabetes mellitus Take 1 tablet (10 mg total) by mouth daily 90 tablet 5 11/29/19 26 Active OneTouch Delica Plus Lancet 30 gauge miscIndications :Type 2 diabetes mellitus with hyperglycemia, without long-term current use of insulin ([facility]) 2 x daily 200 each 3 5 Active OneTouch Verio Flex meter miscIndications :Type 2 diabetes mellitus with hyperglycemia, without long-term current use of insulin ([facility]) One glucometer 1 each 5 Active OneTouch Verio test strips stripIndication s:Type 2 diabetes mellitus with hyperglycemia, without long-term current use of insulin ([facility]) Check 2 x daily 200 each 3 5 Active lisinopriL (PRINIVIL,ZESTR [place]) 2.5 mg tabletIndicatio ns:Hypertension associated with diabetes ([facility]) TAKE 1 TABLET EVERY DAY 90 tablet 3 5 Active Active Problems Problem Noted Date Diagnosed Date Class 1 obesity due to exces s calories with serious comorbidity and body mass index (BMI) of 30.0 to 30.9 in adult 03/27/2024 Assessment & Plan (07/08/2024 5:37 PM NEONATAL NURSE): Chronic, worsening Discussed about healthy lifestyle habits [...] control Assessment & Plan (06/13/2022 9:34 AM NEONATAL NURSE): Chronic, stable Continue gabapentin therapy for symptomatic [...] control Assessment & Plan (09/10/2020 7:38 AM NEONATAL NURSE): Chronic, stable Continue gabapentin therapy for symptomatic management Continue to work on tighter glycemic control Assessment & Plan (06/11/2020 4:26 PM NEONATAL NURSE): Chronic, stable Continue gabapentin therapy for symptomatic [...] 01/05/2020 Assessment & Plan (07/08/2024 5:37 PM NEONATAL NURSE): Continue statin therapy Tolerating well Assessment & [...] well Assessment & Plan (06/13/2022 9:34 AM NEONATAL NURSE): Continue statin therapy Tolerating well Assessment & Plan (01/26/2022 2:52 PM CDT): Chronic problem. On statin therapy, no changes. Assessment & Plan (10/27/2021 3:23 PM CDT): Continue statin therapy Tolerating well Assessment & Plan (08/25/2021 2:46 PM NEONATAL NURSE): Chronic problem. On statin therapy, no changes. Assessment & Plan (07/21/2021 1:42 PM NEONATAL NURSE): Continue statin therapy Tolerating well Reviewed recent labs , LDL at goal Assessment & Plan (04/29/2021 3:53 PM CDT): Continue statin therapy Tolerating well Assessment & Plan (12/15/2020 1:53 PM CDT): Continue statin therapy Tolerating well Assessment & Plan (09/10/2020 7:38 AM NEONATAL NURSE): Continue statin therapy Tolerating well Assessment & Plan (06/11/2020 4:24 PM NEONATAL NURSE): Continue statin therapy Tolerating well Assessment & Plan (03/06/2020 10:28 PM CDT): Continue statin therapy Assessment & Plan (01/05/2020 9:25 PM CDT): Continue statin therapy Reviewed recent lipid panel Type 2 diabetes mellitus wit h hyperglycemia, without long-term current use of insulin 01/03/2020 Assessment & Plan (07/08/2024 5:39 PM NEONATAL NURSE): Chronic, uncontrolled, slowly improving but still above [...] months Assessment & Plan (06/13/2022 9:35 AM NEONATAL NURSE): Chronic, Out of control, worsening A1c 9.0 [...] me Assessment & Plan (08/25/2021 2:49 PM NEONATAL NURSE): Chronic problem, improving but not at goal. Reviewed diet and limiting simple sugar intake. Needs to not miss PM dose of glimepiride. Continue same medications at this time. Assessment & Plan (07/21/2021 1:44 PM NEONATAL NURSE): Chronic, uncontrolled, severely worsening A1c today 11% [...] months Assessment & Plan (09/10/2020 7:40 AM NEONATAL NURSE): Chronic, uncontrolled, worsening A1c today - 8.8 % Keep taking Trulicity 1.5 mg SQ weekly - start Glimepiride 2 mg oral twice daily with meals - check blood sugars before breakfast and dinner - call me with blood sugar log in 4 weeks - follow up in 3 months Assessment & Plan (06/11/2020 4:26 PM NEONATAL NURSE): Chronic, improving with treatment A1c today - [...] type 2, - patho physiology, short and correction complications of uncontrolled DM, diet and exercise [...] 01/03/2020 Assessment & Plan (07/08/2024 5:37 PM NEONATAL NURSE): Chronic, well controlled Continue lisinopril Assessment & [...] lisinopril Assessment & Plan (06/13/2022 9:34 AM NEONATAL NURSE): Chronic, well controlled Continue Volodymyr I Assessment & Plan (01/26/2022 2:51 PM CDT): Controlled on current medications, no changes. Assessment & Plan (10/27/2021 3:23 PM CDT): Chronic, well controlled Continue Volodymyr I Assessment & Plan (08/25/2021 2:46 PM NEONATAL NURSE): Controlled on current medications, no changes. Assessment & Plan (07/21/2021 1:42 PM NEONATAL NURSE): Chronic, well controlled Continue Volodymyr I Assessment & Plan (04/29/2021 3:53 PM CDT): Chronic, well controlled Continue Volodymyr I Assessment & Plan (12/15/2020 1:52 PM CDT): Chronic, well controlled Continue Volodymyr I Assessment & Plan (09/10/2020 7:37 AM NEONATAL NURSE): Chronic, well controlled Continue Volodymyr I Assessment & Plan (06/11/2020 4:24 PM NEONATAL NURSE): Chronic, well controlled Continue Volodymyr I Assessment [...] exercise Assessment & Plan (06/13/2022 9:34 AM NEONATAL NURSE): Chronic, above goal . unchanged Discussed about [...] exercise Assessment & Plan (07/21/2021 1:42 PM NEONATAL NURSE): Chronic, worsening Discussed about healthy lifestyle habits [...] exercise Assessment & Plan (09/10/2020 7:39 AM NEONATAL NURSE): Chronic, improving slowly Discussed about healthy lifestyle [...] weekly Assessment & Plan (06/11/2020 4:26 PM NEONATAL NURSE): Chronic, worsening Discussed about healthy lifestyle habits [...] on file Legal Sex Male 3:01 AM NEONATAL NURSE Gender Identity Not on file Sexual Orientation [...] EXTERNAL LAB Urine 12/04/2024 3:02 PM CDT Juanjsoe Rosa MD LAB URINE ORDERABLE S Final Result Performing Organization Address [facility] Co de Phone Number EXTERNAL LAB * [...] ORDERABLE S Final Result Performing Organization Address [facility] de Phone Number EXTERNAL LAB * (ABNORMAL) [...] Units/L EXTERNAL LAB SCRIBED eGFR in NonAfrican Armenian >60 >=60 - NA EXTERNAL LAB Blood [...] R esult Performing Organization Address City/State/ZIP Co ne Phone Number WILLIAM [phone] [address] Department [place] [address] from Last 3 Months or Most Recently Relevant to Health Maintenance Insurance MEDICARE [employer] CHOICE MEDICARE PPO Care Teams Building Insulation Supervisor Relationship Specialty Start Date End Date Lenin Hagen DO PCP - General Internal Medicine 12/22/23
--- OUTSIDE RECORDS SUMMARY | 2025-02-06 00:34 | XMS_ITS | Clinical Summary ---
Author Organization [facility] Physician Office Building [address] [place] [phone] Care Team Providers Care Cafeteria Cook Name Role Phone Lenin Hagen DO Primary Care Provider [phone] Allergies No known active allergies Medications blood-glucose [...] hyperglycemia, without long-term current use of insulin ([facility]) Take 1 tablet (4 mg total) by mouth 2 (two) times a day with meals 180 tablet 3 5 11/29/19 Active LANTUS 100 unit/mL (3 mL) pen for injectionIndica tions:Type 2 diabetes mellitus with hyperglycemia, without long-term current use of insulin ([facility]) Inject 30 Units under the skin daily 27 mL 11/29/19 26 Active Farxiga 10 mg tabletIndicatio ns:type 2 diabetes mellitus Take 1 tablet (10 mg total) by mouth daily 90 tablet 3 5 11/29/19 26 Active MangoPlateTouch Delica Plus Lancet 30 gauge miscIndications :Type 2 diabetes mellitus with hyperglycemia, without long-term current use of insulin ([facility]) 2 x daily 200 each 5 Active OneTouch Verio Flex meter miscIndications :Type 2 diabetes mellitus with hyperglycemia, without long-term current use of insulin ([facility]) One glucometer 1 each 5 Active MangoPlateTouch Verio test strips stripIndication s:Type 2 diabetes mellitus with hyperglycemia, without long-term current use of insulin ([facility]) Check 2 x daily 200 [...] 03/27/2024 Assessment & Plan (07/08/2024 5:37 PM ELECTRONIC VIDEO GAMES SERVICER): Chronic, worsening Discussed about healthy lifestyle habits [...] control Assessment & Plan (06/13/2022 9:34 AM ELECTRONIC VIDEO GAMES SERVICER): Chronic, stable Continue gabapentin therapy for symptomatic [...] control Assessment & Plan (09/10/2020 7:38 AM ELECTRONIC VIDEO GAMES SERVICER): Chronic, stable Continue gabapentin therapy for symptomatic management Continue to work on tighter glycemic control Assessment & Plan (06/11/2020 4:26 PM ELECTRONIC VIDEO GAMES SERVICER): Chronic, stable Continue gabapentin therapy for symptomatic [...] 01/05/2020 Assessment & Plan (07/08/2024 5:37 PM ELECTRONIC VIDEO GAMES SERVICER): Continue statin therapy Tolerating well Assessment & [...] well Assessment & Plan (06/13/2022 9:34 AM ELECTRONIC VIDEO GAMES SERVICER): Continue statin therapy Tolerating well Assessment & Plan (01/26/2022 2:52 PM CDT): Chronic problem. On statin therapy, no changes. Assessment & Plan (10/27/2021 3:23 PM CDT): Continue statin therapy Tolerating well Assessment & Plan (08/25/2021 2:46 PM ELECTRONIC VIDEO GAMES SERVICER): Chronic problem. On statin therapy, no changes. Assessment & Plan (07/21/2021 1:42 PM ELECTRONIC VIDEO GAMES SERVICER): Continue statin therapy Tolerating well Reviewed recent labs , LDL at goal Assessment & Plan (04/29/2021 3:53 PM CDT): Continue statin therapy Tolerating well Assessment & Plan (12/15/2020 1:53 PM CDT): Continue statin therapy Tolerating well Assessment & Plan (09/10/2020 7:38 AM ELECTRONIC VIDEO GAMES SERVICER): Continue statin therapy Tolerating well Assessment & Plan (06/11/2020 4:24 PM ELECTRONIC VIDEO GAMES SERVICER): Continue statin therapy Tolerating well Assessment & Plan (03/06/2020 10:28 PM CDT): Continue statin therapy Assessment & Plan (01/05/2020 9:25 PM CDT): Continue statin therapy Reviewed recent lipid panel Type 2 diabetes mellitus wit h hyperglycemia, without long-term current use of insulin 01/03/2020 Assessment & Plan (07/08/2024 5:39 PM ELECTRONIC VIDEO GAMES SERVICER): Chronic, uncontrolled, slowly improving but still above [...] months Assessment & Plan (06/13/2022 9:35 AM ELECTRONIC VIDEO GAMES SERVICER): Chronic, Out of control, worsening A1c 9.0 [...] me Assessment & Plan (08/25/2021 2:49 PM ELECTRONIC VIDEO GAMES SERVICER): Chronic problem, improving but not at goal. Reviewed diet and limiting simple sugar intake. Needs to not miss PM dose of glimepiride. Continue same medications at this time. Assessment & Plan (07/21/2021 1:44 PM ELECTRONIC VIDEO GAMES SERVICER): Chronic, uncontrolled, severely worsening A1c today 11% [...] months Assessment & Plan (09/10/2020 7:40 AM ELECTRONIC VIDEO GAMES SERVICER): Chronic, uncontrolled, worsening A1c today - 8.8 % Keep taking Trulicity 1.5 mg SQ weekly - start Glimepiride 2 mg oral twice daily with meals - check blood sugars before breakfast and dinner - call me with blood sugar log in 4 weeks - follow up in 3 months Assessment & Plan (06/11/2020 4:26 PM ELECTRONIC VIDEO GAMES SERVICER): Chronic, improving with treatment A1c today - [...] type 2, - 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 Assessment & Plan (10/27/2021 3:23 PM CDT): Chronic, well controlled Continue Volodymyr I Assessment & Plan (08/25/2021 2:46 PM ELECTRONIC VIDEO GAMES SERVICER): Controlled on current medications, no changes. Assessment & Plan (07/21/2021 1:42 PM ELECTRONIC VIDEO GAMES SERVICER): Chronic, well controlled Continue Volodymyr I Assessment & Plan (04/29/2021 3:53 PM CDT): Chronic, well controlled Continue Volodymyr I Assessment & Plan (12/15/2020 1:52 PM CDT): Chronic, well controlled Continue Volodymyr I Assessment & Plan (09/10/2020 7:37 AM ELECTRONIC VIDEO GAMES SERVICER): Chronic, well controlled Continue Volodymyr I Assessment & Plan (06/11/2020 4:24 PM ELECTRONIC VIDEO GAMES SERVICER): Chronic, well controlled Continue Volodymyr I Assessment [...] exercise Assessment & Plan (06/13/2022 9:34 AM ELECTRONIC VIDEO GAMES SERVICER): Chronic, above goal . unchanged Discussed about [...] exercise Assessment & Plan (07/21/2021 1:42 PM ELECTRONIC VIDEO GAMES SERVICER): Chronic, worsening Discussed about healthy lifestyle habits [...] exercise Assessment & Plan (09/10/2020 7:39 AM ELECTRONIC VIDEO GAMES SERVICER): Chronic, improving slowly Discussed about healthy lifestyle [...] weekly Assessment & Plan (06/11/2020 4:26 PM ELECTRONIC VIDEO GAMES SERVICER): Chronic, worsening Discussed about healthy lifestyle habits [...] Type Department Care Team Description 11/30/2024 Telephone [facility] Specialists of [address] [address] Juanjose Cintron MD 11/28/2024 8:45 AM CDT Office Visit [facility] [address] [address] Juanjose Cintron MD Type 2 [...] on file Legal Sex Male 3:01 AM ELECTRONIC VIDEO GAMES SERVICER Gender Identity Not on file Sexual Orientation [...] Units/L EXTERNAL LAB SCRIBED eGFR in NonAfrican Mauritanian >60 >=60 - NA EXTERNAL LAB Blood [...] BLOOD ORDERABLES [place] [address] [address] Department [place] [address] from Last 3 Months or Most Recently Relevant to Health Maintenance Insurance [employer] CHOICE MEDICARE PPO MEDICARE [employer] CHOICE MEDICARE PPO Care Teams Cafeteria Cook Relationship Specialty Start Date End Date Lenin Hagen DO PCP - General Internal Medicine 12/22/23
--- OUTSIDE RECORDS SUMMARY | 2025-02-06 00:34 | XMS_ITS | Clinical Summary ---
Author Organization [facility] Address [address] [place] [address] Care Team Providers Care Wellness Health Coach Name Role Phone Willis Major MD Primary Care Provider [phone] Source Comments [facility],non-owned Affiliates and Associated Physician Practices is amultiple site organization consisting of ambulatory clinics and hospital sitesin [place], [place], [place] and [place]. This disclosure is being madepursuant to the Care Everywhere program and may not contain all information available regarding this patient. Last updated 18.[facility] Allergies No known active allergies Immunizations Immunization Administration Dates Next Due TDAP (7yrs+) 04/03/2021 Social History Tobacco Use Types Packs/Day Years Used Date Smoking Tobacco: Never Smokeless Tobacco: Never Alcohol Use Standard Drinks/Week Comments Yes 0 (1 standard drink = 0.6 oz pur e alcohol) Sex and Gender Information Value Date Recorded Sex Assigned at Not on file Legal Sex Male 6:21 AM CYBER SECURITY Gender Identity Not on file Sexual Orientation [...] MICHELLE Subscriber ID:Not on file (Home) Address: [address] [place] [address] Payer ID:Not on file Group ID:Not on file Type:Self Pay Address: [place], [place] HU[employer]NA MEDICARE ADV HMO & PPO Care Teams Wellness Health Coach Relationship Specialty Start Date End Date Willis Major MD [address] [place], [place] [address] [address] PCP - General 08/16/22
--- NOTE | 2025-02-06 06:59 | WPDHPUPDATE1 ---
History and Physical Update Update Date/Time: 02/06/25 06:59 Patient seen and examined in pre-operative holding area. No interval change in medical history or symptoms. Patient recalls previous discussion of benefits and alternatives to procedure. Continues to desire to proceed with left endoscopic possible open carpal tunnel release and left cubital tunnel release. Reviewed procedure, post-op expectations and risks including but not limited to bleeding, infection, injury to tendon/nerve/vessel, decreased hand function, stiffness, RSD, no change or worsening of symptoms. I discussed the possible use of assistants and their participation in the case. Patient stated understanding and signed the consent form wishing to proceed.
--- NOTE | 2025-02-06 06:59 | W.PM.PROC2 ---
Procedure Note - Detailed Date of Procedure 02/06/25 Pre-op Diagnosis Rick Carpal & Cubital Tunnel Syn Post-op Diagnosis Same Procedure Performed left ectr and CuTR Surgeon Tony Chávez MD Director Business Intelligence vangie neff pa-c Anesthesia MAC Description of Procedure INFORMED CONSENT: The patient was seen and examined and marked in the pre-op area.? The patient signed the consent form. PROCEDURE IN DETAIL:The patient taken back to OR on the stretcher in supine position. Time out performed with anesthesia, surgeon and staff agreeing on patient's name site and surgery to be performed SCDs were placed on the lower extremities and inflated. A tourniquet was placed on {left} upper extremity and antibiotics given IV After anesthesia administered sedation I injected {10}cc 1%lido with epi and 0.5% marcaine plain at the operative sites The?{left upper extremity}?was prepped and draped in sterile fashion the??{left upper extremity} was? exsanguinated with Esmarch bandage and tourniquet inflated to 250mmHg I made a transverse incision in the {left} volar distal wrist crease through skin and dermis with 15 blade scalpel.? Littler scissors spread down to antebrachial fascia. A small incision was made in antebrachial fascia allowing access to Carpal tunnel. I proceeded with sequential dilation staying in line with the ring finger and hugging the hook of the hamate.? I then used the synovial elevator to free any adhesions from the underside of the transverse carpal ligament. Next I was able to insert the Microaire endoscopic carpal tunnel device with direct visualization of the transverse fibers on the monitor and proceeded with complete segmental retrograde release of the ligament in its entirety.? I irrigated with normal saline and closed with 4-0 monocryl for dermis and subcuticular closure. I next proceeded with making a longitudinal incision between two heads for flexor carpi ulnaris at end of {left} cubital tunnel with 15 blade scalpel.? Littler scissors were used to spread down to FCU fascia.? An incision was made in FCU fascia and ulnar nerve identified exiting cubital tunnel.? I proceeded with complete retrograde release of the cubital tunnel including 7cm proximal for the intermuscular septum.? The nerve appeared healthy with visible vaso nervorum.? There was no subluxation on full elbow range of motion. ? I irrigated with normal saline and closure with 4-0 monocryl for dermis and subcuticular. The incisions were covered with Dermabond then 4x4s, beto, and a posterior elbow and volar wrist splint for patient safety, security and comfort and secured with danica bandages after the tourniquet was let down noting the hand was warm and well perfused.? Patient awaken from anesthesia and transferred to recovery in stable condition Complications - none EBL- 1cc Disposition - home in stable conditions vangie neff pa-c was essential for positioning, retracction, closure and dressing placement [facility] Billing Surgery - Charge Forward: Surgery Billing ([id number] same for vangie adding )
[2025-02-06] MEDS: ACETAMINOPHEN 500 MG TABLET 1000 MG PO (11:00)
[2025-02-06] MEDS: LACTATED RINGERS 1,000 ML 30 ML IV CONT (11:00)
[2025-02-06 11:26] VITALS: BP 146/75; PULSE 88; TEMP 36.3; O2SAT 99; BMI 30.2
--- NOTE | 2025-02-06 12:36 | P.PNAN_ITS ---
Anes - Initial Pre Proc Eval Procedure: Operation Date: 02/06/25 12:30 Proposed Procedures p Left Endoscopic Carpal Tunnel Release, Possible Open, Left Cubital Tunnel Release - Tony Chávez MD Date/Time: 02/06/25 12:36 Surgeon: Tony Chávez MD Pre Op Diagnosis: Rick Carpal & Cubital Tunnel Syn Patient Data Age: 69 Gender: M Height: 1.75 m Weight: 92.8 kg Last Vital Signs Temp 36.3 C L 02/06/25 11:26 Pulse 88 02/06/25 11:26 BP 146/75 H 02/06/25 11:26 Pulse Ox 99 02/06/25 11:26 O2 Del Method Room Air 02/06/25 11:26 Allergies Allergy/AdvReac Type Severity Reaction Status Date / Time No Known Allergies Allergy Verified 02/06/25 11:37 Home Medications ?Medication ?Instructions ?Recorded ?Confirmed ?Type alpha lipoic acid 600 mg tablet 600 mg PO DAILY 11/15/23 01/31/25 History aspirin 81 mg tablet,delayed 81 mg PO DAILY 11/15/23 01/31/25 History release (Adult Low Dose Aspirin) glimepiride 4 mg tablet 4 mg PO BID 11/15/23 01/31/25 History lisinopril 2.5 mg tablet 2.5 mg PO DAILY 11/15/23 01/31/25 History metoprolol succinate 25 mg 25 mg PO DAILY 11/15/23 01/31/25 History tablet,extended release 24 hr multivit with minerals-folic 1 tablet PO DAILY 11/15/23 01/31/25 History acid-lycopene 0.4 mg-600 mcg tablet insulin glargine 100 30 unit subcut QAM 12/20/23 01/31/25 History unit-lixisenatide 33 mcg/mL subcutaneous pen (Soliqua 100/33) Daily Probiotic 1 cap PO DAILY 02/16/24 01/31/25 History dapagliflozin propanediol 10 mg 10 mg PO QAM 12/04/24 01/31/25 History tablet (Farxiga) tirzepatide 5 mg/0.5 mL 5 mg (0.5 mL) subcut WEEKLY #2 mL 12/04/24 01/31/25 Rx subcutaneous pen injector (Nohemi) rosuvastatin 40 mg tablet 40 mg PO DAILY #90 tabs 01/02/25 01/31/25 Rx acetaminophen 500 mg tablet 1,000 mg (2 x 500 mg) PO TID PRN 01/06/25 01/31/25 Rx taz 7 days #42 tabs Laboratory Tests 02/06/25 10:53 POC Capillary Glucose 213 H mg/dl (65-105) Patient hx anesthesia problems: none Family hx anesthesia problems: none Results Review: All pre-operative results and documents have been reviewed as part of the pre- operative evaluation. [facility] Past Medical History Medical History Diabetes mellitus with peripheral artery disease Amputation toe PVD (peripheral vascular disease) Nicotine dependence Diabetic peripheral neuropathy Hyperlipidemia Type 2 diabetes mellitus Most recent hemoglobin A1c as of 07/07/2020 was 7%. Hypertension Surgical History Surgical History H/O angioplasty History of cardiac catheterization Reported clear coronary arteries. History of ventral hernia repair Laparoscopic umbilical hernia repair Family History Family History Mother Breast cancer Father Throat cancer Social History Social History Social History: The patient lives in [place]. He still works part-time. Smokes approximately 1 pack of cigarettes per day. No alcohol or illicit substance use. Taylor is his surrogate decision maker and he wishes to be a full code. Smoking packs per day: 1 Smoking cigarettes per day: 20.0 Years smoked: 20 Smoking pack-years: 20.00 Smoking status: Former smoker Tobacco type: cigarettes Smoking end date: 07/07/19 Alcohol intake: current Drinks per week: 3 Alcohol use details: DRINKS Substance use: never Substance use type: does not use Do You Feel Safe in your Home?: Yes Lack of Transportation: YES Lack of Food: Never True Current Housing: Decline to Answer Concerned About Future Housing: Decline to Answer Difficulty Paying Gas/Electric Bills: Decline to Answer Difficulty Paying for Meds: Decline to Answer Currently Unemployed: Decline to Answer Education: Decline to Answer Difficulty w/ Childcare or Family Care: Decline to Answer Living arrangements: with family Gender identity (if verbalized by the patient): Male Sexual Orientation (if Verbalized by the Patient): Straight or Heterosexual Spiritual care concerns: No Agree to blood products: Yes Anes - Eval Final PreProcedure Day of Procedure 02/06/25 12:36 Patient weight: obese Heart: regular rate and rhythm Lungs: clear to auscultation Airway: Mallampati scale class II Neurological: alert and oriented Last oral intake: >/= 8 hours ASA classification: III Emergent: no Anesthetic plan: proceed Anesthesia type and monitoring: general GIVS and standard monitoring Results Review: All pre-operative results and documents have been reviewed as part of the pre- operative evaluation. Informed Consent: The patient's anesthetic plan and its attendant risks and benefits were discuss ed with the patient/family/POA. Questions were solicited and answers provided to the satisfaction of the patient/family/POA.
[2025-02-06] MEDS: ceFAZolin 2 GM in SODIUM CHLORIDE 0.9% IV 50 ML 100 ML IVPB (13:36)
[2025-02-06 14:06] VITALS: BP 128/70; PULSE 92; RESP 18; O2SAT 97
[2025-02-06 14:35] VITALS: BP 126/74; PULSE 89; O2SAT 96
[2025-02-06 15:05] VITALS: BP 136/80; PULSE 90
[2025-02-06 15:35] VITALS: BP 131/69; PULSE 83
== END 2025-02-06 15:43 | disposition home or self-care (01) ==
PROVIDERS: PCP Internal Medicine; Visit Provider Plastic Surgery
PROC: (CPT 64721; principal; 2025-02-06 12:30)
DX: G56.02 Carpal tunnel syndrome, left upper limb (principal); G56.22 Lesion of ulnar nerve, left upper limb; E11.51 Type 2 diabetes mellitus with diabetic peripheral angiopathy without gangrene; E11.42 Type 2 diabetes mellitus with diabetic polyneuropathy; I73.9 Peripheral vascular disease, unspecified; I10 Essential (primary) hypertension; F17.210 Nicotine dependence, cigarettes, uncomplicated; E66.9 Obesity, unspecified; Z68.30 Body mass index [BMI] 30.0-30.9, adult; Z79.82 Long term (current) use of aspirin; Z79.84 Long term (current) use of oral hypoglycemic drugs; Z79.4 Long term (current) use of insulin; Z79.85 Long-term (current) use of injectable non-insulin antidiabetic drugs; Z98.890 Other specified postprocedural states; Z98.61 Coronary angioplasty status; Z89.429 Acquired absence of other toe(s), unspecified side; Z80.3 Family history of malignant neoplasm of breast; Z80.1 Family history of malignant neoplasm of trachea, bronchus and lung
CPT/HCPCS: 29848; 64718; 82948; J0690; A9270; J3010; J7120

== ENCOUNTER 2025-06-04 13:34 | Outpatient (CLI) | payer MEDICARE, SELFPAY ==
--- NOTE | 2025-06-04 14:00 | NEURO_ITS ---
Impression: # Diabetic complains of numbness of lower extremities. ? 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 Nerve Conduction Studies ?Stim Site NR Peak (ms) P-T Amp (?V) Site1 Site2 Delta-P (ms) Dist (cm) Cheo (m/s) Left Sup Fibular Anti Sensory (Ant Lat Mall)??? NO RESPONSE 14 cm NR 14 cm Ant Lat Mall 16.0 Right Sup Fibular Anti Sensory (Ant Lat Mall)??? NO RESPONSE 14 cm NR 14 cm Ant Lat Mall 16.0 Left Sural Anti Sensory (Lat Mall)??? NO RESPONSE Calf NR Calf Lat Mall 16.0 Right Sural Anti Sensory (Lat Mall)??? NO RESPONSE Calf NR Calf Lat Mall 16.0 ?Stim Site NR Onset (ms) O-P Amp (mV) Site1 Site2 Delta-0 (ms) Dist (cm) Cheo (m/s) Left Peroneal Motor (Vastus Med)??? NO RESPONSE Ankle NR Popit Ankle 0.0 Popit NR Right Peroneal Motor (Vastus Med)??? NO RESPONSE Ankle NR Popit Ankle 0.0 Popit ? 13.8 0.0 Left Tibial Motor (Abd Argueta Brev)??? NO RESPONSE Ankle NR Right Tibial Motor (Abd Argueta Brev) Ankle ? 4.1 0.4 Knee Ankle 15.1 42.0 28 Knee ? 19.2 0.3 F Wave Studies ?NR F-Lat (ms) L-R F-Lat (ms) Left Peroneal (Mrkrs) (EDB)??? DISPERSED RESPONSE NR Right Peroneal (Mrkrs) (EDB)??? DISPERSED RESPONSE NR Left Tibial (Mrkrs) (Abd Hallucis) ? 62.92 Right Tibial (Mrkrs) (Abd Hallucis)??? DISPERSED RESPONSE NR Electromyography ?Side Muscle Nerve Root Ins Act Fibs Amp Dur Recrt Comment Right AntTibialis Dp Br Fibular L4-5 Nml Nml Decr >12ms Nml Left AntTibialis Dp Br Fibular L4-5 Nml Nml Decr >12ms Nml Right Ext Dig Brev Dp Br Fibular L5, S1 Nml Nml Decr >12ms Nml Left Ext Dig Brev Dp Br Fibular L5, S1 Nml Nml Decr >12ms Nml Right Fibularis Long Sup Br Fibular L5-S1 Nml Nml Decr >12ms Nml Left Fibularis Long Sup Br Fibular L5-S1 Nml Nml Decr >12ms Nml Right Flex Dig Long Tibial L5-S2 Nml Nml Decr >12ms Nml Left Flex Dig Long Tibial L5-S2 Nml Nml Decr >12ms Nml Right Gastroc Tibial S1-2 Nml Nml Decr >12ms Nml Left Gastroc Tibial S1-2 Nml Nml Decr >12ms Nml Right QuadratusFem QuadFemoris L4-5, S1 Nml Nml Nml Nml Nml Left QuadratusFem QuadFemoris L4-5, S1 Nml Nml Nml Nml Nml
--- OUTSIDE RECORDS SUMMARY | 2025-06-04 15:23 | XMS_ITS | Clinical Summary ---
Author Organization [facility] Address [address] [place] [address] Care Team Providers Care Principal Hardware Architect Name Role Phone Willis Major MD Primary Care Provider [phone] Source Comments [facility],non-owned Affiliates and Associated Physician Practices is amultiple site organization consisting of ambulatory clinics and hospital sitesin [place], [place], [place] and [place]. This disclosure is being madepursuant to the Care Everywhere program and may not contain all information available regarding this patient. 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, [place] [employer] MEDICARE ADV HMO & PPO Care Teams Principal Hardware Architect Relationship Specialty Start Date End Date Willis Major MD [address] [place] [id number] PCP - General 08/16/22
--- OUTSIDE RECORDS SUMMARY | 2025-06-04 15:23 | XMS_ITS | Clinical Summary ---
Author Organization [facility] [address] Address [facility] [place] [address] Care Team Providers Care Public Health Aide Name Role Phone Lenin Hagen DO Primary [...] Take 1 Tablet by mouth daily. Active rosuvastatin (CRESTOR) 40 mg tablet Take 40 mg by mouth daily. 4 Active Dexcom G7 Sensor Device Change sensor every 10 days 4 Active diphenhydrAMIN E (BENADRYL) 25 mg tablet Take 25 mg by mouth every 6 hours as needed for Allergies. Active metoprolol succinate (TOPROL XL) 25 mg Extended Release 24 hour tablet TAKE 1 TABLET EVERY DAY 90 Tablet 3 5 Active OneTouch Verio test strips Strip 1 Strip by See Admin Instructions route see administration instructions. 5 Active OneTouch Verio Flex meter 1 Each by See Admin Instructions route see administration instructions. 5 Active Farxiga 10 mg Tablet Take 10 mg by mouth daily. 5 Active Mounjaro 7.5 mg/0.5 mL Pen Injector Inject 7.5 mg by subcutaneous injection every 7 days. 5 026 Active Active Problems Patient Care Coordination No te Formatting of this note migh t be different from the original. Vascular Care - Dr. 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 05/01/2025 External Device Data STL ABSTRACTION Provider, Abstract 04/17/2025 11:15 AM CDT Office Visit [facility] - [address] [facility] [address] [place] [address] Prosper Law MD PAD (peripheral artery disease) (Primary Dx); Essential hypertension; Dyslipidemia 04/17/2025 9:58 AM CDT - 04/17/2025 11:59 PM CDT Hospital Encounter [facility] [address] [facility] [address] [place] [address] Prosper Law MD Discharge Disposition: Home or Self Care 04/05/2025 Abstract [facility] - [address] [facility] [address] [address] [facility] [address] [place] [address] Provider, Abstract 04/02/2025 External Device Data STL ABSTRACTION Provider, Abstract 03/12/2025 External Device Data STL ABSTRACTION Provider, Abstract [...] patch Alcohol Use Standard Drinks/Week Comments Yes 1 (1 standard drink = 0.6 oz pur e alcohol) Sex and Gender Information Value Date Recorded Sex Assigned at Not on file 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 Gender Identity Not on file Sexual Orientation Not on file Last Filed Vital Signs Vital Sign Reading Time Taken Comments Blood Pressure 100/67 04/17/2025 10:48 AM CDT Pulse 106 04/17/2025 10:48 AM CDT Temperature 36.7 C (98 F) 07/21/2020 9:47 AM MEDICAL OFFICE WORKER Respiratory Rate 19 07/21/2020 4:15 PM MEDICAL OFFICE WORKER Oxygen Saturation 98% 01/05/2024 10:54 AM CDT Inhaled Oxygen Concentration - - Weight 92.7 kg (204 lb 6.4 oz) 04/17/2025 10:46 AM CDT Height 174 cm (5' 8.5) 01/05/2024 10:54 AM CDT Body Mass Index 30.63 01/05/2024 10:54 AM CDT Plan of Treatment Upcoming Encounters Date Type Department Care Team (Late st Contact Info) Description 04/17/2026 11:15 AM CDT Appointment [facility] V[facility] Testing [facility] [address] [facility] [address] [place] [address] [place] [address] [facility] [address] [place] [address] Health Maintenance Due Date Last Done Comments DIABETES ANNUAL RETINAL EXAM 1972 DIABETES MICROALBUMIN ANNUAL SCREEN 1972 PNEUMOCOCCAL VACCINE 50+ YEA RS (1 of 2 - PCV) 1973 COLORECTAL SCREENING 10/23/1999 Colorectal Cancer Screening 10/23/1999 FIT-DNA Q 3 years 10/23/1999 FIT/FOBT Q 1 year 10/23/1999 Flex Sig/CT Colonography Q 5 years 10/23/1999 Lung Cancer Screening 2004 RSV VACCINE (60+ or ) (1 - Risk 50-74 years 1-dose series) 2004 ZOSTER VACCINE (1 of 2) 2004 Abdominal Aortic Aneurysm (A AA) Screening 10/23/2019 LDL CHOLESTEROL ANNUAL 11/14/2024 11/15/2023, 2021 INFLUENZA VACCINE (#1) 2025 DIABETES HBA1C Q 6 MONTHS 05/31/20252024, 12/22/2023, 04/06/2023, Additional history exists DIABETES ANNUAL FOOT EXAM 06/26/2025 06/26/2024 DTAP/TDAP/TD VACCINES (2 - T d or Tdap) 04/03/2031 04/03/2021 Medical Devices Implanted Type Area Coal Tower Operator Device Identifier Shelf Expiration Date Model / Serial / Lot Closure Perclose Proglide [id number] - [id number] Implanted:Qty : 1 on 07/21/2020 by Prosper Law MD at [facility] Closure Device N/A: Groin ANDRE- VASC DEVICE 04/09/2022 [id number] / / [id number] Procedures Procedure Name Priority Date/Time Associated Diagnosis Comments US ANKLE PRESSURE INDEX Routine 04/17/2025 10:25 AM CDT PAD (peripheral artery disease) LIPID PANEL Routine 11/15/2023 2:33 PM CDT from Last 3 Months or Most Recently Relevant to Health Maintenance Results * US ANKLE PRESSURE INDEX (04/17/2025 10:25 AM CDT) Anatomical Region Laterality Modality Lower Extremity Ultrasound 04/17/2025 9:[address] [facility] 04/17/2025 2:00 PM CDT [facility] V[facility] Testing GRACE Arterial Physiologic Evaluation Patient: Thanh Herrera Study ID: 1 Gender: M : 1955 Age: 69 Race: CAU Height Study Date: 04/17/2025 Weight: Access. #: [id number] *Referring Physician:* Prosper Law M.D. *Ordering Physician:* Prosper Law M.D. *Behavioral Scientist:Italo Garcia RVT, RVS Indications: PVD. Study data: Study status: Routine. Procedure: A vascular evaluation was performed. Ankle and brachial pressures were indexed and Doppler waveforms obtained at the ankle. GRACE. Ankle-brachial index. Birthdate: Patient birthdate: 1955. Age: Patient is 69year(s) old. Sex: gender: male. Study date: Study date: 04/17/2025. Study time: 09:59 AM. Location: Vascular laboratory. Patient status: Outpatient. Impressions 1. Borderline arterial insufficiency at rest, involving the right lower extremity. 2. Moderate arterial insufficiency at rest, involving the left lower extremity. 3. Doppler waveforms at the level of the right ankle are triphasic. 4. Doppler waveforms at the level of the left ankle are monophasic. Arterial evaluation findings: Right: 1. Right GRACE: 0.91. This is consistent with borderline arterial insufficiency at rest. 2. Continuous wave Doppler of the right leg vessels appears normally triphasic. 3. Right first digit pressure is borderline normal. 4. Digit photoplethysmography (PPG) is essentially normal on the right. Left: 1. Left GRACE: 0.72. This is consistent with moderate arterial insufficiency at rest. 2. Continuous wave Doppler of the left leg vessels is abnormal. 3. Left first digit pressure is within normal limits. 4. Digit photoplethysmography (PPG) is essentially normal on the left. Tables: Brachial pressures: +--------+--------+--------+ ! !Right !Left ! +--------+--------+--------+ !Systolic!144mm Hg!140mm Hg! +--------+--------+--------+ Ankle brachial indices: +----+----+-------+----+-----+-----+--------+---+----+------+-----+-----+----+ !R PT!R DP!R Toe !R PT!R DP !R Toe!Brachial!L !L DP!L Toe !L PT !L DP !L ! ! ! ! !inde!index!index! !PT ! ! !index!index!Toe ! ! ! ! !x ! ! ! ! ! ! ! ! !inde! ! ! ! ! ! ! ! ! ! ! ! ! !x ! +----+----+-------+----+-----+-----+--------+---+----+------+-----+-----+----+ !131 !112 !85mm Hg!0.91!0.78 !0.59 !144mm Hg!103!101 !86mm !0.72 !0.70 !0.6 ! ! ! ! ! ! ! ! ! ! !Hg ! ! ! ! +----+----+-------+----+-----+-----+--------+---+----+------+-----+-----+----+ *Pressures are expressed in mm Hg Prepared and Electronically Authenticated Alex Callejas [id number] Procedure Note Alex Callejas MD - 04/17/2025 [facility] GRACE Arterial Physiologic Evaluation Patient: Thanh Herrera Study ID: 1 Gender: M : 1955 Age: 69 Race: CAU Height Study Date: 04/17/2025 Weight: Access. #: [id number] *Referring Physician:* Prosper Reilly *Ordering Physician:* Prosper Law M.D. *Behavioral Scientist:* Barbara Garcia RVT, RVS Indications: PVD. Study data: Study status: Routine. Procedure: A vascular evaluationwas performed. Ankle and brachial pressures were indexed and Dopplerwaveforms obtained at the ankle. GRACE. Ankle-brachial index. Birthdate:Patient birthdate: 1955. Age: Patient is 69year(s) old. Sex: Birthgender: male. Study date: Study date: 04/17/2025. Study time: 09:59 AM.Location: Vascular laboratory. Patient status: Outpatient. Impressions 1. Borderline arterial insufficiency at rest, involving the right lower extremity. 2. Moderate arterial insufficiency at rest, involving the left lower extremity. 3. Doppler waveforms at the level of the right ankle are triphasic. 4. Doppler waveforms at the level of the left ankle are monophasic. Arterial evaluation findings: Right: 1. Right GRACE: 0.91. This is consistent with borderline arterialinsufficiency at rest. 2. Continuous wave Doppler of the right leg vessels appears normally triphasic. 3. Right first digit pressure is borderline normal. 4. Digit photoplethysmography (PPG) is essentially normal on the right. Left: 1. Left GRACE: 0.72. This is consistent with moderate arterial insufficiencyat rest. 2. Continuous wave Doppler of the left leg vessels is abnormal. 3. Left first digit pressure is within normal limits. 4. Digit photoplethysmography (PPG) is essentially normal on the left. Tables: Brachial pressures: +--------+--------+--------+ ! !Right !Left ! +--------+--------+--------+ !Systolic!144mm Hg!140mm Hg! +--------+--------+--------+ Ankle brachial indices: +----+----+-------+----+-----+-----+--------+---+----+------+-----+-----+----+ !R PT!R DP!R Toe !R PT!R DP !R Toe!Brachial!L !L DP!L Toe !L PT !L DP !L! ! ! ! !inde!index!index! !PT ! !!index!index!Toe ! ! ! ! !x ! ! ! ! ! ! ! !!inde! ! ! ! ! ! ! ! ! ! ! ! ! !x! +----+----+-------+----+-----+-----+--------+---+----+------+-----+-----+----+ !131 !112 !85mm Hg!0.91!0.78 !0.59 !144mm Hg!103!101 !86mm !0.72 !0.70!0.6 ! ! ! ! ! ! ! ! ! ! !Hg ! ! !! +----+----+-------+----+-----+-----+--------+---+----+------+-----+-----+----+ *Pressures are expressed in mm Hg Prepared and Electronically Authenticated Alex Callejas [id number] us Prosper Law MD ORDERABLES Final Result * LIPID PANEL (11/15/2023 2:33 PM CDT) Blood us Abstract Provider CHEMISTRY ORDERABLES Edited Re sult - Final from Last 3 Months or Most Recently Relevant to Health Maintenance Insurance [facility] Address: [address] [address] [employer] Medicare Part D Care Teams Public Health Aide Relationship Specialty Start Date End Date Lenin Hagen DO [address] [address] PCP - General Internal Medicine 01/04/25
--- OUTSIDE RECORDS SUMMARY | 2025-06-04 15:24 | XMS_ITS | Clinical Summary ---
Author Organization [facility] [address] [place] [id number] Care Team Providers Care Bus Person Name Role Phone Lenin Hagen DO Primary Care Provider [phone] Allergies No known active allergies Medications blood-glucose [...] daily 100 each 1 03/04/20 23 Active Mounjaro 7.5 mg/0.5 mL pen injector injectionIndic ations:type 2 diabetes mellitus Inject 0.5 mL (7.5 mg total) under the skin every 7 days 6 mL 3 11/29/19 25 026 Active glimepiride (AMARYL) 4 mg tabletIndicati ons:Type 2 diabetes mellitus with hyperglycemia, without long-term current use of insulin ([facility]) Take 1 tablet (4 mg total) by mouth 2 (two) times a day with meals 180 tablet 3 11/29/19 25 026 Active LANTUS 100 unit/mL (3 mL) pen for injectionIndic ations:Type 2 diabetes mellitus with hyperglycemia, without long-term current use of insulin ([facility]) Inject 30 Units under the skin daily 27 mL 3 11/29/19 25 026 Active Farxiga 10 mg tabletIndicati ons:type 2 diabetes mellitus Take 1 tablet (10 mg total) by mouth daily 90 tablet 3 11/29/19 25 026 Active OneTouch Delica Plus Lancet 30 gauge miscIndication s:Type 2 diabetes mellitus with hyperglycemia, without long-term current use of insulin ([facility]) 2 x daily 200 each 3 11/29/19 25 Active OneTouch Verio Flex meter miscIndication s:Type 2 diabetes mellitus with hyperglycemia, without long-term current use of insulin ([facility]) One glucometer 1 each 11/29/19 25 Active OneToClean PET Verio test strips stripIndicatio ns:Type 2 diabetes mellitus with hyperglycemia, without long-term current use of insulin ([facility]) Check 2 x daily 200 each 3 11/29/19 25 Active lisinopriL (PRINIVIL,ZEST RIL) 2.5 mg tabletIndicati ons:Hypertensi on associated with diabetes (HCC) TAKE 1 TABLET EVERY DAY 90 tablet 3 01/03/20 25 Active pen needle, diabetic (Droplet Pen Needle) 32 gauge x 5/32 needle USE DIRECTED EVERY DAY 100 each 3 04/30/20 25 Active blood-glucose sensor (Dexcom G7 Sensor) deviceIndicati ons:Type 2 diabetes mellitus with hyperglycemia, without long-term current use of insulin ([facility]) CHANGE SENSOR EVERY 10 DAYS DIRECTED 9 each 3 05/16/20 25 Active Dexcom G7 Sensor deviceIndicati ons:Type 2 diabetes mellitus with hyperglycemia, without long-term current use of insulin ([facility]) CHANGE SENSOR EVERY 10 DAYS 6 each 5 03/19/20 24 11/06/2 025 Discontinued Active Problems Problem Noted Date Diagnosed Date Class 1 obesity due to exces s calories with serious comorbidity and body mass index (BMI) of 30.0 to 30.9 in adult 03/27/2024 Assessment & Plan (07/08/2024 5:37 PM HOME [employer]): Chronic, worsening Discussed about healthy lifestyle habits [...] control Assessment & Plan (06/13/2022 9:34 AM HOME [employer]ORATION SERVICE [employer]ER): Chronic, stable Continue gabapentin therapy for symptomatic [...] control Assessment & Plan (09/10/2020 7:38 AM HOME [employer] SERVICE [employer]ER): Chronic, stable Continue gabapentin therapy for symptomatic management Continue to work on tighter glycemic control Assessment & Plan (06/11/2020 4:26 PM HOME [employer] SERVICE [employer]ER): Chronic, stable Continue gabapentin therapy for symptomatic [...] 01/05/2020 Assessment & Plan (07/08/2024 5:37 PM HOME [employer] SERV[employer]ER): Continue statin therapy Tolerating well Assessment & [...] well Assessment & Plan (06/13/2022 9:34 AM HOME [employer]OR[employer] SERVICE [employer]ER): Continue statin therapy Tolerating well Assessment & Plan (01/26/2022 2:52 PM CDT): Chronic problem. On statin therapy, no changes. Assessment & Plan (10/27/2021 3:23 PM CDT): Continue statin therapy Tolerating well Assessment & Plan (08/25/2021 2:46 PM HOME [employer] SERV[employer] CLE[employer]ER): Chronic problem. On statin therapy, no changes. Assessment & Plan (07/21/2021 1:42 PM HOME [employer] SERVICE [employer]ER): Continue statin therapy Tolerating well Reviewed recent labs , LDL at goal Assessment & Plan (04/29/2021 3:53 PM CDT): Continue statin therapy Tolerating well Assessment & Plan (12/15/2020 1:53 PM CDT): Continue statin therapy Tolerating well Assessment & Plan (09/10/2020 7:38 AM HOME [employer]ATION SERVICE [employer]ER): Continue statin therapy Tolerating well Assessment & Plan (06/11/2020 4:24 PM HOME [employer] SERVICE [employer]ER): Continue statin therapy Tolerating well Assessment & Plan (03/06/2020 10:28 PM CDT): Continue statin therapy Assessment & Plan (01/05/2020 9:25 PM CDT): Continue statin therapy Reviewed recent lipid panel Type 2 diabetes mellitus wit h hyperglycemia, without long-term current use of insulin 01/03/2020 Assessment & Plan (07/08/2024 5:39 PM HOME [employer]ER): Chronic, uncontrolled, slowly improving but still above [...] months Assessment & Plan (06/13/2022 9:35 AM HOME [employer] SERVICE CLE[employer]ER): Chronic, Out of control, worsening A1c 9.0 [...] me Assessment & Plan (08/25/2021 2:49 PM HOME [employer]ICE [employer]ER): Chronic problem, improving but not at goal. Reviewed diet and limiting simple sugar intake. Needs to not miss PM dose of glimepiride. Continue same medications at this time. Assessment & Plan (07/21/2021 1:44 PM HOME [employer] SERVICE CLE[employer]ER): Chronic, uncontrolled, severely worsening A1c today 11% [...] months Assessment & Plan (09/10/2020 7:40 AM HOME [employer]ORATION SERVICE CLE[employer]ER): Chronic, uncontrolled, worsening A1c today - 8.8 % Keep taking Trulicity 1.5 mg SQ weekly - start Glimepiride 2 mg oral twice daily with meals - check blood sugars before breakfast and dinner - call me with blood sugar log in 4 weeks - follow up in 3 months Assessment & Plan (06/11/2020 4:26 PM HOME [employer]ER): Chronic, improving with treatment A1c today - [...] type 2, - patho physiology, short and alf complications of uncontrolled DM, diet and exercise [...] 01/03/2020 Assessment & Plan (07/08/2024 5:37 PM HOME [employer]ER): Chronic, well controlled Continue lisinopril Assessment & [...] lisinopril Assessment & Plan (06/13/2022 9:34 AM HOME [employer]ATION SERVICE CLE[employer]ER): Chronic, well controlled Continue Volodymyr I Assessment & Plan (01/26/2022 2:51 PM CDT): Controlled on current medications, no changes. Assessment & Plan (10/27/2021 3:23 PM CDT): Chronic, well controlled Continue Volodymyr I Assessment & Plan (08/25/2021 2:46 PM HOME [employer] SERVICE [employer]ER): Controlled on current medications, no changes. Assessment & Plan (07/21/2021 1:42 PM HOME [employer] SERVICE CLE[employer]ER): Chronic, well controlled Continue Volodymyr I Assessment & Plan (04/29/2021 3:53 PM CDT): Chronic, well controlled Continue Volodymyr I Assessment & Plan (12/15/2020 1:52 PM CDT): Chronic, well controlled Continue Volodymyr I Assessment & Plan (09/10/2020 7:37 AM HOME [employer]ORATION SERVICE CLE[employer]ER): Chronic, well controlled Continue Volodymyr I Assessment & Plan (06/11/2020 4:24 PM HOME [employer]ORATION SERVICE CLE[employer]ER): Chronic, well controlled Continue Volodymyr I Assessment [...] exercise Assessment & Plan (06/13/2022 9:34 AM HOME [employer]ORATION SERVICE CLE[employer]ER): Chronic, above goal . 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): Chronic, improving slowly Discussed about healthy lifestyle [...] weekly Assessment & Plan (06/11/2020 4:26 PM HOME [employer]ATION SERVICE CLE[employer]ER): Chronic, worsening Discussed about healthy lifestyle habits [...] Encounters Date Type Department Care Team Description 05/15/2025 Telephone [facility] [address] [phone] Juanjose Cintron MD Comprehensive Orthotics 04/30/2025 Telephone [facility] [address] [address] Juanjose Cinrton MD Med Refill from Last 3 Months Surgical History Surgery Date Site/Laterality Comments HERNIA REPAIR FINGER SURGERY right hand finger sown back on in surgery AMPUTATION Right baby toe FOOT SURGERY Left COLONOSCOPY 03/02/2024 Medical History Medical History Date Comments Type 2 diabetes mellitus Hypertension Hyperlipidemia Family History Medical History Relation [...] on file 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 Gender Identity Not on file Sexual Orientation [...] Procedure Name Priority Date/Time Associated Diagnosis Comments COMPREHENSIVE METABOLIC PANEL Routine 12/04/2024 3:02 PM CDT Type 2 diabetes mellitus with hyperglycemia, without long-term current use of insulin (HCC) Hypertension associated with diabetes (HCC) Hyperlipidemia associated with type 2 diabetes mellitus (HCC) LIPID PANEL Routine 12/04/2024 3:02 PM CDT [...] - 59 Units/L EXTERNAL LAB SCRIBED eGFR >60 >=60 - NA EXTERNAL LAB Blood [...] MD LAB BLOOD ORDERABLES Final R esult [facility] [address] [address] Department [place] [address] from Last 3 Months or Most Recently Relevant to Health Maintenance Insurance [employer]IC[employer] PPO MEDICARE Member Subscriber Plan / Payer (Ef fective 2021-Present) Name:Thanh Herrera Member ID:[id number] Relation to Subscriber:Self Name:Thanh Herrera Subscriber ID:[id number] Payer ID:[id number] Group ID:Not on file Type:MEDICARE TRADITIONAL Address: [address] [address] [employer] MEDICARE PPO Care Teams Bus Person Relationship Specialty Start Date End Date Lenin Hagen DO PCP - General Internal Medicine 12/22/23
== END 2025-06-04 13:35 | disposition home or self-care (01) ==
DX: G61.82 Multifocal motor neuropathy (principal); G57.83 Other specified mononeuropathies of bilateral lower limbs
CPT/HCPCS: 95816; 95886; 95910

== ENCOUNTER 2025-06-19 15:24 | Outpatient (CLI) | payer MEDICARE, SELFPAY ==
--- NOTE | ~2025-06-19 | MR_ITS ---
EXAMINATION: MR lumbar spine wo con DATE: 06/19/2025 16:03 INDICATION: Right leg pain TECHNIQUE: Magnetic resonance imaging (MRI) of the lumbar spine was performed without intravenous contrast. Sequences included sagittal T2-weighted FSE, sagittal T2-weighted FS FSE, sagittal T1-weighted FSE, and axial T2-weighted FSE. COMPARISON: None FINDINGS: 7 degrees lumbar levocurvature. Sagittal alignment is normal. Vertebral body heights are normal. Bone marrow signal is normal. Moderate disc height loss at L2-L3 and mild disc height loss at T12-L1, L1-L2, L3-L4 and L4-L5. The conus medullaris terminates at L1. There is normal signal in the caudal spinal cord. Paravertebral soft tissues are unremarkable. The following disc levels are specifically discussed: T12-L1: The disc does not extend beyond the endplate margin. There is mild bilateral facet joint osteoarthritis. There is no neural foraminal stenosis. There is no central canal stenosis. L1-L2: Disc is minimally bulging. There is mild left and mild to moderate right facet joint osteoarthritis. There is old right and minimal left neural foraminal stenosis. There is no central canal stenosis. L2-L3: Disc is bulging. There is mild left and moderate right facet joint osteoarthritis. There is mild bilateral neural foraminal stenosis. There is mild central canal stenosis. L3-L4: Disc is bulging with annular fissure. There is mild left and mild to moderate right facet joint osteoarthritis. There is moderate right and mild to moderate left neural foraminal stenosis. There is mild to moderate central canal stenosis. L4-L5: Disc is bulging with annular fissure. There is severe bilateral facet joint osteoarthritis. There is moderate left and moderate to severe right neural foraminal stenosis. There is mild to moderate central canal stenosis. L5-S1: The disc does not extend beyond the endplate margin. There is mild bilateral facet joint osteoarthritis. There is mild left neural foraminal stenosis. There is no central canal stenosis. IMPRESSION: 1. Mild to moderate lumbar spondylosis. Reviewed, dictated and finalized at location A. UNLOADER
--- OUTSIDE RECORDS SUMMARY | 2025-06-19 20:27 | XMS_ITS | Clinical Summary ---
Author Organization [facility] Address [address] [place] [address] Care Team Providers Care [place] Name Role Phone Willis Major MD Primary Care Provider [phone] Source Comments [facility],non-owned Affiliates and Associated Physician Practices is amultiple site organization consisting of ambulatory clinics and hospital sitesin [place] and [place]. This disclosure is being madepursuant to the Care Everywhere program and may not contain all information available regarding this patient. 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, [place] [employer] MEDICARE ADV HMO & PPO Care Teams [place] Relationship Specialty Start Date End Date Willis Major MD [address] [place] [id number] PCP - General 08/16/22
== END 2025-06-19 15:25 | disposition home or self-care (01) ==
DX: M79.604 Pain in right leg (principal); M47.896 Other spondylosis, lumbar region
CPT/HCPCS: 72148